=== PATIENT | female | born 1945 | race Caucasian/White ===

== ENCOUNTER → 2017-09-30 13:45 | Outpatient (CLI) | payer MEDICARE, SELFPAY ==
--- NOTE | 2017-09-30 13:49 | RAD_ITS ---
STUDY: X-RAY - CERVICAL SPINE REASON FOR EXAM: Female, 72 years old. Neck pain and headaches for one month. TECHNIQUE: 2 view(s) of the cervical spine were obtained. COMPARISON: None FINDINGS: Reversal of the usual cervical lordosis. Normal craniovertebral alignment. Normal C1, C2 and odontoid alignment. Normal odontoid. Normal vertebral body height without a fracture deformity. Advanced degenerative disc and joint changes at C3-4, C4-5, C5-6 and C6-7. Posterior elements remain properly located. Carotid artery calcifications. RAD/Cerv Spine 2 or 3 Views IMPRESSION: Reversal of the usual cervical lordosis with otherwise normal alignment. Advanced degenerative disc and joint changes at C3-4, C4-5, C5-6 and C6-7. Electronically Signed: Becka Estrada MD at 22:18 EST , Service support ,
== END ==
PROVIDERS: Family Provider Family Medicine Geriatric Medicine; PCP Family Medicine Geriatric Medicine; Visit Provider Family Medicine Geriatric Medicine
DX: M54.2 Cervicalgia (principal)
CPT/HCPCS: 72040

== ENCOUNTER → 2017-11-20 11:42 | Outpatient (CLI) | payer MEDICARE, SELFPAY ==
--- NOTE | 2017-11-20 11:45 | BI_ITS ---
MAMMOGRAPHY - BILATERAL SCREENING REASON FOR EXAM: Female, 72 years old. Routine annual screening examination. PERTINENT HISTORY: Non-contributory. TECHNIQUE: Digital bilateral breast dru (3D mammographic acquisition) in the CC and MLO projections. 2-D mediolateral oblique (MLO) and craniocaudad (CC) views of both breasts were obtained. CAD: Full Field Digital Mammography with Computer Added Detection was performed. COMPARISON: Comparison is made with prior outside examination dated January 16, 2016. FINDINGS: Breast Composition: There are scattered areas of fibroglandular density. There are no dominant masses or suspicious calcifications. Stable vascular calcifications. No other significant abnormalities are identified. There has been no significant change since the prior study. BI/SCREENING MAMM (CAD), BILAT IMPRESSION: Stable bilateral screening mammogram. Yearly follow-up mammogram recommended. (A) ASSESSMENT CATEGORY: BIRADS Category 2: Benign. A letter regarding these results will be sent to the patient by the facility within 30 days. Approximately 10% of breast cancers are not detected by mammography. A normal mammogram should not delay biopsy of a clinically suspicious abnormality. [id number] Electronically Signed: Ricardo Pena MD at 13:10 EDT Tel [phone], Service support ,
== END ==
PROVIDERS: Family Provider Family Medicine Geriatric Medicine; PCP Family Medicine Geriatric Medicine; Visit Provider Nurse Practitioner Women's Health
DX: Z12.31 Encounter for screening mammogram for malignant neoplasm of breast (principal)
CPT/HCPCS: 77063; 77067

== ENCOUNTER → 2018-01-28 13:47 | Outpatient (CLI) | payer MEDICARE, SELFPAY | PROVIDERS: Family Provider Family Medicine Geriatric Medicine; PCP Family Medicine Geriatric Medicine; Visit Provider Family Medicine Geriatric Medicine | DX: R68.83 Chills (without fever) (principal) | CPT/HCPCS: 87633 ==

== ENCOUNTER → 2018-04-08 08:23 | Outpatient (CLI) | payer MEDICARE, SELFPAY ==
--- NOTE | 2018-04-08 | SKTAG_PTH ---
PATIENT: JEANCARLOS THURSTON LOC: [facility] U#:[id number] AGE/SX: 80/F ROOM: RE04/08/[address]: Dr. Kemi Talbot MD : 1945 BED: DIS: SPEC #: [id number] RECD: 04/08/18 17:34 STATUS: MISAEL VICTOR HUGO #: [id number] DESHAUN: 04/08/18 00:[address]: Kemi Talbot DEPT: SURGICAL PATHOLOGY RECD BY: Pavan Rodriguez ENTERED: 04/09/18 11:46 SP TYPE: SKIN TAG GAIL DR: Dr. Garrett Corrales MD Tissues: Skin appendage, NOS Procedures: Surgery Specimen Level III HEADER OPERATION: Skin tag removal PRE-OP DIAGNOSIS: Skin tag TISSUE SUBMITTED: Skin tag ? left buttocks MICROSCOPIC DIAGNOSIS Skin tag, left buttock, excision: Inflamed fibroepithelial polyp (skin tag) with focal hyperkeratosis and parakeratosis. SJ:kya 04/12/18 MICROSCOPIC DESCRIPTION Slides are reviewed. GROSS DESCRIPTION Received is one container labeled with the patient's name and not further designated. The specimen consists of a polypoid piece of danielle-white skin measuring 1 x 0.7 x 0.7 cm. The specimen is inked, bisected and submitted entirely in one cassette. / JENNIFER:kya 04/09/18 TC:5 CPT: 41386
== END ==
PROVIDERS: Family Provider Family Medicine Geriatric Medicine; PCP Family Medicine Geriatric Medicine; Visit Provider Obstetrics & Gynecology
DX: L91.8 Other hypertrophic disorders of the skin (principal)
CPT/HCPCS: 88304

== ENCOUNTER → 2018-07-01 14:40 | Outpatient (CLI) | payer MEDICARE, SELFPAY ==
--- NOTE | 2018-07-01 16:49 | CT_ITS ---
STUDY: CT ABDOMEN AND PELVIS WITH CONTRAST REASON FOR EXAM: Female, 73 years old. Right lower quadrant pain RADIATION DOSAGE (If Supplied By Facility): CTDIvol = ( 17.88 ) mGy, DLP = ( 1173.87 ) mGycm TECHNIQUE: Transaxial images were obtained from the dome of the diaphragm to the symphysis pubis without oral contrast. 100 ml of Isovue 300 contrast was administered. Sagittal and coronal images were reconstructed. Individualized dose optimization techniques were used for this CT. COMPARISON: February 16, 2015 FINDINGS: There is minor atelectasis within the dependent portion of the lungs greater on the left The visualized portions of the heart are within normal limits. Small hiatal hernia is present Normal liver. Gallbladder has been removed surgically. Normal spleen. Normal pancreas. Right adrenal is normal. There is a hypodense nodule in left adrenal measuring 3.14 x 2.41 cm likely benign. Normal right kidney. Normal left kidney. Normal visualized stomach. Normal small intestine. There is generalized submucosal thickening of the colon which may be consistent with nonspecific inflammatory bowel disease however there is no inflammatory stranding in the fat at this time There are diverticular changes of the descending and sigmoid colon without evidence for acute diverticulitis. Appendix not visualized consistent with appendectomy Minor atherosclerotic changes of the aorta without evidence for aneurysm. Normal inferior vena cava. Normal retroperitoneum. Incompletely distended diffusely thick-walled bladder likely of no significance. Normal abdominal wall. Lumbar spine demonstrates moderate spondylosis. CT/Abdomen/Pelvis WITH Contrast IMPRESSION: Findings consistent with nonspecific inflammatory bowel disease Diverticular disease of the sigmoid colon without evidence for acute diverticulitis Postsurgical changes status post cholecystectomy and appendectomy. Electronically Signed: Surendra Dover MD at 22:37 EST , Service support ,
[2018-07-01 17:47] LABS: Absolute Lymphocyte Count 2.37 X10^3/ul (0.83-4.51); Absolute Neutrophil Count 15.2 X10^3/uL (2.0-7.7); Basophil# 0.04 X10^3/uL; Basophil% 0.2 % (0-1); Eosinophil# 0.34 X10^3/uL; Eosinophils% 1.8 % (0-5); Hematocrit 41.9 % (37-47); Hemoglobin 13.2 g/dl (12.0-15.0); Lymphocyte # 2.37 X10^3/ul (4.0); Lymphocyte % 12.5 % (19-41); Mean Corp Hgb Conc 31.5 g/gl (32-36); Mean Corpuscular Hgb 28.3 pg (27.0-32.0); Mean Corpuscular Volume 89.7 fL (81-99); Mean Platelet Vol. 11.3 fl (6.2-12.0); Monocyte# 0.97 X10^3/uL; Monocyte% 5.1 % (0-10); Neutrophil # 15.17 X10^3/uL (2.7-7.7); POSITIVE COUNT NO; POSITIVE DIFFERENTIAL NO; POSITIVE MORPHOLOGY NO; Platelet Count 351 K/mm3 (150-450); RBC Distribution Width CV 15.7 % (11.6-14.6); RBC Distribution Width SD 51.3 fl (35.1-43.9); Red Blood Count 4.67 M/mm3 (4.2-5.4)
[2018-07-01 17:55] LABS: AST(SGOT) 31 U/L (15-37); Alanine Aminotransfer ALT/SGPT 34 U/L (13-56); Albumin, Serum 3.8 g/dL (3.2-5.0); Alkaline Phosphatase 73 U/L (45-117); Anion Gap 12 (5-15); BUN 20 mg/dL (7-18); BUN/Creat Ratio 16.1 RATIO (10-20); Calcium,Total 9.2 mg/dL (8.5-10.1); Chloride 98 mmol/L (98-107); Creatinine, Serum 1.24 mg/dL (0.55-1.02); EST Glomerular Filtration Rate 45 mL/min (>60); Est Glom Filt Rate - Afr Amer 55 mL/min (>60); Globulin 3.7 g/dL (2.2-4.2); Glucose 103 mg/dL (74-106); Potassium 3.7 mmol/L (3.5-5.1); Protein, Total 7.5 g/dL (6.4-8.2); Sodium Level 137 mmol/L (136-145)
--- OUTSIDE RECORDS SUMMARY | 2018-08-26 20:21 | XMS RPT_ITS ---
:1945 Author Organization OHIP Support Name Relationship Address Phone EDDIE FELICIANO Unavailable [address] + [place] [address] R Unavailable Unavailable Unavailable EDDIE FELICIANO Unavailable [address] + [place] [address] R Unavailable Unavailable Unavailable EDDIE FELICIANO Unavailable [address] + [place] [address] R Unavailable Unavailable Unavailable EDDIE FELICINAO Unavailable [address] + [place] [address] R Unavailable Unavailable Unavailable EDDIE FELICIANO Unavailable [address] + [place] [address] R Unavailable Unavailable Unavailable EDDIE FELICIANO Unavailable [address] + [place] [address] R Unavailable Unavailable Unavailable EDDIE FELICIANO Unavailable [address] + [place] [address] R Unavailable Unavailable Unavailable EDDIE FELICIANO Unavailable Unavailable + EDDIE FELICIANO Unavailable Unavailable + EDDIE FELICIANO Unavailable [address] + [place] [address] R Unavailable Unavailable Unavailable EDDIE FELICIANO Unavailable [address] + [place] [address] R Unavailable Unavailable Unavailable EDDIE FELICIANO Unavailable [address] + [place] [address] R Unavailable Unavailable Unavailable Care Team Providers Name Role Phone SOLANGE NOEL MD Attending Unavailable MARIA DEL CARMEN HOPE, DR. AVILA Primary Care Unavailable Nisula, Molly Attending Unavailable Maria Del Carmen, Garrett Chi Referring Unavailable Maria Del Carmen, Garrett Chi Primary Care Unavailable Maria Del Carmen, Garrett Chi Attending Unavailable Maria Del Carmen, Garrett Chi Referring Unavailable Maria Del Carmen, Garrett Chi Primary Care Unavailable Johnna Kuo Attending Unavailable Nisula, Johnna Referring Unavailable Maria Del Carmen, Garrett Chi Primary Care Unavailable RoneychevySolange Jovany Attending Unavailable Maria Del Carmen, Garrett Chi Primary Care Unavailable Ayaan Johnna Attending Unavailable Maria Del Carmen, Garrett Chi Referring Unavailable Maria Del Carmen, Garrett Chi Primary Care Unavailable Maria Del Carmen, Garrett Chi Attending Unavailable Maria Del Carmen, Garrett Chi Referring Unavailable Maria Del Carmen, Garrett Chi Primary Care Unavailable Kemi Talbot Attending Unavailable Maria Del Carmen, Garrett Chi Primary Care Unavailable Maria Del Carmen, Garrett Chi Attending Unavailable Maria Del Carmen, Garrett Chi Primary Care Unavailable Maria Del Carmen, Garrett Chi Referring Unavailable Maria Del Carmen, Garrett Chi Attending Unavailable Maria Del Carmen, Garrett Chi Primary Care Unavailable Maria Del Carmen, Garrett Chi Attending Unavailable Maria Del Carmen, Garrett Chi Primary Care Unavailable Maria Del Carmen, Garrett Chi Referring Unavailable PROBLEMS PROBLEMS DATE TYPE CONDITION / CODE ATTENDING STATUS SOURCE 07/12/2018 Unknown R19.7 - Diarrhea, Maria Del Carmen, Garrett Chi Active [place] unspecified / Community R19.7(ICD-10) Hospital Repository 07/09/2018 Unknown R10.9 - Unspecified Maria Del Carmen, Garrett Chi [facility] [place] abdominal pain / Community R10.9(ICD-10) Hospital Repository 04/29/2018 Unknown E55.9 - Vitamin D Maria Del Carmen, Garrett Chi Active [place] deficiency, Community unspecified / Hospital E55.9(ICD-10) Repository 04/29/2018 Unknown I10 - Essential Maria Del Carmen, Garrett Chi Active [place] (primary) Community hypertension / Hospital I10(ICD-10) Repository 09/30/2017 Unknown M54.2 - Cervicalgia Maria Del Carmen, Garrett Chi [facility] [place] / M54.2(ICD-10) [facility] Hospital Repository 09/02/2017 Unknown Z12.31 - Encounter Johnna Kuo Active [place] for screening [facility] mammogram for Hospital malignant neoplasm Repository of breast / Z12.31(ICD-10) 09/02/2017 Unknown Z01.419 - Encounter AyaanJohnna ingram Active [place] for gynecological [facility] examination Hospital (general) (routine) Repository without abnormal findings / Z01.419(ICD-10) PROCEDURES PROCEDURES No Procedure Records FoundRESULTS RESULTS STOOL Observed: 07/12/2018 Status: F Source: [place] LACTOFERRIN/WBC 1:45 PM [facility] REPOSITORY PATIENT TO RETURN WITH O AND P; PATIENT WAS NOT GIVEN THE O AND P COLLECTION KIT IN THE OFFICE PER PATIENT. Stool Lacto/WBC Normal Reference Range = Negative Fecal WBC Lactoferrin Positive: Fecal WBC Lactoferrin present Performed By: #### M100.0605, M100.7900, M100.6796, M100.637 #### [facility] [address]. [place], [place], [id number] Observed: 07/12/2018 Status: F Source: [place] STOOL OCCULT BLOOD 1:45 PM [facility] REPOSITORY PATIENT TO RETURN WITH O AND P; PATIENT WAS NOT GIVEN THE O AND P COLLECTION KIT IN THE OFFICE PER PATIENT. STOB iFOB Occult Blood Negative Performed By: #### M100.0605, M100.7900, M100.6796, M100.637 #### [facility] [address] [place], [address] Observed: 07/12/2018 Status: F Source: [place] CDIFF (MOLECULAR) 1:45 PM [facility] REPOSITORY PATIENT TO RETURN WITH O AND P; PATIENT WAS NOT GIVEN THE O AND P COLLECTION KIT IN THE OFFICE PER PATIENT. Cdiff-Molecular Normal Reference Range = Negative C. Diff DNA Negative- No toxigenic C. Diff DNA Detected NAAT METHOD Testing was performed using nucleic acid amplification Performed By: #### M100.0605, M100.7900, M100.6796, M100.637 #### [facility] [address]. [place], [place], [id number] Observed: 07/12/2018 Status: F Source: [place] ENTERIC PATHOGEN 1:45 PM [facility] PANEL STOOL REPOSITORY PATIENT TO RETURN WITH O AND P; PATIENT WAS NOT GIVEN THE O AND P COLLECTION KIT IN THE OFFICE PER PATIENT. EP PANEL STOOL Normal Reference Range = Not Detected Not detected for Campylobacter group, Salmonella species, Shigella species, Vibrio Group, Yersinia enterocolitica, EHEC (Shiga Toxin 1, Shiga Toxin 2), Norovirus Gl/Gll, and Rotavirus A. Other common stool pathogens are not detected on this panel include: Aeromonas/Plesiomonas or parasites. Order testing for these organisms separately if suspected. This is an amplified DNA test which makes it both specific and sensitive. CAMPYLOBACTER Not Detected Salmonella Not Detected Shigella sp. Not Detected Shiga Toxin Not Detected Yersinia Not Detected VIBRIO Not Detected Norovirus Not Detected Rotavirus Not Detected Performed By: #### M100.0605, M100.7900, M100.6796, M100.637 #### [facility] [address] [place], [address] MANAGER UNION OFFICE VISIT Observed: 07/07/2018 Status: F Source: [place] REPORT 8:44 AM [facility] REPOSITORY [facility] [address] [place] [place] [address] OFFICE VISIT Date of Service: 09/02/17 MR#: [id number] Acct: [id number] Name: JEANCARLOS THURSTON Rep #: [id number] : 1945 Provider: GUERLINE Kuo Age/Sex: 72/F Location: [facility] Status: Signed with Addenda ADDENDUM by GUERLINE Kuo on 07/07/18 at 0844 Addendum entered and electronically signed by ERICKA Gustafson 07/07/18 08:44: Rectal exam was deferred. No masses palpated Assessment AND Plan Problems 1. Encounter for gynecological examination without abnormal finding Z01.419 2. 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) Chief Complaint: est annual Iron Cutter Required: No Is patient in pain?: No Allergies STEROIDS Allergy (Uncoded 09/02/17 11:07) Chest tightness Medications Calcium Carb/Vitamin D [Caltrate-600 With Vit D Tab] 1 tab PO BIDCM 06/10/13 [History Confirmed 09/02/17] Omeprazole [Prilosec] 20 mg PO DAILY 06/10/13 [History Confirmed 09/02/17] Simvastatin [Zocor] 80 mg PO QHS 06/10/13 [History Confirmed 09/02/17] Gabapentin [Neurontin] 300 mg PO BIDCM 04/09/16 [History Confirmed 09/02/17] Potassium 99 mg PO DAILY 04/09/16 [History Confirmed 09/02/17] Is last menstrual period known: No Post menopausal: Yes Patient : No : No PFSH Medical History Depression (Acute) Thyroid disorder (Acute) Surgical History History of appendectomy (Acute) History of tonsillectomy and adenoidectomy (Acute) femur surgery (Acute) gallbladder surgery (Acute) knee replacement (Acute) Family History Father Myocardial infarction Social History Smoking Status: Never smoker alcohol intake: never substance use type: does not use caffeine: Yes frequency: 1-2 times per week seatbelt use: always do you feel safe at home: Yes additional social history: Pregancy History 4 Elective abortions Hx Para 3 Spontaneous abortions Past Pregnancies Del. 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 Last mammogram: 2017 History of abnormal mammogram: benign biopsy Colon cancer screening: up to date Female Reproductive History Questions: Metorrhagia: No, Sexually active: No, Dyspareunia: No, PCB: No Menopausal Treatment: No HRT ROS Const Constitutional: Denies fatigue, weight gain or weight loss Cardio Card: Denies chest pain Resp Resp: Denies cough or shortness of breath with activity GI GI: Denies abdominal pain, constipation, change in stools, vomiting or bloating : Reports as per HPI; denies urinary frequency, pelvic pain, urinary urgency, vaginal discharge, vaginal itching, urinary incontinence or difficulty urinating Exam Const General: cooperative, healthy appearing, no acute distress, well developed Orientation: alert, oriented to person, oriented to place HENMN Head: normal to inspection Neck Neck: normal visual inspection Thyroid: thyroid normal Lymphatic: no lymphadenopathy noted Chest Breast inspection: normal inspection of the breasts, normal inspection of the axillae Breast palpation: normal palpation of the breasts, normal palpation of the axillae, no axillary lymphadenopathy Resp Effort AND Inspection: normal respiratory effort GI Palpation: soft, nontender, no masses Rectal Exam: mass, deferred External Female Exam: normal external appearance, normal appearance of the urethra Urethra: normal appearance of the urethra, normal palpation Speculum Exam - Vagina: normal appearance of the vagina, normal vaginal discharge Speculum Exam - Cervix: normal appearance of the cervix (stenotic) Bimanual Exam- Vagina AND Uterus: normal bimanual exam, uterine size normal, uterine shape normal, uterus non-tender Bimanual Exam- Adnexa, other: normal adnexae, no adnexal masses, adnexae non-tender, pelvic support normal Pelvic Support: normal Neuro General: alert, oriented x3 Psych Affect: normal affect Assessment AND Plan Problems 1. Encounter for gynecological examination without abnormal finding Z01.419 2. Encounter for screening mammogram for malignant neoplasm of breast Z12.31 Orders Orders: Coding Level of Care Code Pelvic/Breast Diagnoses Encounter for gynecological examination without abnormal finding Z01.419 Gynecological examination findings: abnormal findings ABSENT Encounter for screening mammogram for malignant neoplasm of breast Z12.31 09/02/17 1143 <Electronically signed by Johnna BARNETT> Date Johnna LEWISC Cosigner Signature: Date (if applicable) CC: CBC W/DIFF, AUTOMATED Collected: 07/05/2018 Status: F Source: [place] 11:16 AM [facility] REPOSITORY TYPE CODE TESTS RESULT OUT OF RANGE REFERENCE UNITS LAB L100.1000 4.4-11.0 K/mm3 High WBC 11.1 LAB L100.1200 4.2-5.4 M/mm3 Normal RBC 4.65 LAB L100.1300 12.0-15.0 g/dl Normal HGB 13.0 LAB L100.1400 37-47 % Normal HCT 41.1 LAB L100.1500 81-99 fL Normal MCV 88.4 LAB L100.1600 27.0-32.0 pg Normal MCH 28.0 LAB L100.1700 32-36 g/gl Low MCHC 31.6 LAB L100.1810 11.6-14.6 % High RDW CV 15.4 LAB L100.1820 35.1-43.9 fl High RDW SD 49.7 LAB L100.1900 150-450 K/mm3 Normal PLT 318 LAB L100.2000 6.2-12.0 fl Normal MPV 10.6 LAB L100.2100 47-70 % High NEUT% 75.9 LAB L100.2200 19-41 % Low LY% 13.3 LAB L100.2300 0-10 % Normal MONO% 7.2 LAB L100.2400 0-5 % Normal EO% 2.8 LAB L100.2500 0-1 % Normal BASO% 0.5 LAB L100.2550 0.0-0.9 % Normal IM GRAN % 0.300 Result Comment: IG% - Immature Granulocytes (promyelocytes, myelocytes and metamyelocytes) > 1% indicates that a LEFT SHIFT is Present. LAB L100.2620 2.0-7.7 X10 3/uL High Absolute Neut 8.4 LAB L100.2720 0.83-4.51 X10 3/ul Normal Absolute Lymph 1.47 Performed By: #### L100.0100 #### [facility] [address] [place], [place], [address] VITAMIN D,25 HYDROXY Collected: 07/05/2018 Status: F Source: [place] 11:16 AM [facility] REPOSITORY TYPE CODE TESTS RESULT OUT OF REFERENCE UNITS RANGE LAB L506.1000 29.95-100.01 ng/mL Low Vitamin D 24.9 25-OH Result Comment: Vitamin D 25(OH) Status Range Deficiency <20 ng/mL (50nmol/L) Insuffciency 20 - 30 ng/mL (50 - 75 nmol/L) Sufficiency 30 - 100 ng/mL (75 - 250 nmol/L) Toxicity >100 ng/mL (>250 nmol/L) Performed By: #### L506.1000 #### [facility] [address] [facility] [place], [address] COMPREHENSIVE METABOLIC Collected: 07/05/2018 Status: F Source: [place] PATEL 11:16 AM [facility] REPOSITORY TYPE CODE TESTS RESULT OUT OF RANGE REFERENCE UNITS LAB L501.0100 74-106 mg/dL Normal GLU 102 Result Comment: Fasting Glucose result from 100 to 125 mg/dL suggests IMPAIRED HOMEOSTASIS per A.D.A. criteria. Please note revised GLUCOSE reference range effective 2017. LAB L501.1000 7-18 mg/dL Normal BUN 15 LAB L501.1100 0.55-1.02 mg/dL Normal CREAT,SERUM 0.86 Result Comment: The validity of the calculated GFR AND GFRAA in patients over 70 years has not been determined. Clinical correlation is essential. LAB L501.1110 >60 mL/min Normal EST GFR 69 Result Comment: Non- GFR Calc LAB L501.1115 >60 mL/min Normal EST GFR - AA 83 Result Comment: GFR Calc LAB L501.1300 10-20 RATIO Normal BUN/CRE 17.5 LAB L501.1500 6.4-8.2 g/dL T Normal PROT 7.0 LAB L501.1800 3.2-5.0 g/dL Normal ALB 3.5 LAB L501.1950 2.2-4.2 g/dL Normal GLOB 3.5 LAB L501.2000 0.9-2.4 RATIO Normal A/G 1.0 LAB L501.2200 8.5-10.1 mg/dL CA Normal 8.6 LAB L501.4100 15-37 U/L Normal AST 31 LAB L501.4305 45-117 U/L Normal ALK P 67 LAB L501.4405 13-56 U/L Normal ALT 29 LAB L501.4600 0.20-1.00 mg/dL T Normal BILI 1.00 LAB L501.5300 136-145 mmol/L NA Normal 138 LAB L501.5600 3.5-5.1 mmol/L Low K 3.3 LAB L501.5900 98-107 mmol/L CL Normal 100 LAB L501.6100 21.0-32.0 mmol/L Normal CO2 30.0 LAB L501.6200 5-15 Normal GAP 8 Performed By: #### L500.4050, L501.9520 #### [facility] [address] [place], [address] THYROID STIM HORMONE Collected: 07/05/2018 Status: F Source: [place] (TSH) 11:16 AM [facility] REPOSITORY TYPE CODE TESTS RESULT OUT OF RANGE REFERENCE UNITS LAB L501.9520 0.358-3.74 uIU/mL High TSH 33.10 Performed By: #### L500.4050, L501.9520 #### [facility] [address] [place], [address] ABDOMEN/PELVIS WITH Observed: 07/01/2018 Status: F Source: [place] CONTRAST 4:49 PM [facility] REPOSITORY [facility] Imaging Services [address] [address] Abdomen/Pelvis WITH Contrast MR#: [id number] Acct: [id number] Name: JEANCARLOS THURSTON Rep #: [id number] : 1945 F 73 From: Surendra Dover MD PCP: Garertt Corrales MD, [place] Status: REG CLI Study: Abdomen/Pelvis WITH Contrast Date of Exam: 07/01/18 Exam# [id number] Ordering Dr: Garrett Corrales MD STUDY: CT ABDOMEN AND PELVIS WITH CONTRAST REASON FOR EXAM: Female, 73 years old. Right lower quadrant pain RADIATION DOSAGE (If Supplied By Facility): CTDIvol = ( 17.88 ) mGy, DLP = ( 1173.87 ) mGycm TECHNIQUE: Transaxial images were obtained from the dome of the diaphragm to the symphysis pubis without oral contrast. 100 ml of Isovue 300 contrast was administered. Sagittal and coronal images were reconstructed. Individualized dose optimization techniques were used for this CT. COMPARISON: February 16, 2015 FINDINGS: There is minor atelectasis within the dependent portion of the lungs greater on the left The visualized portions of the heart are within normal limits. Small hiatal hernia is present Normal liver. Gallbladder has been removed surgically. Normal spleen. Normal pancreas. Right adrenal is normal. There is a hypodense nodule in left adrenal measuring 3.14 x 2.41 cm likely benign. Normal right kidney. Normal left kidney. Normal visualized stomach. Normal small intestine. There is generalized submucosal thickening of the colon which may be consistent with nonspecific inflammatory bowel disease however there is no inflammatory stranding in the fat at this time There are diverticular changes of the descending and sigmoid colon without evidence for acute diverticulitis. Appendix not visualized consistent with appendectomy Minor atherosclerotic changes of the aorta without evidence for aneurysm. Normal inferior vena cava. Normal retroperitoneum. Incompletely distended diffusely thick-walled bladder likely of no significance. Normal abdominal wall. Lumbar spine demonstrates moderate spondylosis. CT/Abdomen/Pelvis WITH Contrast IMPRESSION: Findings consistent with nonspecific inflammatory bowel disease Diverticular disease of the sigmoid colon without evidence for acute diverticulitis Postsurgical changes status post cholecystectomy and appendectomy. Electronically Signed: Surendra Dover MD at 22:37 EST , Service support , CC: Garrett Corrales MD [employer] Supervisor: Signed CBC W/DIFF, AUTOMATED Collected: 07/01/2018 Status: F Source: [place] 2:49 PM [facility] REPOSITORY TYPE CODE TESTS RESULT OUT OF RANGE REFERENCE UNITS LAB L100.1000 4.4-11.0 K/mm3 High WBC 19.0 LAB L100.1200 4.2-5.4 M/mm3 Normal RBC 4.67 LAB L100.1300 12.0-15.0 g/dl Normal HGB 13.2 LAB L100.1400 37-47 % Normal HCT 41.9 LAB L100.1500 81-99 fL Normal MCV 89.7 LAB L100.1600 27.0-32.0 pg Normal MCH 28.3 LAB L100.1700 32-36 g/gl Low MCHC 31.5 LAB L100.1810 11.6-14.6 % High RDW CV 15.7 LAB L100.1820 35.1-43.9 fl High RDW SD 51.3 LAB L100.1900 150-450 K/mm3 Normal PLT 351 LAB L100.2000 6.2-12.0 fl Normal MPV 11.3 LAB L100.2100 47-70 % High NEUT% 80.0 LAB L100.2200 19-41 % Low LY% 12.5 LAB L100.2300 0-10 % Normal MONO% 5.1 LAB L100.2400 0-5 % Normal EO% 1.8 LAB L100.2500 0-1 % Normal BASO% 0.2 LAB L100.2550 0.0-0.9 % Normal IM GRAN % 0.400 Result Comment: IG% - Immature Granulocytes (promyelocytes, myelocytes and metamyelocytes) > 1% indicates that a LEFT SHIFT is Present. LAB L100.2620 2.0-7.7 X10 3/uL High Absolute Neut 15.2 LAB L100.2720 0.83-4.51 X10 3/ul Normal Absolute Lymph 2.37 Performed By: #### L100.0100 #### [facility] [address] [place], [address] COMPREHENSIVE METABOLIC Collected: 07/01/2018 Status: F Source: [facility] 2:49 PM [facility] REPOSITORY TYPE CODE TESTS RESULT OUT OF RANGE REFERENCE UNITS LAB L501.0100 74-106 mg/dL Normal GLU 103 Result Comment: Fasting Glucose result from 100 to 125 mg/dL suggests IMPAIRED HOMEOSTASIS per A.D.A. criteria. Please note revised GLUCOSE reference range effective 2017. LAB L501.1000 7-18 mg/dL High BUN 20 LAB L501.1100 0.55-1.02 mg/dL High CREAT,SERUM 1.24 Result Comment: The validity of the calculated GFR AND GFRAA in patients over 70 years has not been determined. Clinical correlation is essential. LAB L501.1110 >60 mL/min Low EST GFR 45 Result Comment: Non- GFR Calc LAB L501.1115 >60 mL/min Low EST GFR - AA 55 Result Comment: GFR Calc LAB L501.1300 10-20 RATIO Normal BUN/CRE 16.1 LAB L501.1500 6.4-8.2 g/dL T Normal PROT 7.5 LAB L501.1800 3.2-5.0 g/dL Normal ALB 3.8 LAB L501.1950 2.2-4.2 g/dL Normal GLOB 3.7 LAB L501.2000 0.9-2.4 RATIO Normal A/G 1.0 LAB L501.2200 8.5-10.1 mg/dL CA Normal 9.2 LAB L501.4100 15-37 U/L Normal AST 31 LAB L501.4305 45-117 U/L Normal ALK P 73 LAB L501.4405 13-56 U/L Normal ALT 34 LAB L501.4600 0.20-1.00 mg/dL High T BILI 1.20 LAB L501.5300 136-145 mmol/L NA Normal 137 LAB L501.5600 3.5-5.1 mmol/L K Normal 3.7 LAB L501.5900 98-107 mmol/L CL Normal 98 LAB L501.6100 21.0-32.0 mmol/L Normal CO2 27.0 LAB L501.6200 5-15 Normal GAP 12 Performed By: #### L500.4050 #### [facility] [address] [place], [address] Observed: 07/01/2018 Status: F Source: [place] CULTURE, URINE 2:49 PM [facility] REPOSITORY Urine Culture ORGANISM 1: Staphylococcus aureus [place] Count 25,000-50,000 ORGANISM 2: Streptococcus agalactiae (B) [place] Count 25,000-50,000 Staphylococcus aureus: REACTION Benzylpenicillin NF 0.25 R Cefoxitin *NF - Inducable Clindamycin [place] - Gentamicin $ <=0.5 S Levofloxacin $ 0.25 S Linezolid $$$$ 2 S Moxifloxicin *NF <=0.25 S Nitrofurantoin $ <=16 S Oxacillin NF 0.5 S Rifampin $$ <=0.5 S Tetracycline NF <=1 S Trimethoprim/Sulfametho $ <=10 S Vancomycin $ 1 S (NF) indicates non-formulary drug at [facility]. Approval by Infectious Disease Specialist required before non-formulary drugs may be ordered and/or dispensed. * CLSI guidelines does not recommend testing of cephalosporins. This interpretation is deduced from Beta-lactam/penicillin results. Streptococcus agalactiae (B): REACTION Ampicillin $ <=0.25 S Benzylpenicillin NF <=0.12 S Linezolid $$$$ 1 S Vancomycin $ 0.5 S (NF) indicates non-formulary drug at [facility]. Approval by Infectious Disease Specialist required before non-formulary drugs may be ordered and/or dispensed. * CLSI guidelines does not recommend testing of cephalosporins. This interpretation is deduced from Beta-lactam/penicillin results. Performed By: #### M100.0650 #### [facility] [address] [place], [address] MANAGER UNION OFFICE VISIT Observed: 04/19/2018 Status: F Source: [place] REPORT 3:13 PM [facility] REPOSITORY [facility] [address] [place] [address] OFFICE VISIT Date of Service: 04/08/18 MR#: [id number] Acct: [id number] Name: JEANCARLOS THURSTON Rep #: [id number] : 1945 Provider: GUERLINE Kuo Age/Sex: 72/F Location: [facility] Status: Signed Intake Vital Signs04/08/18 Height 5 ft 1 in 04/08/18 Weight: 195 lb 2 oz 04/08/18 Body Mass Index (BMI) 36.8 04/08/18 Blood Pressure 124/64 Intake Visit Reasons: vaginal lump Iron Cutter Required: No Is patient in pain?: No Allergies STEROIDS Allergy (Uncoded 04/08/18 11:56) Chest tightness Medications Calcium Carb/Vitamin D [Caltrate-600 With Vit D Tab] 1 tab PO BIDCM 06/10/13 [History Confirmed 04/08/18] Omeprazole [Prilosec] 20 mg PO DAILY 06/10/13 [History Confirmed 04/08/18] Simvastatin [Zocor] 80 mg PO QHS 06/10/13 [History Confirmed 04/08/18] Potassium 99 mg PO DAILY 04/09/16 [History Confirmed 04/08/18] lutein 10 mg tablet 10 mg PO DAILY 04/08/18 [History Confirmed 04/08/18] pregabalin 75 mg capsule 75 mg PO BID 04/08/18 [History Confirmed 04/08/18] Is last menstrual period known: No Post menopausal: Yes Patient : No : No [facility] Medical History Depression (Acute) Thyroid disorder (Acute) Surgical History History of appendectomy (Acute) History of tonsillectomy and adenoidectomy (Acute) femur surgery (Acute) gallbladder surgery (Acute) knee replacement (Acute) Family History Father Myocardial infarction Social History Smoking Status: Never smoker alcohol intake: never substance use type: does not use caffeine: Yes frequency: 1-2 times per week seatbelt use: always do you feel safe at home: Yes additional social history: HPI vaginal lump: Details: JEANCALROS THURSTON is a 72 year old who presents for irritated lump near left labia that is being rubbed or caught on underclothes. Pregancy History 4 Elective abortions Hx Para 3 Spontaneous abortions Past Pregnancies Del. DateName GA/Weeks Outcome Route Bth WeighInfant GeLabor LgtAnesthesiDel LocatProvider FOB t n h a n Exam External Female Exam: other (1cm skin tag with thin stalk inner upper left buttocks-remove per POLLO) Office Procedures Skin Tag Provider Documentation Details:: left buttox prepped with betadine and base injected with lidocaine and base cut with scissors and silver nitrate used to obtain hemostasis Alert Stock Clerk Alert Billing: Yes Skin Tag Skin Ta 1-15 Assessment AND Plan Problems 1. Skin tag of perianal region K64.4 Plan - ERICKA Gustafson Keep area clean and dry. Wear lose clothing. Call if symptoms infection occur RTO prn, annual exam Orders Orders: Coding Diagnoses Skin tag of perianal region K64.4 04/19/18 1513 <Electronically signed by Johnna BARNETT> Date Johnna BARNETT 04/08/18 1651<Electronically signed by Kemi Talbot MD> Cosigner Signature: Date (if applicable) Kemi Talbot MD CC: SKIN TAG Observed: 04/08/2018 Status: F Source: [place] 12:00 AM [facility] REPOSITORY Patient: JEANCARLOS THURSTON : 1945 (72/F) Acct Num: [id number] Phys: Kemi Talbot MD Unit Num: [id number] Loc: LABSPEC Specimen: [id number] Received: 04/08/181733 Spec Type: SKIN TAG TISSUES TISSUES: Skin appendage, NOS GROSS DESCRIPTION Received is one container labeled with the patient's name and not further designated. The specimen consists of a polypoid piece of danielle-white skin measuring 1 x 0.7 x 0.7 cm. The specimen is inked, bisected and submitted entirely in one cassette. / SJ:kya 04/09/18 TC:5 CPT: 09261 HEADER OPERATION: Skin tag removal PRE-OP DIAGNOSIS: Skin tag TISSUE SUBMITTED: Skin tag left buttocks MICROSCOPIC DESCRIPTION Slides are reviewed. 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 SJ:kya 04/12/18 Signed Cain Schumacher 04/12/18 <signature on file> Performed By: #### PSKTAG #### [facility] [address] [place], [address] Observed: 01/28/2018 Status: F Source: [place] RESPIRATORY PANEL 3:55 PM [facility] MOLECULAR REPOSITORY Results called on 01/29/18-0919 by DCACIRAON to /NURSE LINE [phone]. RP PANEL Normal Reference Range = Not Detected ADENOVIRUS Not Detected HUMAN METAPHNEUMO Not Detected INFLUENZA A Not Detected INFLUENZA A (SUBTYPE H1) Not Detected INFLUENZA A (SUBTYPE H3) Not Detected INFLUENZA B Not Detected PARAINFLUENZA 1 Not Detected PARAINFLUENZA 2 Not Detected PARAINFLUENZA 3 Not Detected PARAINFLUENZA 4 Not Detected RHINOVIRUS Positive for RHINOVIRUS by NAAT technology RSV A Not Detected RSV B Not Detected NAAT METHOD Testing was performed using nucleic acid amplification ORGANISM 1: RHINOVIRUS Performed By: #### M100.638 #### [facility] [address] [place], [address] CMP Collected: 01/19/2018 Status: F Source: [facility] 1:56 PM [facility] REPOSITORY TYPE CODE TESTS RESULT OUT OF REFERENCE UNITS RANGE LAB GLU(LOINC) 83-110 mg/dL Glucose Level 87 LAB NA(LOINC) 136-146 mEq/L Sodium Level 139 LAB K(LOINC) 3.5-5.1 mEq/L Potassium Level 4.4 LAB CL(LOINC) 98-107 mEq/L Chloride 102 LAB CO2(LOINC) 23-31 mEq/L CO2 29 LAB EBAL(LOINC mEq/L ) Electrolyte Balance 8.0 LAB BUN(LOINC) 7.0-18.0 mg/dL BUN High 19.2 LAB CRE(LOINC) 0.6-1.2 mg/dL Creatinine Lvl (s) 0.9 LAB BC(LOINC) 7-27 ratio BUN/Creatinine 21 Ratio LAB CA(LOINC) 8.4-10.2 mg/dL Calcium Lvl 9.4 LAB PROT(LOINC 6.0-8.3 G/dL ) Total Protein 6.8 LAB ALB(LOINC) 3.4-4.8 G/dL Albumin Level 4.1 LAB GLB(LOINC) G/dL Globulin 2.7 LAB AG(LOINC) 1.1-2.5 ratio A/G Ratio 1.5 LAB BILT(LOINC 0.2-1.0 mg/dL ) Bili Total High 1.1 LAB AP(LOINC) 40-135 IU/L Alk Phos 77 LAB AST(LOINC) 10-40 IU/L AST/SGOT 19 LAB ALT(LOINC) 10-35 IU/L ALT/SGPT 17 Performed By: #### TSH, CBC, GFR, ADIFF, FT4, ANEU, CMP, FT3 #### [address] [place], [place] [address] #### VIDH #### [address] [address] .GFR Collected: 01/19/2018 Status: F Source: [facility] 1:56 PM [facility] REPOSITORY TYPE CODE TESTS RESULT OUT OF REFERENCE UNITS RANGE LAB GFRAA(LOINC ml/min/1.73 ) sqm GFR 76 [place] Result Comment: GFR Population mean for , Non- Americans Ages 20-29 = 116 mL/min/1.73 sq.m. Ages 30-39 = 107 mL/min/1.73 sq.m. Ages 40-49 = 99 mL/min/1.73 sq.m. Ages 50-59 = 93 mL/min/1.73 sq.m. Ages 60-69 = 85 mL/min/1.73 sq.m. Ages 70+ = 75 mL/min/1.73 sq.m. Chronic Kidney Disease: Less than 60 mL/min/1.73 square meters End Stage Renal Disease: Less than 15 mL/min/1.73 square meters LAB GFRNO(LOINC) ml/min/1.73sqm GFR Non- >60 Result Comment: GFR Population mean for , Non- Americans Ages 20-29 = 116 mL/min/1.73 sq.m. Ages 30-39 = 107 mL/min/1.73 sq.m. Ages 40-49 = 99 mL/min/1.73 sq.m. Ages 50-59 = 93 mL/min/1.73 sq.m. Ages 60-69 = 85 mL/min/1.73 sq.m. Ages 70+ = 75 mL/min/1.73 sq.m. Chronic Kidney Disease: Less than 60 mL/min/1.73 square meters End Stage Renal Disease: Less than 15 mL/min/1.73 square meters Performed By: #### TSH, CBC, GFR, ADIFF, FT4, ANEU, CMP, FT3 #### [address] [place], [place] [address] #### VIDH #### [address] [address] CBC Collected: 01/19/2018 Status: F Source: [facility] 1:56 PM [facility] REPOSITORY TYPE CODE TESTS RESULT OUT OF REFERENCE UNITS RANGE LAB WBC(LOINC) 4.60-10.80 10 3/mcL WBC 9.40 LAB RBCCT(LOINC 4.20-5.40 10 6/mcL ) RBC 4.67 LAB HGB(LOINC) 12.0-16.0 G/dL Hgb 13.1 LAB HCT(LOINC) 37.0-47.0 % Hct 40.2 LAB MCV(LOINC) 80.0-94.0 fL MCV 86.1 LAB MCH(LOINC) 27.0-31.2 pg MCH 28.1 LAB MCHC(LOINC) 33.0-37.0 G/dL Low MCHC 32.6 LAB RDW(LOINC) 11.5-14.5 % High RDW 15.4 LAB PLT(LOINC) 130-400 10 3/mcL Platelet 294 LAB MPV(LOINC) 7.4-10.4 fL MPV 10.1 Performed By: #### TSH, CBC, GFR, ADIFF, FT4, ANEU, CMP, FT3 #### [address] [address] #### VIDH #### [address] [address] .AUTO DIFF Collected: 01/19/2018 Status: F Source: [facility] 1:56 [facility] REPOSITORY TYPE CODE TESTS RESULT OUT OF REFERENCE UNITS RANGE LAB YESSICA(LOINC) 37.0-80.0 % Neutrophil % 67.0 LAB LYM(LOINC) 10.0-50.0 % Lymphocyte % 19.9 LAB MON(LOINC) 1.7-13.0 % Monocyte % 8.8 LAB EO(LOINC) 0.0-7.0 % Eosinophil % 3.5 LAB BAS(LOINC) 0.0-2.5 % Basophil % 0.8 LAB ABLYM(LOIN 0.77-3.85 10 3/mcL C) Lymphocyte, 1.90 Absolute LAB KRISTINE(LOINC 0.15-1.00 10 3/mcL ) Monocyte, 0.80 Absolute LAB AEOS(LOINC 0.00-0.40 10 3/mcL ) Eosinophil, 0.30 Absolute LAB ABAS(LOINC 0.00-0.19 10 3/mcL ) Basophil, 0.10 Absolute Performed By: #### TSH, CBC, GFR, ADIFF, FT4, ANEU, CMP, FT3 #### [address] [address] #### VIDH #### [place] [address] .NEUABS Collected: 01/19/2018 Status: F Source: [facility] 1:56 [facility] REPOSITORY TYPE CODE TESTS RESULT OUT OF REFERENCE UNITS RANGE LAB ANEU(LOINC) 2.85-6.16 10 3/mcL High Neutrophil, 6.30 Absolute Performed By: #### TSH, CBC, GFR, ADIFF, FT4, ANEU, CMP, FT3 #### [address] [address] #### VIDH #### [place] [address] FT4 Collected: 01/19/2018 Status: F Source: [facility] 1:[address] [place] [address] REPOSITORY TYPE CODE TESTS RESULT OUT OF RANGE REFERENCE UNITS LAB FT4(LOINC) 0.6-1.7 ng/mL Free T4 0.8 Result Comment: Below normal(expected)range Performed By: #### TSH, CBC, GFR, ADIFF, FT4, ANEU, CMP, FT3 #### [address] [address] #### VIDH #### [place] [address] FT3 Collected: 01/19/2018 Status: F Source: [facility] 1:56 [facility] REPOSITORY TYPE CODE TESTS RESULT OUT OF RANGE REFERENCE UNITS LAB FT3(LOINC) 2.3-4.0 pg/mL Free T3 2.3 Performed By: #### TSH, CBC, GFR, ADIFF, FT4, ANEU, CMP, FT3 #### [address] [address] #### VIDH #### [place] [address] TSH Collected: 01/19/2018 Status: F Source: [facility] 1:56 [facility] REPOSITORY TYPE CODE TESTS RESULT OUT OF RANGE REFERENCE UNITS LAB TSH(LOINC) 0.27-4.20 mcIU/mL High TSH 21.71 Result Comment: Above normal(expected)range Performed By: #### TSH, CBC, GFR, ADIFF, FT4, ANEU, CMP, FT3 #### [address] [address] #### VIDH #### [address] [address] VIDH Collected: 01/19/2018 Status: F Source: [facility] 1:56 PM [facility] REPOSITORY TYPE CODE TESTS RESULT OUT OF RANGE REFERENCE UNITS LAB VIDH(LOINC) ng/mL Vit. D 27 25-Hydroxy Result Comment: Interpretive Values Based on Total 25(OH)D: Severe Deficiency <20 ng/mL Mild to Moderate Deficiency 20-30 ng/mL Optimum Levels 30-100 ng/mL Toxicity Possible >100 ng/mL Performed By: #### TSH, CBC, GFR, ADIFF, FT4, ANEU, CMP, FT3 #### [address] [address] #### VIDH #### [address] [address] SCREENING MAMM (CAD), Observed: 11/20/2017 Status: F Source: [facility] 11:45 AM [facility] REPOSITORY [facility] Imaging Services [address] [place] [address] SCREENING MAMM (CAD), BILAT MR#: [id number] Acct: [id number] Name: JEANCARLOS THURSTON Rep #: [id number] : 1945 F 72 From: Ricardo Pena MD PCP: Maria Del Carmen ADAM,Garrett Chi Status: [facility] Study: SCREENING MAMM (CAD), BILAT Date of Exam: 11/20/17 Exam# [id number] Ordering Dr: Johnna Kuo TREE FELLER-C MAMMOGRAPHY - BILATERAL SCREENING REASON FOR EXAM: Female, 72 years old. Routine annual screening examination. PERTINENT HISTORY: Non-contributory. TECHNIQUE: Digital bilateral breast dru (3D mammographic acquisition) in the CC and MLO projections. 2-D mediolateral oblique (MLO) and craniocaudad (CC) views of both breasts were obtained. CAD: Full Field Digital Mammography with Computer Added Detection was performed. COMPARISON: Comparison is made with prior outside examination dated January 16, 2016. FINDINGS: Breast Composition: There are scattered areas of fibroglandular density. There are no dominant masses or suspicious calcifications. Stable vascular calcifications. No other significant abnormalities are identified. There has been no significant change since the prior study. BI/SCREENING MAMM (CAD), BILAT IMPRESSION: Stable bilateral screening mammogram. Yearly follow-up mammogram recommended. (A) ASSESSMENT CATEGORY: BIRADS Category 2: Benign. A letter regarding these results will be sent to the patient by the facility within 30 days. Approximately 10% of breast cancers are not detected by mammography. A normal mammogram should not delay biopsy of a clinically suspicious abnormality. [id number] Electronically Signed: Ricardo Pena MD at 13:10 EDT Tel [phone], Service support , CC: GUERLINE Kuo; Garrett Corrales MD [employer] Supervisor: Signed CERV SPINE 2 OR 3 Observed: 09/30/2017 Status: F Source: [place] VIEWS 1:49 PM [facility] REPOSITORY [facility] Imaging Services [address] [place] [address] Cerv Spine 2 or 3 Views MR#: [id number] Acct: [id number] Name: JEANCARLOS THURSTON Rep #: [id number] : 1945 F 72 From: Becka Estrada MD PCP: Garrett Corrales MD, Chi Status: REG CLI Study: Cerv Spine 2 or 3 Views Date of Exam: 09/30/17 Exam# [id number] Ordering Dr: Garrett Corrales MD STUDY: X-RAY - CERVICAL SPINE REASON FOR EXAM: Female, 72 years old. Neck pain and headaches for one month. TECHNIQUE: 2 view(s) of the cervical spine were obtained. COMPARISON: None FINDINGS: Reversal of the usual cervical lordosis. Normal craniovertebral alignment. Normal C1, C2 and odontoid alignment. Normal odontoid. Normal vertebral body height without a fracture deformity. Advanced degenerative disc and joint changes at C3-4, C4-5, C5-6 and C6-7. Posterior elements remain properly located. Carotid artery calcifications. RAD/Cerv Spine 2 or 3 Views IMPRESSION: Reversal of the usual cervical lordosis with otherwise normal alignment. Advanced degenerative disc and joint changes at C3-4, C4-5, C5-6 and C6-7. Electronically Signed: Becka Estrada MD at 22:18 EST , Service support , CC: Garrett Corrales MD [employer] R[employer] Supervisor: Signed ALLERGIES ALLERGIES DATE TYPE / CODE NAME / CODE REACTION SEVERITY SOURCE 04/08/2018 Miscellaneous STEROIDS Chest Unknown Daisy Allergy/[id number](S tightness [facility] NOMED MI) Hospital Repository ENCOUNTERS ENCOUNTERS ADMIT/DISCHARGE ACCOUNT NUMBER ADMITTING ENCOUNTER LOCATION SOURCE CLASS 07/12/2018 [id number] Ambulatory [facility] ding:LAB.FUT Repository URE 07/05/2018 [id number] Ambulatory [facility] ding:POLAB3 Repository 07/01/2018 [id number] [facility] ding:CT Repository 04/08/2018/04/08/20 [id number] Ambulatory BMSBuilding: Khai 18 BMS.[facility] Hospital Repository 04/08/2018 [id number] Ambulatory [facility] ding:LABSPEC Repository 01/28/2018 [id number] Ambulatory [facility] ding:POLAB3 Repository 01/20/2018 [id number] Ambulatory [facility] ding:LAB.FUT Repository URE 01/19/2018/01/20/20 [id number] Ambulatory TESSA Tessa 18 [facility] ding:OLAB [facility] Repository 11/20/2017 [id number] Ambulatory [facility] ding:OPBI Repository 09/30/2017 [id number] Ambulatory [facility] ding:RAD Repository 09/02/2017/09/02/19 [id number] Ambulatory BMSBuilding: Daisy 18 BMS.[facility] Repository PAYERS PAYERS ENCOUNTER GUARANTOR PAYER SUBSCRIBER SOURCE 07/12/2018 JEANCARLOS Latif Primary Insurance:MMO JEANCARLOS J Daisy [id number] [facility] [place] Number: [id number] Hospital [address]Rfs: [phone] [id number] Repository [phone] () Date:[id number] [address]XO: 07/12/2018 Secondary NOT GIVENUNK Khai Insurance:SELF PAY [facility] Number: Effective Repository Date:2018-07-09 07/05/2018 JEANCARLOS J Primary Insurance:MMO JEANCARLOS J Daisy [id number] [facility] [place]: [place] Number: [id number] Hospital [address]Elk: [phone] [id number] Repository [phone] () Date:[id number] [address]ZU: 07/05/2018 Secondary NOT GIVENUNK Daisy Insurance:SELF PAY [facility] Number: Effective Repository Date:2018-07-05 07/01/2018 JEANCARLOS J Primary Insurance:MMO JEANCARLOS J Daisy [id number] [facility] [place]: [place] Number: [id number] Hospital [address]Inv: [phone] [id number] Repository [phone] (HP) Date:3563-42-26XK [address] [place] [address]BH: 07/01/2018 Secondary NOT GIVENUNK Daisy Insurance:SELF PAY [facility] Number: Effective Repository Date:2018-07-01 04/08/2018 JEANCARLOS J Primary Insurance:MMO JEANCARLOS J Daisy [id number] MEDICAREPolicy WEBERDOB: [place] Number: [id number] Hospital [address]Qlf: [phone] [id number] Repository [phone] (HP) Date:0994-04-81QN [address] [place] [address]ZW: 04/08/2018 Secondary NOT GIVENUNK Khai Insurance:SELF PAY [facility] Number: Effective Repository Date:2018-04-08 04/08/2018 JEANCARLOS J Primary Insurance:MMO JEANCARLOS J Khai [id number] MED[address]AREPolicy WEBERDOB: [place] Number: [id number] Hospital [address]Csd: [phone] [id number] Repository [phone] (HP) Date:5057-40-31GM [address] [address]ZE: 04/08/2018 Secondary NOT GIVENUNK Khai Insurance:SELF PAY [facility] Number: Effective Repository Date:2018-04-08 01/28/2018 JEANCARLOS J Primary Insurance:MMO JEANCARLOS J Khai [id number] MEDICAREPolicy WEBERDOB: [place] Number: [id number] Hospital [address]Hpb: [phone] [id number] Repository [phone] (HP) Date:4570-33-57SN [address] [place] [address]JQ: 01/28/2018 Secondary NOT GIVENUNK Daisy Insurance:SELF PAY [facility] Number: Effective Repository Date:2018-01-28 01/20/2018 JEANCARLOS J Primary Insurance:MMO JEANCARLOS J Khai [id number] MED[address]AREPolicy WEBERDOB: [place] Number: [id number] Hospital [address]Clj: [phone] [id number] Repository [phone] () Date:5960-95-20VJ [address] [place] [address]DC: 01/20/2018 Secondary NOT GIVENUNK Daisy Insurance:SELF PAY [facility] Number: Effective Repository Date:2018-01-20 01/19/2018 JEANCARLOS J Primary JEANCARLOS J [facility] WEBERDOB: Insurance:MEDICAL WEBERDOB: [facility] [place] [employer] [id number] Repository [facility] Number: [place], [place] [id number] [place] [id number] Date:2018-01-19 [address]Yzx: [phone]@[facility] [id number] [phone] el: ([phone]) Name:[address] BOX (HP) [address] [place] [address] [phone] (WP) ()Tel: [phone]: ([phone] 11/20/2017 JEANCARLOS J Primary Insurance:MMO JEANCARLOS J Daisy [id number] MEDICAREPolicy WEBERDOB: [place] Number: [id number] Hospital [address]Jky: [phone] [id number] Repository [phone] () Date:5711-37-21RF [address] [place] [address]VJ: 11/20/2017 Secondary NOT GIVENUNK Khai Insurance:SELF PAY [facility] Number: Effective Repository Date:2017-10-26 09/30/2017 JEANCARLOS J Primary Insurance:MMO JEANCARLOS J Daisy [id number] MED[address]AREPolicy WEBERDOB: [place] Number: [id number] Hospital [address]Qyo: [phone] [id number] Repository [phone] () Date:6161-90-82KX [address] [place] [address]CN: 09/30/2017 Secondary NOT GIVENUNK Daisy Insurance:SELF PAY [facility] Number: Effective Repository Date:2017-09-30 09/02/2017 JEANCARLOS Latif Primary Insurance:O JEANCARLOS THURSTON[address] MEDICAREPolicy WEBERDOB: [place] Number: [id number] Hospital [address]Vzn: [phone] [id number] Repository [phone] () Date:4390-37-66RK [address] [place] [address]IT: 09/02/2017 Secondary NOT GIVENUNK Daisy Insurance:SELF PAY [facility] Number: Effective Repository Date:2017-08-21
== END ==
PROVIDERS: Family Provider Family Medicine Geriatric Medicine; PCP Family Medicine Geriatric Medicine; Referring Provider Family Medicine Geriatric Medicine; Visit Provider Family Medicine Geriatric Medicine
DX: R10.9 Unspecified abdominal pain (principal); N39.0 Urinary tract infection, site not specified
CPT/HCPCS: 36415; 74177; 80053; 85025; 87077; 87086; 87088; 87186; Q9967

== ENCOUNTER → 2018-07-05 11:15 | Outpatient (CLI) | payer MEDICARE, SELFPAY ==
[2018-04-08 11:56] VITALS: BMI 36.8
[2018-07-05 12:31] LABS: Absolute Lymphocyte Count 1.47 X10^3/ul (0.83-4.51); Absolute Neutrophil Count 8.4 X10^3/uL (2.0-7.7); Basophil# 0.06 X10^3/uL; Basophil% 0.5 % (0-1); Eosinophil# 0.31 X10^3/uL; Eosinophils% 2.8 % (0-5); Hematocrit 41.1 % (37-47); Lymphocyte # 1.47 X10^3/ul (4.0); Lymphocyte % 13.3 % (19-41); Mean Corp Hgb Conc 31.6 g/gl (32-36); Mean Corpuscular Volume 88.4 fL (81-99); Mean Platelet Vol. 10.6 fl (6.2-12.0); Monocyte% 7.2 % (0-10); Neutrophil # 8.42 X10^3/uL (2.7-7.7); Neutrophil % 75.9 % (47-70); Platelet Count 318 K/mm3 (150-450); RBC Distribution Width CV 15.4 % (11.6-14.6); RBC Distribution Width SD 49.7 fl (35.1-43.9); Red Blood Count 4.65 M/mm3 (4.2-5.4); White Blood Count 11.1 K/mm3 (4.4-11.0)
[2018-07-05 12:36] LABS: POSITIVE COUNT NO; POSITIVE DIFFERENTIAL NO; POSITIVE MORPHOLOGY NO
[2018-07-05 12:43] LABS: Vitamin D,25 Hydroxy 24.9 ng/mL (29.95-100.01)
[2018-07-05 13:00] LABS: AST(SGOT) 31 U/L (15-37); Alanine Aminotransfer ALT/SGPT 29 U/L (13-56); Albumin, Serum 3.5 g/dL (3.2-5.0); Alkaline Phosphatase 67 U/L (45-117); Anion Gap 8 (5-15); BUN 15 mg/dL (7-18); BUN/Creat Ratio 17.5 RATIO (10-20); Calcium,Total 8.6 mg/dL (8.5-10.1); Chloride 100 mmol/L (98-107); Creatinine, Serum 0.86 mg/dL (0.55-1.02); EST Glomerular Filtration Rate 69 mL/min (>60); Est Glom Filt Rate - Afr Amer 83 mL/min (>60); Globulin 3.5 g/dL (2.2-4.2); Glucose 102 mg/dL (74-106); Potassium 3.3 mmol/L (3.5-5.1); Sodium Level 138 mmol/L (136-145)
--- OUTSIDE RECORDS SUMMARY | 2018-08-28 17:08 | XMS RPT_ITS ---
:1945 Author Organization OHIP Support Name Relationship Address Phone EDDIE FELICIANO Unavailable [address] + [place] [address] R Unavailable Unavailable Unavailable EDDIE FELICIANO Unavailable [address] + [place] [address] R Unavailable Unavailable Unavailable EDDIE FELICIANO Unavailable [address] + [place] [address] R Unavailable Unavailable Unavailable EDDIE FELICIANO Unavailable [address] + [place] [address] R Unavailable Unavailable Unavailable EDDIE FELICIANO Unavailable [address] + [place] [address] R Unavailable Unavailable Unavailable EDDIE FELICIANO Unavailable [address] + [place] [address] R Unavailable Unavailable Unavailable EDDIE FELICIANO Unavailable [address] + [place] [address] R Unavailable Unavailable Unavailable EDDIE FELICIANO Unavailable Unavailable + EDDIE FELICIANO Unavailable Unavailable + EDDIE FELICIANO Unavailable [address] + [place] [address] R Unavailable Unavailable Unavailable EDDIE FELICIANO Unavailable [address] + [place] [address] R Unavailable Unavailable Unavailable EDDIE FELICIANO Unavailable [address] + [place] [address] R Unavailable Unavailable Unavailable Care Team Providers Name Role Phone SOLANGE NOEL MD Attending Unavailable MARIA DEL CARMEN HOPE, DR. AVILA Primary Care Unavailable [place], Molly Attending Unavailable Maria Del Carmen, Garrett Chi Referring Unavailable Maria Del Carmen, Garrett Chi Primary Care Unavailable Maria Del Carmen, Garrett Chi Attending Unavailable Maria Del Carmen, Garrett Chi Referring Unavailable Maria Del Carmen, Garrett Chi Primary Care Unavailable Johnna Kuo Attending Unavailable [place], Johnna Referring Unavailable Maria Del Carmen, Garrett [...] Diarrhea, Maria Del Carmen, Garrett Chi Active [place] unspecified / Community R19.7(ICD-10) Hospital Repository 07/09/2018 Unknown R10.9 - Unspecified Maria Del Carmen, Garrett Chi Active [place] abdominal pain / Community R10.9(ICD-10) Hospital Repository 04/29/2018 Unknown E55.9 - Vitamin D Maria Del Carmen, Garrett Chi Active [place] deficiency, Community unspecified / Hospital E55.9(ICD-10) Repository 04/29/2018 Unknown I10 - Essential Maria Del Carmen, Garrett Chi Active [place] (primary) Community hypertension / Hospital I10(ICD-10) Repository 09/30/2017 Unknown M54.2 - Cervicalgia Maria Del Carmen, Garrett Chi Active [place] / M54.2(ICD-10) [facility] Hospital Repository 09/02/2017 Unknown Z12.31 - Encounter Johnna Kuo Active [place] for screening [facility] mammogram for Hospital malignant neoplasm Repository of breast / Z12.31(ICD-10) 09/02/2017 Unknown Z01.419 - Encounter AyaanJohnna ingram Active [place] for gynecological [facility] examination Hospital (general) (routine) Repository without abnormal findings / Z01.419(ICD-10) PROCEDURES PROCEDURES No Procedure Records FoundRESULTS RESULTS STOOL Observed: 07/12/2018 Status: F Source: [place] LACTOFERRIN/WBC 1:45 PM [facility] REPOSITORY PATIENT TO RETURN WITH O AND P; PATIENT WAS NOT GIVEN THE O AND P COLLECTION KIT IN THE OFFICE PER PATIENT. Stool Lacto/WBC Normal Reference Range = Negative Fecal WBC Lactoferrin Positive: Fecal WBC Lactoferrin present Performed By: #### M100.0605, M100.7900, M100.6796, M100.637 #### [facility] [address]. [place], [place], [address] Observed: 07/12/2018 Status: F Source: [place] STOOL OCCULT BLOOD 1:45 PM [facility] IFOB REPOSITORY PATIENT TO RETURN WITH O AND P; PATIENT WAS NOT GIVEN THE O AND P COLLECTION KIT IN THE OFFICE PER PATIENT. STOB iFOB Occult Blood Negative Performed By: #### M100.0605, M100.7900, M100.6796, M100.637 #### [facility] [address] [place], [address] Observed: 07/12/2018 Status: F Source: [place] CDIFF (MOLECULAR) 1:45 PM [facility] REPOSITORY PATIENT TO RETURN WITH O AND P; PATIENT WAS NOT GIVEN THE O AND P COLLECTION KIT IN THE OFFICE PER PATIENT. Cdiff-Molecular Normal Reference Range = Negative C. Diff DNA Negative- No toxigenic C. Diff DNA Detected NAAT METHOD Testing was performed using nucleic acid amplification Performed By: #### M100.0605, M100.7900, M100.6796, M100.637 #### [facility] [address]. [place], [place], [address] Observed: 07/12/2018 Status: F Source: [place] ENTERIC PATHOGEN 1:45 PM [facility] PANEL STOOL REPOSITORY PATIENT TO RETURN WITH [...] By: #### M100.0605, M100.7900, M100.6796, M100.637 #### [facility] [address] [place], [address] CANDY SEPARATOR HARD OFFICE VISIT Observed: 07/07/2018 Status: F Source: [place] REPORT 8:44 AM [facility] REPOSITORY [facility] 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) Chief Complaint: est annual Vegetable Buncher Required: No Is patient in pain?: No [...] t n h a n HPI Annual (CERTIFIED TECHNICIAN): Details: JEANCARLOS THURSTON is a 72 year [...] alert, oriented to person, oriented to place HENDE Head: normal to inspection Neck Neck: normal [...] 07/05/2018 Status: F Source: [place] 11:16 AM [facility] REPOSITORY TYPE CODE TESTS RESULT OUT OF [...] Lymph 1.47 Performed By: #### L100.0100 #### [facility] [address] [place], [place], [address] VITAMIN D,25 HYDROXY Collected: 07/05/2018 Status: F Source: [place] 11:16 AM [facility] REPOSITORY TYPE CODE TESTS RESULT OUT OF REFERENCE UNITS RANGE LAB L506.1000 29.95-100.01 ng/mL Low Vitamin D 24.9 25-OH Result Comment: Vitamin D 25(OH) Status Range Deficiency <20 ng/mL (50nmol/L) Insuffciency 20 - 30 ng/mL (50 - 75 nmol/L) Sufficiency 30 - 100 ng/mL (75 - 250 nmol/L) Toxicity >100 ng/mL (>250 nmol/L) Performed By: #### L506.1000 #### [facility] [address] [facility] [place] [place], [address] COMPREHENSIVE METABOLIC Collected: 07/05/2018 Status: F Source: [place] PATEL 11:16 AM [facility] REPOSITORY TYPE CODE TESTS RESULT OUT OF [...] 8 Performed By: #### L500.4050, L501.9520 #### [facility] [address] [place], [address] THYROID STIM HORMONE Collected: 07/05/2018 Status: F Source: [place] (TSH) 11:16 AM [facility] REPOSITORY TYPE CODE TESTS RESULT OUT OF RANGE REFERENCE UNITS LAB L501.9520 0.358-3.74 uIU/mL High TSH 33.10 Performed By: #### L500.4050, L501.9520 #### [facility] [address] [place], [address] ABDOMEN/PELVIS WITH Observed: 07/01/2018 Status: F Source: [place] CONTRAST 4:49 PM [facility] REPOSITORY [facility] Imaging Services [address] [address] Abdomen/Pelvis WITH Contrast MR#: [id number] Acct: [id number] Name: JEANCARLOS THURSTON Rep #: [id number] : 1945 F 73 From: Surendra Dover MD PCP: Garrett Corrales MD, Chi Status: REG CLI Study: Abdomen/Pelvis WITH Contrast Date of Exam: 07/01/18 Exam# [id number] Ordering Dr: Garrett Corrales MD STUDY: CT [...] Service support , CC: Garrett Corrales MD High Energy Forming Equipment Operator: Signed CBC W/DIFF, AUTOMATED Collected: 07/01/2018 Status: F Source: [place] 2:49 PM [facility] REPOSITORY TYPE CODE TESTS RESULT OUT OF [...] Lymph 2.37 Performed By: #### L100.0100 #### [facility] [address] [place], [address] COMPREHENSIVE METABOLIC Collected: 07/01/2018 Status: F Source: [facility] 2:49 PM [facility] REPOSITORY TYPE CODE TESTS RESULT OUT OF [...] GAP 12 Performed By: #### L500.4050 #### [facility] [address] [place], [address] Observed: 07/01/2018 Status: F Source: [place] CULTURE, URINE 2:49 PM [facility] REPOSITORY Urine Culture ORGANISM 1: Staphylococcus aureus [place] Count 25,000-50,000 ORGANISM 2: Streptococcus agalactiae (B) [place] Count 25,000-50,000 Staphylococcus aureus: REACTION Benzylpenicillin NF 0.25 R Cefoxitin *NF - Inducable Clindamycin Resistan - Gentamicin $ <=0.5 S Levofloxacin $ 0.25 S Linezolid $$$$ 2 S Moxifloxicin *NF <=0.25 S Nitrofurantoin $ <=16 S Oxacillin NF 0.5 S Rifampin $$ <=0.5 S Tetracycline NF <=1 S Trimethoprim/Sulfametho $ <=10 S Vancomycin $ 1 S (NF) indicates non-formulary drug at [facility]. Approval by Infectious Disease Specialist required before non-formulary drugs may be ordered and/or dispensed. * CLSI guidelines does not recommend testing of cephalosporins. This interpretation is deduced from Beta-lactam/penicillin results. Streptococcus agalactiae (B): REACTION Ampicillin $ <=0.25 S Benzylpenicillin NF <=0.12 S Linezolid $$$$ 1 S Vancomycin $ 0.5 S (NF) indicates non-formulary drug at [facility]. Approval by Infectious Disease Specialist required before non-formulary drugs may be ordered and/or dispensed. * CLSI guidelines does not recommend testing of cephalosporins. This interpretation is deduced from Beta-lactam/penicillin results. Performed By: #### M100.0650 #### [facility] [address] [place], [address] CANDY SEPARATOR HARD OFFICE VISIT Observed: 04/19/2018 Status: F Source: [place] REPORT 3:13 PM [facility] REPOSITORY [facility] [address] [place] [address] OFFICE VISIT Date of Service: 04/08/18 MR#: [id number] Acct: [id number] Name: JEANCRALOS THURSTON Rep #: [id number] : 1945 Provider: GUERLINE Kuo Age/Sex: 72/F [place] [facility] Status: Signed Intake Vital Signs04/08/18 Height 5 ft 1 in 04/08/18 Weight: 195 lb 2 oz 04/08/18 Body Mass Index (BMI) 36.8 04/08/18 Blood Pressure 124/64 Intake Visit Reasons: vaginal lump Vegetable Buncher Required: No Is patient in pain?: No [...] menopausal: Yes Patient : No : No [facility] Medical History Depression (Acute) Thyroid [...] additional social history: HPI vaginal lump: Details: JEANCARLOS THURSTON is a 72 year [...] silver nitrate used to obtain hemostasis Alert Beet Topper Alert Billing: Yes Skin Tag Skin Ta [...] 04/08/2018 Status: F Source: [place] 12:00 AM [facility] REPOSITORY Patient: JEANCARLOS THURSTON : 1945 (72/F) Acct Num: [id number] Phys: Kemi Talbot MD Unit Num: [id number] Loc: [facility]SPEC Specimen: [id number] Received: 04/08/181733 Spec Type: SKIN TAG TISSUES TISSUES: Skin appendage, NOS GROSS DESCRIPTION Received is one container labeled with the patient's name and not further designated. The specimen consists of a polypoid piece of danielle-white skin measuring 1 x 0.7 x 0.7 cm. The specimen is inked, bisected and submitted entirely in one cassette. / SJ:[place] 04/09/18 TC:5 CPT: 35279 HEADER OPERATION: Skin tag removal PRE-OP DIAGNOSIS: Skin tag TISSUE SUBMITTED: Skin tag left buttocks MICROSCOPIC DESCRIPTION Slides are reviewed. 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 SJ:[place] 04/12/18 Signed Cain Schumacher 04/12/18 <signature on file> Performed By: #### PSKTAG #### [facility] [address] [place], [address] Observed: 01/28/2018 Status: F Source: [place] RESPIRATORY PANEL 3:55 PM [facility] MOLECULAR REPOSITORY Results called on 01/29/18-0919 by DCACIRAON to /NURSE LINE [phone]. RP PANEL Normal Reference Range = Not [...] 1: RHINOVIRUS Performed By: #### M100.638 #### [facility] [address] [place], [address] CMP Collected: 01/19/2018 Status: F Source: [facility] 1:56 PM [facility] REPOSITORY TYPE CODE TESTS [...] 10-35 IU/L ALT/SGPT 17 Performed By: #### CMP, GFR, CBC, ADIFF, ANEU, FT4, FT3, TSH #### [address] [place], [place] [address] #### VIDH #### [address] [address] .GFR Collected: 01/19/2018 Status: F Source: [facility] 1:56 PM [facility] REPOSITORY TYPE CODE TESTS RESULT OUT OF REFERENCE UNITS RANGE LAB GFRAA(LOINC ml/min/1.73 ) sqm GFR 76 Peruvian Result Comment: GFR Population mean for , [...] 15 mL/min/1.73 square meters Performed By: #### CMP, GFR, CBC, ADIFF, ANEU, FT4, FT3, TSH #### [address] [place], [place] [address] #### VIDH #### [address] [address] CBC Collected: 01/19/2018 Status: F Source: [facility] 1:56 PM [facility] REPOSITORY TYPE CODE TESTS RESULT OUT OF [...] 7.4-10.4 fL MPV 10.1 Performed By: #### CMP, GFR, CBC, ADIFF, ANEU, FT4, FT3, TSH #### [address] [address] #### VIDH #### [address] [address] .AUTO DIFF Collected: 01/19/2018 Status: F Source: [facility] 1:56 [facility] REPOSITORY TYPE CODE TESTS RESULT OUT OF [...] ) Basophil, 0.10 Absolute Performed By: #### CMP, GFR, CBC, ADIFF, ANEU, FT4, FT3, TSH #### [address] [address] #### VIDH #### [place] [address] .NEUABS Collected: 01/19/2018 Status: F Source: [facility] 1:56 [facility] REPOSITORY TYPE CODE TESTS RESULT OUT OF REFERENCE UNITS RANGE LAB ANEU(LOINC) 2.85-6.16 10 3/mcL High Neutrophil, 6.30 Absolute Performed By: #### CMP, GFR, CBC, ADIFF, ANEU, FT4, FT3, TSH #### [address] [address] #### VIDH #### [place] [address] FT4 Collected: 01/19/2018 Status: F Source: [facility] 1:[address] [place] [address] REPOSITORY TYPE CODE TESTS RESULT OUT OF RANGE REFERENCE UNITS LAB FT4(LOINC) 0.6-1.7 ng/mL Free T4 0.8 Result Comment: Below normal(expected)range Performed By: #### CMP, GFR, CBC, ADIFF, ANEU, FT4, FT3, TSH #### [address] [address] #### VIDH #### [place] [address] FT3 Collected: 01/19/2018 Status: F Source: [facility] 1:56 [facility] REPOSITORY TYPE CODE TESTS RESULT OUT OF RANGE REFERENCE UNITS LAB FT3(LOINC) 2.3-4.0 pg/mL Free T3 2.3 Performed By: #### CMP, GFR, CBC, ADIFF, ANEU, FT4, FT3, TSH #### [address] [address] #### VIDH #### [place] [address] TSH Collected: 01/19/2018 Status: F Source: [facility] 1:56 [facility] REPOSITORY TYPE CODE TESTS RESULT OUT OF RANGE REFERENCE UNITS LAB TSH(LOINC) 0.27-4.20 mcIU/mL High TSH 21.71 Result Comment: Above normal(expected)range Performed By: #### CMP, GFR, CBC, ADIFF, ANEU, FT4, FT3, TSH #### [address] [address] #### VIDH #### [address] [address] VIDH Collected: 01/19/2018 Status: F Source: [facility] 1:56 PM [facility] REPOSITORY TYPE CODE TESTS RESULT OUT OF RANGE REFERENCE UNITS LAB VIDH(LOINC) ng/mL Vit. D 27 25-Hydroxy Result Comment: Interpretive Values Based on Total 25(OH)D: Severe Deficiency <20 ng/mL Mild to Moderate Deficiency 20-30 ng/mL Optimum Levels 30-100 ng/mL Toxicity Possible >100 ng/mL Performed By: #### CMP, GFR, CBC, ADIFF, ANEU, FT4, FT3, TSH #### [address] [address] #### VIDH #### [address] [address] SCREENING MAMM (CAD), Observed: 11/20/2017 Status: F Source: [facility] 11:45 AM [facility] REPOSITORY [facility] Imaging Services [address] [place] [address] SCREENING MAMM (CAD), BILAT MR#: [id number] Acct: [id number] Name: JEANCARLOS THURSTON Rep #: [id number] : 1945 F 72 From: Ricardo Pena MD PCP: Maria Del Carmen ADAM,Garrett Chi Status: [facility] Study: SCREENING MAMM (CAD), BILAT Date of Exam: 11/20/17 Exam# [id number] Ordering Dr: Johnna Kuo BROKE BEATER OPERATOR-C MAMMOGRAPHY - BILATERAL SCREENING REASON FOR EXAM: [...] delay biopsy of a clinically suspicious abnormality. [id number] Electronically Signed: Ricardo Pena MD at 13:10 EDT Tel [phone], Service support , CC: GUERLINE Kuo; Garrett Corrales MD High Energy Forming Equipment Operator: Signed CERV SPINE 2 OR 3 Observed: 09/30/2017 Status: F Source: [place] VIEWS 1:49 PM [facility] REPOSITORY [facility] Imaging Services [address] [place] [address] Cerv Spine 2 or 3 Views MR#: [id number] Acct: [id number] Name: JEANCARLOS THURSTON Rep #: [id number] : 1945 F 72 From: Becka Estrada MD PCP: Garrett Corrales MD, Chi Status: REG CLI Study: Cerv Spine 2 or 3 Views Date of Exam: 09/30/17 Exam# [id number] Ordering Dr: Garrett Corrales MD STUDY: X-RAY [...] Service support , CC: Garrett Corrales MD High Energy Forming Equipment Operator: Signed ALLERGIES ALLERGIES DATE TYPE / CODE NAME / CODE REACTION SEVERITY SOURCE 04/08/2018 Miscellaneous STEROIDS Chest Unknown [place] Allergy/[id number](S tightness [facility] [place] Hospital Repository ENCOUNTERS ENCOUNTERS ADMIT/DISCHARGE ACCOUNT NUMBER ADMITTING ENCOUNTER LOCATION SOURCE CLASS 07/12/2018 [id number] Ambulatory [facility] ding:LAB.FUT Repository URE 07/05/2018 [id number] Ambulatory [facility] ding:POLAB3 Repository 07/01/2018 [id number] [facility] ding:CT Repository 04/08/2018/04/08/20 [id number] Ambulatory BMSBuilding: [place] 18 BMS.[facility] Hospital Repository 04/08/2018 [id number] Ambulatory [facility] ding:LABSPEC Repository 01/28/2018 [id number] Ambulatory [facility] ding:POLAB3 Repository 01/20/2018 [id number] Ambulatory [facility] ding:LAB.FUT Repository URE 01/19/2018/01/20/20 [id number] Ambulatory TESSA Tessa 18 [facility] ding:OLAB Foundation Repository 11/20/2017 [id number] Ambulatory [facility] ding:OPBI Repository 09/30/2017 [id number] Ambulatory [facility] ding:RAD Repository 09/02/2017/09/02/19 [id number] Ambulatory BMSBuilding: [place] 18 BMS.[facility] Repository PAYERS PAYERS ENCOUNTER GUARANTOR PAYER SUBSCRIBER SOURCE 07/12/2018 JEANCARLOS Latif Primary Insurance:MMO JEANCARLOS J [place] [id number] [facility] [place] Number: [id number] Hospital [address]Pmp: [phone] [id number] Repository [phone] () Date:[id number] [address]DK: 07/12/2018 Secondary NOT GIVENUNK [place] Insurance:SELF PAY [facility] Number: Effective Repository Date:2018-07-09 07/05/2018 JEANCARLOS J Primary Insurance:MMO JEANCARLOS J [place] [id number] [facility] [place] Number: [id number] Hospital [address]Iss: [id number] Repository [phone] () Date:[id number] [address]JB: 07/05/2018 Secondary NOT GIVENUNK [place] Insurance:SELF PAY [facility] Number: Effective Repository Date:2018-07-05 07/01/2018 JEANCARLOS J Primary Insurance:MMO JEANCARLOS J [place] [id number] [facility] [place] Number: [id number] [address]Hgw: [phone] [id number] Repository [phone] (HP) Date:5326-86-79UD [address] [place] [address]DB: 07/01/2018 Secondary NOT GIVENUNK [place] Insurance:SELF PAY [facility] Number: Effective Repository Date:2018-07-01 04/08/2018 JEANCARLOS J Primary Insurance:MMO JEANCARLOS J [place] [id number] MEDICAREPolicy [place]: [place] Number: [id number] [facility] [address]Qbf: [phone] [id number] Repository [phone] (HP) Date:6521-79-09MB [address] [place] [address]NB: 04/08/2018 Secondary NOT GIVENUNK [place] Insurance:SELF PAY [facility] Number: Effective Repository Date:2018-04-08 04/08/2018 JEANCARLOS J Primary Insurance:MMO JEANCARLOS J [place] [id number] MEDICAREPolicy [place]: [place] Number: [id number] [facility] [address]Pnx: [phone] [id number] Repository [phone] (HP) Date:[id number] [address] [address]CX: 04/08/2018 Secondary NOT GIVENUNK [place] Insurance:SELF PAY [facility] Number: Effective Repository Date:2018-04-08 01/28/2018 JEANCARLOS J Primary Insurance:MMO JEANCARLOS J [place] [id number] MEDICAREPolicy [place]: [place] Number: [id number] Hospital [address]Bqk: [phone] [id number] Repository [phone] (HP) Date:[id number] [address] [place] [address]KC: 01/28/2018 Secondary NOT GIVENUNK [place] Insurance:SELF PAY [facility] Number: Effective Repository Date:2018-01-28 01/20/2018 JEANCARLOS J Primary Insurance:MMO JEANCARLOS J [place] [id number] MEDICAREPolicy [place]: [place] Number: [id number] Hospital [address]Dbu: [phone] [id number] Repository [phone] () Date:6727-35-71BA [address] [place] [address]OM: 01/20/2018 Secondary NOT GIVENUNK [place] Insurance:SELF PAY [facility] Number: Effective Repository Date:2018-01-20 01/19/2018 JEANCARLOS J Primary JEANCARLOS J [facility] WEBERDOB: Insurance:MEDICAL WEBERDOB: [facility] [place] [employer] [id number] Repository [facility] Number: [place], [place] [id number] [id number] Date:2018-01-19 [address]Cvo: [phone] [id number] [phone] el: [phone] Name:[address] (HP) [address] [place] [address] [phone] (WP) ()Tel: [phone]: [phone] 11/20/2017 JEANCARLOS J Primary Insurance:MMO JEANCARLOS J [place] [id number] MEDICAREPolicy [place] Number: [id number] Hospital [address]Rcp: [phone] [id number] Repository [phone] () Date:7657-53-63CM [address] [place] [address]RL: 11/20/2017 Secondary NOT GIVENUNK [place] Insurance:SELF PAY [facility] Number: Effective Repository Date:2017-10-26 09/30/2017 JEANCARLOS J Primary Insurance:MMO JEANCARLOS J [place] [id number] MEDICAREPolicy [place]OB: [place] Number: [id number] Hospital [address]Dhs: [phone] [id number] Repository [phone] () Date:5411-00-25IY [address] [place] [address]NT: 09/30/2017 Secondary NOT GIVENUNK [place] Insurance:SELF PAY [facility] Number: Effective Repository Date:2017-09-30 09/02/2017 JEANCARLOS Latif Primary Insurance:O JEANCARLOS THURSTON[address] MEDICAREPolicy WEBERDOB: [place] Number: [id number] Hospital [address]Jmj: [phone] [id number] Repository [phone] () Date:[id number] [address] [place] [address]AZ: 09/02/2017 Secondary NOT GIVENUNK [place] Insurance:SELF PAY [facility] Number: Effective Repository Date:2017-08-21
== END ==
PROVIDERS: Family Provider Family Medicine Geriatric Medicine; PCP Family Medicine Geriatric Medicine; Visit Provider Family Medicine Geriatric Medicine
DX: E55.9 Vitamin D deficiency, unspecified (principal); I10 Essential (primary) hypertension
CPT/HCPCS: 36415; 80053; 82306; 84443; 85025

== ENCOUNTER → 2018-07-12 13:32 | Outpatient (CLI) | payer MEDICARE, SELFPAY ==
[2018-04-08 11:56] VITALS: BMI 36.8
== END ==
PROVIDERS: Family Provider Family Medicine Geriatric Medicine; PCP Family Medicine Geriatric Medicine; Referring Provider Family Medicine Geriatric Medicine; Visit Provider Family Medicine Geriatric Medicine
DX: R19.7 Diarrhea, unspecified (principal)
CPT/HCPCS: 82274; 83630; 87493; 87506

== ENCOUNTER → 2018-07-29 14:57 | Outpatient (CLI) | payer MEDICARE, SELFPAY ==
[2018-04-08 11:56] VITALS: BMI 36.8
== END ==
PROVIDERS: Family Provider Family Medicine Geriatric Medicine; PCP Family Medicine Geriatric Medicine; Referring Provider Family Medicine Geriatric Medicine; Visit Provider Family Medicine Geriatric Medicine
DX: R68.83 Chills (without fever) (principal)
CPT/HCPCS: 87633

== ENCOUNTER → 2018-12-13 | Outpatient (CLI) | payer MEDICARE, SELFPAY ==
[2018-04-08 11:56] VITALS: BMI 36.8
== END | disposition home or self-care (01) ==
LOC: POLAB3 14:31
PROVIDERS: Family Provider Family Medicine Geriatric Medicine; PCP Family Medicine Geriatric Medicine; Visit Provider Family Medicine Geriatric Medicine
DX: N39.0 Urinary tract infection, site not specified (principal)
CPT/HCPCS: 87077; 87086; 87088; 87186

== ENCOUNTER → 2019-01-04 | Outpatient (CLI) | payer MEDICARE, SELFPAY ==
[2018-04-08 11:56] VITALS: BMI 36.8
[2019-01-04 12:41] LABS: Absolute Lymphocyte Count 1.59 X10^3/ul (0.83-4.51); Absolute Neutrophil Count 5.2 X10^3/uL (2.0-7.7); Basophil# 0.03 X10^3/uL; Basophil% 0.4 % (0-1); Eosinophil# 0.38 X10^3/uL; Eosinophils% 4.8 % (0-5); Hematocrit 38.9 % (37-47); Hemoglobin 12.4 g/dl (12.0-15.0); Lymphocyte # 1.59 X10^3/ul (4.0); Lymphocyte % 20.2 % (19-41); Mean Corp Hgb Conc 31.9 g/gl (32-36); Mean Corpuscular Hgb 28.3 pg (27.0-32.0); Mean Corpuscular Volume 88.8 fL (81-99); Mean Platelet Vol. 11.3 fl (6.2-12.0); Monocyte# 0.63 X10^3/uL; Neutrophil # 5.19 X10^3/uL (2.7-7.7); Platelet Count 285 K/mm3 (150-450); RBC Distribution Width CV 14.3 % (11.6-14.6); RBC Distribution Width SD 45.8 fl (35.1-43.9); Red Blood Count 4.38 M/mm3 (4.2-5.4); White Blood Count 7.9 K/mm3 (4.4-11.0)
[2019-01-04 12:45] LABS: POSITIVE COUNT NO; POSITIVE DIFFERENTIAL NO; POSITIVE MORPHOLOGY NO
[2019-01-04 13:07] LABS: Vitamin D,25 Hydroxy 29.6 ng/mL (29.95-100.01)
[2019-01-04 13:13] LABS: AST(SGOT) 18 U/L (15-37); Alanine Aminotransfer ALT/SGPT 20 U/L (13-56); Albumin, Serum 3.4 g/dL (3.2-5.0); Alkaline Phosphatase 70 U/L (45-117); Anion Gap 8 (5-15); BUN 20 mg/dL (7-18); BUN/Creat Ratio 26.8 RATIO (10-20); Calcium,Total 8.7 mg/dL (8.5-10.1); Chloride 103 mmol/L (98-107); Creatinine, Serum 0.74 mg/dL (0.55-1.02); EST Glomerular Filtration Rate 81 mL/min (>60); Est Glom Filt Rate - Afr Amer 98 mL/min (>60); Globulin 3.5 g/dL (2.2-4.2); Glucose 107 mg/dL (74-106); Potassium 3.7 mmol/L (3.5-5.1); Protein, Total 6.9 g/dL (6.4-8.2); Sodium Level 139 mmol/L (136-145); Thyroid Stim Hormone (TSH) 3.27 uIU/mL (0.358-3.74)
== END | disposition home or self-care (01) ==
LOC: POLAB3 12:16
PROVIDERS: Family Provider Family Medicine Geriatric Medicine; PCP Family Medicine Geriatric Medicine; Visit Provider Family Medicine Geriatric Medicine
DX: I10 Essential (primary) hypertension (principal); E55.9 Vitamin D deficiency, unspecified
CPT/HCPCS: 36415; 80053; 82306; 84443; 85025

== ENCOUNTER → 2019-02-04 | Outpatient (CLI) | payer MEDICARE, SELFPAY ==
[2019-01-31 10:12] VITALS: BMI 36.8
--- NOTE | 2019-02-04 12:35 | RAD_ITS ---
STUDY: X-RAY - PELVIS AND RIGHT HIP REASON FOR EXAM: Female, 73 years old. Chronic right hip pain. TECHNIQUE: 3 views of the pelvis and hip. COMPARISON: None. FINDINGS: There is a non-specific bowel gas pattern. Normal visualized soft tissue structures. Normal bilateral iliac wings, sacroiliac joints and visualized sacrum. Normal bilateral superior and inferior pubic rami. There are degenerative changes of the pubic symphysis with articular narrowing and sclerosis. Normal bilateral ischial tuberosities. Normal visualized femoral head. Normal acetabulum. Normal hip joint. RAD/HIP, UNI W/ Pelvis 2-3 Views IMPRESSION: Normal x-ray examination of the pelvis and hip. Electronically Signed: Lionel Lezama MD at 18:51 EDT , Service support ,
== END | disposition home or self-care (01) ==
LOC: RAD 12:33
PROVIDERS: Family Provider Family Medicine Geriatric Medicine; PCP Family Medicine Geriatric Medicine; Referring Provider Family Medicine Geriatric Medicine; Visit Provider Family Medicine Geriatric Medicine
DX: M25.551 Pain in right hip (principal)
CPT/HCPCS: 73502

== ENCOUNTER → 2019-07-06 11:38 | Outpatient (CLI) | payer MEDICARE, SELFPAY ==
[2019-02-21 13:07] VITALS: BMI 36.8
[2019-07-06 12:29] LABS: Absolute Lymphocyte Count 1.66 X10^3/uL (0.83-4.51); Absolute Neutrophil Count 5.3 X10^3/uL (2.0-7.7); Basophil# 0.06 X10^3/uL; Basophil% 0.7 % (0-1); Eosinophil# 0.34 X10^3/uL; Eosinophils% 4.2 % (0-5); Hemoglobin 12.7 g/dL (12.0-15.0); Lymphocyte # 1.66 X10^3/ul (4.0); Lymphocyte % 20.7 % (19-41); Mean Corpuscular Hgb 28.9 pg (27.0-32.0); Mean Corpuscular Volume 93.4 fL (81-99); Mean Platelet Vol. 11.1 fl (6.2-12.0); Monocyte# 0.58 X10^3/uL; Monocyte% 7.2 % (0-10); NRBC Flagged by Analyzer 0 % (0-5); Neutrophil % 66.2 % (47-70); Platelet Count 338 K/mm3 (150-450); RBC Distribution Width CV 13.5 % (11.6-14.6); RBC Distribution Width SD 46.4 fl (35.1-43.9); Red Blood Count 4.39 M/mm3 (4.2-5.4)
[2019-07-06 12:49] LABS: ALB/GLOB Ratio 0.9 RATIO (0.9-2.4); AST(SGOT) 19 U/L (15-37); Alanine Aminotransfer ALT/SGPT 27 U/L (13-56); Albumin, Serum 3.4 g/dL (3.2-5.0); Alkaline Phosphatase 70 U/L (45-117); Anion Gap 8 (5-15); BUN 19 mg/dL (7-18); BUN/Creat Ratio 22.5 RATIO (10-20); Calcium,Total 8.6 mg/dL (8.5-10.1); Chloride 103 mmol/L (98-107); Creatinine, Serum 0.84 mg/dL (0.55-1.02); EST Glomerular Filtration Rate 70 mL/min (>60); Est Glom Filt Rate - Afr Amer 85 mL/min (>60); Globulin 3.8 g/dL (2.2-4.2); Glucose 119 mg/dL (74-106); Potassium 3.7 mmol/L (3.5-5.1); Protein, Total 7.2 g/dL (6.4-8.2); Sodium Level 140 mmol/L (136-145); Uric Acid 4.4 mg/dL (2.6-6.0)
== END ==
PROVIDERS: Family Provider Family Medicine Geriatric Medicine; PCP Family Medicine Geriatric Medicine; Visit Provider Family Medicine Geriatric Medicine
DX: E55.9 Vitamin D deficiency, unspecified (principal); I10 Essential (primary) hypertension; M10.9 Gout, unspecified
CPT/HCPCS: 36415; 80053; 82306; 84443; 84550; 85025

== ENCOUNTER → 2019-09-05 10:52 | Outpatient (CLI) | payer MEDICARE, SELFPAY ==
[2019-02-21 13:07] VITALS: BMI 36.8
--- NOTE | 2019-09-05 10:53 | BI_ITS ---
MAMMOGRAPHY - BILATERAL SCREENING REASON FOR EXAM: Female, 74 years old. Routine annual screening examination. PERTINENT HISTORY: Non-contributory. TECHNIQUE: Digital bilateral breast nhan (3D mammographic acquisition) in the CC and MLO projections. 2-D mediolateral oblique (MLO) and craniocaudad (CC) views of both breasts were obtained. CAD: Full Field Digital Mammography with Computer Added Detection was performed. COMPARISON: Comparison is made with prior study dated November 20, 2017. FINDINGS: Breast Composition: There are scattered areas of fibroglandular density. There are no dominant masses or suspicious calcifications. No other significant abnormalities are identified. There has been no significant change since the prior study. BI/SCREEN MAMM (CAD) W/NHAN BILAT IMPRESSION: Stable bilateral screening mammogram. Yearly follow-up mammogram recommended. (A) ASSESSMENT CATEGORY: BIRADS Category 1: Negative. A letter regarding these results will be sent to the patient by the facility within 30 days. Approximately 10% of breast cancers are not detected by mammography. A normal mammogram should not delay biopsy of a clinically suspicious abnormality. [id number] Electronically Signed: Ricardo Pena, at 12:05 EST , Service support ,
== END ==
PROVIDERS: Family Provider Family Medicine Geriatric Medicine; PCP Family Medicine Geriatric Medicine; Referring Provider Nurse Practitioner Women's Health; Visit Provider Nurse Practitioner Women's Health
DX: Z12.31 Encounter for screening mammogram for malignant neoplasm of breast (principal)
CPT/HCPCS: 77063; 77067

== ENCOUNTER → 2019-09-13 12:59 | Outpatient (CLI) | payer MEDICARE, SELFPAY ==
[2019-09-05 11:51] VITALS: BMI 36.8
--- NOTE | 2019-09-13 13:05 | BD_ITS ---
STUDY: DUAL ENERGY X-RAY ABSORPTIOMETRY / DXA REASON FOR EXAM: Female, 74 years old. 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 COMPARISON: Comparison is made with prior examination dated September 13, 2019. FINDINGS: Lumbar Spine (L1-L4): g/cm2 (1.017) / T-score (-1.4) / Z-score (0.4) Findings are suggestive of with a low fracture risk. Right Femur Total: g/cm2 (0.736) / T-score (-2.2) / Z-score (-0.5) Right Femoral Neck: g/cm2 (0.767) / T-score (-1.9) / Z-score (-0.1) The T-Scores on the most recent prior examination were: Lumbar Spine (L1-L4): There has been improvement of bone density since the previous examination. Right Femur Total: which represents a worsening of 4.2%. BD/Dexa Bone Density Study IMPRESSION: The patient is considered osteopenic as outlined below according to World Eliel Organization (WHO) criteria with a moderate fracture risk. There has been worsening of bone density since the previous examination. Reference Information: The T-score is the number of standard deviations above or below the standard which is normal for young adults at their peak bone mineral density. The World Health Organization (WHO) interprets the T-scores as follows: Above -1 Normal bone density Between -1 and -2.5 Osteopenia Equal to / or below -2.5 Osteoporosis As a practical clinical guideline, osteopenia may be graded as follows: Mild -1 through -1.5 Moderate -1.6 through -2.0 Severe -2.1 through -2.4 The Z-score is the number of standard deviations above or below age-matched controls. A Z-score of less than -1.5 would be considered abnormal. References: 1. NIH Osteoporosis and Related Bone Diseases http://www.osteo.org 2. International Society for Clinical Densitometry http://www.iscd.org 3. National Osteoporosis Foundation http://www.nof.org Electronically Signed: Ricardo Pena, at 12:23 EST , Service support ,
== END ==
PROVIDERS: PCP Family Medicine Geriatric Medicine; Referring Provider Nurse Practitioner Women's Health; Visit Provider Nurse Practitioner Women's Health
DX: M81.0 Age-related osteoporosis without current pathological fracture (principal)
CPT/HCPCS: 77080

== ENCOUNTER → 2019-10-18 15:01 | Outpatient (CLI) | payer MEDICARE, SELFPAY ==
[2019-09-05 11:51] VITALS: BMI 36.8
== END ==
PROVIDERS: PCP Family Medicine Geriatric Medicine; Referring Provider Family Medicine Geriatric Medicine; Visit Provider Family Medicine Geriatric Medicine
DX: R50.9 Fever, unspecified (principal)
CPT/HCPCS: 87804; 87807

== ENCOUNTER → 2020-01-11 14:22 | Outpatient (CLI) | payer MEDICARE, SELFPAY ==
[2019-02-21 13:07] VITALS: BMI 36.8
[2019-09-05 11:51] VITALS: BMI 36.8
[2020-01-11 16:18] LABS: Absolute Lymphocyte Count 1.94 X10^3/uL (0.83-4.51); Absolute Neutrophil Count 4.5 X10^3/uL (2.0-7.7); Basophil# 0.07 X10^3/uL; Basophil% 0.9 % (0-1); Eosinophil# 0.34 X10^3/uL; Eosinophils% 4.5 % (0-5); Hematocrit 38.4 % (37-47); Hemoglobin 11.8 g/dL (12.0-15.0); Lymphocyte # 1.94 X10^3/ul (4.0); Lymphocyte % 25.6 % (19-41); Mean Corp Hgb Conc 30.7 g/dL (32-36); Mean Corpuscular Hgb 27.1 pg (27.0-32.0); Mean Corpuscular Volume 88.3 fL (81-99); Mean Platelet Vol. 11.6 fl (6.2-12.0); Monocyte# 0.65 X10^3/uL; Monocyte% 8.6 % (0-10); NRBC Flagged by Analyzer 0 % (0-5); Neutrophil # 4.54 X10^3/uL (2.7-7.7); Neutrophil % 59.7 % (47-70); Platelet Count 329 K/mm3 (150-450); RBC Distribution Width CV 14.9 % (11.6-14.6); RBC Distribution Width SD 48.8 fl (35.1-43.9); Red Blood Count 4.35 M/mm3 (4.2-5.4); White Blood Count 7.6 K/mm3 (4.4-11.0)
[2020-01-11 16:53] LABS: ALB/GLOB Ratio 0.9 RATIO (0.9-2.4); AST(SGOT) 22 U/L (15-37); Alanine Aminotransfer ALT/SGPT 32 U/L (13-56); Albumin, Serum 3.3 g/dL (3.2-5.0); Alkaline Phosphatase 70 U/L (45-117); Anion Gap 8 (5-15); BUN 14 mg/dL (7-18); BUN/Creat Ratio 17.7 RATIO (10-20); Calcium,Total 8.9 mg/dL (8.5-10.1); Chloride 101 mmol/L (98-107); Creatinine, Serum 0.79 mg/dL (0.55-1.02); EST Glomerular Filtration Rate 75 mL/min (>60); Est Glom Filt Rate - Afr Amer 91 mL/min (>60); Globulin 3.7 g/dL (2.2-4.2); Glucose 101 mg/dL (74-106); Potassium 3.9 mmol/L (3.5-5.1); Sodium Level 138 mmol/L (136-145); Thyroid Stim Hormone (TSH) 1.34 uIU/mL (0.358-3.74); Uric Acid 4.4 mg/dL (2.6-6.0)
== END ==
PROVIDERS: Family Provider Family Medicine Geriatric Medicine; PCP Family Medicine Geriatric Medicine; Visit Provider Family Medicine Geriatric Medicine
DX: I10 Essential (primary) hypertension (principal); E55.9 Vitamin D deficiency, unspecified; M10.9 Gout, unspecified
CPT/HCPCS: 36415; 80053; 82306; 84443; 84550; 85025

== ENCOUNTER → 2020-07-11 13:09 | Outpatient (CLI) | payer MEDICARE, SELFPAY ==
[2019-09-05 11:51] VITALS: BMI 36.8
[2020-07-11 16:59] LABS: Absolute Lymphocyte Count 2.35 X10^3/uL (0.83-4.51); Absolute Neutrophil Count 7.2 X10^3/uL (2.0-7.7); Basophil# 0.08 X10^3/uL; Basophil% 0.7 % (0-1); Eosinophil# 0.35 X10^3/uL; Eosinophils% 3.2 % (0-5); Hematocrit 43.8 % (37-47); Hemoglobin 13.4 g/dL (12.0-15.0); Lymphocyte # 2.35 X10^3/ul (4.0); Lymphocyte % 21.6 % (19-41); Mean Corp Hgb Conc 30.6 g/dL (32-36); Mean Corpuscular Hgb 27.3 pg (27.0-32.0); Mean Corpuscular Volume 89.2 fL (81-99); Mean Platelet Vol. 11.7 fl (6.2-12.0); Monocyte# 0.85 X10^3/uL; Monocyte% 7.8 % (0-10); NRBC Flagged by Analyzer 0.3 % (0-5); Neutrophil # 7.15 X10^3/uL (2.7-7.7); Platelet Count 363 K/mm3 (150-450); RBC Distribution Width CV 14.4 % (11.6-14.6); RBC Distribution Width SD 47.2 fl (35.1-43.9); Red Blood Count 4.91 M/mm3 (4.2-5.4); White Blood Count 10.9 K/mm3 (4.4-11.0)
[2020-07-11 17:16] LABS: Vitamin D,25 Hydroxy 26.7 ng/mL
[2020-07-11 17:20] LABS: ALB/GLOB Ratio 0.9 RATIO (0.9-2.4); AST(SGOT) 19 U/L (15-37); Alanine Aminotransfer ALT/SGPT 26 U/L (13-56); Albumin, Serum 3.5 g/dL (3.2-5.0); Alkaline Phosphatase 79 U/L (45-117); Anion Gap 9 (5-15); BUN 20 mg/dL (7-18); BUN/Creat Ratio 20.8 RATIO (10-20); Chloride 104 mmol/L (98-107); Creatinine, Serum 0.96 mg/dL (0.55-1.02); EST Glomerular Filtration Rate 60 mL/min (>60); Est Glom Filt Rate - Afr Amer 73 mL/min (>60); Glucose 121 mg/dL (74-106); Potassium 3.9 mmol/L (3.5-5.1); Protein, Total 7.5 g/dL (6.4-8.2); Sodium Level 138 mmol/L (136-145); Thyroid Stim Hormone (TSH) 5.41 uIU/mL (0.358-3.74)
== END ==
PROVIDERS: PCP Family Medicine Geriatric Medicine; Visit Provider Family Medicine Geriatric Medicine
DX: E55.9 Vitamin D deficiency, unspecified (principal); I10 Essential (primary) hypertension
CPT/HCPCS: 36415; 80053; 82306; 84443; 85025

== ENCOUNTER → 2020-10-03 14:55 | Outpatient (CLI) | payer MEDICARE, SELFPAY ==
[2019-09-05 11:51] VITALS: BMI 36.8
--- NOTE | 2020-10-03 15:20 | RAD_ITS ---
STUDY: X-RAY - LUMBAR SPINE REASON FOR EXAM: Female, 75 years old. BACK PAIN TECHNIQUE: 3 view(s) of the lumbar spine were obtained. COMPARISON: 01/31/2019 FINDINGS: Normal lumbar lordosis. There is a dextroscoliosis of the lumbar spine. There is a normal alignment of the vertebrae. There is multilevel endplate spondylosis of the lumbar vertebrae. There is multi-level degenerative disc disease with multi-level disc space narrowing. There is no demonstrated fracture. The soft tissue structures are unremarkable. RAD/Lumbar Spine 2 or 3 Views IMPRESSION: Degenerative changes of the spine, as detailed above. Electronically Signed: Adiel Castellanos DO at 23:49 EST Tel , Service support ,
[2020-10-03 16:45] LABS: Thyroid Stim Hormone (TSH) 1.19 uIU/mL (0.358-3.74)
== END ==
PROVIDERS: PCP Family Medicine Geriatric Medicine; Referring Provider Family Medicine Geriatric Medicine; Visit Provider Family Medicine Geriatric Medicine
DX: M54.9 Dorsalgia, unspecified (principal); E05.90 Thyrotoxicosis, unspecified without thyrotoxic crisis or storm; N39.0 Urinary tract infection, site not specified
CPT/HCPCS: 36415; 72100; 84443; 87086; 87088; 87186

== ENCOUNTER 2020-11-19 18:00 | Inpatient (IN) | payer MEDICARE, SELFPAY ==
[2019-09-05 11:51] VITALS: BMI 36.8
[2020-11-19] VITALS (8 sets, daily range): BP systolic 121–129; BP diastolic 58–78; PULSE 77–104; RESP 20–38; TEMP 36.4–37.1; O2SAT 66–96; BMI 34.9; BMI 33.0; BMI 33.1
--- NOTE | 2020-11-19 18:08 | EKG12_ITS ---
Test Reason : SOB Blood Pressure : / mmHG Vent. Rate : 098 BPM Atrial Rate : 098 BPM P-R Int : 118 ms QRS Dur : 080 ms QT Int : 372 ms P-R-T Axes : 058 -15 069 degrees QTc Int : 474 ms Sinus rhythm with Premature atrial complexes Nonspecific ST and T wave abnormality Abnormal ECG Confirmed by KAREY ADAM, EMIL ([id number]), legal editor YAMILETH WEEMS ([id number]) on 11/21/2020 10:06:23 AM Referred By: AGNIESZKA Confirmed By:EMIL EDEN MD
--- NOTE | 2020-11-19 18:13 | ED.DCSUM_ITS ---
History of Present Illness Chief Complaint: Weakness Informant: Patient Onset: Days Context: Gradual Onset Timing: Continuous Current Severity: Moderate Maximum Severity: Moderate Narrative: Patient is a 75-year-old female medical history significant for GERD and hypertension, along with scoliosis, who presents to the emergency department with shortness of breath and weakness. Patient states she has had viral symptoms for about 9 days. She states that she tested positive for Covid on Thursday at a quick care. She states over the weekend, she is just felt signif icantly malaised. She has been short of breath with cough. She states she cannot get around her house without shortness of breath. She states that she has had a hard time catching her breath. Patient called squad because of her weakness and dyspnea. Squad did note that she was 98% on 2 L, however when the patient arrived here she is 86% on 6 L with a good waveform. She is not however in respiratory distress. She denies any history of underlying lung disease. Prior similar symptoms: No Recent Illness/Hospitalization: No Past Medical History - Allergies and Home Meds Allergies/Adverse Reactions: Allergies STEROIDS Allergy (Uncoded 04/08/18 11:56) Chest tightness Prior records reviewed: Yes Past Medical History: - - Hypertension, GERD Surgical History: - - Right total knee arthroplasty Smoking Status: Never smoker - Family History Maternal Family History: Family History (Last Reviewed 09/05/19 @ 11:48 by Milena Kuhn) Father Myocardial infarction Family History: Reports: 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 history Review of Systems General: Reports: Chills, Malaise, Sweats. Denies: Fever Eyes: Denies: Visual changes - bilaterally, Diplopia ENT: Denies: Rhinorrhea, Sore throat Cardiovascular: Denies: Chest pain, Palpitations Respiratory: Reports: Dyspnea. Denies: Cough, Dyspnea on exertion Gastrointestinal: Reports: Nausea, Vomiting. Denies: Abdominal pain, Diarrhea, Melena, Hematochezia Genitourinary: Denies: Dysuria, Hematuria, Frequency Musculoskeletal: Denies: Back pain, Extremity Pain Skin: Denies: Rash, Wounds Neurological: Denies: Headache, Weakness, Numbness Physical Exam Vital Signs/Narrative: Vital Signs Temp Pulse Resp BP Pulse Ox 11/19/20 18:11 97.8 F 104 H 38 H 129/58 H 88 11/19/20 18:04 97.6 F L 90 36 H 129/58 H 66 Inital Vital Signs reviewed: Yes General: Well nourished, Well developed, No Acute Distress Head: Normocephalic, Atraumatic Eyes: Perrl, EOMI ENT: Moist mucous membranes, No rhinorrhea Neck: Supple, Nontender Cardiovascular: Regular rate, Regular rhythm, No murmurs Respiratory: No distress, Chest nontender, Diminished Abdomen: Soft, Nontender, Nondistended, Normal bowel sounds Back: Nontender, Normal Inspection Extremities: Nontender, No edema Skin: Normal color, No rash Neurological: Alert, Oriented x3, Cranial nerves II-XII grossly intact, Normal Strength, Normal Sensation Psychological: Normal affect, Normal Mood Diagnostic/Tx/Re-eval Chest X-Ray - ED: 1 View, Read by ED Physician, Normal, Mediastinum, Chronic Changes, Right Infiltrate, Left Infiltrate Clinical Impression(s) from Imaging Studies Chest X-Ray 11/19/20 18:42 IMPRESSION: Bilateral airspace opacities may represent edema and/or infection Electronically Signed: Joshua Hutchinson MD at 20:00 EDT Tel , Service support , Abnormal Lab Results 11/19/20 11/19/20 11/19/20 18:13 18:13 18:13 WBC 10.6 RBC 4.83 Hgb 13.2 Hct 41.3 MCV 85.5 MCH 27.3 MCHC 32.0 RDW Std Deviation 46.2 H RDW Coeff of Henrique 14.8 H Plt Count 255 MPV 12.1 H Immature Gran % (Auto) 2.200 H Neut % (Auto) 84.8 H Lymph % (Auto) 7.0 L Armstrong % (Auto) 5.6 Eos % (Auto) 0.1 Baso % (Auto) 0.3 Absolute Neuts (auto) 9.0 H Absolute Lymphs (auto) 0.74 L Nucleated RBC % 0 Sodium 131 L Potassium 2.9 L Chloride 95 L Carbon Dioxide 26.0 Anion Gap 10 BUN 22 H Creatinine 0.95 Estim Creat Clear Calc 36.75 Est GFR (MDRD) Af Amer 74 Est GFR (MDRD) Non-Af 61 BUN/Creatinine Ratio 23.1 H Glucose 189 H Lactic Acid 3.5 H* Calcium 8.3 L Total Bilirubin 1.30 H AST 50 H ALT 33 Alkaline Phosphatase 70 Total Protein 6.6 Albumin 2.6 L Globulin 4.0 Albumin/Globulin Ratio 0.6 L Procalcitonin 11/19/20 18:13 WBC RBC Hgb Hct MCV MCH MCHC RDW Std Deviation RDW Coeff of Henrique Plt Count MPV Immature Gran % (Auto) Neut % (Auto) Lymph % (Auto) Armstrong % (Auto) Eos % (Auto) Baso % (Auto) Absolute Neuts (auto) Absolute Lymphs (auto) Nucleated RBC % Sodium Potassium Chloride Carbon Dioxide Anion Gap BUN Creatinine Estim Creat Clear Calc Est GFR (MDRD) Af Amer Est GFR (MDRD) Non-Af BUN/Creatinine Ratio Glucose Lactic Acid Calcium Total Bilirubin AST ALT Alkaline Phosphatase Total Protein Albumin Globulin Albumin/Globulin Ratio Procalcitonin 0.15 H - Rhythm Strip Rhythm Strip: Sinus Rhythm Rate: 80 Ectopy: None - EKG Initial EKG Interpretation: Sinus Rhythm, No Acute Injury Pattern Prior: Unchanged - Medical Decision Making Patient is known Covid positive. She has been on Decadron for 3 days now. She presents with increasing weakness and shortness of breath. Patient was transitioned to humidified high flow with increased oxygen saturations and more comfort. Metabolic work-up was pursued. She does have lactic acidosis, which I feel is likely secondary from her global hypoxia. Her chest x-ray was reviewed by myself and the radiologist. There is patchy bilateral infiltrates consistent with her Covid history. At this point, with the patient's hypoxic respiratory failure, she will be admitted for supportive care with her Covid diagnosis. Impression 1. COVID-19 2. Hypoxic respiratory failure ED Disposition - Plan for ED Patient: Disposition: Acute Care Hospital [facility]
[2020-11-19 18:30] LABS: Absolute Lymphocyte Count 0.74 X10^3/uL (0.83-4.51); Basophil# 0.03 X10^3/uL; Basophil% 0.3 % (0-1); Eosinophil# 0.01 X10^3/uL; Eosinophils% 0.1 % (0-5); Hematocrit 41.3 % (37-47); Hemoglobin 13.2 g/dL (12.0-15.0); Lymphocyte # 0.74 X10^3/ul (0.83-4.51); Mean Corpuscular Hgb 27.3 pg (27.0-32.0); Mean Corpuscular Volume 85.5 fL (81-99); Mean Platelet Vol. 12.1 fl (6.2-12.0); Monocyte# 0.59 X10^3/uL; Monocyte% 5.6 % (0-10); NRBC Flagged by Analyzer 0 % (0-5); Neutrophil % 84.8 % (47-70); Platelet Count 255 K/mm3 (150-450); RBC Distribution Width CV 14.8 % (11.6-14.6); RBC Distribution Width SD 46.2 fl (35.1-43.9); Red Blood Count 4.83 M/mm3 (4.2-5.4); White Blood Count 10.6 K/mm3 (4.4-11.0)
[2020-11-19] MEDS: Acetaminophen 500 MG Tablet 1000 MG PO (18:32)
--- NOTE | 2020-11-19 18:42 | RAD_ITS ---
INDICATION: cough EXAMINATION/TECHNIQUE: X-RAY - XR Chest 1 View COMPARISON: None. FINDINGS: Bilateral airspace opacities. Tortuous and calcified thoracic aorta. The heart is not enlarged. No pleural effusion or pneumothorax. No acute osseous abnormalities. RAD/Chest 1 View (Portable) IMPRESSION: Bilateral airspace opacities may represent edema and/or infection Electronically Signed: Joshua Hutchinson MD at 20:00 EDT Tel , Service support ,
[2020-11-19 18:48] LABS: ALB/GLOB Ratio 0.6 RATIO (0.9-2.4); AST(SGOT) 50 U/L (15-37); Alanine Aminotransfer ALT/SGPT 33 U/L (13-56); Albumin, Serum 2.6 g/dL (3.2-5.0); Alkaline Phosphatase 70 U/L (45-117); Anion Gap 10 (5-15); BUN 22 mg/dL (7-18); BUN/Creat Ratio 23.1 RATIO (10-20); Calcium,Total 8.3 mg/dL (8.5-10.1); Chloride 95 mmol/L (98-107); Creatinine, Serum 0.95 mg/dL (0.55-1.02); EST Glomerular Filtration Rate 61 mL/min (>60); Est Glom Filt Rate - Afr Amer 74 mL/min (>60); Estimated Creatinine Clearance 36.75 ml/min; Glucose 189 mg/dL (74-106); Potassium 2.9 mmol/L (3.5-5.1); Protein, Total 6.6 g/dL (6.4-8.2); Sodium Level 131 mmol/L (136-145)
[2020-11-19 19:03] LABS: Procalcitonin 0.15 ng/mL (0.00-0.09)
--- NOTE | 2020-11-19 19:10 | CPS ---
o2 increased to 80% due to low sat -pt also asked to keep mouth closed.
--- NOTE | 2020-11-19 19:42 | PCM.HP.STD ---
Problem List (1) COVID-19 Status: Acute (2) Debility Status: Chronic (3) Hypertension Status: Chronic (4) Hyperlipemia Status: Chronic History of Present Illness Date of Admission: 11/19/20 Chief Complaint: shortness of breath The patient is a 75 year old female patient with a significant past medical history of Covid 19 virus for which she tested +9 days ago at an urgent care. Despite outpatient therapy with Decadron for the past 3 days the patient has had increasing work of breathing and shortness of breath presenting with a pulse ox of 88% and a rapid respiratory rate. The patient did feel more comfortable with the airvo support. Chest x-ray is consistent with COVID-19 pneumonia. The patient will be admitted to Covid floor for respiratory support. Past Medical History Past Medical History (Chronic Problems): Chronic Problems (Last Reviewed 09/05/19 @ 11:48 by Milena Kuhn) Scoliosis of lumbar spine (Chronic) Debility (Chronic) Hypertension (Chronic) Hyperlipemia (Chronic) Age related osteoporosis (Chronic) GERD (gastroesophageal reflux disease) (Chronic) Medical History: Medical History (Last Reviewed 09/05/19 @ 11:48 by Milena Kuhn) Depression F32.9 Thyroid disorder E07.9 Allergies STEROIDS Allergy (Uncoded 04/08/18 11:56) Chest tightness Home Medications: Ambulatory Orders Medication Instructions Recorded Calcium Carb/Vitamin D 1 tab PO BIDCM 06/10/13 [Caltrate-600 With Vit D Tab] Omeprazole [Prilosec] 20 mg PO DAILY 06/10/13 lutein 10 mg tablet 10 mg PO DAILY 04/08/18 Celecoxib [Celebrex] 200 mg PO DAILY 11/19/20 Dexamethasone 1 tablet PO DAILY 11/19/20 Doxycycline [Vibramycin] 100 mg PO BID 11/19/20 Escitalopram Oxalate [Lexapro] 20 mg PO DAILY 11/19/20 Ivermectin 9 mg PO DAILY 11/19/20 Levothyroxine [Synthroid] 112 mcg PO DAILY 11/19/20 Surgical History: Surgical History (Last Reviewed 09/05/19 @ 11:48 by Milena Kuhn) History of appendectomy Z98.890, Z90.49 History of tonsillectomy and adenoidectomy Z98.890 femur surgery gallbladder surgery knee replacement Surgical History: - - Right total knee arthroplasty Psychiatric History: 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 psych hx 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 Denies: Chills, Weight Change HEENT: Denies: Head Aches, Sinus Congestion, Sinus Drainage Cardiovascular: Denies: Chest Pain, Palpitations Respiratory: Reports: Cough, Shortness of breath at rest. Denies: Sputum production Gastrointestinal: Denies: Abdominal Pain, Nausea, Vomiting Genitourinary: Denies: Dysuria Musculoskeletal: Denies: Joint Pain, Joint Tenderness Skin: Denies: Rash, Wounds Neurological: Denies: Numbness, Tingling, Focal weakness Psychiatric: Denies: Anxiety, Depression, Homicidal Ideations, Suicidal Ideations Hematologic/ Lymphatic: Denies: Easy Bruising, Easy Bleeding VTE Information - Inpt Only VTE Present on Admission: No VTE Mechan Device Prophylaxis: None VTE Pharm Prophylaxis ordered?: Yes - Physical Exam Vitals/I&O's: Vital Signs Temp Pulse Resp BP Pulse Ox 97.9 F 88 23 H 121/78 H 94 11/19/20 19:11 11/19/20 19:11 11/19/20 19:11 11/19/20 19:11 11/19/20 19:11 Oxygen Flow Rate (L/min) 50 Oxygen Delivery Method Airvo Weight: 179 lb 3.773 oz Body Mass Index (BMI) 34.9 General: Alert, Oriented x3, Cooperative HEENT: Atraumatic, Normocephalic Neck: Supple, No JVD Lungs: No wheeze, Diminished Cardiovascular: Regular rate, Normal S1, Normal S2, No murmurs Abdomen: Bowel Sounds Present, Soft, Non Tender Extremities: No edema Skin: No rashes Musculoskeletal: No Tenderness to Palpation of Joints or Extremities Neurological: Neuro grossly intact Psych/Mental Status: Normal Affect, Appropriate Microbiology Past 72 Hours 11/19/20 18:20 Nasal Secretion SARS-CoV-2 Antigen (Rapid) - Final SARS-CoV-2 (COVID 19) Laboratory Results 11/19/20 18:13: WBC 10.6, RBC 4.83, Hgb 13.2, Hct 41.3, MCV 85.5, MCH 27.3, MCHC 32.0, RDW Std Deviation 46.2 H, RDW Coeff of Henrique 14.8 H, Plt Count 255, MPV 12.1 H, Immature Gran % (Auto) 2.200 H, Neut % (Auto) 84.8 H, Lymph % (Auto) 7.0 L, [place] % (Auto) 5.6, Eos % (Auto) 0.1, Baso % (Auto) 0.3, Absolute Neuts (auto) 9.0 H, Absolute Lymphs (auto) 0.74 L, Nucleated RBC % 0 11/19/20 18:13: Sodium 131 L, Potassium 2.9 L, Chloride 95 L, Carbon Dioxide 26.0, Anion Gap 10, BUN 22 H, Creatinine 0.95, Estim Creat Clear Calc 36.75, Est GFR (MDRD) Af Amer 74, Est GFR (MDRD) Non-Af 61, BUN/Creatinine Ratio 23.1 H, Glucose 189 H, Calcium 8.3 L, Total Bilirubin 1.30 H, AST 50 H, ALT 33, Alkaline Phosphatase 70, Total Protein 6.6, Albumin 2.6 L, Globulin 4.0, Albumin/Globulin Ratio 0.6 L 11/19/20 18:13: Lactic Acid 3.5 H* 11/19/20 18:13: Procalcitonin 0.15 H Assessment/Plan All Active Problems (Last Reviewed 09/05/19 @ 11:48 by Milena Kuhn) COVID-19 (Acute) Segmental and somatic dysfunction of pelvic region (Acute) Segmental and somatic dysfunction of thoracic region (Acute) Segmental and somatic dysfunction of lumbar region (Acute) Pain at surgical incision (Acute) Chronic Problems (Last Reviewed 09/05/19 @ 11:48 by Milena Kuhn) Scoliosis of lumbar spine (Chronic) Hypertension (Chronic) Hyperlipemia (Chronic) Age related osteoporosis (Chronic) GERD (gastroesophageal reflux disease) (Chronic) Plan 1. COVID-19\hypoxia\shortness of breath?admit patient to Covid 19 unit with strict isolation procedures?continue air Vo as initiated in the emergency room. Will continue Decadron and oxygen support. Repeat CBC BMP in the morning patient appears to have a reasonable appetite and will allow for normal diet at this time. 2. Hypertension?controlled continue home medications 3. Hyperlipidemia?continue statin medication 4. Gastroesophageal reflux disease?continue home medication PPI 5. DVT prophylaxis?low molecular weight heparin Inpatient E&M: [id number] Init Hosp L3
[2020-11-19] MEDS: Potassium Chloride Oral Tablet 20 MEQ 60 MEQ PO (20:15)
[2020-11-19] MEDS: 0.9% Normal Saline 1,000 ML 999 ML IV (20:30)
[2020-11-19] MEDS: 0.9% Normal Saline 1,000 ML 100 ML IV (21:40)
[2020-11-19] MEDS: Calcium Carb/Vitamin D 1 TABLET Tablet PO (21:42)
[2020-11-19 22:23] LABS: Reflex Lactate? Y
[2020-11-19 23:13] LABS: Lactic Acid 1.4 mmol/L (0.4-1.9)
[2020-11-20] VITALS (34 sets, daily range): BP systolic 105–153; BP diastolic 40–67; PULSE 58–82; RESP 5–47; TEMP 36.3–37.5; O2SAT 87–95
[2020-11-20 04:44] LABS: Absolute Lymphocyte Count 0.99 X10^3/uL (0.83-4.51); Absolute Neutrophil Count 5.1 X10^3/uL (2.0-7.7); Basophil# 0.01 X10^3/uL; Basophil% 0.2 % (0-1); Eosinophil# 0.04 X10^3/uL; Eosinophils% 0.6 % (0-5); Hematocrit 37.8 % (37-47); Hemoglobin 11.8 g/dL (12.0-15.0); Lymphocyte # 0.99 X10^3/ul (0.83-4.51); Lymphocyte % 14.9 % (19-41); Mean Corp Hgb Conc 31.2 g/dL (32-36); Mean Corpuscular Hgb 27.1 pg (27.0-32.0); Mean Corpuscular Volume 86.9 fL (81-99); Mean Platelet Vol. 11.5 fl (6.2-12.0); Monocyte# 0.29 X10^3/uL; Monocyte% 4.4 % (0-10); NRBC Flagged by Analyzer 0 % (0-5); Neutrophil # 5.07 X10^3/uL (2.7-7.7); Platelet Count 221 K/mm3 (150-450); RBC Distribution Width SD 48.1 fl (35.1-43.9); Red Blood Count 4.35 M/mm3 (4.2-5.4); White Blood Count 6.7 K/mm3 (4.4-11.0)
[2020-11-20 05:27] LABS: Anion Gap 5 (5-15); BUN 19 mg/dL (7-18); BUN/Creat Ratio 23.6 RATIO (10-20); Calcium,Total 7.6 mg/dL (8.5-10.1); Chloride 102 mmol/L (98-107); EST Glomerular Filtration Rate 74 mL/min (>60); Est Glom Filt Rate - Afr Amer 89 mL/min (>60); Estimated Creatinine Clearance 43.64 ml/min; Glucose 142 mg/dL (74-106); Potassium 3.3 mmol/L (3.5-5.1); Sodium Level 137 mmol/L (136-145)
[2020-11-20] MEDS: Levothyroxine 112 MCG Tablet PO (06:24)
[2020-11-20] MEDS: 0.9% Normal Saline 1,000 ML 100 ML IV ×2 (06:51→16:41)
--- NOTE | 2020-11-20 06:56 | CON.PCM_ITS ---
Reason for Consult Date of Consultation: 11/20/20 Reason for Consultation: Acute hypoxemic respiratory failure secondary to COVID- 19 pneumonia History of Present Illness: The patient is a 75-year-old female, with a history as outlined below, who presented to the emergency department on November 19 with complaints of shortness of breath, generalized malaise, fatigue and nonproductive cough. She denies any loss of taste or smell. The patient reported that the symptoms have been present now for approximately 1 week. She recently tested positive for coronavirus on the of the month through the local [facility]. The patient was apparently started on Decadron as an outpatient. She does report decreased p.o. intake. She denies a history of any underlying lung condition or venous thromboembolic disease. The patient has yet to receive her coronavirus vaccination. On presentation to the emergency department, the patient was noted to be afebrile and hemodynamically stable. She was, however, tachypneic and hypoxemic. Laboratory evaluation revealed a normal white blood cell count. Chemistry profile was notable for a sodium of 131, potassium of 2.9, chloride of 95 and creatinine of 0.95. Lactate was elevated to 3.5. Total bili was increased to 1.3. Procalcitonin was noted to be 0.15. Chest x-ray revealed bilateral interstitial opacities. The patient was eventually transitioned to Airvo heated high flow oxygen and admitted to the medical intensive care unit for further management. Past Medical History Past Medical History (Chronic Problems): Chronic Problems (Last Reviewed 09/05/19 @ 11:48 by Milena Kuhn) Scoliosis of lumbar spine (Chronic) Debility (Chronic) Hypertension (Chronic) Hyperlipemia (Chronic) Age related osteoporosis (Chronic) GERD (gastroesophageal reflux disease) (Chronic) Medical History: Medical History (Last Reviewed 09/05/19 @ 11:48 by Milena Kuhn) Depression F32.9 Thyroid disorder E07.9 Allergies STEROIDS Allergy (Uncoded 04/08/18 11:56) Chest tightness Home Medications: Ambulatory Orders Medication Instructions Recorded Calcium Carb/Vitamin D 1 tab PO BIDCM 06/10/13 [Caltrate-600 With Vit D Tab] Omeprazole [Prilosec] 20 mg PO DAILY 06/10/13 lutein 10 mg tablet 10 mg PO DAILY 04/08/18 Celecoxib [Celebrex] 200 mg PO DAILY 11/19/20 Dexamethasone 1 tablet PO DAILY 11/19/20 Doxycycline [Vibramycin] 100 mg PO BID 11/19/20 Escitalopram Oxalate [Lexapro] 20 mg PO DAILY 11/19/20 Ivermectin 9 mg PO DAILY 11/19/20 Levothyroxine [Synthroid] 112 mcg PO DAILY 11/19/20 Surgical History: Surgical History (Last Reviewed 09/05/19 @ 11:48 by Milena Kuhn) History of appendectomy Z98.890, Z90.49 History of tonsillectomy and adenoidectomy Z98.890 femur surgery gallbladder surgery knee replacement Surgical History: - - Right total knee arthroplasty Psychiatric History: 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 psych hx 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 Smoking Status: Never smoker Tobacco Use: Non-smoker - *Family History Maternal Family History: Family History (Last Reviewed 09/05/19 @ 11:48 by Milena Kuhn) Father Myocardial infarction History Items: 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 history Review of Systems Constitutional: Reports: Anorexia, Malaise, Weakness, Fatigue Eyes: Denies: Blurred vision, Double vision HEENT: Denies: Head Aches, Sinus Congestion, Sinus Drainage Cardiovascular: Denies: Chest Pain, Palpitations Respiratory: Reports: Cough, Shortness of Breath Gastrointestinal: Denies: Abdominal Pain, Nausea, Vomiting Genitourinary: Denies: Dysuria Musculoskeletal: Denies: Joint Pain, Joint Tenderness Skin: Denies: Rash, Wounds Neurological: Denies: Numbness, Tingling, Focal weakness Psychiatric: Denies: Anxiety, Depression, Homicidal Ideations, Suicidal Ideations Hematologic/ Lymphatic: Denies: Easy Bruising, Easy Bleeding Patient Problems: Active and Suspected Problems (Last Reviewed 09/05/19 @ 11:48 by Milena Kuhn) COVID-19 (Acute) Objective: The patient's most recent lab work, culture data and imaging studies have all been personally reviewed. Rapid coronavirus testing was positive on November 19. Blood cultures are pending. - Physical Exam Vitals/I&O's: Vital Signs Temp Pulse Resp BP Pulse Ox 97.9 F 69 31 H 139/52 H 91 11/20/20 05:00 11/20/20 05:25 11/20/20 05:25 11/20/20 05:00 11/20/20 05:25 Oxygen Flow Rate (L/min) 50 Oxygen Delivery Method Airvo Weight: 169 lb 5.04 oz Body Mass Index (BMI) 33.0 Intake and Output for Last 24 Hours 11/18/20 11/19/20 11/20/20 23:59 23:59 23:59 Intake Total 1000 / 1000 918.33 / 918.33 Balance 1000 / 1000 918.33 / 918.33 General: Alert, Cooperative, No apparent distress HEENT: Atraumatic, Normocephalic Oral: No Gingival or Mucosal Lesions/ Ulcerations Neck: Supple, No Nodes, Trachea Midline Lungs: No rhonchi, No wheeze, No rales, Diminished, Tachypneic Cardiovascular: Regular rate, Regular Rhythm Abdomen: Bowel Sounds Present, Soft, Non Tender, Obese Extremities: No clubbing, No cyanosis, No edema Skin: No breakdown Musculoskeletal: No Tenderness to Palpation of Joints or Extremities Lymphatic: No Cervical, Supraclavicular, or Inguinal Adenopathy Neurological: Neuro grossly intact Psych/Mental Status: Normal Affect, Appropriate Labs (Last 48 Hours) 11/19/20 11/19/20 11/19/20 18:13 18:13 18:13 WBC 10.6 RBC 4.83 Hgb 13.2 Hct 41.3 MCV 85.5 MCH 27.3 MCHC 32.0 RDW Std Deviation 46.2 H RDW Coeff of Henrique 14.8 H Plt Count 255 MPV 12.1 H Immature Gran % (Auto) 2.200 H Neut % (Auto) 84.8 H Lymph % (Auto) 7.0 L [place] % (Auto) 5.6 Eos % (Auto) 0.1 Baso % (Auto) 0.3 Absolute Neuts (auto) 9.0 H Absolute Lymphs (auto) 0.74 L Nucleated RBC % 0 Sodium 131 L Potassium 2.9 L Chloride 95 L Carbon Dioxide 26.0 Anion Gap 10 BUN 22 H Creatinine 0.95 Estim Creat Clear Calc 36.75 Est GFR (MDRD) Af Amer 74 Est GFR (MDRD) Non-Af 61 BUN/Creatinine Ratio 23.1 H Glucose 189 H Lactic Acid 3.5 H* Calcium 8.3 L Total Bilirubin 1.30 H AST 50 H ALT 33 Alkaline Phosphatase 70 Total Protein 6.6 Albumin 2.6 L Globulin 4.0 Albumin/Globulin Ratio 0.6 L Procalcitonin 11/19/20 11/19/20 11/20/20 18:13 22:40 04:30 WBC 6.7 RBC 4.35 Hgb 11.8 L Hct 37.8 MCV 86.9 MCH 27.1 MCHC 31.2 L RDW Std Deviation 48.1 H RDW Coeff of Henrique 15.0 H Plt Count 221 MPV 11.5 Immature Gran % (Auto) 3.900 H Neut % (Auto) 76.0 H Lymph % (Auto) 14.9 L [place] % (Auto) 4.4 Eos % (Auto) 0.6 Baso % (Auto) 0.2 Absolute Neuts (auto) 5.1 Absolute Lymphs (auto) 0.99 Nucleated RBC % 0 Sodium Potassium Chloride Carbon Dioxide Anion Gap BUN Creatinine Estim Creat Clear Calc Est GFR (MDRD) Af Amer Est GFR (MDRD) Non-Af BUN/Creatinine Ratio Glucose Lactic Acid 1.4 Calcium Total Bilirubin AST ALT Alkaline Phosphatase Total Protein Albumin Globulin Albumin/Globulin Ratio Procalcitonin 0.15 H 11/20/20 04:30 WBC RBC Hgb Hct MCV MCH MCHC RDW Std Deviation RDW Coeff of Henrique Plt Count MPV Immature Gran % (Auto) Neut % (Auto) Lymph % (Auto) [place] % (Auto) Eos % (Auto) Baso % (Auto) Absolute Neuts (auto) Absolute Lymphs (auto) Nucleated RBC % Sodium 137 Potassium 3.3 L Chloride 102 Carbon Dioxide 30.0 Anion Gap 5 BUN 19 H Creatinine 0.80 Estim Creat Clear Calc 43.64 Est GFR (MDRD) Af Amer 89 Est GFR (MDRD) Non-Af 74 BUN/Creatinine Ratio 23.6 H Glucose 142 H Lactic Acid Calcium 7.6 L Total Bilirubin AST ALT Alkaline Phosphatase Total Protein Albumin Globulin Albumin/Globulin Ratio Procalcitonin Microbiology 11/19/20 18:20 Nasal Secretion SARS-CoV-2 Antigen (Rapid) - Final SARS-CoV-2 (COVID 19) Clinical Impression(s) from Imaging Studies Chest X-Ray 11/19/20 18:42 IMPRESSION: Bilateral airspace opacities may represent edema and/or infection Electronically Signed: Joshua Hutchinson MD at 20:00 EDT Tel , Service support , Current Medications Calcium/Vitamin D (Calcium Carb/Vitamin D 1 Tablet Tablet) 1 tablet PO BID [facility] Last Admin: 11/19/20 21:42 Dose: 1 tablet Documented by: Celecoxib (Celecoxib 200 Mg Capsule) 200 mg PO DAILY [facility] Dexamethasone Sodium Phosphate (Dexamethasone 10 Mg/Ml Vial) 6 mg IV DAILY [facility] Enoxaparin Sodium (Enoxaparin 40 Mg/0.4 Ml Syringe) 40 mg SC DAILY [facility] Escitalopram Oxalate (Escitalopram Oxalate 20 Mg Tablet) 20 mg PO DAILY [facility] Sodium Chloride () 1,000 mls @ 100 mls/hr IV .Q10H [facility] Last Admin: 11/20/20 06:51 Dose: 100 mls/hr Documented by: Sodium Chloride () 250 mls @ 15 mls/hr IV .[id number] PRN PRN Reason: Saline Flush Sodium Chloride () 250 mls @ 15 mls/hr IV .[id number] PRN PRN Reason: Additional IVPB Infusion Levothyroxine Sodium (Levothyroxine 112 Mcg Tablet) 112 mcg PO DAILY@0600 [facility] Last Admin: 11/20/20 06:24 Dose: 112 mcg Documented by: Pantoprazole Sodium (Pantoprazole Sodium 20 Mg Tablet) 20 mg PO DAILY [facility] Sodium Chloride (0.9% Saline Lock 10 Ml Syringe) 10 - 40 ml IV UD PRN PRN Reason: SALINE FLUSH Assessment/Plan Active and Suspected Problems (Last Reviewed 09/05/19 @ 11:48 by Milena Kuhn) COVID-19 (Acute) RECOMMENDATIONS: 1. Continue patient on Airvo heated high flow and wean FiO2 to maintain oxygen saturations at or above 90%. 2. Continue Decadron to complete 10-day treatment course. 3. Start remdesivir. Monitor liver and renal function accordingly. 4. Check D-dimer and BNP. 5. Continue Lovenox as ordered. IMPRESSIONS: 1. Severe sepsis/acute hypoxemic respiratory failure secondary to COVID-19 pneumonia The patient was admitted to the hospital with progressive Covid symptoms after she was diagnosed 6 days ago through the [facility]. The patient was subsequently started on steroids, but her symptoms continued to progress despite this. The patient does not have a baseline oxygen requirement. Therefore, the patient will be continued on heated high flow oxygen with a goal to maintain oxygen saturations at or above 90%. She will be continued on Decadron as well to complete a 10-day treatment course. Remdesivir will also be initiated, with plans to monitor liver and renal function accordingly. Will obtain D-dimer level and BNP. 2. Hyponatremia/hypokalemia Likely secondary to hypovolemia. The patient is currently receiving IV fluids. Sodium and chloride levels have improved. Continue potassium repletion as indicated. 3. GERD/depression/hypothyroidism/advanced age Complicates care, management, recovery and prognosis. Continue home medications as indicated. CODE status: Discussed CODE status at length including difference between FULL c ode, DNR-CCA and DNR-CC status. Following discussions about the differences in these status, patient requested FULL CODE STATUS. Advanced Care Planning Face to Face Time: 12 minutes This note was generated with [employer] dictation software. It may contain incorrect words, spelling, and punctuation that were not noted in checking the note before signing. Inpatient E&M: 14825 Init Hosp L3 Procedures: 20431 Advncd Care Plan 30 Min
--- NOTE | 2020-11-20 07:12 | PCM.HP.STD ---
History of Present Illness The patient is a 75 year old F [] Past Medical History Past Medical History (Chronic Problems): Chronic Problems (Last Reviewed 09/05/19 @ 11:48 by Milena Kuhn) Scoliosis of lumbar spine (Chronic) Debility (Chronic) Hypertension (Chronic) Hyperlipemia (Chronic) Age related osteoporosis (Chronic) GERD (gastroesophageal reflux disease) (Chronic) Medical History: Medical History (Last Reviewed 09/05/19 @ 11:48 by Milena Kuhn) Depression F32.9 Thyroid disorder E07.9 Allergies STEROIDS Allergy (Uncoded 04/08/18 11:56) Chest tightness Home Medications: Ambulatory Orders Medication Instructions Recorded Calcium Carb/Vitamin D 1 tab PO BIDCM 06/10/13 [Caltrate-600 With Vit D Tab] Omeprazole [Prilosec] 20 mg PO DAILY 06/10/13 lutein 10 mg tablet 10 mg PO DAILY 04/08/18 Celecoxib [Celebrex] 200 mg PO DAILY 11/19/20 Dexamethasone 1 tablet PO DAILY 11/19/20 Doxycycline [Vibramycin] 100 mg PO BID 11/19/20 Escitalopram Oxalate [Lexapro] 20 mg PO DAILY 11/19/20 Ivermectin 9 mg PO DAILY 11/19/20 Levothyroxine [Synthroid] 112 mcg PO DAILY 11/19/20 Surgical History: Surgical History (Last Reviewed 09/05/19 @ 11:48 by Milena Kuhn) History of appendectomy Z98.890, Z90.49 History of tonsillectomy and adenoidectomy Z98.890 femur surgery gallbladder surgery knee replacement Surgical History: - - Right total knee arthroplasty Psychiatric History: 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 psych 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 Smoking Status: Never smoker Tobacco Use: Non-smoker - *Family History Maternal Family History: Family History (Last Reviewed 09/05/19 @ 11:48 by Milena Kuhn) Father Myocardial infarction History Items: 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 history Review of Systems Constitutional: Denies: Chills, Fever, Weight Change HEENT: Denies: Head Aches, Sinus Congestion, Sinus Drainage Patient Problems: Active and Suspected Problems (Last Reviewed 09/05/19 @ 11:48 by Milena Kuhn) COVID-19 (Acute) - Physical Exam Vitals/I&O's: Vital Signs Temp Pulse Resp BP Pulse Ox 97.9 F 69 31 H 139/52 H 91 11/20/20 05:00 11/20/20 05:25 11/20/20 05:25 11/20/20 05:00 11/20/20 05:25 Oxygen Flow Rate (L/min) 50 Oxygen Delivery Method Airvo Weight: 76.8 kg Body Mass Index (BMI) 33.0 Intake and Output for Last 24 Hours 11/18/20 11/19/20 11/20/20 23:59 23:59 23:59 Intake Total 1000 / 1000 918.33 / 918.33 Balance 1000 / 1000 918.33 / 918.33 General: Alert, Oriented x3, Cooperative HEENT: Atraumatic, PERRLA, EOMI, Normocephalic Neck: Supple, No JVD, Negative Carotid Bruits Lungs: Clear to auscultation, Normal air movement Cardiovascular: Regular rate, No murmurs Abdomen: Bowel Sounds Present, Soft, Non Tender Extremities: No edema, Capillary Refill Less than 3 Seconds Skin: No rashes, No breakdown Musculoskeletal: No Tenderness to Palpation of Joints or Extremities Neurological: Cranial nerves II-XII grossly intact Psych/Mental Status: Normal Affect, Appropriate Microbiology Past 72 Hours 11/19/20 18:20 Nasal Secretion SARS-CoV-2 Antigen (Rapid) - Final SARS-CoV-2 (COVID 19) Laboratory Results 11/19/20 18:13: WBC 10.6, RBC 4.83, Hgb 13.2, Hct 41.3, MCV 85.5, MCH 27.3, MCHC 32.0, RDW Std Deviation 46.2 H, RDW Coeff of Henrique 14.8 H, Plt Count 255, MPV 12.1 H, Immature Gran % (Auto) 2.200 H, Neut % (Auto) 84.8 H, Lymph % (Auto) 7.0 L, [place] % (Auto) 5.6, Eos % (Auto) 0.1, Baso % (Auto) 0.3, Absolute Neuts (auto) 9.0 H, Absolute Lymphs (auto) 0.74 L, Nucleated RBC % 0 11/19/20 18:13: Sodium 131 L, Potassium 2.9 L, Chloride 95 L, Carbon Dioxide 26.0, Anion Gap 10, BUN 22 H, Creatinine 0.95, Estim Creat Clear Calc 36.75, Est GFR (MDRD) Af Amer 74, Est GFR (MDRD) Non-Af 61, BUN/Creatinine Ratio 23.1 H, Glucose 189 H, Calcium 8.3 L, Total Bilirubin 1.30 H, AST 50 H, ALT 33, Alkaline Phosphatase 70, Total Protein 6.6, Albumin 2.6 L, Globulin 4.0, Albumin/Globulin Ratio 0.6 L 11/19/20 18:13: Lactic Acid 3.5 H* 11/19/20 18:13: Procalcitonin 0.15 H 11/19/20 22:40: Lactic Acid 1.4 11/20/20 04:30: WBC 6.7, RBC 4.35, Hgb 11.8 L, Hct 37.8, MCV 86.9, MCH 27.1, MCHC 31.2 L, RDW Std Deviation 48.1 H, RDW Coeff of Henrique 15.0 H, Plt Count 221, MPV 11.5, Immature Gran % (Auto) 3.900 H, Neut % (Auto) 76.0 H, Lymph % (Auto) 14.9 L, [place] % (Auto) 4.4, Eos % (Auto) 0.6, Baso % (Auto) 0.2, Absolute Neuts (auto) 5.1, Absolute Lymphs (auto) 0.99, Nucleated RBC % 0 11/20/20 04:30: Sodium 137, Potassium 3.3 L, Chloride 102, Carbon Dioxide 30.0, Anion Gap 5, BUN 19 H, Creatinine 0.80, Estim Creat Clear Calc 43.64, Est GFR (MDRD) Af Amer 89, Est GFR (MDRD) Non-Af 74, BUN/Creatinine Ratio 23.6 H, Glucose 142 H, Calcium 7.6 L Current Medications Calcium/Vitamin D (Calcium Carb/Vitamin D 1 Tablet Tablet) 1 tablet PO BID [facility] Last Admin: 11/19/20 21:42 Dose: 1 tablet Documented by: Celecoxib (Celecoxib 200 Mg Capsule) 200 mg PO DAILY [facility] Dexamethasone Sodium Phosphate (Dexamethasone 10 Mg/Ml Vial) 6 mg IV DAILY [facility] Enoxaparin Sodium (Enoxaparin 40 Mg/0.4 Ml Syringe) 40 mg SC DAILY [facility] Escitalopram Oxalate (Escitalopram Oxalate 20 Mg Tablet) 20 mg PO DAILY [facility] Sodium Chloride () 1,000 mls @ 100 mls/hr IV .Q10H [facility] Last Admin: 11/20/20 06:51 Dose: 100 mls/hr Documented by: Sodium Chloride () 250 mls @ 15 mls/hr IV .[id number] PRN PRN Reason: Saline Flush Sodium Chloride () 250 mls @ 15 mls/hr IV .[id number] PRN PRN Reason: Additional IVPB Infusion Levothyroxine Sodium (Levothyroxine 112 Mcg Tablet) 112 mcg PO DAILY@0600 [facility] Last Admin: 11/20/20 06:24 Dose: 112 mcg Documented by: Pantoprazole Sodium (Pantoprazole Sodium 20 Mg Tablet) 20 mg PO DAILY [facility] Sodium Chloride (0.9% Saline Lock 10 Ml Syringe) 10 - 40 ml IV UD PRN PRN Reason: SALINE FLUSH Assessment/Plan All Active Problems (Last Reviewed 09/05/19 @ 11:48 by Milena Kuhn) COVID-19 (Acute) Segmental and somatic dysfunction of pelvic region (Acute) Segmental and somatic dysfunction of thoracic region (Acute) Segmental and somatic dysfunction of lumbar region (Acute) Pain at surgical incision (Acute)
--- NOTE | 2020-11-20 07:16 | PN_ITS ---
Patient Problems: Active and Suspected Problems (Last Reviewed 09/05/19 @ 11:48 by Milena Kuhn) COVID-19 (Acute) Vitals/I&O's: Vital Signs Temp Pulse Resp BP Pulse Ox 97.9 F 69 31 H 139/52 H 91 11/20/20 05:00 11/20/20 05:25 11/20/20 05:25 11/20/20 05:00 11/20/20 05:25 Oxygen Flow Rate (L/min) 50 Oxygen Delivery Method Airvo Weight: 76.8 kg Body Mass Index (BMI) 33.0 Intake and Output for Last 24 Hours 11/18/20 11/19/20 11/20/20 23:59 23:59 23:59 Intake Total 1000 / 1000 918.33 / 918.33 Balance 1000 / 1000 918.33 / 918.33 Microbiology Past 72 Hours 11/19/20 18:20 Nasal Secretion SARS-CoV-2 Antigen (Rapid) - Final SARS-CoV-2 (COVID 19) Laboratory Results 11/19/20 18:13: WBC 10.6, RBC 4.83, Hgb 13.2, Hct 41.3, MCV 85.5, MCH 27.3, MCHC 32.0, RDW Std Deviation 46.2 H, RDW Coeff of Henrique 14.8 H, Plt Count 255, MPV 12.1 H, Immature Gran % (Auto) 2.200 H, Neut % (Auto) 84.8 H, Lymph % (Auto) 7.0 L, [place] % (Auto) 5.6, Eos % (Auto) 0.1, Baso % (Auto) 0.3, Absolute Neuts (auto) 9.0 H, Absolute Lymphs (auto) 0.74 L, Nucleated RBC % 0 11/19/20 18:13: Sodium 131 L, Potassium 2.9 L, Chloride 95 L, Carbon Dioxide 26.0, Anion Gap 10, BUN 22 H, Creatinine 0.95, Estim Creat Clear Calc 36.75, Est GFR (MDRD) Af Amer 74, Est GFR (MDRD) Non-Af 61, BUN/Creatinine Ratio 23.1 H, Glucose 189 H, Calcium 8.3 L, Total Bilirubin 1.30 H, AST 50 H, ALT 33, Alkaline Phosphatase 70, Total Protein 6.6, Albumin 2.6 L, Globulin 4.0, Albumin/Globulin Ratio 0.6 L 11/19/20 18:13: Lactic Acid 3.5 H* 11/19/20 18:13: Procalcitonin 0.15 H 11/19/20 22:40: Lactic Acid 1.4 11/20/20 04:30: WBC 6.7, RBC 4.35, Hgb 11.8 L, Hct 37.8, MCV 86.9, MCH 27.1, MCHC 31.2 L, RDW Std Deviation 48.1 H, RDW Coeff of Henrique 15.0 H, Plt Count 221, MPV 11.5, Immature Gran % (Auto) 3.900 H, Neut % (Auto) 76.0 H, Lymph % (Auto) 14.9 L, [place] % (Auto) 4.4, Eos % (Auto) 0.6, Baso % (Auto) 0.2, Absolute Neuts (auto) 5.1, Absolute Lymphs (auto) 0.99, Nucleated RBC % 0 11/20/20 04:30: Sodium 137, Potassium 3.3 L, Chloride 102, Carbon Dioxide 30.0, Anion Gap 5, BUN 19 H, Creatinine 0.80, Estim Creat Clear Calc 43.64, Est GFR (MDRD) Af Amer 89, Est GFR (MDRD) Non-Af 74, BUN/Creatinine Ratio 23.6 H, Glucose 142 H, Calcium 7.6 L Current Medications Calcium/Vitamin D (Calcium Carb/Vitamin D 1 Tablet Tablet) 1 tablet PO BID [facility] Last Admin: 11/19/20 21:42 Dose: 1 tablet Documented by: Celecoxib (Celecoxib 200 Mg Capsule) 200 mg PO DAILY [facility] Dexamethasone Sodium Phosphate (Dexamethasone 10 Mg/Ml Vial) 6 mg IV DAILY [facility] Enoxaparin Sodium (Enoxaparin 40 Mg/0.4 Ml Syringe) 40 mg SC DAILY [facility] Escitalopram Oxalate (Escitalopram Oxalate 20 Mg Tablet) 20 mg PO DAILY [facility] Sodium Chloride () 1,000 mls @ 100 mls/hr IV .Q10H [facility] Last Admin: 11/20/20 06:51 Dose: 100 mls/hr Documented by: Sodium Chloride () 250 mls @ 15 mls/hr IV .[id number] PRN PRN Reason: Saline Flush Sodium Chloride () 250 mls @ 15 mls/hr IV .[id number] PRN PRN Reason: Additional IVPB Infusion Levothyroxine Sodium (Levothyroxine 112 Mcg Tablet) 112 mcg PO DAILY@0600 [facility] Last Admin: 11/20/20 06:24 Dose: 112 mcg Documented by: Pantoprazole Sodium (Pantoprazole Sodium 20 Mg Tablet) 20 mg PO DAILY [facility] Sodium Chloride (0.9% Saline Lock 10 Ml Syringe) 10 - 40 ml IV UD PRN PRN Reason: SALINE FLUSH STROKE Vital Signs/Narrative: Vital Signs Temp Pulse Resp BP Pulse Ox 11/20/20 05:25 69 31 H 91 11/20/20 05:00 97.9 F 67 34 H 139/52 H 94 11/20/20 04:00 97.9 F 67 28 H 142/58 H 93 Medical Necessity - Tobacco Use Smoking Status: Never smoker Tobacco Use: Non-smoker Assessment/Plan All Active Problems (Last Reviewed 09/05/19 @ 11:48 by Milena Kuhn) COVID-19 (Acute) Segmental and somatic dysfunction of pelvic region (Acute) Segmental and somatic dysfunction of thoracic region (Acute) Segmental and somatic dysfunction of lumbar region (Acute) Pain at surgical incision (Acute)
--- NOTE | 2020-11-20 07:31 | PN_ITS ---
Patient Problems: Active and Suspected Problems (Last Reviewed 09/05/19 @ 11:48 by Milena Kuhn) COVID-19 (Acute) Reason for Visit: SARS-COV 2 pneumonia Subjective: Patient is a 75-year-old lady who presented with increasing generalized weakness and multiple falls. She had apparently tested positive for Covid 5 days prior to her admission. Objective: GENERAL: Dyspneic at rest HEENT: Atraumatic; EYES; Anicteric, Normal Conjunctiva NECK; supple, normal thyroid, RESPIRATORY: Diminished to auscultation CARDIOVASCULAR: Regular S1 S2, GI: soft, normoactive bowel sounds, : No Renal angle tenderness; EXTREMITIES: No edema, no clubbing, MUSCULOSKELETAL: no muscle waisting NEURO: Awake; no lateralizing signs. SKIN: No Rash PSYCH; Flat affect Vitals/I&O's: Vital Signs Temp Pulse Resp BP Pulse Ox 98.3 F 79 36 H 126/44 H 90 11/20/20 07:00 11/20/20 07:27 11/20/20 07:00 11/20/20 07:00 11/20/20 07:00 Oxygen Flow Rate (L/min) 50 Oxygen Delivery Method Airvo Weight: 76.8 kg Body Mass Index (BMI) 33.0 Intake and Output for Last 24 Hours 11/18/20 11/19/20 11/20/20 23:59 23:59 23:59 Intake Total 1000 / 1000 918.33 / 918.33 Balance 1000 / 1000 918.33 / 918.33 Microbiology Past 72 Hours 11/19/20 18:20 Nasal Secretion SARS-CoV-2 Antigen (Rapid) - Final SARS-CoV-2 (COVID 19) Laboratory Results 11/19/20 18:13: WBC 10.6, RBC 4.83, Hgb 13.2, Hct 41.3, MCV 85.5, MCH 27.3, MCHC 32.0, RDW Std Deviation 46.2 H, RDW Coeff of Henrique 14.8 H, Plt Count 255, MPV 12.1 H, Immature Gran % (Auto) 2.200 H, Neut % (Auto) 84.8 H, Lymph % (Auto) 7.0 L, [place] % (Auto) 5.6, Eos % (Auto) 0.1, Baso % (Auto) 0.3, Absolute Neuts (auto) 9.0 H, Absolute Lymphs (auto) 0.74 L, Nucleated RBC % 0 11/19/20 18:13: Sodium 131 L, Potassium 2.9 L, Chloride 95 L, Carbon Dioxide 26.0, Anion Gap 10, BUN 22 H, Creatinine 0.95, Estim Creat Clear Calc 36.75, Est GFR (MDRD) Af Amer 74, Est GFR (MDRD) Non-Af 61, BUN/Creatinine Ratio 23.1 H, Glucose 189 H, Calcium 8.3 L, Total Bilirubin 1.30 H, AST 50 H, ALT 33, Alkaline Phosphatase 70, Total Protein 6.6, Albumin 2.6 L, Globulin 4.0, Albumin/Globulin Ratio 0.6 L 11/19/20 18:13: Lactic Acid 3.5 H* 11/19/20 18:13: Procalcitonin 0.15 H 11/19/20 22:40: Lactic Acid 1.4 11/20/20 04:30: WBC 6.7, RBC 4.35, Hgb 11.8 L, Hct 37.8, MCV 86.9, MCH 27.1, MCHC 31.2 L, RDW Std Deviation 48.1 H, RDW Coeff of Henrique 15.0 H, Plt Count 221, MPV 11.5, Immature Gran % (Auto) 3.900 H, Neut % (Auto) 76.0 H, Lymph % (Auto) 14.9 L, Forest % (Auto) 4.4, Eos % (Auto) 0.6, Baso % (Auto) 0.2, Absolute Neuts (auto) 5.1, Absolute Lymphs (auto) 0.99, Nucleated RBC % 0 11/20/20 04:30: Sodium 137, Potassium 3.3 L, Chloride 102, Carbon Dioxide 30.0, Anion Gap 5, BUN 19 H, Creatinine 0.80, Estim Creat Clear Calc 43.64, Est GFR (MDRD) Af Amer 89, Est GFR (MDRD) Non-Af 74, BUN/Creatinine Ratio 23.6 H, Glucose 142 H, Calcium 7.6 L Current Medications Calcium/Vitamin D (Calcium Carb/Vitamin D 1 Tablet Tablet) 1 tablet PO BID STEVEN Last Admin: 11/19/20 21:42 Dose: 1 tablet Documented by: Celecoxib (Celecoxib 200 Mg Capsule) 200 mg PO DAILY [facility] Dexamethasone Sodium Phosphate (Dexamethasone 10 Mg/Ml Vial) 6 mg IV DAILY [facility] Enoxaparin Sodium (Enoxaparin 40 Mg/0.4 Ml Syringe) 40 mg SC DAILY [facility] Escitalopram Oxalate (Escitalopram Oxalate 20 Mg Tablet) 20 mg PO DAILY [facility] Sodium Chloride () 1,000 mls @ 100 mls/hr IV .Q10H [facility] Last Admin: 11/20/20 06:51 Dose: 100 mls/hr Documented by: Sodium Chloride () 250 mls @ 15 mls/hr IV .[id number] PRN PRN Reason: Saline Flush Sodium Chloride () 250 mls @ 15 mls/hr IV .[id number] PRN PRN Reason: Additional IVPB Infusion Levothyroxine Sodium (Levothyroxine 112 Mcg Tablet) 112 mcg PO DAILY@0600 [facility] Last Admin: 11/20/20 06:24 Dose: 112 mcg Documented by: Pantoprazole Sodium (Pantoprazole Sodium 20 Mg Tablet) 20 mg PO DAILY [facility] Sodium Chloride (0.9% Saline Lock 10 Ml Syringe) 10 - 40 ml IV UD PRN PRN Reason: SALINE FLUSH STROKE Vital Signs/Narrative: Vital Signs Temp Pulse Resp BP Pulse Ox 11/20/20 07:27 79 11/20/20 07:00 98.3 F 75 36 H 126/44 H 90 11/20/20 05:25 69 31 H 91 11/20/20 05:00 97.9 F 67 34 H 139/52 H 94 11/20/20 04:00 97.9 F 67 28 H 142/58 H 93 Medical Necessity - Tobacco Use Smoking Status: Never smoker Tobacco Use: Non-smoker Assessment/Plan All Active Problems (Last Reviewed 09/05/19 @ 11:48 by Milena Kuhn) COVID-19 (Acute) Segmental and somatic dysfunction of pelvic region (Acute) Segmental and somatic dysfunction of thoracic region (Acute) Segmental and somatic dysfunction of lumbar region (Acute) Pain at surgical incision (Acute) Patient is a 75-year-old lady who presented with increasing generalized weakness and multiple falls. She had apparently tested positive for Covid 5 days prior to her admission. 1. Acute hypoxic respiratory failure ?Secondary to SARS-CoV-2 pneumonia ?Admitted to the intensive care unit managed with high flow oxygen titrated to keep saturation greater than 90 in addition to Decadron and remdesivir with consultation placed to both pulmonary medicine as well as infectious disease 2. Severe sepsis secondary to SARS-CoV-2 pneumonia ?Management as discussed above 3. Hypokalemia ?Corrected per protocol 4. Hyponatremia ?Corrected per protocol 5. GERD ?Patient is on PPI 6. Hypothyroidism - Patient is on levothyroxine home dose continued 7. Depression ?Patient is on SSRI continued 8. DVT prophylaxis ?low molecular weight heparin Inpatient E&M: [id number] [facility] [[email or web address]] Hosp L3
[2020-11-20 08:11] LABS: BNP,B-Type NATRIURETIC PEPTIDE 72.6 pg/mL (0-100)
[2020-11-20 08:17] LABS: Alkaline Phosphatase 62 U/L (45-117)
--- NOTE | 2020-11-20 08:19 | CPS ---
Increased Airvo from 50L to 60L.
[2020-11-20] MEDS: Enoxaparin 40 MG/0.4 ML Syringe SC ×2 (08:33→22:55)
[2020-11-20] MEDS: Pantoprazole Sodium 20 MG Tablet PO (08:33)
[2020-11-20] MEDS: Celecoxib 200 MG Capsule PO (08:34)
[2020-11-20] MEDS: dexAMETHasone 10 MG/ML Vial 6 MG IV (08:34)
[2020-11-20] MEDS: Escitalopram Oxalate 20 MG Tablet PO (08:34)
[2020-11-20] MEDS: Calcium Carb/Vitamin D 1 TABLET Tablet PO ×2 (08:34→22:54)
[2020-11-20] MEDS: 0.9% Saline Lock 10 ML Syringe IV ×2 (08:40→11:25)
[2020-11-20 08:52] LABS: D-Dimer Quantitative (DVT/PE) 2.25 FEU/ug/m (0.27-0.49)
--- NOTE | 2020-11-20 09:15 | CT_ITS ---
STUDY: CTA CHEST REASON FOR EXAM: Female, 75 years old. Shortness of breath. COVID Positive. RADIATION DOSAGE (If Supplied By Facility): CTDIvol = ( 11.17 ) mGy, DLP = ( 456.65 ) mGycm TECHNIQUE: The examination was performed with the intravenous administration of IV 100mL Isovue-370. Post-processing of the angiographic images was performed, with multiplanar reformation and 3D reconstruction. Individualized dose optimization techniques were used for this CT. COMPARISON: None. FINDINGS: There are diffuse groundglass opacities throughout both lungs, consistent with COVID pneumonia. There are no pleural effusions. There is no pneumothorax. There is no pulmonary embolus. There is no thoracic aortic aneurysm or dissection. The heart and pericardium are within normal limits. There is no thoracic lymphadenopathy. Images through the upper abdomen demonstrate a left adrenal nodule which stable when compared with the abdominal CT dated 07/01/18 and likely represents an adenoma. There are no destructive osseous lesions. CT/CTA Chest W/WO Contrast IMPRESSION: No pulmonary embolus. No thoracic aortic aneurysm or dissection. Diffuse glass opacities throughout both lungs, consistent with COVID pneumonia. Electronically Signed: Eric Unger MD at 10:40 EDT Tel , Service support ,
[2020-11-20] MEDS: Potassium Chloride Oral Tablet 20 MEQ 40 MEQ PO (10:42)
--- NOTE | 2020-11-20 11:50 | CASEMGMT ---
RN CM assessment deferred at this time. Patient is currently on Airvo 60L. CM will attempt to complete assessment at later time.
--- NOTE | 2020-11-20 13:04 | CASEMGMT ---
As per admitting assessment clinician, pt has healthcare POA forms and LW, not on file. Pepe Pedraza is pt's POA as per pt. [facility]
[2020-11-20 13:30] LABS: Procalcitonin 0.21 ng/mL (0.00-0.09)
--- NOTE | 2020-11-20 13:46 | CPS ---
placed on Bipap for transport to CT.
--- NOTE | 2020-11-20 15:56 | PCM.HP.ID ---
Problem List (1) COVID-19 Status: Acute Reason for Consult: covid Consulted by: Dr. Mccann History of Present Illness: The patient is a 75 year old F presented with sx since 11/11, no covid vaccination, c/o progressive cough, fever, aches, headache, diarrhea, change in taste and smell. No sick contacts, lives with son who has been healthy. Came to ED, covid (+), admitted to icu on dex and remdesivir. Full ROS performed and neg except as noted above. - Medical History Past Medical History (Chronic Problems): Chronic Problems (Last Reviewed 09/05/19 @ 11:48 by Milena Kuhn) Scoliosis of lumbar spine (Chronic) Debility (Chronic) Hypertension (Chronic) Hyperlipemia (Chronic) Age related osteoporosis (Chronic) GERD (gastroesophageal reflux disease) (Chronic) Allergies/Adverse Reactions: Allergies STEROIDS Allergy (Uncoded 04/08/18 11:56) Chest tightness Home Medications: Ambulatory Orders Medication Instructions Recorded Calcium Carb/Vitamin D 1 tab PO BIDCM 06/10/13 [Caltrate-600 With Vit D Tab] Omeprazole [Prilosec] 20 mg PO DAILY 06/10/13 lutein 10 mg tablet 10 mg PO DAILY 04/08/18 Celecoxib [Celebrex] 200 mg PO DAILY 11/19/20 Dexamethasone 1 tablet PO DAILY 11/19/20 Doxycycline [Vibramycin] 100 mg PO BID 11/19/20 Escitalopram Oxalate [Lexapro] 20 mg PO DAILY 11/19/20 Ivermectin 9 mg PO DAILY 11/19/20 Levothyroxine [Synthroid] 112 mcg PO DAILY 11/19/20 - Social History Tobacco Use: non-smoker Vital Signs Temp Pulse Resp BP Pulse Ox 97.3 F L 62 23 H 124/51 H 90 11/20/20 15:00 11/20/20 15:22 11/20/20 15:00 11/20/20 15:00 11/20/20 15:00 Oxygen Flow Rate (L/min) 60 Oxygen Delivery Method Airvo Weight: 76.8 kg Body Mass Index (BMI) 33.0 Microbiology Past 72 Hours 11/19/20 18:20 SARS-CoV-2 Antigen (Rapid) - Final Nasal Secretion SARS-CoV-2 (COVID 19) Laboratory Tests Past 24 Hrs 11/19/20 11/19/20 11/19/20 18:13 18:13 18:13 WBC 10.6 RBC 4.83 Hgb 13.2 Hct 41.3 MCV 85.5 MCH 27.3 MCHC 32.0 RDW Std Deviation 46.2 H RDW Coeff of Henrique 14.8 H Plt Count 255 MPV 12.1 H Immature Gran % (Auto) 2.200 H Neut % (Auto) 84.8 H Lymph % (Auto) 7.0 L [place] % (Auto) 5.6 Eos % (Auto) 0.1 Baso % (Auto) 0.3 Absolute Neuts (auto) 9.0 H Absolute Lymphs (auto) 0.74 L Nucleated RBC % 0 D-Dimer Quant (PE/DVT) Sodium 131 L Potassium 2.9 L Chloride 95 L Carbon Dioxide 26.0 Anion Gap 10 BUN 22 H Creatinine 0.95 Estim Creat Clear Calc 36.75 Est GFR (MDRD) Af Amer 74 Est GFR (MDRD) Non-Af 61 BUN/Creatinine Ratio 23.1 H Glucose 189 H Lactic Acid 3.5 H* Calcium 8.3 L Total Bilirubin 1.30 H AST 50 H ALT 33 Alkaline Phosphatase 70 B-Natriuretic Peptide Total Protein 6.6 Albumin 2.6 L Globulin 4.0 Albumin/Globulin Ratio 0.6 L Procalcitonin 11/19/20 11/19/20 11/20/20 18:13 22:40 04:30 WBC 6.7 RBC 4.35 Hgb 11.8 L Hct 37.8 MCV 86.9 MCH 27.1 MCHC 31.2 L RDW Std Deviation 48.1 H RDW Coeff of Henrique 15.0 H Plt Count 221 MPV 11.5 Immature Gran % (Auto) 3.900 H Neut % (Auto) 76.0 H Lymph % (Auto) 14.9 L [place] % (Auto) 4.4 Eos % (Auto) 0.6 Baso % (Auto) 0.2 Absolute Neuts (auto) 5.1 Absolute Lymphs (auto) 0.99 Nucleated RBC % 0 D-Dimer Quant (PE/DVT) Sodium Potassium Chloride Carbon Dioxide Anion Gap BUN Creatinine Estim Creat Clear Calc Est GFR (MDRD) Af Amer Est GFR (MDRD) Non-Af BUN/Creatinine Ratio Glucose Lactic Acid 1.4 Calcium Total Bilirubin AST ALT Alkaline Phosphatase B-Natriuretic Peptide Total Protein Albumin Globulin Albumin/Globulin Ratio Procalcitonin 0.15 H 11/20/20 11/20/20 11/20/20 04:30 04:30 04:30 WBC RBC Hgb Hct MCV MCH MCHC RDW Std Deviation RDW Coeff of Henrique Plt Count MPV Immature Gran % (Auto) Neut % (Auto) Lymph % (Auto) [place] % (Auto) Eos % (Auto) Baso % (Auto) Absolute Neuts (auto) Absolute Lymphs (auto) Nucleated RBC % D-Dimer Quant (PE/DVT) Sodium 137 Potassium 3.3 L Chloride 102 Carbon Dioxide 30.0 Anion Gap 5 BUN 19 H Creatinine 0.80 Estim Creat Clear Calc 43.64 Est GFR (MDRD) Af Amer 89 Est GFR (MDRD) Non-Af 74 BUN/Creatinine Ratio 23.6 H Glucose 142 H Lactic Acid Calcium 7.6 L Total Bilirubin AST ALT Alkaline Phosphatase 62 B-Natriuretic Peptide 72.6 Total Protein Albumin Globulin Albumin/Globulin Ratio Procalcitonin 11/20/20 11/20/20 08:30 11:35 WBC RBC Hgb Hct MCV MCH MCHC RDW Std Deviation RDW Coeff of Henrique Plt Count MPV Immature Gran % (Auto) Neut % (Auto) Lymph % (Auto) [place] % (Auto) Eos % (Auto) Baso % (Auto) Absolute Neuts (auto) Absolute Lymphs (auto) Nucleated RBC % D-Dimer Quant (PE/DVT) 2.25 H* Sodium Potassium Chloride Carbon Dioxide Anion Gap BUN Creatinine Estim Creat Clear Calc Est GFR (MDRD) Af Amer Est GFR (MDRD) Non-Af BUN/Creatinine Ratio Glucose Lactic Acid Calcium Total Bilirubin AST ALT Alkaline Phosphatase B-Natriuretic Peptide Total Protein Albumin Globulin Albumin/Globulin Ratio Procalcitonin 0.21 H - Other Studies Radiology: [] reviewed Other Studies: [] Route of nutrition/ use of supplements: [] Nutritional Intake: [] IV Site: [] Camacho Catheter: [] - Physical Exam General: Alert, Oriented x3, Cooperative HEENT: Atraumatic, PERRLA, EOMI Neck: Supple, No Nodes Lungs: Diminished Cardiovascular: Regular rate, Regular Rhythm Abdomen: Soft, Non Tender, Non-Distended Extremities: No edema Skin: No rashes IV Site: Peripheral, without redness Musculoskeletal: No Tenderness to Palpation of Joints or Extremities Neurological: Cranial nerves II-XII grossly intact - Assessment/Plan Antibiotics: [] Assessment/Plan: [] Active and Suspected Problems (Last Reviewed 09/05/19 @ 11:48 by Milena Kuhn) COVID-19 (Acute) covid with hypoxia - sx started 11/11/20. Recommend 20 days of quarantine. Will need vaccination once out of quarantine. On 10 day course of dex and [address] showed no PE. Will follow, thank you, d/w Dr. Mccann.
[2020-11-21] VITALS (35 sets, daily range): BP systolic 106–183; BP diastolic 38–98; PULSE 55–86; RESP 5–42; TEMP 37–38.3; O2SAT 60–100
[2020-11-21] MEDS: 0.9% Normal Saline 1,000 ML 100 ML IV (03:00)
[2020-11-21 05:12] LABS: Hematocrit 34.9 % (37-47); Hemoglobin 10.8 g/dL (12.0-15.0); Mean Corp Hgb Conc 30.9 g/dL (32-36); Mean Corpuscular Volume 87.3 fL (81-99); Platelet Count 213 K/mm3 (150-450); RBC Distribution Width CV 15.1 % (11.6-14.6); RBC Distribution Width SD 48.9 fl (35.1-43.9); White Blood Count 5.7 K/mm3 (4.4-11.0)
[2020-11-21 05:32] LABS: BNP,B-Type NATRIURETIC PEPTIDE 106.9 pg/mL (0-100)
[2020-11-21 05:38] LABS: ALB/GLOB Ratio 0.6 RATIO (0.9-2.4); AST(SGOT) 52 U/L (15-37); Alanine Aminotransfer ALT/SGPT 26 U/L (13-56); Alkaline Phosphatase 62 U/L (45-117); Anion Gap 5 (5-15); BUN 14 mg/dL (7-18); BUN/Creat Ratio 24.6 RATIO (10-20); Calcium,Total 7.7 mg/dL (8.5-10.1); Chloride 109 mmol/L (98-107); Creatinine, Serum 0.57 mg/dL (0.55-1.02); EST Glomerular Filtration Rate 110 mL/min (>60); Est Glom Filt Rate - Afr Amer 133 mL/min (>60); Estimated Creatinine Clearance 34.91 ml/min; Globulin 3.5 g/dL (2.2-4.2); Glucose 143 mg/dL (74-106); Potassium 4.1 mmol/L (3.5-5.1); Protein, Total 5.5 g/dL (6.4-8.2); Sodium Level 140 mmol/L (136-145)
--- NOTE | 2020-11-21 05:39 | PCM.PN.INT ---
Subjective: The patient was seen and examined at the bedside this morning. Events from the last 24 hours have been reviewed. The patient is currently afebrile, hemodynamically stable and maintaining appropriate oxygen saturations on BiPAP with an FiO2 requirement of 90%. CTA chest completed yesterday failed to demonstrate evidence of pulmonary embolism. Liver and renal function are stable. The patient remains on Decadron and remdesivir, along with Lovenox twice daily. The patient's fluids were discontinued this morning. She is currently documented to be overall net +3.8 L for the hospital admission. Objective: The patient's most recent lab work, culture data and imaging studies have all been personally reviewed. Rapid coronavirus testing was positive on November 19. Blood cultures are pending. General: Alert, Cooperative, - - BiPAP mask in place HEENT: Atraumatic, Normocephalic Oral: Dry Mucosa Neck: Supple, No Nodes, Trachea Midline Lungs: Diminished, Tachypneic Cardiovascular: Normal S1, Normal S2, Bradycardic Abdomen: Bowel Sounds Present, Soft, Non Tender, Obese Extremities: No clubbing, No cyanosis, No edema Skin: No breakdown Musculoskeletal: No Tenderness to Palpation of Joints or Extremities Lymphatic: No Cervical, Supraclavicular, or Inguinal Adenopathy Neurological: Neuro grossly intact Psych/Mental Status: Normal Affect, Appropriate Vital Signs Temp Pulse Resp BP Pulse Ox 99.0 F 64 35 H 150/54 H 94 11/21/20 03:00 11/21/20 03:00 11/21/20 03:00 11/21/20 03:00 11/21/20 03:00 Oxygen Flow Rate (L/min) 60 Oxygen Delivery Method Bi-pap Weight: 169 lb 5.04 oz Body Mass Index (BMI) 33.0 Intake and Output for Last 24 Hours 11/19/20 11/20/20 11/21/20 23:59 23:59 23:59 Intake Total 1000 / 1000 2630.00 / 2630.00 1000 / 1000 Output Total 670 / 710 150 / 150 Balance 1000 / 1000 1960.00 / 1920.00 850 / 850 Labs (Last 48 Hours) 11/19/20 11/19/20 11/19/20 18:13 18:13 18:13 WBC 10.6 RBC 4.83 Hgb 13.2 Hct 41.3 MCV 85.5 MCH 27.3 MCHC 32.0 RDW Std Deviation 46.2 H RDW Coeff of Henrique 14.8 H Plt Count 255 MPV 12.1 H Immature Gran % (Auto) 2.200 H Neut % (Auto) 84.8 H Lymph % (Auto) 7.0 L Leslie % (Auto) 5.6 Eos % (Auto) 0.1 Baso % (Auto) 0.3 Absolute Neuts (auto) 9.0 H Absolute Lymphs (auto) 0.74 L Nucleated RBC % 0 D-Dimer Quant (PE/DVT) Sodium 131 L Potassium 2.9 L Chloride 95 L Carbon Dioxide 26.0 Anion Gap 10 BUN 22 H Creatinine 0.95 Estim Creat Clear Calc 36.75 Est GFR (MDRD) Af Amer 74 Est GFR (MDRD) Non-Af 61 BUN/Creatinine Ratio 23.1 H Glucose 189 H Lactic Acid 3.5 H* Calcium 8.3 L Total Bilirubin 1.30 H AST 50 H ALT 33 Alkaline Phosphatase 70 B-Natriuretic Peptide Total Protein 6.6 Albumin 2.6 L Globulin 4.0 Albumin/Globulin Ratio 0.6 L Procalcitonin 11/19/20 11/19/20 11/20/20 18:13 22:40 04:30 WBC 6.7 RBC 4.35 Hgb 11.8 L Hct 37.8 MCV 86.9 MCH 27.1 MCHC 31.2 L RDW Std Deviation 48.1 H RDW Coeff of Henrique 15.0 H Plt Count 221 MPV 11.5 Immature Gran % (Auto) 3.900 H Neut % (Auto) 76.0 H Lymph % (Auto) 14.9 L Leslie % (Auto) 4.4 Eos % (Auto) 0.6 Baso % (Auto) 0.2 Absolute Neuts (auto) 5.1 Absolute Lymphs (auto) 0.99 Nucleated RBC % 0 D-Dimer Quant (PE/DVT) Sodium Potassium Chloride Carbon Dioxide Anion Gap BUN Creatinine Estim Creat Clear Calc Est GFR (MDRD) Af Amer Est GFR (MDRD) Non-Af BUN/Creatinine Ratio Glucose Lactic Acid 1.4 Calcium Total Bilirubin AST ALT Alkaline Phosphatase B-Natriuretic Peptide Total Protein Albumin Globulin Albumin/Globulin Ratio Procalcitonin 0.15 H 11/20/20 11/20/20 11/20/20 04:30 04:30 04:30 WBC RBC Hgb Hct MCV MCH MCHC RDW Std Deviation RDW Coeff of Henrique Plt Count MPV Immature Gran % (Auto) Neut % (Auto) Lymph % (Auto) Leslie % (Auto) Eos % (Auto) Baso % (Auto) Absolute Neuts (auto) Absolute Lymphs (auto) Nucleated RBC % D-Dimer Quant (PE/DVT) Sodium 137 Potassium 3.3 L Chloride 102 Carbon Dioxide 30.0 Anion Gap 5 BUN 19 H Creatinine 0.80 Estim Creat Clear Calc 43.64 Est GFR (MDRD) Af Amer 89 Est GFR (MDRD) Non-Af 74 BUN/Creatinine Ratio 23.6 H Glucose 142 H Lactic Acid Calcium 7.6 L Total Bilirubin AST ALT Alkaline Phosphatase 62 B-Natriuretic Peptide 72.6 Total Protein Albumin Globulin Albumin/Globulin Ratio Procalcitonin 11/20/20 11/20/20 11/21/20 08:30 11:35 04:45 WBC 5.7 RBC 4.00 L Hgb 10.8 L Hct 34.9 L MCV 87.3 MCH 27.0 MCHC 30.9 L RDW Std Deviation 48.9 H RDW Coeff of Henrique 15.1 H Plt Count 213 MPV 12.0 Immature Gran % (Auto) Neut % (Auto) Lymph % (Auto) Leslie % (Auto) Eos % (Auto) Baso % (Auto) Absolute Neuts (auto) Absolute Lymphs (auto) Nucleated RBC % D-Dimer Quant (PE/DVT) 2.25 H* Sodium Potassium Chloride Carbon Dioxide Anion Gap BUN Creatinine Estim Creat Clear Calc Est GFR (MDRD) Af Amer Est GFR (MDRD) Non-Af BUN/Creatinine Ratio Glucose Lactic Acid Calcium Total Bilirubin AST ALT Alkaline Phosphatase B-Natriuretic Peptide Total Protein Albumin Globulin Albumin/Globulin Ratio Procalcitonin 0.21 H 11/21/20 11/21/20 04:45 04:45 WBC RBC Hgb Hct MCV MCH MCHC RDW Std Deviation RDW Coeff of Henrique Plt Count MPV Immature Gran % (Auto) Neut % (Auto) Lymph % (Auto) Leslie % (Auto) Eos % (Auto) Baso % (Auto) Absolute Neuts (auto) Absolute Lymphs (auto) Nucleated RBC % D-Dimer Quant (PE/DVT) Sodium 140 Potassium 4.1 Chloride 109 H Carbon Dioxide 26.0 Anion Gap 5 BUN 14 Creatinine 0.57 Estim Creat Clear Calc 34.91 Est GFR (MDRD) Af Amer 133 Est GFR (MDRD) Non-Af 110 BUN/Creatinine Ratio 24.6 H Glucose 143 H Lactic Acid Calcium 7.7 L Total Bilirubin 0.60 AST 52 H ALT 26 Alkaline Phosphatase 62 B-Natriuretic Peptide 106.9 H Total Protein 5.5 L Albumin 2.0 L Globulin 3.5 Albumin/Globulin Ratio 0.6 L Procalcitonin Microbiology 11/19/20 18:20 Nasal Secretion SARS-CoV-2 Antigen (Rapid) - Final SARS-CoV-2 (COVID 19) Clinical Impression(s) from Imaging Studies Chest X-Ray 11/19/20 18:42 IMPRESSION: Bilateral airspace opacities may represent edema and/or infection Electronically Signed: Joshua Hutchinson MD at 20:00 EDT Tel , Service support , Chest CTA 11/20/20 09:15 IMPRESSION: No pulmonary embolus. No thoracic aortic aneurysm or dissection. Diffuse glass opacities throughout both lungs, consistent with COVID pneumonia. Electronically Signed: Eric Unger MD at 10:40 EDT Tel , Service support , Medical Necessity - Tobacco Use Smoking Status: Never smoker Tobacco Use: Non-smoker Assessment/Plan All Active Problems (Last Reviewed 09/05/19 @ 11:48 by Milena Kuhn) COVID-19 (Acute) Segmental and somatic dysfunction of pelvic region (Acute) Segmental and somatic dysfunction of thoracic region (Acute) Segmental and somatic dysfunction of lumbar region (Acute) Pain at surgical incision (Acute) RECOMMENDATIONS: 1. Continue attempts at noninvasive positive pressure ventilatory support. Increase IPAP/EPAP pressures per order. 2. Continue to wean FiO2 to maintain oxygen saturations at or above 90%. 3. Continue Decadron to complete 10-day treatment course. 4. Continue remdesivir as ordered. Continue to monitor liver and renal function. 5. Administer IV Lasix x1 today. 6. Continue Lovenox twice daily. 7. Continue PPI therapy. 8. Low threshold for intubation with any worsening in respiratory status. IMPRESSIONS: 1. Severe sepsis/acute hypoxemic respiratory failure secondary to COVID-19 pneumonia The patient was admitted to the hospital with progressive Covid symptoms after she was diagnosed 6 days ago through the [facility]. The patient was subsequently started on steroids, but her symptoms continued to progress despite this. The patient does not have a baseline oxygen requirement. However, since her admission, the patient's oxygen requirement has continued to increase. She is currently requiring continuous BiPAP support with high FiO2 demand. We will plan to continue current supportive measures including scheduled Decadron therapy and remdesivir. Liver and renal function are stable. Given the patient's tenuous respiratory status, will administer IV Lasix today as well. If the patient were to decompensate any further from a respiratory perspective, intubation would be indicated. 2. GERD/depression/hypothyroidism/advanced age Complicates care, management, recovery and prognosis. Continue home medications as indicated. CODE status: Discussed CODE status at length including difference between FULL code, DNR-CCA and DNR-CC status. Following discussions about the differences in these status, patient requested FULL CODE STATUS. TIME: 38 minutes of critical care time, independent of procedures, was spent addressing the patient's severe sepsis, acute hypoxemic respiratory failure, COVID-19 pneumonia, review of all data and collaboration with the care team. ([id number]) [id number]: [id number] Critical care first hour
[2020-11-21] MEDS: Levothyroxine 112 MCG Tablet PO (06:59)
[2020-11-21] MEDS: Furosemide 40 MG/4 ML Vial IV (06:59)
[2020-11-21] MEDS: 0.9% Saline Lock 10 ML Syringe IV ×4 (07:00→17:24)
--- NOTE | 2020-11-21 07:27 | PN_ITS ---
Patient Problems: Active and Suspected Problems (Last Reviewed 09/05/19 @ 11:48 by Milena Kuhn) COVID-19 (Acute) Reason for Visit: SARS-COV 2 pneumonia Subjective: Patient is a 75-year-old lady who presented with increasing generalized weakness and multiple falls. She had apparently tested positive for Covid 5 days prior to her admission. Patient remains in the ICU on BiPAP with FiO2 of 90%. Remains significantly dyspneic at rest. Objective: GENERAL: Dyspneic at rest on BiPAP HEENT: Atraumatic; EYES; Anicteric, Normal Conjunctiva NECK; supple, normal thyroid, RESPIRATORY: Diminished to auscultation CARDIOVASCULAR: Regular S1 S2, GI: soft, normoactive bowel sounds, : No Renal angle tenderness; EXTREMITIES: No edema, no clubbing, MUSCULOSKELETAL: no muscle waisting NEURO: Awake; no lateralizing signs. SKIN: No Rash PSYCH; Flat affect Vitals/I&O's: Vital Signs Temp Pulse Resp BP Pulse Ox 99.0 F 60 35 H 150/54 H 90 11/21/20 03:00 11/21/20 04:30 11/21/20 04:30 11/21/20 03:00 11/21/20 04:30 Oxygen Flow Rate (L/min) 60 Oxygen Delivery Method Bi-pap Weight: 81.9 kg Body Mass Index (BMI) 33.0 Intake and Output for Last 24 Hours 11/19/20 11/20/20 11/21/20 23:59 23:59 23:59 Intake Total 1000 / 1000 2630.00 / 2630.00 1000 / 1000 Output Total 670 / 710 185 / 185 Balance 1000 / 1000 1960.00 / 1920.00 815 / 815 Microbiology Past 72 Hours 11/19/20 18:20 Nasal Secretion SARS-CoV-2 Antigen (Rapid) - Final SARS-CoV-2 (COVID 19) Laboratory Results 11/20/20 04:30: B-Natriuretic Peptide 72.6 11/20/20 04:30: Alkaline Phosphatase 62 11/20/20 08:30: D-Dimer Quant (PE/DVT) 2.25 H* 11/20/20 11:35: Procalcitonin 0.21 H 11/21/20 04:45: WBC 5.7, RBC 4.00 L, Hgb 10.8 L, Hct 34.9 L, MCV 87.3, MCH 27.0, MCHC 30.9 L, RDW Std Deviation 48.9 H, RDW Coeff of Henrique 15.1 H, Plt Count 213, MPV 12.0 11/21/20 04:45: Sodium 140, Potassium 4.1, Chloride 109 H, Carbon Dioxide 26.0, Anion Gap 5, BUN 14, Creatinine 0.57, Estim Creat Clear Calc 34.91, Est GFR (MDRD) Af Amer 133, Est GFR (MDRD) Non-Af 110, BUN/Creatinine Ratio 24.6 H, Glucose 143 H, Calcium 7.7 L, Total Bilirubin 0.60, AST 52 H, ALT 26, Alkaline Phosphatase 62, Total Protein 5.5 L, Albumin 2.0 L, Globulin 3.5, Albumin/Globulin Ratio 0.6 L 11/21/20 04:45: B-Natriuretic Peptide 106.9 H Current Medications Acetaminophen (Acetaminophen 325 Mg Tablet) 650 mg PO Q6H PRN PRN PRN Reason: Pain 1-10 or Fever Calcium/Vitamin D (Calcium Carb/Vitamin D 1 Tablet Tablet) 1 tablet PO BID [facility] Last Admin: 11/20/20 22:54 Dose: 1 tablet Documented by: Celecoxib (Celecoxib 200 Mg Capsule) 200 mg PO DAILY [facility] Last Admin: 11/20/20 08:34 Dose: 200 mg Documented by: Dexamethasone Sodium Phosphate (Dexamethasone 10 Mg/Ml Vial) 6 mg IV DAILY [facility] Last Admin: 11/20/20 08:34 Dose: 6 mg Documented by: Enoxaparin Sodium (Enoxaparin 40 Mg/0.4 Ml Syringe) 40 mg SC BID [facility] Last Admin: 11/20/20 22:55 Dose: 40 mg Documented by: Escitalopram Oxalate (Escitalopram Oxalate 20 Mg Tablet) 20 mg PO DAILY [facility] Last Admin: 11/20/20 08:34 Dose: 20 mg Documented by: Sodium Chloride () 250 mls @ 15 mls/hr IV .[id number] PRN PRN Reason: Saline Flush Sodium Chloride () 250 mls @ 15 mls/hr IV .[id number] PRN PRN Reason: Additional IVPB Infusion Remdesivir 100 mg/ Sodium (Chloride) 250 mls @ 125 mls/hr IV DAILY [facility]; Protocol Stop: 11/24/20 11:59 Levothyroxine Sodium (Levothyroxine 112 Mcg Tablet) 112 mcg PO DAILY@0600 [facility] Last Admin: 11/21/20 06:59 Dose: 112 mcg Documented by: Pantoprazole Sodium (Pantoprazole Sodium 20 Mg Tablet) 20 mg PO DAILY [facility] Last Admin: 11/20/20 08:33 Dose: 20 mg Documented by: Sodium Chloride (0.9% Saline Lock 10 Ml Syringe) 10 - 40 ml IV UD PRN PRN Reason: SALINE FLUSH Last Admin: 11/21/20 07:00 Dose: 10 ml Documented by: STROKE Vital Signs/Narrative: Vital Signs Pulse Resp Pulse Ox 11/21/20 04:30 60 35 H 90 11/21/20 04:00 60 Medical Necessity - Tobacco Use Smoking Status: Never smoker Tobacco Use: Non-smoker Assessment/Plan All Active Problems (Last Reviewed 09/05/19 @ 11:48 by Milena Kuhn) COVID-19 (Acute) Segmental and somatic dysfunction of pelvic region (Acute) Segmental and somatic dysfunction of thoracic region (Acute) Segmental and somatic dysfunction of lumbar region (Acute) Pain at surgical incision (Acute) Patient is a 75-year-old lady who presented with increasing generalized weakness and multiple falls. She had apparently tested positive for Covid 5 days prior to her admission. 1. Acute hypoxic respiratory failure ?Secondary to SARS-CoV-2 pneumonia ?Admitted to the intensive care unit managed with high flow oxygen titrated to keep saturation greater than 90 in addition to Decadron and remdesivir with consultation placed to both pulmonary medicine as well as infectious disease -09/23/2020: Patient remains in the ICU on BiPAP with FiO2 of 90%. Remains significantly dyspneic at rest. With no significant improvement in her overall condition patient was seen in consultation by Dr. Cabrera with infectious disease the day prior. Case discussed with him. 2. Severe sepsis secondary to SARS-CoV-2 pneumonia ?Management as discussed above 3. Hypokalemia ?Corrected per protocol 4. Hyponatremia ?Corrected per protocol 5. GERD ?Patient is on PPI 6. Hypothyroidism - Patient is on levothyroxine home dose continued 7. Depression ?Patient is on SSRI continued 8. DVT prophylaxis ?low molecular weight heparin Clinical Impression(s) from Imaging Studies Chest X-Ray 11/19/20 18:42 IMPRESSION: Bilateral airspace opacities may represent edema and/or infection Electronically Signed: Joshua Hutchinson MD at 20:00 EDT Tel , Service support , Chest CTA 11/20/20 09:15 IMPRESSION: No pulmonary embolus. No thoracic aortic aneurysm or dissection. Diffuse glass opacities throughout both lungs, consistent with COVID pneumonia. Electronically Signed: Eric Unger MD at 10:40 EDT Tel , Service support , Inpatient E&M: [id number] Subs Hosp L3
[2020-11-21 09:01] LABS: Bedside Glucose 132 mg/dL (70-110)
[2020-11-21] MEDS: Enoxaparin 40 MG/0.4 ML Syringe SC ×2 (10:43→20:11)
[2020-11-21] MEDS: dexAMETHasone 10 MG/ML Vial 6 MG IV (12:41)
[2020-11-21] MEDS: Acetaminophen 325 MG Tablet 650 MG PO (12:52)
[2020-11-21] MEDS: Escitalopram Oxalate 20 MG Tablet PO (15:40)
[2020-11-21] MEDS: Celecoxib 200 MG Capsule PO (15:40)
--- NOTE | 2020-11-21 16:16 | CPS ---
Bipap settings changed back to 07/10 by Rosie Sullivan RN.
--- NOTE | 2020-11-21 16:33 | PN.ID_ITS ---
Patient Problems: Active and Suspected Problems (Last Reviewed 09/05/19 @ 11:48 by Milena Kuhn) COVID-19 (Acute) Subjective: Feeling better, breathing easier, no fever - Physical Exam Vitals/I&O's: Vital Signs Temp Pulse Resp BP Pulse Ox 99.9 F H 64 34 H 146/65 H 97 11/21/20 16:00 11/21/20 16:00 11/21/20 16:00 11/21/20 16:00 11/21/20 16:00 Oxygen Flow Rate (L/min) 60 Oxygen Delivery Method Bi-pap Weight: 81.9 kg Body Mass Index (BMI) 33.0 Intake and Output for Last 24 Hours 11/19/20 11/20/20 11/21/20 23:59 23:59 23:59 Intake Total 1000 / 1000 2630.00 / 2630.00 1300 / 1300 Output Total 670 / 710 2670 / 2670 Balance 1000 / 1000 1960.00 / 1920.00 -1370 / -1370 General: Alert, Cooperative, No apparent distress Lungs: Clear to auscultation, Diminished Cardiovascular: Regular rate, Regular Rhythm Abdomen: Soft, Non Tender, Non-Distended Skin: No rashes Microbiology Past 72 Hours 11/19/20 18:20 Nasal Secretion SARS-CoV-2 Antigen (Rapid) - Final SARS-CoV-2 (COVID 19) Laboratory Results 11/21/20 04:45: WBC 5.7, RBC 4.00 L, Hgb 10.8 L, Hct 34.9 L, MCV 87.3, MCH 27.0, MCHC 30.9 L, RDW Std Deviation 48.9 H, RDW Coeff of Henrique 15.1 H, Plt Count 213, MPV 12.0 11/21/20 04:45: Sodium 140, Potassium 4.1, Chloride 109 H, Carbon Dioxide 26.0, Anion Gap 5, BUN 14, Creatinine 0.57, Estim Creat Clear Calc 34.91, Est GFR (MDRD) Af Amer 133, Est GFR (MDRD) Non-Af 110, BUN/Creatinine Ratio 24.6 H, Glucose 143 H, Calcium 7.7 L, Total Bilirubin 0.60, AST 52 H, ALT 26, Alkaline Phosphatase 62, Total Protein 5.5 L, Albumin 2.0 L, Globulin 3.5, Albumin/Globulin Ratio 0.6 L 11/21/20 04:45: B-Natriuretic Peptide 106.9 H 11/21/20 08:19: POC Glucose 132 H Current Medications Acetaminophen (Acetaminophen 325 Mg Tablet) 650 mg PO Q6H PRN PRN PRN Reason: Pain 1-10 or Fever Last Admin: 11/21/20 12:52 Dose: 650 mg Documented by: Calcium/Vitamin D (Calcium Carb/Vitamin D 1 Tablet Tablet) 1 tablet PO BID [facility] Last Admin: 11/20/20 22:54 Dose: 1 tablet Documented by: Celecoxib (Celecoxib 200 Mg Capsule) 200 mg PO DAILY [facility] Last Admin: 11/21/20 15:40 Dose: 200 mg Documented by: Dexamethasone Sodium Phosphate (Dexamethasone 10 Mg/Ml Vial) 6 mg IV DAILY [facility] Stop: 11/25/20 10:01 Last Admin: 11/21/20 12:41 Dose: 6 mg Documented by: Enoxaparin Sodium (Enoxaparin 40 Mg/0.4 Ml Syringe) 40 mg SC BID [facility] Last Admin: 11/21/20 10:43 Dose: 40 mg Documented by: Escitalopram Oxalate (Escitalopram Oxalate 20 Mg Tablet) 20 mg PO DAILY [facility] Last Admin: 11/21/20 15:40 Dose: 20 mg Documented by: Sodium Chloride () 250 mls @ 15 mls/hr IV .[id number] PRN PRN Reason: Saline Flush Sodium Chloride () 250 mls @ 15 mls/hr IV .[id number] PRN PRN Reason: Additional IVPB Infusion Remdesivir 100 mg/ Sodium (Chloride) 250 mls @ 125 mls/hr IV DAILY [facility]; Protocol Stop: 11/24/20 11:59 Last Admin: 11/21/20 12:40 Dose: 125 mls/hr Documented by: Levothyroxine Sodium (Levothyroxine 112 Mcg Tablet) 112 mcg PO DAILY@0600 [facility] Last Admin: 11/21/20 06:59 Dose: 112 mcg Documented by: Pantoprazole Sodium (Pantoprazole Sodium 20 Mg Tablet) 20 mg PO DAILY [facility] Last Admin: 11/20/20 08:33 Dose: 20 mg Documented by: Sodium Chloride (0.9% Saline Lock 10 Ml Syringe) 10 - 40 ml IV UD PRN PRN Reason: SALINE FLUSH Last Admin: 11/21/20 15:40 Dose: 10 ml Documented by: Medical Necessity - Tobacco Use Smoking Status: Never smoker Tobacco Use: Non-smoker Route of nutrition/ use of supplements: [] Nutritional Intake: [] IV Site: [] Camacho Catheter: [] - Assessment/Plan Antibiotics: [] Assessment/Plan: [] Active and Suspected Problems (Last Reviewed 09/05/19 @ 11:48 by Milena Kuhn) COVID-19 (Acute) covid with hypoxia - sx started 11/11/20. Recommend 20 days of quarantine. Will need vaccination once out of quarantine. On 10 day course of dex and [address] showed no PE. Improved today. Will follow, d/w nursing
[2020-11-21 18:01] LABS: Magnesium 1.7 mg/dL (1.6-2.6); Phosphorus 2.7 mg/dL (2.5-4.9)
[2020-11-21] MEDS: Calcium Carb/Vitamin D 1 TABLET Tablet PO (20:11)
[2020-11-22] VITALS (36 sets, daily range): BP systolic 124–179; BP diastolic 48–79; PULSE 52–86; RESP 12–33; TEMP 36.8–37.3; O2SAT 86–99
[2020-11-22 04:38] LABS: Hematocrit 37.4 % (37-47); Hemoglobin 11.8 g/dL (12.0-15.0); Mean Corp Hgb Conc 31.6 g/dL (32-36); Mean Corpuscular Hgb 27.1 pg (27.0-32.0); Mean Corpuscular Volume 85.8 fL (81-99); Mean Platelet Vol. 11.7 fl (6.2-12.0); Platelet Count 274 K/mm3 (150-450); RBC Distribution Width CV 14.9 % (11.6-14.6); RBC Distribution Width SD 47.7 fl (35.1-43.9); Red Blood Count 4.36 M/mm3 (4.2-5.4)
[2020-11-22 04:54] LABS: ALB/GLOB Ratio 0.6 RATIO (0.9-2.4); AST(SGOT) 50 U/L (15-37); Alanine Aminotransfer ALT/SGPT 26 U/L (13-56); Albumin, Serum 2.2 g/dL (3.2-5.0); Alkaline Phosphatase 76 U/L (45-117); Anion Gap 5 (5-15); BUN 26 mg/dL (7-18); BUN/Creat Ratio 37.1 RATIO (10-20); Calcium,Total 8.2 mg/dL (8.5-10.1); Chloride 103 mmol/L (98-107); EST Glomerular Filtration Rate 86 mL/min (>60); Est Glom Filt Rate - Afr Amer 105 mL/min (>60); Estimated Creatinine Clearance 34.91 ml/min; Glucose 185 mg/dL (74-106); Magnesium 2.5 mg/dL (1.6-2.6); Phosphorus 3.4 mg/dL (2.5-4.9); Potassium 3.9 mmol/L (3.5-5.1); Protein, Total 6.2 g/dL (6.4-8.2); Sodium Level 137 mmol/L (136-145)
--- NOTE | 2020-11-22 06:06 | PN_ITS ---
Subjective: The patient was seen and examined at the bedside this morning. Events from the last 24 hours have been reviewed. The patient is currently afebrile, hemodynamically stable and maintaining appropriate oxygen saturations on BiPAP with a pressure support of 14/10 centimeters of water and an FiO2 requirement of 75%. The patient was able to take short breaks off of noninvasive positive pressure ventilatory support yesterday and was transitioned to Airvo heated high flow oxygen. Renal and liver function are stable. The patient remains on remdesivir and Decadron. She is currently documented to be overall net +2.7 L for the hospital admission. Objective: The patient's most recent lab work, culture data and imaging studies have all been personally reviewed. Rapid coronavirus testing was positive on November 19. Blood cultures have shown no growth to date. General: Alert, Cooperative, No apparent distress HEENT: Atraumatic, Normocephalic Oral: No Gingival or Mucosal Lesions/ Ulcerations Neck: Supple, No Nodes, Trachea Midline Lungs: Diminished, Tachypneic, Wheezes Cardiovascular: Normal S1, Normal S2, Bradycardic Abdomen: Bowel Sounds Present, Soft, Non Tender, Obese Extremities: No clubbing, No cyanosis, No edema Skin: No breakdown Musculoskeletal: No Tenderness to Palpation of Joints or Extremities, No Muscle Wasting Lymphatic: No Cervical, Supraclavicular, or Inguinal Adenopathy Neurological: Cranial nerves II-XII grossly intact, Neuro grossly intact Psych/Mental Status: Normal Affect, Appropriate Vital Signs Temp Pulse Resp BP Pulse Ox 98.3 F 57 L 32 H 160/73 H 95 11/22/20 04:00 11/22/20 05:00 11/22/20 05:00 11/22/20 05:00 11/22/20 05:00 Oxygen Flow Rate (L/min) 60 Oxygen Delivery Method Bi-pap Weight: 177 lb 4.026 oz Body Mass Index (BMI) 33.0 Intake and Output for Last 24 Hours 11/20/20 11/21/20 11/22/20 23:59 23:59 23:59 Intake Total 2630.00 / 2630.00 2714 / 2714 60 / 60 Output Total 670 / 710 2840 / 2900 185 / 185 Balance 1960.00 / 1920.00 -126 / -186 -125 / -125 Labs (Last 48 Hours) 11/20/20 11/20/20 11/20/20 04:30 04:30 08:30 WBC RBC Hgb Hct MCV MCH MCHC RDW Std Deviation RDW Coeff of Henrique Plt Count MPV D-Dimer Quant (PE/DVT) 2.25 H* Sodium Potassium Chloride Carbon Dioxide Anion Gap BUN Creatinine Estim Creat Clear Calc Est GFR (MDRD) Af Amer Est GFR (MDRD) Non-Af BUN/Creatinine Ratio Glucose Calcium Phosphorus Magnesium Total Bilirubin AST ALT Alkaline Phosphatase 62 B-Natriuretic Peptide 72.6 Total Protein Albumin Globulin Albumin/Globulin Ratio Procalcitonin POC Glucose 11/20/20 11/21/20 11/21/20 11:35 04:45 04:45 WBC 5.7 RBC 4.00 L Hgb 10.8 L Hct 34.9 L MCV 87.3 MCH 27.0 MCHC 30.9 L RDW Std Deviation 48.9 H RDW Coeff of Henrique 15.1 H Plt Count 213 MPV 12.0 D-Dimer Quant (PE/DVT) Sodium 140 Potassium 4.1 Chloride 109 H Carbon Dioxide 26.0 Anion Gap 5 BUN 14 Creatinine 0.57 Estim Creat Clear Calc 34.91 Est GFR (MDRD) Af Amer 133 Est GFR (MDRD) Non-Af 110 BUN/Creatinine Ratio 24.6 H Glucose 143 H Calcium 7.7 L Phosphorus Magnesium Total Bilirubin 0.60 AST 52 H ALT 26 Alkaline Phosphatase 62 B-Natriuretic Peptide Total Protein 5.5 L Albumin 2.0 L Globulin 3.5 Albumin/Globulin Ratio 0.6 L Procalcitonin 0.21 H POC Glucose 11/21/20 11/21/20 11/21/20 04:45 08:19 17:20 WBC RBC Hgb Hct MCV MCH MCHC RDW Std Deviation RDW Coeff of Henrique Plt Count MPV D-Dimer Quant (PE/DVT) Sodium Potassium Chloride Carbon Dioxide Anion Gap BUN Creatinine Estim Creat Clear Calc Est GFR (MDRD) Af Amer Est GFR (MDRD) Non-Af BUN/Creatinine Ratio Glucose Calcium Phosphorus 2.7 Magnesium 1.7 Total Bilirubin AST ALT Alkaline Phosphatase B-Natriuretic Peptide 106.9 H Total Protein Albumin Globulin Albumin/Globulin Ratio Procalcitonin POC Glucose 132 H 11/22/20 11/22/20 04:30 04:30 WBC 5.0 RBC 4.36 Hgb 11.8 L Hct 37.4 MCV 85.8 MCH 27.1 MCHC 31.6 L RDW Std Deviation 47.7 H RDW Coeff of Henrique 14.9 H Plt Count 274 MPV 11.7 D-Dimer Quant (PE/DVT) Sodium 137 Potassium 3.9 Chloride 103 Carbon Dioxide 29.0 Anion Gap 5 BUN 26 H Creatinine 0.70 Estim Creat Clear Calc 34.91 Est GFR (MDRD) Af Amer 105 Est GFR (MDRD) Non-Af 86 BUN/Creatinine Ratio 37.1 H Glucose 185 H Calcium 8.2 L Phosphorus 3.4 Magnesium 2.5 Total Bilirubin 0.60 AST 50 H ALT 26 Alkaline Phosphatase 76 B-Natriuretic Peptide Total Protein 6.2 L Albumin 2.2 L Globulin 4.0 Albumin/Globulin Ratio 0.6 L Procalcitonin POC Glucose Clinical Impression(s) from Imaging Studies Chest X-Ray 11/19/20 18:42 IMPRESSION: Bilateral airspace opacities may represent edema and/or infection Electronically Signed: Joshua Hutchinson MD at 20:00 EDT Tel , Service support , Chest CTA 11/20/20 09:15 IMPRESSION: No pulmonary embolus. No thoracic aortic aneurysm or dissection. Diffuse glass opacities throughout both lungs, consistent with COVID pneumonia. Electronically Signed: Eric Unger MD at 10:40 EDT Tel , Service support , Medical Necessity - Tobacco Use Smoking Status: Never smoker Tobacco Use: Non-smoker Assessment/Plan All Active Problems (Last Reviewed 09/05/19 @ 11:48 by Milena Kuhn) COVID-19 (Acute) Segmental and somatic dysfunction of pelvic region (Acute) Segmental and somatic dysfunction of thoracic region (Acute) Segmental and somatic dysfunction of lumbar region (Acute) Pain at surgical incision (Acute) RECOMMENDATIONS: 1. Continue noninvasive positive pressure ventilatory support with breaks to Airvo as tolerated. 2. Continue to wean FiO2 to maintain oxygen saturations at or above 90%. 3. Continue Decadron to complete 10-day treatment course. 4. Continue remdesivir as ordered. Continue to monitor liver and renal function. 5. Readminister Lasix today. 6. Continue Lovenox twice daily. 7. Continue PPI therapy. IMPRESSIONS: 1. Severe sepsis/acute hypoxemic respiratory failure secondary to COVID-19 pneumonia The patient was admitted to the hospital with progressive Covid symptoms after she was diagnosed 6 days ago through the [facility]. The patient was subsequently started on steroids, but her symptoms continued to progress despite this. The patient does not have a baseline oxygen requirement. However, since her admission, the patient's oxygen requirement has continued to increase. She is currently requiring continuous BiPAP support with high FiO2 demand. We will plan to continue current supportive measures including scheduled Decadron therapy and remdesivir. Liver and renal function are stable. Given the patient's tenuous respiratory status, will administer IV Lasix again today as well. If the patient were to decompensate any further from a respiratory p erspective, intubation would be indicated. 2. GERD/depression/hypothyroidism/advanced age Complicates care, management, recovery and prognosis. Continue home medications as indicated. CODE status: Discussed CODE status at length including difference between FULL code, DNR-CCA and DNR-CC status. Following discussions about the differences in these status, patient requested FULL CODE STATUS. TIME: 34 minutes of critical care time, independent of procedures, was spent addressing the patient's severe sepsis, acute hypoxemic respiratory failure, COVID-19 pneumonia, review of all data and collaboration with the care team. ([id number]) [id number]: [id number] Critical care first hour
[2020-11-22] MEDS: Levothyroxine 112 MCG Tablet PO (06:09)
--- NOTE | 2020-11-22 07:32 | PN_ITS ---
Patient Problems: Active and Suspected Problems (Last Reviewed 09/05/19 @ 11:48 by Milena Kuhn) COVID-19 (Acute) Reason for Visit: SARS-CoV-2 pneumonia Subjective: Patient seen she has been weaned off BiPAP currently on Airvo Still remains significantly dyspneic at rest Objective: GENERAL: Dyspneic at rest HEENT: Atraumatic; EYES; Anicteric, Normal Conjunctiva NECK; supple, normal thyroid, RESPIRATORY: Diminished to auscultation CARDIOVASCULAR: Regular S1 S2, GI: soft, normoactive bowel sounds, : No Renal angle tenderness; EXTREMITIES: No edema, no clubbing, MUSCULOSKELETAL: no muscle waisting NEURO: Awake; no lateralizing signs. SKIN: No Rash PSYCH; Flat affect Vitals/I&O's: Vital Signs Temp Pulse Resp BP Pulse Ox 98.3 F 55 L 28 H 152/68 H 92 11/22/20 04:00 11/22/20 06:00 11/22/20 06:00 11/22/20 06:00 11/22/20 06:00 Oxygen Flow Rate (L/min) 60 Oxygen Delivery Method Bi-pap Weight: 80.4 kg Body Mass Index (BMI) 33.0 Intake and Output for Last 24 Hours 11/20/20 11/21/20 11/22/20 23:59 23:59 23:59 Intake Total 2630.00 / 2630.00 2714 / 2714 60 / 60 Output Total 670 / 710 2840 / 2900 185 / 185 Balance 1960.00 / 1920.00 -126 / -186 -125 / -125 Microbiology Past 72 Hours 11/19/20 18:20 Nasal Secretion SARS-CoV-2 Antigen (Rapid) - Final SARS-CoV-2 (COVID 19) Laboratory Results 11/21/20 08:19: POC Glucose 132 H 11/21/20 17:20: Phosphorus 2.7, Magnesium 1.7 11/22/20 04:30: WBC 5.0, RBC 4.36, Hgb 11.8 L, Hct 37.4, MCV 85.8, MCH 27.1, MCHC 31.6 L, RDW Std Deviation 47.7 H, RDW Coeff of Henrique 14.9 H, Plt Count 274, MPV 11.7 11/22/20 04:30: Sodium 137, Potassium 3.9, Chloride 103, Carbon Dioxide 29.0, Anion Gap 5, BUN 26 H, Creatinine 0.70, Estim Creat Clear Calc 34.91, Est GFR (MDRD) Af Amer 105, Est GFR (MDRD) Non-Af 86, BUN/Creatinine Ratio 37.1 H, Glucose 185 H, Calcium 8.2 L, Phosphorus 3.4, Magnesium 2.5, Total Bilirubin 0.60, AST 50 H, ALT 26, Alkaline Phosphatase 76, Total Protein 6.2 L, Albumin 2.2 L, Globulin 4.0, Albumin/Globulin Ratio 0.6 L Current Medications Acetaminophen (Acetaminophen 325 Mg Tablet) 650 mg PO Q6H PRN PRN PRN Reason: Pain 1-10 or Fever Last Admin: 11/21/20 12:52 Dose: 650 mg Documented by: Calcium/Vitamin D (Calcium Carb/Vitamin D 1 Tablet Tablet) 1 tablet PO BID [facility] Last Admin: 11/21/20 20:11 Dose: 1 tablet Documented by: Celecoxib (Celecoxib 200 Mg Capsule) 200 mg PO DAILY [facility] Last Admin: 11/21/20 15:40 Dose: 200 mg Documented by: Dexamethasone Sodium Phosphate (Dexamethasone 10 Mg/Ml Vial) 6 mg IV DAILY [facility] Stop: 11/25/20 10:01 Last Admin: 11/21/20 12:41 Dose: 6 mg Documented by: Enoxaparin Sodium (Enoxaparin 40 Mg/0.4 Ml Syringe) 40 mg SC BID [facility] Last Admin: 11/21/20 20:11 Dose: 40 mg Documented by: Escitalopram Oxalate (Escitalopram Oxalate 20 Mg Tablet) 20 mg PO DAILY [facility] Last Admin: 11/21/20 15:40 Dose: 20 mg Documented by: Sodium Chloride () 250 mls @ 15 mls/hr IV .[id number] PRN PRN Reason: Saline Flush Sodium Chloride () 250 mls @ 15 mls/hr IV .[id number] PRN PRN Reason: Additional IVPB Infusion Remdesivir 100 mg/ Sodium (Chloride) 250 mls @ 125 mls/hr IV DAILY [facility]; Protocol Stop: 11/24/20 11:59 Last Infusion: 11/21/20 17:23 Dose: Infused Documented by: Levothyroxine Sodium (Levothyroxine 112 Mcg Tablet) 112 mcg PO DAILY@0600 [facility] Last Admin: 11/22/20 06:09 Dose: 112 mcg Documented by: Pantoprazole Sodium (Pantoprazole Sodium 20 Mg Tablet) 20 mg PO DAILY [facility] Last Admin: 11/21/20 20:10 Dose: Not Given Documented by: Sodium Chloride (0.9% Saline Lock 10 Ml Syringe) 10 - 40 ml IV UD PRN PRN Reason: SALINE FLUSH Last Admin: 11/21/20 17:24 Dose: 20 ml Documented by: STROKE Vital Signs/Narrative: Vital Signs Temp Pulse Resp BP Pulse Ox 11/22/20 06:00 55 L 28 H 152/68 H 92 11/22/20 05:00 57 L 32 H 160/73 H 95 11/22/20 04:55 57 L 30 H 95 11/22/20 04:00 98.3 F 54 L 27 H 129/59 H 90 Medical Necessity - Tobacco Use Smoking Status: Never smoker Tobacco Use: Non-smoker Assessment/Plan All Active Problems (Last Reviewed 09/05/19 @ 11:48 by Milena Kuhn) COVID-19 (Acute) Segmental and somatic dysfunction of pelvic region (Acute) Segmental and somatic dysfunction of thoracic region (Acute) Segmental and somatic dysfunction of lumbar region (Acute) Pain at surgical incision (Acute) Patient is a 75-year-old lady who presented with increasing generalized weakness and multiple falls. She had apparently tested positive for Covid 5 days prior to her admission. 1. Acute hypoxic respiratory failure ?Secondary to SARS-CoV-2 pneumonia ?Admitted to the intensive care unit managed with high flow oxygen titrated to keep saturation greater than 90 in addition to Decadron and remdesivir with consultation placed to both pulmonary medicine as well as infectious disease -09/23/2020: Patient remains in the ICU on BiPAP with FiO2 of 90%. Remains significantly dyspneic at rest. With no significant improvement in her overall condition patient was seen in consultation by Dr. Cabrera with infectious disease the day prior. Case discussed with him. -09/24/2020 Patient seen she has been weaned off BiPAP currently on Airvo Still remains significantly dyspneic at rest 2. Severe sepsis secondary to SARS-CoV-2 pneumonia ?Management as discussed above 3. Hypokalemia ?Corrected per protocol 4. Hyponatremia ?Corrected per protocol 5. GERD ?Patient is on PPI 6. Hypothyroidism - Patient is on levothyroxine home dose continued 7. Depression ?Patient is on SSRI continued 8. DVT prophylaxis ?low molecular weight heparin Inpatient E&M: [id number] Subs Hosp L2
--- NOTE | 2020-11-22 08:21 | CPS ---
Bipap put in standby and put on Airvo
[2020-11-22] MEDS: Furosemide 40 MG/4 ML Vial IV (08:25)
[2020-11-22] MEDS: 0.9% Saline Lock 10 ML Syringe IV ×3 (08:25→19:50)
--- NOTE | 2020-11-22 09:15 | CASEMGMT ---
Addendum entered by Jose Ramon Garsia 11/22/20 14:36: Attempted x 2 to reach pt via hospital phone and pt's cell phone to complete initial RN CM assessment. No answer. CM to attempt at a later time. Original Note: RN CM NOTE: Participated in ICU interdisciplinary rounds. Pt is on Airvo. Remains On Remdesivir and Decadron. Surya BSN RN CM
[2020-11-22] MEDS: dexAMETHasone 10 MG/ML Vial 6 MG IV (11:24)
[2020-11-22] MEDS: Enoxaparin 40 MG/0.4 ML Syringe SC ×2 (11:29→19:50)
[2020-11-22] MEDS: Escitalopram Oxalate 20 MG Tablet PO (14:51)
[2020-11-22] MEDS: Pantoprazole Sodium 20 MG Tablet PO (14:51)
[2020-11-22] MEDS: Calcium Carb/Vitamin D 1 TABLET Tablet PO ×2 (14:51→19:50)
[2020-11-22] MEDS: Celecoxib 200 MG Capsule PO (14:51)
[2020-11-23] VITALS (37 sets, daily range): BP systolic 113–172; BP diastolic 44–88; PULSE 52–87; RESP 12–32; TEMP 36.8–37.2; O2SAT 80–99
[2020-11-23] MEDS: Levothyroxine 112 MCG Tablet PO (04:28)
[2020-11-23 04:55] LABS: Hematocrit 35.2 % (37-47); Hemoglobin 11.4 g/dL (12.0-15.0); Mean Corp Hgb Conc 32.4 g/dL (32-36); Mean Corpuscular Volume 83.4 fL (81-99); Mean Platelet Vol. 11.1 fl (6.2-12.0); Platelet Count 270 K/mm3 (150-450); RBC Distribution Width CV 14.7 % (11.6-14.6); Red Blood Count 4.22 M/mm3 (4.2-5.4); White Blood Count 5.9 K/mm3 (4.4-11.0)
[2020-11-23 05:23] LABS: ALB/GLOB Ratio 0.6 RATIO (0.9-2.4); AST(SGOT) 38 U/L (15-37); Alanine Aminotransfer ALT/SGPT 21 U/L (13-56); Albumin, Serum 2.2 g/dL (3.2-5.0); Alkaline Phosphatase 83 U/L (45-117); Anion Gap 2 (5-15); BUN 27 mg/dL (7-18); BUN/Creat Ratio 40.7 RATIO (10-20); Calcium,Total 8.1 mg/dL (8.5-10.1); Chloride 99 mmol/L (98-107); Creatinine, Serum 0.66 mg/dL (0.55-1.02); EST Glomerular Filtration Rate 92 mL/min (>60); Est Glom Filt Rate - Afr Amer 112 mL/min (>60); Estimated Creatinine Clearance 34.91 ml/min; Globulin 3.8 g/dL (2.2-4.2); Glucose 258 mg/dL (74-106); Potassium 3.7 mmol/L (3.5-5.1); Sodium Level 134 mmol/L (136-145)
--- NOTE | 2020-11-23 06:13 | PN_ITS ---
Subjective: The patient was seen and examined at the bedside this morning. Events from the last 24 hours have been reviewed. The patient remains afebrile and h emodynamically stable. She maintained appropriate oxygen saturations yesterday on Airvo heated high flow and was placed on BiPAP for overnight support with an FiO2 of 60%. Liver and renal function remained stable. The patient is currently documented to be overall net +2 L for the hospital admission. Objective: The patient's most recent lab work, culture data and imaging studies have all been personally reviewed. Rapid coronavirus testing was positive on November 19. Blood cultures have shown no growth to date. General: Alert, Cooperative, No apparent distress HEENT: Atraumatic, Normocephalic Oral: No Gingival or Mucosal Lesions/ Ulcerations Neck: Supple, No Nodes, Trachea Midline Lungs: Diminished, Tachypneic, Wheezes Cardiovascular: Regular rate, Regular Rhythm Abdomen: Bowel Sounds Present, Soft, Non Tender, Obese Extremities: No clubbing, No cyanosis, No edema Skin: No breakdown Musculoskeletal: No Tenderness to Palpation of Joints or Extremities, No Muscle Wasting Lymphatic: No Cervical, Supraclavicular, or Inguinal Adenopathy Neurological: Cranial nerves II-XII grossly intact, Neuro grossly intact Psych/Mental Status: Normal Affect, Appropriate Vital Signs Temp Pulse Resp BP Pulse Ox 98.6 F 56 L 27 H 145/72 H 95 11/23/20 04:00 11/23/20 06:00 11/23/20 06:00 11/23/20 06:00 11/23/20 06:00 Oxygen Flow Rate (L/min) 60 Oxygen Delivery Method Bi-pap Weight: 175 lb 0.752 oz Body Mass Index (BMI) 33.0 Intake and Output for Last 24 Hours 11/21/20 11/22/20 11/23/20 23:59 23:59 23:59 Intake Total 2714 / 2714 1235 / 1235 Output Total 2840 / 2900 1465 / 1715 550 / 550 Balance -126 / -186 -230 / -480 -550 / -550 Labs (Last 48 Hours) 11/21/20 11/21/20 11/22/20 08:19 17:20 04:30 WBC 5.0 RBC 4.36 Hgb 11.8 L Hct 37.4 MCV 85.8 MCH 27.1 MCHC 31.6 L RDW Std Deviation 47.7 H RDW Coeff of Henrique 14.9 H Plt Count 274 MPV 11.7 Sodium Potassium Chloride Carbon Dioxide Anion Gap BUN Creatinine Estim Creat Clear Calc Est GFR (MDRD) Af Amer Est GFR (MDRD) Non-Af BUN/Creatinine Ratio Glucose Calcium Phosphorus 2.7 Magnesium 1.7 Total Bilirubin AST ALT Alkaline Phosphatase Total Protein Albumin Globulin Albumin/Globulin Ratio POC Glucose 132 H 11/22/20 11/23/20 11/23/20 04:30 04:40 04:40 WBC 5.9 RBC 4.22 Hgb 11.4 L Hct 35.2 L MCV 83.4 MCH 27.0 MCHC 32.4 RDW Std Deviation 45.0 H RDW Coeff of Henrique 14.7 H Plt Count 270 MPV 11.1 Sodium 137 134 L Potassium 3.9 3.7 Chloride 103 99 Carbon Dioxide 29.0 33.0 H Anion Gap 5 2 L BUN 26 H 27 H Creatinine 0.70 0.66 Estim Creat Clear Calc 34.91 34.91 Est GFR (MDRD) Af Amer 105 112 Est GFR (MDRD) Non-Af 86 92 BUN/Creatinine Ratio 37.1 H 40.7 H Glucose 185 H 258 H Calcium 8.2 L 8.1 L Phosphorus 3.4 Magnesium 2.5 Total Bilirubin 0.60 0.60 AST 50 H 38 H ALT 26 21 Alkaline Phosphatase 76 83 Total Protein 6.2 L 6.0 L Albumin 2.2 L 2.2 L Globulin 4.0 3.8 Albumin/Globulin Ratio 0.6 L 0.6 L POC Glucose Microbiology 11/19/20 18:28 Blood Culture (Wb) - Right Hand Blood Culture - Preliminary No growth in 48 hours. 11/19/20 18:13 Blood Culture (Wb) - Anticubital Right Blood Culture - Preliminary No growth in 48 hours. Clinical Impression(s) from Imaging Studies Chest X-Ray 11/19/20 18:42 IMPRESSION: Bilateral airspace opacities may represent edema and/or infection Electronically Signed: Joshua Hutchinson MD at 20:00 EDT Tel , Service support , Chest CTA 11/20/20 09:15 IMPRESSION: No pulmonary embolus. No thoracic aortic aneurysm or dissection. Diffuse glass opacities throughout both lungs, consistent with COVID pneumonia. Electronically Signed: Eric Unger MD at 10:40 EDT Tel , Service support , Medical Necessity - Tobacco Use Smoking Status: Never smoker Tobacco Use: Non-smoker Assessment/Plan All Active Problems (Last Reviewed 09/05/19 @ 11:48 by Milena Kuhn) COVID-19 (Acute) Segmental and somatic dysfunction of pelvic region (Acute) Segmental and somatic dysfunction of thoracic region (Acute) Segmental and somatic dysfunction of lumbar region (Acute) Pain at surgical incision (Acute) RECOMMENDATIONS: 1. Continue noninvasive positive pressure ventilatory support with breaks to Airvo as tolerated. 2. Continue to wean FiO2 to maintain oxygen saturations at or above 90%. 3. Continue Decadron to complete 10-day treatment course. 4. Continue remdesivir as ordered. Continue to monitor liver and renal function. 5. Continue Lovenox twice daily. 6. Continue PPI therapy. IMPRESSIONS: 1. Severe sepsis/acute hypoxemic respiratory failure secondary to COVID-19 pneumonia The patient was admitted to the hospital with progressive Covid symptoms after she was diagnosed 6 days ago through the [facility]. The patient was subsequently started on steroids, but her symptoms continued to progress despite this. The patient does not have a baseline oxygen requirement. However, since her admission, the patient's oxygen requirement has continued to increase. She is currently requiring continuous BiPAP support with high FiO2 demand. We will plan to continue current supportive measures including scheduled Decadron therapy and remdesivir. Liver and renal function are stable. 2. GERD/depression/hypothyroidism/advanced age Complicates care, management, recovery and prognosis. Continue home medications as indicated. CODE status: Discussed CODE status at length including difference between FULL code, DNR-CCA and DNR-CC status. Following discussions about the differences in these status, patient requested FULL CODE STATUS. TIME: 35 minutes of critical care time, independent of procedures, was spent addressing the patient's severe sepsis, acute hypoxemic respiratory failure, COVID-19 pneumonia, review of all data and collaboration with the care team. ([id number]) [id number]: [id number] Critical care first hour
--- NOTE | 2020-11-23 07:16 | PCM.PN.HOSP ---
Patient Problems: Active and Suspected Problems (Last Reviewed 09/05/19 @ 11:48 by Milena Kuhn) COVID-19 (Acute) Reason for Visit: SARS-CoV-2 pneumonia Subjective: No significant change in patient's overall clinical condition. Was placed on BiPAP with FiO2 of 60% during the evening with plans to switch to airvo this morning Objective: GENERAL: Dyspneic at rest HEENT: Atraumatic; EYES; Anicteric, Normal Conjunctiva NECK; supple, normal thyroid, RESPIRATORY: Diminished to auscultation CARDIOVASCULAR: Regular S1 S2, GI: soft, normoactive bowel sounds, : No Renal angle tenderness; EXTREMITIES: No edema, no clubbing, MUSCULOSKELETAL: no muscle waisting NEURO: Awake; no lateralizing signs. SKIN: No Rash PSYCH; Flat affect Vitals/I&O's: Vital Signs Temp Pulse Resp BP Pulse Ox 98.6 F 61 28 H 157/66 H 96 11/23/20 04:00 11/23/20 07:00 11/23/20 07:00 11/23/20 07:00 11/23/20 07:00 Oxygen Flow Rate (L/min) 60 Oxygen Delivery Method Bi-pap Weight: 79.4 kg Body Mass Index (BMI) 33.0 Intake and Output for Last 24 Hours 11/21/20 11/22/20 11/23/20 23:59 23:59 23:59 Intake Total 2714 / 2714 1235 / 1235 Output Total 2840 / 2900 1465 / 1715 550 / 550 Balance -126 / -186 -230 / -480 -550 / -550 Microbiology Past 72 Hours 11/19/20 18:28 Blood Culture (Wb) - Right Hand Blood Culture - Preliminary No growth in 48 hours. 11/19/20 18:13 Blood Culture (Wb) - Anticubital Right Blood Culture - Preliminary No growth in 48 hours. Laboratory Results 11/23/20 04:40: WBC 5.9, RBC 4.22, Hgb 11.4 L, Hct 35.2 L, MCV 83.4, MCH 27.0, MCHC 32.4, RDW Std Deviation 45.0 H, RDW Coeff of Henrique 14.7 H, Plt Count 270, MPV 11.1 11/23/20 04:40: Sodium 134 L, Potassium 3.7, Chloride 99, Carbon Dioxide 33.0 H, Anion Gap 2 L, BUN 27 H, Creatinine 0.66, Estim Creat Clear Calc 34.91, Est GFR (MDRD) Af Amer 112, Est GFR (MDRD) Non-Af 92, BUN/Creatinine Ratio 40.7 H, Glucose 258 H, Calcium 8.1 L, Total Bilirubin 0.60, AST 38 H, ALT 21, Alkaline Phosphatase 83, Total Protein 6.0 L, Albumin 2.2 L, Globulin 3.8, Albumin/Globulin Ratio 0.6 L Current Medications Acetaminophen (Acetaminophen 325 Mg Tablet) 650 mg PO Q6H PRN PRN PRN Reason: Pain 1-10 or Fever Last Admin: 11/21/20 12:52 Dose: 650 mg Documented by: Albuterol Sulfate (Albuterol 2.5 Mg/3 Ml Vial.Neb.) 2.5 mg INHALATION Q4HWA.RT STEVEN Calcium/Vitamin D (Calcium Carb/Vitamin D 1 Tablet Tablet) 1 tablet PO BID [facility] Last Admin: 11/22/20 19:50 Dose: 1 tablet Documented by: Celecoxib (Celecoxib 200 Mg Capsule) 200 mg PO DAILY [facility] Last Admin: 11/22/20 14:51 Dose: 200 mg Documented by: Dexamethasone Sodium Phosphate (Dexamethasone 10 Mg/Ml Vial) 6 mg IV DAILY [facility] Stop: 11/25/20 10:01 Last Admin: 11/22/20 11:24 Dose: 6 mg Documented by: Enoxaparin Sodium (Enoxaparin 40 Mg/0.4 Ml Syringe) 40 mg SC BID [facility] Last Admin: 11/22/20 19:50 Dose: 40 mg Documented by: Escitalopram Oxalate (Escitalopram Oxalate 20 Mg Tablet) 20 mg PO DAILY [facility] Last Admin: 11/22/20 14:51 Dose: 20 mg Documented by: Sodium Chloride () 250 mls @ 15 mls/hr IV .[id number] PRN PRN Reason: Saline Flush Sodium Chloride () 250 mls @ 15 mls/hr IV .[id number] PRN PRN Reason: Additional IVPB Infusion Remdesivir 100 mg/ Sodium (Chloride) 250 mls @ 125 mls/hr IV DAILY [facility]; Protocol Stop: 11/24/20 11:59 Last Infusion: 11/22/20 13:25 Dose: Infused Documented by: Insulin Human Lispro (Insulin Lispro 100 Unit/Ml Insuln.Pen) 0 unit SC ACHS [facility]; Protocol Levothyroxine Sodium (Levothyroxine 112 Mcg Tablet) 112 mcg PO DAILY@0600 [facility] Last Admin: 11/23/20 04:28 Dose: 112 mcg Documented by: Pantoprazole Sodium (Pantoprazole Sodium 20 Mg Tablet) 20 mg PO DAILY [facility] Last Admin: 11/22/20 14:51 Dose: 20 mg Documented by: Sodium Chloride (0.9% Saline Lock 10 Ml Syringe) 10 - 40 ml IV UD PRN PRN Reason: SALINE FLUSH Last Admin: 11/22/20 19:50 Dose: 20 ml Documented by: STROKE Vital Signs/Narrative: Vital Signs Temp Pulse Resp BP Pulse Ox 11/23/20 07:00 61 28 H 157/66 H 96 11/23/20 06:00 56 L 27 H 145/72 H 95 11/23/20 05:00 55 L 27 H 162/77 H 97 11/23/20 04:45 63 31 H 98 11/23/20 04:00 98.6 F 54 L 27 H 149/58 H 95 11/23/20 03:24 56 L Medical Necessity - Tobacco Use Smoking Status: Never smoker Tobacco Use: Non-smoker Assessment/Plan All Active Problems (Last Reviewed 09/05/19 @ 11:48 by Milena Kuhn) COVID-19 (Acute) Segmental and somatic dysfunction of pelvic region (Acute) Segmental and somatic dysfunction of thoracic region (Acute) Segmental and somatic dysfunction of lumbar region (Acute) Pain at surgical incision (Acute) Patient is a 75-year-old lady who presented with increasing generalized weakness and multiple falls. She had apparently tested positive for Covid 5 days prior to her admission. 1. Acute hypoxic respiratory failure ?Secondary to SARS-CoV-2 pneumonia ?Admitted to the intensive care unit managed with high flow oxygen titrated to keep saturation greater than 90 in addition to Decadron and remdesivir with consultation placed to both pulmonary medicine as well as infectious disease -09/23/2020: Patient remains in the ICU on BiPAP with FiO2 of 90%. Remains significantly dyspneic at rest. With no significant improvement in her overall condition patient was seen in consultation by Dr. Cabrera with infectious disease the day prior. Case discussed with him. -09/24/2020 Patient seen she has been weaned off BiPAP currently on Airvo Still remains significantly dyspneic at rest -09/25/2020; no significant change in patient's overall clinical condition. Was placed on BiPAP with FiO2 of 60% during the evening with plans to switch to airvo this morning 2. Severe sepsis secondary to SARS-CoV-2 pneumonia ?Management as discussed above 3. Hypokalemia ?Corrected per protocol 4. Hyponatremia ?Corrected per protocol 5. GERD ?Patient is on PPI 6. Hypothyroidism - Patient is on levothyroxine home dose continued 7. Depression ?Patient is on SSRI continued 8. DVT prophylaxis ?low molecular weight heparin Inpatient E&M: [id number] [facility] L2
[2020-11-23] MEDS: Enoxaparin 40 MG/0.4 ML Syringe SC ×2 (08:59→22:15)
[2020-11-23] MEDS: dexAMETHasone 10 MG/ML Vial 6 MG IV (09:00)
[2020-11-23] MEDS: 0.9% Saline Lock 10 ML Syringe IV (09:01)
[2020-11-23] MEDS: Escitalopram Oxalate 20 MG Tablet PO (09:10)
[2020-11-23] MEDS: Celecoxib 200 MG Capsule PO (09:10)
[2020-11-23] MEDS: Calcium Carb/Vitamin D 1 TABLET Tablet PO ×2 (09:10→22:16)
[2020-11-23] MEDS: Pantoprazole Sodium 20 MG Tablet PO (09:10)
--- NOTE | 2020-11-23 11:30 | CASEMGMT ---
Addendum entered by Jose Ramon Garsia 11/23/20 13:25: Correction: Pt's son's name is Bryan, not Devendra. Original Note: RN CM BRASS POURER ANABELA placed call to patient for initial transition planning/care coordination assessment. DYLON PEÑALOZA introduced self and role at [facility]. Pt voices understanding and consents to assessment at this time. Pt is A/O at this time and answers all questions appropriately. Care providers, pharmacy, and demographics verified/updated at this time. PCP: Dr Corrales Specialists: None Insurance: MMO [facility] Prescription Benefit: yes Living Will/HPOA: Has both LW and Healthcare POLarissa, who is her son, Pepe Pedraza LNOK: 2 sons: Pepe/ARLYN, and Devendra. Living Arrangements: Lives in one-story home w/finished basement. Son, Devendra, lives in the basement and his Girlfriend stays there often. GF does the laundry. Granddaughter and grandson live next door. Pt states she is independent w/ADL's. Family do most IADL's. Transportation: Pt states drives self and states no transportation concerns at this time. Family also able to help w/transportation if needed. DME: States has the following DME: cane that she uses on occasion. Pt states is working on getting a shower chair from a friend. She was made aware, if this is not available, this can be purchased at local drug stores, on-line, or thrift stores, as this is not covered by insurance. She states is also interested in Medical alert button. She was made aware nurse will bring in info on local co's that provide Medical alert buttons. This info was given to Nae OSBORNE, to give to pt. HHC/SNF: Hx of SNF in [place] after femur fx about 4-5 yrs ago and then had HHC after returning home. Does not remember name of HHC agency. Pt states she is interested in HHC upon discharge from [facility]. Pt made aware a list of HHC providers including quality and resource use data and consistent with the patient's preferred geographic region, medical needs, and insurance network will be provided to her to review. This info was given to Nae OSBORNE, to give to pt. DYLON PEÑALOZA to contact pt later today to discuss pt's preferred provider. Pt wishes to return home with HHC and states has no concerns with going home at time of discharge. CM to follow for home oxygen needs and any further discharge planning/needs. Pt voices no further concerns/needs at this time. Advised pt to ask for CM if any further questions/concerns/needs arise. Voices understanding. PLAN: Home w/possible HHC and may need O2 @ discharge. Surya BANKS RN CM
[2020-11-23] MEDS: Insulin Lispro 100 UNIT/ML INSULN.PEN SC ×3 (12:30→22:15)
[2020-11-23 12:40] LABS: Bedside Glucose 377 mg/dL (70-110)
--- NOTE | 2020-11-23 13:14 | CASEMGMT ---
Addendum entered by Jose Ramon Garsia 11/23/20 16:02: Call received back from [employer] @ [facility]. She states they are in-network w/MMO MCR, but currently are not taking MMO MCR's. Call placed to [facility] and referral made. They currently are not accepting MMO MCR at this time. Pt made aware neither above stated [facility]'s able to accept her at this time and that DYLON PEÑALOZA will f/u with her on Thursday to discuss other options. Original Note: DYLON PEÑALOZA NOTE: Call placed back to pt. She states she has reviewed the [facility] list and 1st preference is [facility]. 2nd pref: [facility]. Referral packet faxed to [facility]. Call placed to [employer] and referral made. She was made aware anticipate pt will not be ready for discharge until at least Thursday. Awaiting acceptance. Pt aware she may need O2 @ discharge. Pt has been provided with list of DME providers consistent with the patient's preferred geographic region, medical needs, and insurance network. The pt's preferred provider is [facility]. Pt states Preferred pharmacy is [facility] in [place], but would like [facility] retail @ discharge. Surya BANKS RN, CM .
--- NOTE | 2020-11-23 13:28 | PN.ID_ITS ---
Patient Problems: Active and Suspected Problems (Last Reviewed 09/05/19 @ 11:48 by Milena Kuhn) COVID-19 (Acute) Subjective: Feeling better, no fever, improved SOB and cough - Physical Exam Vitals/I&O's: Vital Signs Temp Pulse Resp BP Pulse Ox 98.8 F 67 26 H 127/63 H 95 11/23/20 11:00 11/23/20 11:23 11/23/20 11:00 11/23/20 11:00 11/23/20 11:00 Oxygen Flow Rate (L/min) 60 Oxygen Delivery Method Airvo Weight: 79.4 kg Body Mass Index (BMI) 33.0 Intake and Output for Last 24 Hours 11/21/20 11/22/20 11/23/20 23:59 23:59 23:59 Intake Total 2714 / 2714 1235 / 1235 750 / 750 Output Total 2840 / 2900 1465 / 1715 550 / 550 Balance -126 / -186 -230 / -480 200 / 200 General: Alert, Cooperative, No apparent distress Lungs: Clear to auscultation, Diminished Cardiovascular: Regular rate, Regular Rhythm Abdomen: Soft, Non Tender, Non-Distended Skin: No rashes Microbiology Past 72 Hours 11/19/20 18:28 Blood Culture (Wb) - Right Hand Blood Culture - Preliminary No growth in 48 hours. 11/19/20 18:13 Blood Culture (Wb) - Anticubital Right Blood Culture - Preliminary No growth in 48 hours. Laboratory Results 11/23/20 04:40: WBC 5.9, RBC 4.22, Hgb 11.4 L, Hct 35.2 L, MCV 83.4, MCH 27.0, MCHC 32.4, RDW Std Deviation 45.0 H, RDW Coeff of Henrique 14.7 H, Plt Count 270, MPV 11.1 11/23/20 04:40: Sodium 134 L, Potassium 3.7, Chloride 99, Carbon Dioxide 33.0 H, Anion Gap 2 L, BUN 27 H, Creatinine 0.66, Estim Creat Clear Calc 34.91, Est GFR (MDRD) Af Amer 112, Est GFR (MDRD) Non-Af 92, BUN/Creatinine Ratio 40.7 H, Glucose 258 H, Calcium 8.1 L, Total Bilirubin 0.60, AST 38 H, ALT 21, Alkaline Phosphatase 83, Total Protein 6.0 L, Albumin 2.2 L, Globulin 3.8, Albumin/Globulin Ratio 0.6 L 11/23/20 12:28: POC Glucose 377 H Current Medications Acetaminophen (Acetaminophen 325 Mg Tablet) 650 mg PO Q6H PRN PRN PRN Reason: Pain 1-10 or Fever Last Admin: 11/21/20 12:52 Dose: 650 mg Documented by: Albuterol Sulfate (Albuterol 2.5 Mg/3 Ml Vial.Neb.) 2.5 mg INHALATION Q4HWA.RT [facility] Calcium/Vitamin D (Calcium Carb/Vitamin D 1 Tablet Tablet) 1 tablet PO BID [facility] Last Admin: 11/23/20 09:10 Dose: 1 tablet Documented by: Celecoxib (Celecoxib 200 Mg Capsule) 200 mg PO DAILY [facility] Last Admin: 11/23/20 09:10 Dose: 200 mg Documented by: Dexamethasone Sodium Phosphate (Dexamethasone 10 Mg/Ml Vial) 6 mg IV DAILY [facility] Stop: 11/25/20 10:01 Last Admin: 11/23/20 09:00 Dose: 6 mg Documented by: Enoxaparin Sodium (Enoxaparin 40 Mg/0.4 Ml Syringe) 40 mg SC BID [facility] Last Admin: 11/23/20 08:59 Dose: 40 mg Documented by: Escitalopram Oxalate (Escitalopram Oxalate 20 Mg Tablet) 20 mg PO DAILY [facility] Last Admin: 11/23/20 09:10 Dose: 20 mg Documented by: Sodium Chloride () 250 mls @ 15 mls/hr IV .[id number] PRN PRN Reason: Saline Flush Last Admin: 11/23/20 10:23 Dose: 15 mls/hr Documented by: Sodium Chloride () 250 mls @ 15 mls/hr IV .[id number] PRN PRN Reason: Additional IVPB Infusion Remdesivir 100 mg/ Sodium (Chloride) 250 mls @ 125 mls/hr IV DAILY [facility]; Protocol Stop: 11/24/20 11:59 Last Infusion: 11/23/20 12:32 Dose: Infused Documented by: Insulin Human Lispro (Insulin Lispro 100 Unit/Ml Insuln.Pen) 0 unit SC ACHS [facility]; Protocol Last Admin: 11/23/20 12:30 Dose: 6 u Documented by: Levothyroxine Sodium (Levothyroxine 112 Mcg Tablet) 112 mcg PO DAILY@0600 [facility] Last Admin: 11/23/20 04:28 Dose: 112 mcg Documented by: Pantoprazole Sodium (Pantoprazole Sodium 20 Mg Tablet) 20 mg PO DAILY [facility] Last Admin: 11/23/20 09:10 Dose: 20 mg Documented by: Sodium Chloride (0.9% Saline Lock 10 Ml Syringe) 10 - 40 ml IV UD PRN PRN Reason: SALINE FLUSH Last Admin: 11/23/20 09:01 Dose: 10 ml Documented by: Medical Necessity - Tobacco Use Smoking Status: Never smoker Tobacco Use: Non-smoker Route of nutrition/ use of supplements: [] Nutritional Intake: [] IV Site: [] Mcnamara Catheter: [] - Assessment/Plan Antibiotics: [] Assessment/Plan: [] Active and Suspected Problems (Last Reviewed 09/05/19 @ 11:48 by Milena Kuhn) COVID-19 (Acute) covid with hypoxia - sx started 11/11/20. Recommend 20 days of quarantine. Will need vaccination once out of quarantine. On 10 day course of dex and [address] showed no PE. Improved today. Remove mcnamara when able. Will follow, d/w nursing
[2020-11-23] MEDS: Albuterol 2.5 MG/3 ML VIAL.NEB. INHALATION ×2 (15:35→19:05)
[2020-11-23 17:16] LABS: Bedside Glucose 388 mg/dL (70-110)
[2020-11-23 22:30] LABS: Bedside Glucose 408 mg/dL (70-110)
[2020-11-24] VITALS (33 sets, daily range): BP systolic 93–173; BP diastolic 42–94; PULSE 55–104; RESP 12–95; TEMP 36.6–37.5; O2SAT 92–98
[2020-11-24 04:56] LABS: Hematocrit 35.6 % (37-47); Hemoglobin 11.4 g/dL (12.0-15.0); Mean Corpuscular Hgb 27.2 pg (27.0-32.0); Platelet Count 257 K/mm3 (150-450); RBC Distribution Width CV 14.2 % (11.6-14.6); RBC Distribution Width SD 43.7 fl (35.1-43.9); Red Blood Count 4.19 M/mm3 (4.2-5.4); White Blood Count 7.1 K/mm3 (4.4-11.0)
[2020-11-24 05:20] LABS: ALB/GLOB Ratio 0.6 RATIO (0.9-2.4); AST(SGOT) 33 U/L (15-37); Alanine Aminotransfer ALT/SGPT 21 U/L (13-56); Albumin, Serum 2.2 g/dL (3.2-5.0); Alkaline Phosphatase 91 U/L (45-117); Anion Gap 5 (5-15); BUN 24 mg/dL (7-18); BUN/Creat Ratio 35.2 RATIO (10-20); Calcium,Total 8.2 mg/dL (8.5-10.1); Chloride 98 mmol/L (98-107); Creatinine, Serum 0.68 mg/dL (0.55-1.02); EST Glomerular Filtration Rate 89 mL/min (>60); Est Glom Filt Rate - Afr Amer 108 mL/min (>60); Estimated Creatinine Clearance 34.91 ml/min; Globulin 3.5 g/dL (2.2-4.2); Glucose 279 mg/dL (74-106); Potassium 3.8 mmol/L (3.5-5.1); Protein, Total 5.7 g/dL (6.4-8.2); Sodium Level 133 mmol/L (136-145)
--- NOTE | 2020-11-24 05:39 | PCM.PN.INT ---
Subjective: The patient was seen and examined at the bedside this morning. Events from the last 24 hours have been reviewed. The patient is currently afebrile, hemodynamically stable and maintaining appropriate oxygen saturations on BiPAP currently with an FiO2 of 60%. The patient was able once again to be maintained on heated high flow oxygen throughout the day yesterday. Liver and renal function remained stable. Blood glucose levels are elevated. The patient remains on remdesivir and Decadron. She is currently documented to be overall net +3 L for the hospital admission. Objective: The patient's most recent lab work, culture data and imaging studies have all been personally reviewed. Rapid coronavirus testing was positive on November 19. Blood cultures have shown no growth to date. General: Alert, Cooperative, - - BiPAP in place HEENT: Atraumatic, Normocephalic Oral: No Gingival or Mucosal Lesions/ Ulcerations Neck: Supple, No Nodes, Trachea Midline Lungs: Diminished, Tachypneic Cardiovascular: Normal S1, Normal S2, Bradycardic Abdomen: Bowel Sounds Present, Soft, Non Tender, Obese Extremities: No clubbing, No cyanosis, No edema Skin: No breakdown Musculoskeletal: No Tenderness to Palpation of Joints or Extremities Lymphatic: No Cervical, Supraclavicular, or Inguinal Adenopathy Neurological: Cranial nerves II-XII grossly intact, Neuro grossly intact Psych/Mental Status: Normal Affect Vital Signs Temp Pulse Resp BP Pulse Ox 98 F 56 L 94 H 150/72 H 94 11/24/20 05:00 11/24/20 05:00 11/24/20 05:00 11/24/20 05:00 11/24/20 05:00 Oxygen Flow Rate (L/min) 60 Oxygen Delivery Method Bi-pap Weight: 175 lb 0.752 oz Body Mass Index (BMI) 33.0 Intake and Output for Last 24 Hours 11/22/20 11/23/20 11/24/20 23:59 23:59 23:59 Intake Total 1235 / 1235 1850 / 1850 200 / 200 Output Total 1465 / 1715 1100 / 1750 650 / 650 Balance -230 / -480 750 / 100 -450 / -450 Labs (Last 48 Hours) 11/23/20 11/23/20 11/23/20 04:40 04:40 12:28 WBC 5.9 RBC 4.22 Hgb 11.4 L Hct 35.2 L MCV 83.4 MCH 27.0 MCHC 32.4 RDW Std Deviation 45.0 H RDW Coeff of Henrique 14.7 H Plt Count 270 MPV 11.1 Sodium 134 L Potassium 3.7 Chloride 99 Carbon Dioxide 33.0 H Anion Gap 2 L BUN 27 H Creatinine 0.66 Estim Creat Clear Calc 34.91 Est GFR (MDRD) Af Amer 112 Est GFR (MDRD) Non-Af 92 BUN/Creatinine Ratio 40.7 H Glucose 258 H Calcium 8.1 L Total Bilirubin 0.60 AST 38 H ALT 21 Alkaline Phosphatase 83 Total Protein 6.0 L Albumin 2.2 L Globulin 3.8 Albumin/Globulin Ratio 0.6 L POC Glucose 377 H 11/23/20 11/23/20 11/24/20 17:06 22:15 04:45 WBC 7.1 RBC 4.19 L Hgb 11.4 L Hct 35.6 L MCV 85.0 MCH 27.2 MCHC 32.0 RDW Std Deviation 43.7 RDW Coeff of Henrique 14.2 Plt Count 257 MPV 11.0 Sodium Potassium Chloride Carbon Dioxide Anion Gap BUN Creatinine Estim Creat Clear Calc Est GFR (MDRD) Af Amer Est GFR (MDRD) Non-Af BUN/Creatinine Ratio Glucose Calcium Total Bilirubin AST ALT Alkaline Phosphatase Total Protein Albumin Globulin Albumin/Globulin Ratio POC Glucose 388 H 408 H 11/24/20 04:45 WBC RBC Hgb Hct MCV MCH MCHC RDW Std Deviation RDW Coeff of Henrique Plt Count MPV Sodium 133 L Potassium 3.8 Chloride 98 Carbon Dioxide 30.0 Anion Gap 5 BUN 24 H Creatinine 0.68 Estim Creat Clear Calc 34.91 Est GFR (MDRD) Af Amer 108 Est GFR (MDRD) Non-Af 89 BUN/Creatinine Ratio 35.2 H Glucose 279 H Calcium 8.2 L Total Bilirubin 0.60 AST 33 ALT 21 Alkaline Phosphatase 91 Total Protein 5.7 L Albumin 2.2 L Globulin 3.5 Albumin/Globulin Ratio 0.6 L POC Glucose Microbiology 11/19/20 18:28 Blood Culture (Wb) - Right Hand Blood Culture - Preliminary No growth in 48 hours. 11/19/20 18:13 Blood Culture (Wb) - Anticubital Right Blood Culture - Preliminary No growth in 48 hours. Clinical Impression(s) from Imaging Studies Chest X-Ray 11/19/20 18:42 IMPRESSION: Bilateral airspace opacities may represent edema and/or infection Electronically Signed: Joshua Hutchinson MD at 20:00 EDT Tel , Service support , Chest CTA 11/20/20 09:15 IMPRESSION: No pulmonary embolus. No thoracic aortic aneurysm or dissection. Diffuse glass opacities throughout both lungs, consistent with COVID pneumonia. Electronically Signed: Eric Unger MD at 10:40 EDT Tel , Service support , Medical Necessity - Tobacco Use Smoking Status: Never smoker Tobacco Use: Non-smoker Assessment/Plan All Active Problems (Last Reviewed 09/05/19 @ 11:48 by Milena Kuhn) COVID-19 (Acute) Segmental and somatic dysfunction of pelvic region (Acute) Segmental and somatic dysfunction of thoracic region (Acute) Segmental and somatic dysfunction of lumbar region (Acute) Pain at surgical incision (Acute) RECOMMENDATIONS: 1. Continue noninvasive positive pressure ventilatory support with breaks to Airvo as tolerated. 2. Continue to wean FiO2 to maintain oxygen saturations at or above 90%. 3. Continue Decadron to complete 10-day treatment course. 4. Continue remdesivir as ordered. Continue to monitor liver and renal function. 5. Continue Lovenox twice daily. 6. Continue PPI therapy. 7. Reattempt diuretic challenge today. IMPRESSIONS: 1. Severe sepsis/acute hypoxemic respiratory failure secondary to COVID-19 pneumonia The patient was admitted to the hospital with progressive Covid symptoms after she was diagnosed 6 days ago through the [facility]. The patient was subsequently started on steroids, but her symptoms continued to progress despite this. The patient does not have a baseline oxygen requirement. However, since her admission, the patient's oxygen requirement has continued to increase. She is currently requiring BiPAP support with intermittent breaks to heated high flow oxygen. We will plan to continue current supportive measures including scheduled Decadron therapy and remdesivir. Liver and renal function are stable. We will plan to reattempt to challenge the patient today with IV diuretic therapy. 2. GERD/depression/hypothyroidism/advanced age Complicates care, management, recovery and prognosis. Continue home medications as indicated. CODE status: Discussed CODE status at length including difference between FULL code, DNR-CCA and DNR-CC status. Following discussions about the differences in these status, patient requested FULL CODE STATUS. TIME: 34 minutes of critical care time, independent of procedures, was spent addressing the patient's severe sepsis, acute hypoxemic respiratory failure, COVID-19 pneumonia, review of all data and collaboration with the care team. ([id number]) [id number]: [id number] Critical care first hour
[2020-11-24] MEDS: Albuterol 2.5 MG/3 ML VIAL.NEB. INHALATION ×4 (06:38→19:02)
[2020-11-24] MEDS: Levothyroxine 112 MCG Tablet PO (06:46)
--- NOTE | 2020-11-24 07:13 | PCM.PN.HOSP ---
Patient Problems: Active and Suspected Problems (Last Reviewed 09/05/19 @ 11:48 by Milena Kuhn) COVID-19 (Acute) Reason for Visit: SARS-CoV-2 pneumonia Subjective: No significant change in patient's overall clinical condition. Patient has been maintained intermittently on BiPAP with FiO2 of 60%. Sodium levels down to 133 this a.m. Blood glucose remains elevated adjusted patient insulin regimen with addition of long-acting insulin Objective: GENERAL: Patient on BiPAP HEENT: Atraumatic; EYES; Anicteric, Normal Conjunctiva NECK; supple, normal thyroid, RESPIRATORY: Diminished to auscultation CARDIOVASCULAR: Regular S1 S2, GI: soft, normoactive bowel sounds, : No Renal angle tenderness; EXTREMITIES: No edema, no clubbing, MUSCULOSKELETAL: no muscle waisting NEURO: Awake; no lateralizing signs. SKIN: No Rash PSYCH; Flat affect Vitals/I&O's: Vital Signs Temp Pulse Resp BP Pulse Ox 98.2 F 67 27 H 146/60 H 97 11/24/20 06:00 11/24/20 07:00 11/24/20 07:00 11/24/20 06:00 11/24/20 06:59 Oxygen Flow Rate (L/min) 60 Oxygen Delivery Method Bi-pap Weight: 83.1 kg Body Mass Index (BMI) 33.0 Intake and Output for Last 24 Hours 11/22/20 11/23/20 11/24/20 23:59 23:59 23:59 Intake Total 1235 / 1235 1979.25 / 1979.25 300 / 300 Output Total 1465 / 1715 1100 / 1750 1000 / 1000 Balance -230 / -480 879.25 / 229.25 -700 / -700 Microbiology Past 72 Hours 11/19/20 18:28 Blood Culture (Wb) - Right Hand Blood Culture - Preliminary No growth in 48 hours. 11/19/20 18:13 Blood Culture (Wb) - Anticubital Right Blood Culture - Preliminary No growth in 48 hours. Laboratory Results 11/23/20 12:28: POC Glucose 377 H 11/23/20 17:06: POC Glucose 388 H 11/23/20 22:15: POC Glucose 408 H 11/24/20 04:45: WBC 7.1, RBC 4.19 L, Hgb 11.4 L, Hct 35.6 L, MCV 85.0, MCH 27.2, MCHC 32.0, RDW Std Deviation 43.7, RDW Coeff of Henrique 14.2, Plt Count 257, MPV 11.0 11/24/20 04:45: Sodium 133 L, Potassium 3.8, Chloride 98, Carbon Dioxide 30.0, Anion Gap 5, BUN 24 H, Creatinine 0.68, Estim Creat Clear Calc 34.91, Est GFR (MDRD) Af Amer 108, Est GFR (MDRD) Non-Af 89, BUN/Creatinine Ratio 35.2 H, Glucose 279 H, Calcium 8.2 L, Total Bilirubin 0.60, AST 33, ALT 21, Alkaline Phosphatase 91, Total Protein 5.7 L, Albumin 2.2 L, Globulin 3.5, Albumin/Globulin Ratio 0.6 L Current Medications Acetaminophen (Acetaminophen 325 Mg Tablet) 650 mg PO Q6H PRN PRN PRN Reason: Pain 1-10 or Fever Last Admin: 11/21/20 12:52 Dose: 650 mg Documented by: Albuterol Sulfate (Albuterol 2.5 Mg/3 Ml Vial.Neb.) 2.5 mg INHALATION Q4HWA.RT [facility] Last Admin: 11/24/20 06:38 Dose: 2.5 mg Documented by: Calcium/Vitamin D (Calcium Carb/Vitamin D 1 Tablet Tablet) 1 tablet PO BID [facility] Last Admin: 11/23/20 22:16 Dose: 1 tablet Documented by: Celecoxib (Celecoxib 200 Mg Capsule) 200 mg PO DAILY [facility] Last Admin: 11/23/20 09:10 Dose: 200 mg Documented by: Dexamethasone Sodium Phosphate (Dexamethasone 10 Mg/Ml Vial) 6 mg IV DAILY [facility] Stop: 11/25/20 10:01 Last Admin: 11/23/20 09:00 Dose: 6 mg Documented by: Enoxaparin Sodium (Enoxaparin 40 Mg/0.4 Ml Syringe) 40 mg SC BID [facility] Last Admin: 11/23/20 22:15 Dose: 40 mg Documented by: Escitalopram Oxalate (Escitalopram Oxalate 20 Mg Tablet) 20 mg PO DAILY [facility] Last Admin: 11/23/20 09:10 Dose: 20 mg Documented by: Furosemide (Furosemide 40 Mg/4 Ml Vial) 40 mg IV DAILY [facility] Sodium Chloride () 250 mls @ 15 mls/hr IV .[id number] PRN PRN Reason: Saline Flush Last Infusion: 11/23/20 19:00 Dose: 0 mls/hr Documented by: Sodium Chloride () 250 mls @ 15 mls/hr IV .[id number] PRN PRN Reason: Additional IVPB Infusion Remdesivir 100 mg/ Sodium (Chloride) 250 mls @ 125 mls/hr IV DAILY [facility]; Protocol Stop: 11/24/20 11:59 Last Infusion: 11/23/20 12:32 Dose: Infused Documented by: Insulin Human Lispro (Insulin Lispro 100 Unit/Ml Insuln.Pen) 0 unit SC ACHS [facility]; Protocol Last Admin: 11/23/20 22:15 Dose: 7 u Documented by: Levothyroxine Sodium (Levothyroxine 112 Mcg Tablet) 112 mcg PO DAILY@0600 [facility] Last Admin: 11/24/20 06:46 Dose: 112 mcg Documented by: Pantoprazole Sodium (Pantoprazole Sodium 20 Mg Tablet) 20 mg PO DAILY [facility] Last Admin: 11/23/20 09:10 Dose: 20 mg Documented by: Sodium Chloride (0.9% Saline Lock 10 Ml Syringe) 10 - 40 ml IV UD PRN PRN Reason: SALINE FLUSH Last Admin: 11/23/20 09:01 Dose: 10 ml Documented by: STROKE Vital Signs/Narrative: Vital Signs Temp Pulse Resp BP Pulse Ox 11/24/20 07:00 67 27 H 11/24/20 06:59 64 28 H 97 11/24/20 06:00 98.2 F 74 94 H 146/60 H 94 11/24/20 05:00 98 F 56 L 94 H 150/72 H 94 11/24/20 04:55 55 L 26 H 95 11/24/20 04:00 98.1 F 58 L 93 H 141/61 H 93 Medical Necessity - Tobacco Use Smoking Status: Never smoker Tobacco Use: Non-smoker Assessment/Plan All Active Problems (Last Reviewed 09/05/19 @ 11:48 by Milena Kuhn) COVID-19 (Acute) Segmental and somatic dysfunction of pelvic region (Acute) Segmental and somatic dysfunction of thoracic region (Acute) Segmental and somatic dysfunction of lumbar region (Acute) Pain at surgical incision (Acute) Patient is a 75-year-old lady who presented with increasing generalized weakness and multiple falls. She had apparently tested positive for Covid 5 days prior to her admission. 1. Acute hypoxic respiratory failure ?Secondary to SARS-CoV-2 pneumonia ?Admitted to the intensive care unit managed with high flow oxygen titrated to keep saturation greater than 90 in addition to Decadron and remdesivir with consultation placed to both pulmonary medicine as well as infectious disease -11/21/2020: Patient remains in the ICU on BiPAP with FiO2 of 90%. Remains significantly dyspneic at rest. With no significant improvement in her overall condition patient was seen in consultation by Dr. Cabrera with infectious disease the day prior. Case discussed with him. -11/22/2020 Patient seen she has been weaned off BiPAP currently on Airvo Still remains significantly dyspneic at rest -11/23/2020; no significant change in patient's overall clinical condition. Was placed on BiPAP with FiO2 of 60% during the evening with plans to switch to airvo this morning -11/24/2020 No significant change in patient's overall clinical condition. Patient has been maintained intermittently on BiPAP with FiO2 of 60%. Sodium levels down to 133 this a.m. Blood glucose remains elevated adjusted patient insulin regimen with addition of long-acting insulin 2. Severe sepsis secondary to SARS-CoV-2 pneumonia ?Management as discussed above 3. Hypokalemia ?Corrected per protocol 4. Hyponatremia ?Corrected per protocol 5. GERD ?Patient is on PPI 6. Hypothyroidism - Patient is on levothyroxine home dose continued 7. Depression ?Patient is on SSRI continued 8. DVT prophylaxis ?low molecular weight heparin 9. Hyperglycemia ?Secondary to concomitant use of steroids patient started on long-acting insulin in addition to Accu-Cheks before meals and at bedtime with sliding scale coverage Inpatient E&M: [id number] [facility] Hosp L2
[2020-11-24] MEDS: Insulin Lispro 100 UNIT/ML INSULN.PEN SC ×3 (08:46→17:09)
[2020-11-24] MEDS: Enoxaparin 40 MG/0.4 ML Syringe SC ×2 (08:47→20:27)
[2020-11-24] MEDS: Furosemide 40 MG/4 ML Vial IV (08:49)
[2020-11-24] MEDS: 0.9% Saline Lock 10 ML Syringe IV (08:50)
[2020-11-24] MEDS: Pantoprazole Sodium 20 MG Tablet PO (08:50)
[2020-11-24] MEDS: dexAMETHasone 10 MG/ML Vial 6 MG IV (08:50)
[2020-11-24] MEDS: Calcium Carb/Vitamin D 1 TABLET Tablet PO ×2 (08:51→20:27)
[2020-11-24] MEDS: Celecoxib 200 MG Capsule PO (08:51)
[2020-11-24] MEDS: Escitalopram Oxalate 20 MG Tablet PO (08:51)
[2020-11-24 12:30] LABS: Bedside Glucose 431 mg/dL (70-110)
[2020-11-24 17:20] LABS: Bedside Glucose > 500 mg/dL (70-110)
[2020-11-24 18:10] LABS: Lactic Acid 3.5 mmol/L (0.4-1.9)
[2020-11-24] MEDS: Insulin Lispro 100 UNIT/ML INSULN.PEN 20 UNIT SC (22:30)
[2020-11-24 22:46] LABS: Bedside Glucose 460 mg/dL (70-110)
[2020-11-25] VITALS (36 sets, daily range): BP systolic 100–163; BP diastolic 38–87; PULSE 61–97; RESP 12–32; TEMP 36.6–37.4; O2SAT 88–100
[2020-11-25] MEDS: Levothyroxine 112 MCG Tablet PO (06:01)
[2020-11-25 06:27] LABS: Absolute Lymphocyte Count 0.68 X10^3/uL (0.83-4.51); Basophil# 0.01 X10^3/uL; Basophil% 0.1 % (0-1); Eosinophil# 0.01 X10^3/uL; Eosinophils% 0.1 % (0-5); Hematocrit 34.8 % (37-47); Hemoglobin 11.2 g/dL (12.0-15.0); Lymphocyte # 0.68 X10^3/ul (0.83-4.51); Lymphocyte % 8.2 % (19-41); Mean Corp Hgb Conc 32.2 g/dL (32-36); Mean Corpuscular Hgb 27.4 pg (27.0-32.0); Mean Corpuscular Volume 85.1 fL (81-99); Monocyte# 0.54 X10^3/uL; Monocyte% 6.5 % (0-10); NRBC Flagged by Analyzer 0 % (0-5); Neutrophil # 6.99 X10^3/uL (2.7-7.7); Neutrophil % 83.8 % (47-70); Platelet Count 291 K/mm3 (150-450); RBC Distribution Width SD 43.8 fl (35.1-43.9); Red Blood Count 4.09 M/mm3 (4.2-5.4); White Blood Count 8.3 K/mm3 (4.4-11.0)
[2020-11-25 06:36] LABS: Bedside Glucose 166 mg/dL (70-110)
[2020-11-25 06:41] LABS: ALB/GLOB Ratio 0.6 RATIO (0.9-2.4); AST(SGOT) 29 U/L (15-37); Alanine Aminotransfer ALT/SGPT 22 U/L (13-56); Albumin, Serum 2.2 g/dL (3.2-5.0); Alkaline Phosphatase 105 U/L (45-117); Anion Gap 3 (5-15); BUN 23 mg/dL (7-18); BUN/Creat Ratio 36.9 RATIO (10-20); Calcium,Total 8.3 mg/dL (8.5-10.1); Chloride 98 mmol/L (98-107); Creatinine, Serum 0.62 mg/dL (0.55-1.02); EST Glomerular Filtration Rate 99 mL/min (>60); Est Glom Filt Rate - Afr Amer 120 mL/min (>60); Estimated Creatinine Clearance 34.91 ml/min; Globulin 3.5 g/dL (2.2-4.2); Glucose 159 mg/dL (74-106); Potassium 3.7 mmol/L (3.5-5.1); Protein, Total 5.7 g/dL (6.4-8.2); Sodium Level 136 mmol/L (136-145)
[2020-11-25] MEDS: Albuterol 2.5 MG/3 ML VIAL.NEB. INHALATION ×3 (06:48→19:50)
--- NOTE | 2020-11-25 07:19 | PN_ITS ---
Subjective: The patient was seen and examined at the bedside this morning. Events from the last 24 hours have been reviewed. The patient is currently afebrile, hemodynamically stable and maintaining appropriate oxygen saturations on Airvo heated high flow with an FiO2 of 60%. The patient once again tolerated BiPAP overnight without complication. The patient has been intermittently receiving IV diuretic therapy as tolerated by hemodynamics and renal function. She is currently documented to be overall net +1.1 L for the hospital admission. Liver and renal function remain stable. The patient has now completed her treatment course of remdesivir and remains on Decadron. Objective: The patient's most recent lab work, culture data and imaging studies have all been personally reviewed. Rapid coronavirus testing was positive on November 19. Blood cultures have shown no growth to date. General: Alert, Cooperative, No apparent distress HEENT: Atraumatic, PERRLA, Normocephalic Oral: No Gingival or Mucosal Lesions/ Ulcerations Neck: Supple, No Nodes, Trachea Midline Lungs: Diminished, Tachypneic Cardiovascular: Regular rate, Regular Rhythm, Normal S1, Normal S2, No murmurs Abdomen: Bowel Sounds Present, Soft, Non Tender, Obese Extremities: No clubbing, No cyanosis, No edema Skin: No breakdown Musculoskeletal: No Tenderness to Palpation of Joints or Extremities Lymphatic: No Cervical, Supraclavicular, or Inguinal Adenopathy Neurological: Neuro grossly intact Psych/Mental Status: Normal Affect, Appropriate Vital Signs Temp Pulse Resp BP Pulse Ox 98.1 F 83 25 H 153/63 H 98 11/25/20 06:00 11/25/20 06:00 11/25/20 06:00 11/25/20 06:00 11/25/20 06:00 Oxygen Flow Rate (L/min) 60 Oxygen Delivery Method Airvo Weight: 183 lb 13.848 oz Body Mass Index (BMI) 33.0 Intake and Output for Last 24 Hours 11/23/20 11/24/20 11/25/20 23:59 23:59 23:59 Intake Total 1978.25 / 1978.25 1850 / 1850 250 / 250 Output Total 1100 / 1750 4100 / 4100 350 / 350 Balance 879.25 / 229.25 -2250 / -2250 -100 / -100 Labs (Last 48 Hours) 11/19/20 11/23/20 11/23/20 18:13 12:28 17:06 WBC Corrected WBC RBC Hgb Hct MCV MCH MCHC RDW Std Deviation RDW Coeff of Henrique Plt Count MPV Immature Gran % (Auto) Neut % (Auto) Lymph % (Auto) [place] % (Auto) Eos % (Auto) Baso % (Auto) Absolute Neuts (auto) Absolute Lymphs (auto) Nucleated RBC % Diff Path Review Sodium Potassium Chloride Carbon Dioxide Anion Gap BUN Creatinine Estim Creat Clear Calc Est GFR (MDRD) Af Amer Est GFR (MDRD) Non-Af BUN/Creatinine Ratio Glucose Lactic Acid 3.5 H* Calcium Total Bilirubin AST ALT Alkaline Phosphatase Total Protein Albumin Globulin Albumin/Globulin Ratio POC Glucose 377 H 388 H 11/23/20 11/24/20 11/24/20 22:15 04:45 04:45 WBC 7.1 Corrected WBC RBC 4.19 L Hgb 11.4 L Hct 35.6 L MCV 85.0 MCH 27.2 MCHC 32.0 RDW Std Deviation 43.7 RDW Coeff of Henrique 14.2 Plt Count 257 MPV 11.0 Immature Gran % (Auto) Neut % (Auto) Lymph % (Auto) [place] % (Auto) Eos % (Auto) Baso % (Auto) Absolute Neuts (auto) Absolute Lymphs (auto) Nucleated RBC % Diff Path Review Sodium 133 L Potassium 3.8 Chloride 98 Carbon Dioxide 30.0 Anion Gap 5 BUN 24 H Creatinine 0.68 Estim Creat Clear Calc 34.91 Est GFR (MDRD) Af Amer 108 Est GFR (MDRD) Non-Af 89 BUN/Creatinine Ratio 35.2 H Glucose 279 H Lactic Acid Calcium 8.2 L Total Bilirubin 0.60 AST 33 ALT 21 Alkaline Phosphatase 91 Total Protein 5.7 L Albumin 2.2 L Globulin 3.5 Albumin/Globulin Ratio 0.6 L POC Glucose 408 H 11/24/20 11/24/20 11/24/20 12:14 17:01 22:23 WBC Corrected WBC RBC Hgb Hct MCV MCH MCHC RDW Std Deviation RDW Coeff of Henrique Plt Count MPV Immature Gran % (Auto) Neut % (Auto) Lymph % (Auto) [place] % (Auto) Eos % (Auto) Baso % (Auto) Absolute Neuts (auto) Absolute Lymphs (auto) Nucleated RBC % Diff Path Review Sodium Potassium Chloride Carbon Dioxide Anion Gap BUN Creatinine Estim Creat Clear Calc Est GFR (MDRD) Af Amer Est GFR (MDRD) Non-Af BUN/Creatinine Ratio Glucose Lactic Acid Calcium Total Bilirubin AST ALT Alkaline Phosphatase Total Protein Albumin Globulin Albumin/Globulin Ratio POC Glucose 431 H > 500 H* 460 H* 11/25/20 11/25/20 11/25/20 05:58 06:15 06:15 WBC Cancelled Corrected WBC Cancelled RBC Cancelled Hgb Cancelled Hct Cancelled MCV Cancelled MCH Cancelled MCHC Cancelled RDW Std Deviation Cancelled RDW Coeff of Henrique Cancelled Plt Count Cancelled MPV Cancelled Immature Gran % (Auto) Neut % (Auto) Lymph % (Auto) [place] % (Auto) Eos % (Auto) Baso % (Auto) Absolute Neuts (auto) Absolute Lymphs (auto) Nucleated RBC % Diff Path Review Cancelled Sodium 136 Potassium 3.7 Chloride 98 Carbon Dioxide 35.0 H Anion Gap 3 L BUN 23 H Creatinine 0.62 Estim Creat Clear Calc 34.91 Est GFR (MDRD) Af Amer 120 Est GFR (MDRD) Non-Af 99 BUN/Creatinine Ratio 36.9 H Glucose 159 H Lactic Acid Calcium 8.3 L Total Bilirubin 0.60 AST 29 ALT 22 Alkaline Phosphatase 105 Total Protein 5.7 L Albumin 2.2 L Globulin 3.5 Albumin/Globulin Ratio 0.6 L POC Glucose 166 H 11/25/20 06:15 WBC 8.3 Corrected WBC RBC 4.09 L Hgb 11.2 L Hct 34.8 L MCV 85.1 MCH 27.4 MCHC 32.2 RDW Std Deviation 43.8 RDW Coeff of Henrique 14.0 Plt Count 291 MPV 11.0 Immature Gran % (Auto) 1.300 H Neut % (Auto) 83.8 H Lymph % (Auto) 8.2 L [place] % (Auto) 6.5 Eos % (Auto) 0.1 Baso % (Auto) 0.1 Absolute Neuts (auto) 7.0 Absolute Lymphs (auto) 0.68 L Nucleated RBC % [address] Review Sodium Potassium Chloride Carbon Dioxide Anion Gap BUN Creatinine Estim Creat Clear Calc Est GFR (MDRD) Af Amer Est GFR (MDRD) Non-Af BUN/Creatinine Ratio Glucose Lactic Acid Calcium Total Bilirubin AST ALT Alkaline Phosphatase Total Protein Albumin Globulin Albumin/Globulin Ratio POC Glucose Clinical Impression(s) from Imaging Studies Chest X-Ray 11/19/20 18:42 IMPRESSION: Bilateral airspace opacities may represent edema and/or infection Electronically Signed: Joshua Hutchinson MD at 20:00 EDT Tel , Service support , Chest CTA 11/20/20 09:15 IMPRESSION: No pulmonary embolus. No thoracic aortic aneurysm or dissection. Diffuse glass opacities throughout both lungs, consistent with COVID pneumonia. Electronically Signed: Eric Unger MD at 10:40 EDT Tel , Service support , Medical Necessity - Tobacco Use Smoking Status: Never smoker Tobacco Use: Non-smoker Assessment/Plan All Active Problems (Last Reviewed 09/05/19 @ 11:48 by Milena Kuhn) COVID-19 (Acute) Segmental and somatic dysfunction of pelvic region (Acute) Segmental and somatic dysfunction of thoracic region (Acute) Segmental and somatic dysfunction of lumbar region (Acute) Pain at surgical incision (Acute) RECOMMENDATIONS: 1. Continue noninvasive positive pressure ventilatory support with breaks to Airvo as tolerated. 2. Continue to wean FiO2 to maintain oxygen saturations at or above 90%. 3. Continue Decadron to complete 10-day treatment course. 4. Continue Lovenox twice daily. 5. Continue PPI therapy. IMPRESSIONS: 1. Severe sepsis/acute hypoxemic respiratory failure secondary to COVID-19 pneumonia The patient was admitted to the hospital with progressive Covid symptoms after she was diagnosed through the [facility]. The patient was subsequently started on steroids, but her symptoms continued to progress despite this. The patient does not have a baseline oxygen requirement. However, since her admission, the patient's oxygen requirement has continued to increase. She is currently requiring BiPAP support with intermittent breaks to heated high flow oxygen. We will plan to continue current supportive measures including scheduled Decadron therapy. The patient has now completed a treatment course of remdesivir. We will plan to continue intermittent utilization of diuretic therapy as needed. 2. GERD/depression/hypothyroidism/advanced age Complicates care, management, recovery and prognosis. Continue home medications as indicated. CODE status: Discussed CODE status at length including difference between FULL code, DNR-CCA and DNR-CC status. Following discussions about the differences in these status, patient requested FULL CODE STATUS. This note was generated with [employer] software. It may contain incorrect words, spelling, and punctuation that were not noted in checking the note before signing. Inpatient E&M: [id number] Subs Hosp L3
--- NOTE | 2020-11-25 07:28 | PN_ITS ---
Patient Problems: Active and Suspected Problems (Last Reviewed 09/05/19 @ 11:48 by Milena Kuhn) COVID-19 (Acute) Reason for Visit: SARS-CoV-2 pneumonia Subjective: Patient seen. Has been weaned off BiPAP currently on Airvo. Her overall condition continues to improve do anticipate possible discharge in 2 to 3 days possibly home with home oxygen Objective: GENERAL: Patient on BiPAP HEENT: Atraumatic; EYES; Anicteric, Normal Conjunctiva NECK; supple, normal thyroid, RESPIRATORY: Diminished to auscultation CARDIOVASCULAR: Regular S1 S2, GI: soft, normoactive bowel sounds, : No Renal angle tenderness; EXTREMITIES: No edema, no clubbing, MUSCULOSKELETAL: no muscle waisting NEURO: Awake; no lateralizing signs. SKIN: No Rash PSYCH; Flat affect Vitals/I&O's: Vital Signs Temp Pulse Resp BP Pulse Ox 97.9 F 75 24 H 153/63 H 89 11/25/20 07:00 11/25/20 07:00 11/25/20 07:00 11/25/20 06:00 11/25/20 07:00 Oxygen Flow Rate (L/min) 60 Oxygen Delivery Method Airvo Weight: 83.4 kg Body Mass Index (BMI) 33.0 Intake and Output for Last 24 Hours 11/23/20 11/24/20 11/25/20 23:59 23:59 23:59 Intake Total 1979.25 / 1979.25 1850 / 1850 250 / 250 Output Total 1100 / 1750 4100 / 4100 350 / 350 Balance 879.25 / 229.25 -2250 / -2250 -100 / -100 Microbiology Past 72 Hours 11/19/20 18:28 Blood Culture (Wb) - Right Hand Blood Culture - Preliminary No growth in 48 hours. 11/19/20 18:13 Blood Culture (Wb) - Anticubital Right Blood Culture - Preliminary No growth in 48 hours. Laboratory Results 11/19/20 18:13: Lactic Acid 3.5 H* 11/24/20 12:14: POC Glucose 431 H 11/24/20 17:01: POC Glucose > 500 H* 11/24/20 22:23: POC Glucose 460 H* 11/25/20 05:58: POC Glucose 166 H 11/25/20 06:15: WBC Cancelled, Corrected WBC Cancelled, RBC Cancelled, Hgb Cancelled, Hct Cancelled, MCV Cancelled, MCH Cancelled, MCHC Cancelled, RDW Std Deviation Cancelled, RDW Coeff of Henrique Cancelled, Plt Count Cancelled, MPV Cancelled, Diff Path Review Cancelled 11/25/20 06:15: Sodium 136, Potassium 3.7, Chloride 98, Carbon Dioxide 35.0 H, Anion Gap 3 L, BUN 23 H, Creatinine 0.62, Estim Creat Clear Calc 34.91, Est GFR (MDRD) Af Amer 120, Est GFR (MDRD) Non-Af 99, BUN/Creatinine Ratio 36.9 H, Glucose 159 H, Calcium 8.3 L, Total Bilirubin 0.60, AST 29, ALT 22, Alkaline Phosphatase 105, Total Protein 5.7 L, Albumin 2.2 L, Globulin 3.5, Albumin/Globulin Ratio 0.6 L 11/25/20 06:15: WBC 8.3, RBC 4.09 L, Hgb 11.2 L, Hct 34.8 L, MCV 85.1, MCH 27.4, MCHC 32.2, RDW Std Deviation 43.8, RDW Coeff of Henrique 14.0, Plt Count 291, MPV 11.0, Immature Gran % (Auto) 1.300 H, Neut % (Auto) 83.8 H, Lymph % (Auto) 8.2 L , [place] % (Auto) 6.5, Eos % (Auto) 0.1, Baso % (Auto) 0.1, Absolute Neuts (auto) 7.0, Absolute Lymphs (auto) 0.68 L, Nucleated RBC % 0 Current Medications Acetaminophen (Acetaminophen 325 Mg Tablet) 650 mg PO Q6H PRN PRN PRN Reason: Pain 1-10 or Fever Last Admin: 11/21/20 12:52 Dose: 650 mg Documented by: Albuterol Sulfate (Albuterol 2.5 Mg/3 Ml Vial.Neb.) 2.5 mg INHALATION Q4HWA.RT [facility] Last Admin: 11/25/20 06:48 Dose: 2.5 mg Documented by: Calcium/Vitamin D (Calcium Carb/Vitamin D 1 Tablet Tablet) 1 tablet PO BID [facility] Last Admin: 11/24/20 20:27 Dose: 1 tablet Documented by: Celecoxib (Celecoxib 200 Mg Capsule) 200 mg PO DAILY [facility] Last Admin: 11/24/20 08:51 Dose: 200 mg Documented by: Dexamethasone Sodium Phosphate (Dexamethasone 10 Mg/Ml Vial) 6 mg IV DAILY [facility] Stop: 11/25/20 10:01 Last Admin: 11/24/20 08:50 Dose: 6 mg Documented by: Dextrose (Dextrose 50%-Water 25 Gm/50 Ml Disp.Syrin) 0 gm IV X1 PRN; Protocol PRN Reason: Hypoglycemia Enoxaparin Sodium (Enoxaparin 40 Mg/0.4 Ml Syringe) 40 mg SC BID [facility] Last Admin: 11/24/20 20:27 Dose: 40 mg Documented by: Escitalopram Oxalate (Escitalopram Oxalate 20 Mg Tablet) 20 mg PO DAILY [facility] Last Admin: 11/24/20 08:51 Dose: 20 mg Documented by: Glucagon (Glucagon 1 Mg/Ml Syringe) 1 mg IM .X1 PRN PRN Reason: Hypoglycemia Sodium Chloride () 250 mls @ 15 mls/hr IV .[id number] PRN PRN Reason: Saline Flush Last Infusion: 11/23/20 19:00 Dose: 0 mls/hr Documented by: Sodium Chloride () 250 mls @ 15 mls/hr IV .[id number] PRN PRN Reason: Additional IVPB Infusion Insulin Glargine (Insulin Glargine 100 Units/Ml Pen) 20 units SC BREAKFAST [facility] Last Admin: 11/24/20 08:45 Dose: 20 u Documented by: Insulin Glargine (Insulin Glargine 100 Units/Ml Pen) 10 units SC QHS [facility] Last Admin: 11/24/20 22:28 Dose: 10 u Documented by: Insulin Human Lispro (Insulin Lispro 100 Unit/Ml Insuln.Pen) 0 unit SC ACHS [facility]; Protocol Last Admin: 11/24/20 22:30 Dose: Not Given Documented by: Levothyroxine Sodium (Levothyroxine 112 Mcg Tablet) 112 mcg PO DAILY@0600 [facility] Last Admin: 11/25/20 06:01 Dose: 112 mcg Documented by: Pantoprazole Sodium (Pantoprazole Sodium 20 Mg Tablet) 20 mg PO DAILY [facility] Last Admin: 11/24/20 08:50 Dose: 20 mg Documented by: Sodium Chloride (0.9% Saline Lock 10 Ml Syringe) 10 - 40 ml IV UD PRN PRN Reason: SALINE FLUSH Last Admin: 11/24/20 08:50 Dose: 10 ml Documented by: STROKE Vital Signs/Narrative: Vital Signs Temp Pulse Resp BP Pulse Ox 11/25/20 07:00 97.9 F 75 24 H 89 11/25/20 06:00 98.1 F 83 25 H 153/63 H 98 11/25/20 05:00 98.2 F 62 22 H 134/53 H 97 11/25/20 04:57 63 24 H 96 11/25/20 04:00 98.2 F 61 23 H 131/49 H 97 Medical Necessity - Tobacco Use Smoking Status: Never smoker Tobacco Use: Non-smoker Assessment/Plan All Active Problems (Last Reviewed 09/05/19 @ 11:48 by Milena Kuhn) COVID-19 (Acute) Segmental and somatic dysfunction of pelvic region (Acute) Segmental and somatic dysfunction of thoracic region (Acute) Segmental and somatic dysfunction of lumbar region (Acute) Pain at surgical incision (Acute) Patient is a 75-year-old lady who presented with increasing generalized weakness and multiple falls. She had apparently tested positive for Covid 5 days prior to her admission. 1. Acute hypoxic respiratory failure ?Secondary to SARS-CoV-2 pneumonia ?Admitted to the intensive care unit managed with high flow oxygen titrated to keep saturation greater than 90 in addition to Decadron and remdesivir with consultation placed to both pulmonary medicine as well as infectious disease -11/21/2020: Patient remains in the ICU on BiPAP with FiO2 of 90%. Remains significantly dyspneic at rest. With no significant improvement in her overall condition patient was seen in consultation by Dr. Cabrera with infectious disease the day prior. Case discussed with him. -11/22/2020 Patient seen she has been weaned off BiPAP currently on Airvo Still remains significantly dyspneic at rest -11/23/2020; no significant change in patient's overall clinical condition. Was placed on BiPAP with FiO2 of 60% during the evening with plans to switch to airvo this morning -11/24/2020 No significant change in patient's overall clinical condition. Patient has been maintained intermittently on BiPAP with FiO2 of 60%. Sodium levels down to 133 this a.m. Blood glucose remains elevated adjusted patient insulin regimen with addition of long-acting insulin -11/25/2020; Patient seen. Has been weaned off BiPAP currently on Airvo. Her overall condition continues to improve do anticipate possible discharge in 2 to 3 days possibly home with home oxygen 2. Severe sepsis secondary to SARS-CoV-2 pneumonia ?Management as discussed above 3. Hypokalemia ?Corrected per protocol 4. Hyponatremia ?Corrected per protocol 5. GERD ?Patient is on PPI 6. Hypothyroidism - Patient is on levothyroxine home dose continued 7. Depression ?Patient is on SSRI continued 8. DVT prophylaxis ?low molecular weight heparin 9. Hyperglycemia ?Secondary to concomitant use of steroids patient started on long-acting insulin in addition to Accu-Cheks before meals and at bedtime with sliding scale coverage -11/25/2020; patient blood glucose levels improving Inpatient E&M: 53298 Subs Hosp L2
[2020-11-25] MEDS: Insulin Lispro 100 UNIT/ML INSULN.PEN SC ×4 (08:50→21:11)
[2020-11-25] MEDS: dexAMETHasone 10 MG/ML Vial 6 MG IV (08:51)
[2020-11-25] MEDS: Calcium Carb/Vitamin D 1 TABLET Tablet PO ×2 (08:51→21:10)
[2020-11-25] MEDS: Celecoxib 200 MG Capsule PO (08:51)
[2020-11-25] MEDS: Enoxaparin 40 MG/0.4 ML Syringe SC ×2 (08:51→21:10)
[2020-11-25] MEDS: Escitalopram Oxalate 20 MG Tablet PO (08:51)
[2020-11-25] MEDS: Pantoprazole Sodium 20 MG Tablet PO (08:52)
[2020-11-25] MEDS: 0.9% Saline Lock 10 ML Syringe IV (08:52)
[2020-11-25 09:16] LABS: Bedside Glucose 166 mg/dL (70-110)
[2020-11-25 12:15] LABS: Bedside Glucose 357 mg/dL (70-110)
[2020-11-25 15:45] LABS: Bedside Glucose 402 mg/dL (70-110)
[2020-11-25 21:31] LABS: Bedside Glucose 364 mg/dL (70-110)
[2020-11-26] VITALS (35 sets, daily range): BP systolic 105–155; BP diastolic 38–79; PULSE 72–100; RESP 12–35; TEMP 36.8–37.2; O2SAT 85–94
[2020-11-26] MEDS: Levothyroxine 112 MCG Tablet PO (06:33)
[2020-11-26 06:41] LABS: Bedside Glucose 138 mg/dL (70-110)
[2020-11-26 07:06] LABS: Hematocrit 35.1 % (37-47); Hemoglobin 11.2 g/dL (12.0-15.0); Mean Corp Hgb Conc 31.9 g/dL (32-36); Mean Corpuscular Hgb 26.7 pg (27.0-32.0); Mean Corpuscular Volume 83.8 fL (81-99); Mean Platelet Vol. 10.8 fl (6.2-12.0); Platelet Count 295 K/mm3 (150-450); RBC Distribution Width CV 14.4 % (11.6-14.6); RBC Distribution Width SD 44.1 fl (35.1-43.9); Red Blood Count 4.19 M/mm3 (4.2-5.4); White Blood Count 14.2 K/mm3 (4.4-11.0)
[2020-11-26] MEDS: Albuterol 2.5 MG/3 ML VIAL.NEB. INHALATION ×4 (07:16→19:15)
[2020-11-26 07:22] LABS: AST(SGOT) 29 U/L (15-37); Alanine Aminotransfer ALT/SGPT 21 U/L (13-56); Albumin, Serum 2.2 g/dL (3.2-5.0); Alkaline Phosphatase 138 U/L (45-117); Anion Gap 2 (5-15); BUN 28 mg/dL (7-18); Bilirubin, Direct 0.36 mg/dL (0.00-0.30); Calcium,Total 8.3 mg/dL (8.5-10.1); Chloride 100 mmol/L (98-107); Creatinine, Serum 0.67 mg/dL (0.55-1.02); EST Glomerular Filtration Rate 92 mL/min (>60); Est Glom Filt Rate - Afr Amer 111 mL/min (>60); Estimated Creatinine Clearance 34.91 ml/min; Globulin 3.5 g/dL (2.2-4.2); Glucose 131 mg/dL (74-106); Potassium 3.8 mmol/L (3.5-5.1); Protein, Total 5.7 g/dL (6.4-8.2); Sodium Level 135 mmol/L (136-145)
[2020-11-26] MEDS: Celecoxib 200 MG Capsule PO (10:10)
[2020-11-26] MEDS: Enoxaparin 40 MG/0.4 ML Syringe SC ×2 (10:10→20:55)
[2020-11-26] MEDS: Escitalopram Oxalate 20 MG Tablet PO (10:10)
[2020-11-26] MEDS: 0.9% Saline Lock 10 ML Syringe IV ×2 (10:11→20:55)
[2020-11-26] MEDS: Calcium Carb/Vitamin D 1 TABLET Tablet PO ×2 (10:11→20:55)
[2020-11-26] MEDS: Pantoprazole Sodium 20 MG Tablet PO (10:11)
--- NOTE | 2020-11-26 10:18 | PCM.PN.INT ---
Subjective: Patient did okay overnight. Patient continues to require BiPAP with sleep and high FiO2 with Airvo during the day. However, patient reported that she felt improved today compared to previous. Patient states she has had a cough productive of clear to white sputum. General: Alert, Oriented x3, Cooperative, No apparent distress, - - No conversational dyspnea on Airvo. HEENT: Atraumatic, PERRLA, EOMI, Normocephalic, - - No scleral icterus or injection noted. No epistaxis. Oral: Moist Mucosa, No Gingival or Mucosal Lesions/ Ulcerations Neck: Supple, No JVD, No Nodes, Trachea Midline Lungs: No rhonchi, No wheeze, No rales, Diminished, Tachypneic Cardiovascular: Regular rate, Regular Rhythm, Normal S1, Normal S2, No murmurs, No rub noted, No Gallop Abdomen: Bowel Sounds Present, Soft, Non Tender, Non-Distended Extremities: No clubbing, No cyanosis, No edema Skin: No rashes, No breakdown Musculoskeletal: No Tenderness to Palpation of Joints or Extremities Lymphatic: No Cervical, Supraclavicular, or Inguinal Adenopathy Neurological: Cranial nerves II-XII grossly intact, Neuro grossly intact, Motor Exam 5/5 strength throughout Psych/Mental Status: Alert and oriented to time, place, person, mood and affect Vital Signs Temp Pulse Resp BP Pulse Ox 37.2 C 78 30 H 111/55 L 92 11/26/20 00:00 11/26/20 07:30 11/26/20 07:30 11/26/20 07:00 11/26/20 07:30 Oxygen Flow Rate (L/min) 55 Oxygen Delivery Method Bi-pap Weight: 80.7 kg Body Mass Index (BMI) 33.0 Intake and Output for Last 24 Hours 11/24/20 11/25/20 11/26/20 23:59 23:59 23:59 Intake Total 1850 / 1850 250 / 250 Output Total 4100 / 4100 800 / 800 Balance -2250 / -2250 -550 / -550 Labs (Last 48 Hours) 11/19/20 11/24/20 11/24/20 18:13 12:14 17:01 WBC Corrected WBC RBC Hgb Hct MCV MCH MCHC RDW Std Deviation RDW Coeff of Henrique Plt Count MPV Immature Gran % (Auto) Neut % (Auto) Lymph % (Auto) [place] % (Auto) Eos % (Auto) Baso % (Auto) Absolute Neuts (auto) Absolute Lymphs (auto) Nucleated RBC % Diff Path Review Sodium Potassium Chloride Carbon Dioxide Anion Gap BUN Creatinine Estim Creat Clear Calc Est GFR (MDRD) Af Amer Est GFR (MDRD) Non-Af BUN/Creatinine Ratio Glucose Lactic Acid 3.5 H* Calcium Total Bilirubin Direct Bilirubin AST ALT Alkaline Phosphatase Total Protein Albumin Globulin Albumin/Globulin Ratio POC Glucose 431 H > 500 H* 11/24/20 11/25/20 11/25/20 22:23 05:58 06:15 WBC Cancelled Corrected WBC Cancelled RBC Cancelled Hgb Cancelled Hct Cancelled MCV Cancelled MCH Cancelled MCHC Cancelled RDW Std Deviation Cancelled RDW Coeff of Henrique Cancelled Plt Count Cancelled MPV Cancelled Immature Gran % (Auto) Neut % (Auto) Lymph % (Auto) [place] % (Auto) Eos % (Auto) Baso % (Auto) Absolute Neuts (auto) Absolute Lymphs (auto) Nucleated RBC % Diff Path Review Cancelled Sodium Potassium Chloride Carbon Dioxide Anion Gap BUN Creatinine Estim Creat Clear Calc Est GFR (MDRD) Af Amer Est GFR (MDRD) Non-Af BUN/Creatinine Ratio Glucose Lactic Acid Calcium Total Bilirubin Direct Bilirubin AST ALT Alkaline Phosphatase Total Protein Albumin Globulin Albumin/Globulin Ratio POC Glucose 460 H* 166 H 11/25/20 11/25/20 11/25/20 06:15 06:15 08:32 WBC 8.3 Corrected WBC RBC 4.09 L Hgb 11.2 L Hct 34.8 L MCV 85.1 MCH 27.4 MCHC 32.2 RDW Std Deviation 43.8 RDW Coeff of Henrique 14.0 Plt Count 291 MPV 11.0 Immature Gran % (Auto) 1.300 H Neut % (Auto) 83.8 H Lymph % (Auto) 8.2 L [place] % (Auto) 6.5 Eos % (Auto) 0.1 Baso % (Auto) 0.1 Absolute Neuts (auto) 7.0 Absolute Lymphs (auto) 0.68 L Nucleated RBC % 0 Diff Path Review Sodium 136 Potassium 3.7 Chloride 98 Carbon Dioxide 35.0 H Anion Gap 3 L BUN 23 H Creatinine 0.62 Estim Creat Clear Calc 34.91 Est GFR (MDRD) Af Amer 120 Est GFR (MDRD) Non-Af 99 BUN/Creatinine Ratio 36.9 H Glucose 159 H Lactic Acid Calcium 8.3 L Total Bilirubin 0.60 Direct Bilirubin AST 29 ALT 22 Alkaline Phosphatase 105 Total Protein 5.7 L Albumin 2.2 L Globulin 3.5 Albumin/Globulin Ratio 0.6 L POC Glucose 166 H 11/25/20 11/25/20 11/25/20 12:07 15:13 21:09 WBC Corrected WBC RBC Hgb Hct MCV MCH MCHC RDW Std Deviation RDW Coeff of Henrique Plt Count MPV Immature Gran % (Auto) Neut % (Auto) Lymph % (Auto) [place] % (Auto) Eos % (Auto) Baso % (Auto) Absolute Neuts (auto) Absolute Lymphs (auto) Nucleated RBC % Diff Path Review Sodium Potassium Chloride Carbon Dioxide Anion Gap BUN Creatinine Estim Creat Clear Calc Est GFR (MDRD) Af Amer Est GFR (MDRD) Non-Af BUN/Creatinine Ratio Glucose Lactic Acid Calcium Total Bilirubin Direct Bilirubin AST ALT Alkaline Phosphatase Total Protein Albumin Globulin Albumin/Globulin Ratio POC Glucose 357 H 402 H 364 H 11/26/20 11/26/20 11/26/20 06:32 06:50 06:50 WBC 14.2 H Corrected WBC RBC 4.19 L Hgb 11.2 L Hct 35.1 L MCV 83.8 MCH 26.7 L MCHC 31.9 L RDW Std Deviation 44.1 H RDW Coeff of Henrique 14.4 Plt Count 295 MPV 10.8 Immature Gran % (Auto) Neut % (Auto) Lymph % (Auto) [place] % (Auto) Eos % (Auto) Baso % (Auto) Absolute Neuts (auto) Absolute Lymphs (auto) Nucleated RBC % Diff Path Review Sodium 135 L Potassium 3.8 Chloride 100 Carbon Dioxide 33.0 H Anion Gap 2 L BUN 28 H Creatinine 0.67 Estim Creat Clear Calc 34.91 Est GFR (MDRD) Af Amer 111 Est GFR (MDRD) Non-Af 92 BUN/Creatinine Ratio 42.0 H Glucose 131 H Lactic Acid Calcium 8.3 L Total Bilirubin 1.00 Direct Bilirubin 0.36 H AST 29 ALT 21 Alkaline Phosphatase 138 H Total Protein 5.7 L Albumin 2.2 L Globulin 3.5 Albumin/Globulin Ratio POC Glucose 138 H Microbiology 11/19/20 18:28 Blood Culture (Wb) - Right Hand Blood Culture - Final No growth in 5 days. 11/19/20 18:13 Blood Culture (Wb) - Anticubital Right Blood Culture - Final No growth in 5 days. Medical Necessity - Tobacco Use Smoking Status: Never smoker Tobacco Use: Non-smoker Assessment/Plan All Active Problems (Last Reviewed 09/05/19 @ 11:48 by Milena Kuhn) COVID-19 (Acute) Segmental and somatic dysfunction of pelvic region (Acute) Segmental and somatic dysfunction of thoracic region (Acute) Segmental and somatic dysfunction of lumbar region (Acute) Pain at surgical incision (Acute) RECOMMENDATIONS: 1. Continue noninvasive positive pressure ventilatory support with sleep and Airvo as tolerated during the day. 2. Continue to wean FiO2 to maintain oxygen saturations at or above 90%. 3. Continue Decadron to complete 10-day treatment course. 4. Continue Lovenox twice daily. 5. Continue PPI therapy. IMPRESSIONS: 1. Severe sepsis/acute hypoxemic respiratory failure secondary to COVID-19 pneumonia Patient appears to be relatively stable despite increased FiO2 requirements. Patient has not required any BiPAP rescue during the day, but is still requiring high flow oxygen. Patient likely would benefit from evaluation for LTAC. Will attempt to give diuretic therapy intermittently as hemodynamics and renal function allow. Patient has completed a treatment course of remdesivir and Decadron will continue to complete 10 days. 2. GERD/depression/hypothyroidism/advanced age/debility Complicates care, management, recovery and prognosis. Continue home medications as indicated. We will continue to work with PT/OT CODE status: Discussed CODE status at length including difference between FULL code, DNR-CCA and DNR-CC status. Following discussions about the differences in these status, patient requested FULL CODE STATUS. Inpatient E&M: 14009 Subs Hosp L3
--- NOTE | 2020-11-26 10:44 | CASEMGMT ---
Addendum entered by Nyasia Thorne 11/26/20 15:52: Call from Mel at [facility] and she states that the physician has denied LTACH at this time. Dr. Wan updated. Papo OSBORNE CM Addendum entered by Nyasia Thorne 11/26/20 13:56: Call from Mel at [facility] and she states they are able to accept pt but pt has [facility] so this RN CM needs to fax to [facility] to get the approval for [facility] to start a precert for pt. Referral faxed to [facility] and message left with them regarding pt. CM to follow. Papo OSBORNE CM Original Note: Per Dr. Antoine, pt to be referred for LTACH, pt is agreeable but reluctant at this time and states to this RN CM, I am working hard on getting my breathing better.' Pt states she would like referral faxed to [facility]. [facility] are the only LTACH's listed as in-network for pt's insurance. Referral faxed to [facility] and call to Mel at [facility] to notify of referral. CM to follow. Papo OSBORNE CM
[2020-11-26] MEDS: Insulin Lispro 100 UNIT/ML INSULN.PEN SC ×3 (12:08→22:02)
[2020-11-26] MEDS: Furosemide 40 MG/4 ML Vial IV (12:08)
--- NOTE | 2020-11-26 13:03 | PCM.PN.HOSP ---
Patient Problems: Active and Suspected Problems (Last Reviewed 09/05/19 @ 11:48 by Milena Kuhn) COVID-19 (Acute) Subjective: Breathing better overall. Vitals/I&O's: Vital Signs Temp Pulse Resp BP Pulse Ox 36.8 C 79 30 H 116/55 L 88 11/26/20 12:00 11/26/20 12:00 11/26/20 12:00 11/26/20 12:00 11/26/20 12:00 Oxygen Flow Rate (L/min) 55 Oxygen Delivery Method Airvo Weight: 80.7 kg Body Mass Index (BMI) 33.0 Intake and Output for Last 24 Hours 11/24/20 11/25/20 11/26/20 23:59 23:59 23:59 Intake Total 1850 / 1850 250 / 250 Output Total 4100 / 4100 800 / 800 Balance -2250 / -2250 -550 / -550 General: Alert, No apparent distress HEENT: Atraumatic, Normocephalic Oral: Moist Mucosa, No Gingival or Mucosal Lesions/ Ulcerations Neck: No Nodes, Thyroid Normal Size and Texture Lungs: Normal air movement, - - coarse breath sounds bilaterally. Cardiovascular: Regular rate, Regular Rhythm, Normal S1, Normal S2, No murmurs Abdomen: Bowel Sounds Present, Soft, Non Tender, Non-Distended, No Hepato-splenomegaly Extremities: No edema, No Calf Tenderness Skin: No rashes, No breakdown Psych/Mental Status: Normal Affect, Appropriate Microbiology Past 72 Hours 11/19/20 18:28 Blood Culture (Wb) - Right Hand Blood Culture - Final No growth in 5 days. 11/19/20 18:13 Blood Culture (Wb) - Anticubital Right Blood Culture - Final No growth in 5 days. Laboratory Results 11/25/20 15:13: POC Glucose 402 H 11/25/20 21:09: POC Glucose 364 H 11/26/20 06:32: POC Glucose 138 H 11/26/20 06:50: WBC 14.2 H, RBC 4.19 L, Hgb 11.2 L, Hct 35.1 L, MCV 83.8, MCH 26.7 L, MCHC 31.9 L, RDW Std Deviation 44.1 H, RDW Coeff of Henrique 14.4, Plt Count 295, MPV 10.8 11/26/20 06:50: Sodium 135 L, Potassium 3.8, Chloride 100, Carbon Dioxide 33.0 H, Anion Gap 2 L, BUN 28 H, Creatinine 0.67, Estim Creat Clear Calc 34.91, Est GFR (MDRD) Af Amer 111, Est GFR (MDRD) Non-Af 92, BUN/Creatinine Ratio 42.0 H, Glucose 131 H, Calcium 8.3 L, Total Bilirubin 1.00, Direct Bilirubin 0.36 H, AST 29, ALT 21, Alkaline Phosphatase 138 H, Total Protein 5.7 L, Albumin 2.2 L, Globulin 3.5 Current Medications Acetaminophen (Acetaminophen 325 Mg Tablet) 650 mg PO Q6H PRN PRN PRN Reason: Pain 1-10 or Fever Last Admin: 11/21/20 12:52 Dose: 650 mg Documented by: Albuterol Sulfate (Albuterol 2.5 Mg/3 Ml Vial.Neb.) 2.5 mg INHALATION Q4HWA.RT [facility] Last Admin: 11/26/20 11:13 Dose: 2.5 mg Documented by: Calcium/Vitamin D (Calcium Carb/Vitamin D 1 Tablet Tablet) 1 tablet PO BID [facility] Last Admin: 11/26/20 10:11 Dose: 1 tablet Documented by: Celecoxib (Celecoxib 200 Mg Capsule) 200 mg PO DAILY [facility] Last Admin: 11/26/20 10:10 Dose: 200 mg Documented by: Dexamethasone (Dexamethasone 4 Mg Tablet) 6 mg PO DAILY [facility] Stop: 11/28/20 10:01 Dextrose (Dextrose 50%-Water 25 Gm/50 Ml Disp.Syrin) 0 gm IV X1 PRN; Protocol PRN Reason: Hypoglycemia Enoxaparin Sodium (Enoxaparin 40 Mg/0.4 Ml Syringe) 40 mg SC BID [facility] Last Admin: 11/26/20 10:10 Dose: 40 mg Documented by: Escitalopram Oxalate (Escitalopram Oxalate 20 Mg Tablet) 20 mg PO DAILY [facility] Last Admin: 11/26/20 10:10 Dose: 20 mg Documented by: Glucagon (Glucagon 1 Mg/Ml Syringe) 1 mg IM .X1 PRN PRN Reason: Hypoglycemia Sodium Chloride () 250 mls @ 15 mls/hr IV .[id number] PRN PRN Reason: Saline Flush Last Infusion: 11/25/20 15:56 Dose: Infused Documented by: Sodium Chloride () 250 mls @ 15 mls/hr IV .[id number] PRN PRN Reason: Additional IVPB Infusion Insulin Glargine (Insulin Glargine 100 Units/Ml Pen) 20 units SC BREAKFAST [facility] Last Admin: 11/26/20 10:11 Dose: 20 u Documented by: Insulin Glargine (Insulin Glargine 100 Units/Ml Pen) 10 units SC QHS [facility] Last Admin: 11/25/20 21:11 Dose: 10 u Documented by: Insulin Human Lispro (Insulin Lispro 100 Unit/Ml Insuln.Pen) 0 unit SC ACHS [facility]; Protocol Last Admin: 11/26/20 12:08 Dose: 10 u Documented by: Levothyroxine Sodium (Levothyroxine 112 Mcg Tablet) 112 mcg PO DAILY@0600 [facility] Last Admin: 11/26/20 06:33 Dose: 112 mcg Documented by: Pantoprazole Sodium (Pantoprazole Sodium 20 Mg Tablet) 20 mg PO DAILY [facility] Last Admin: 11/26/20 10:11 Dose: 20 mg Documented by: Sodium Chloride (0.9% Saline Lock 10 Ml Syringe) 10 - 40 ml IV UD PRN PRN Reason: SALINE FLUSH Last Admin: 11/26/20 10:11 Dose: 10 ml Documented by: STROKE Vital Signs/Narrative: Vital Signs Temp Pulse Resp BP BP Pulse Ox 11/26/20 12:00 36.8 C 79 30 H 116/55 L 88 11/26/20 11:15 74 26 H 94 11/26/20 11:00 79 27 H 115/53 L 88 11/26/20 10:00 80 35 H 126/57 H 92 Medical Necessity - Tobacco Use Smoking Status: Never smoker Tobacco Use: Non-smoker Assessment/Plan All Active Problems (Last Reviewed 09/05/19 @ 11:48 by Milena Kuhn) COVID-19 (Acute) Segmental and somatic dysfunction of pelvic region (Acute) Segmental and somatic dysfunction of thoracic region (Acute) Segmental and somatic dysfunction of lumbar region (Acute) Pain at surgical incision (Acute) 1. acute COVID 19 pneumonia date of onset 11/11 competed remdesivir on dexamethasone through the quarantine through the advised pt to vaccinate once complete quarantine and to encourage others to vaccinate given her COVID-19 experience. 2. acute hypoxic respiratory failure 2/2 above wean oxygen as tolerated. 3. DM2 uncontrolled exacerbated by steroids increase glargine to 20 BID 4. VTE prophylaxis: LMWH Inpatient E&M: 10227 Subs Hosp L2
[2020-11-26] MEDS: dexAMETHasone 4 MG Tablet 6 MG PO (16:48)
[2020-11-26 17:36] LABS: Bedside Glucose 387 mg/dL (70-110)
[2020-11-26 21:26] LABS: Bedside Glucose 415 mg/dL (70-110)
[2020-11-26] MEDS: Insulin Lispro 100 UNIT/ML INSULN.PEN 10 UNIT SC (22:01)
[2020-11-27] VITALS (27 sets, daily range): BP systolic 105–143; BP diastolic 46–72; PULSE 69–92; RESP 12–38; TEMP 36.2–36.9; O2SAT 84–95
[2020-11-27 00:51] LABS: Bedside Glucose > 500 mg/dL (70-110)
[2020-11-27 00:51] LABS: Bedside Glucose > 500 mg/dL (70-110)
[2020-11-27] MEDS: Levothyroxine 112 MCG Tablet PO (05:05)
[2020-11-27 05:36] LABS: Bedside Glucose 387 mg/dL (70-110)
[2020-11-27 07:48] LABS: Anion Gap 4 (5-15); BUN 31 mg/dL (7-18); BUN/Creat Ratio 42.8 RATIO (10-20); Calcium,Total 8.6 mg/dL (8.5-10.1); Chloride 94 mmol/L (98-107); Creatinine, Serum 0.72 mg/dL (0.55-1.02); EST Glomerular Filtration Rate 83 mL/min (>60); Est Glom Filt Rate - Afr Amer 101 mL/min (>60); Estimated Creatinine Clearance 34.91 ml/min; Glucose 259 mg/dL (74-106); Potassium 4.5 mmol/L (3.5-5.1); Sodium Level 134 mmol/L (136-145)
[2020-11-27] MEDS: Insulin Lispro 100 UNIT/ML INSULN.PEN SC ×4 (09:19→21:04)
[2020-11-27] MEDS: Escitalopram Oxalate 20 MG Tablet PO (09:19)
[2020-11-27 09:20] LABS: Hemoglobin 10.6 g/dL (12.0-15.0); Red Blood Count 3.92 M/mm3 (4.2-5.4); White Blood Count 12.2 K/mm3 (4.4-11.0)
[2020-11-27] MEDS: Pantoprazole Sodium 20 MG Tablet PO (09:20)
[2020-11-27] MEDS: dexAMETHasone 4 MG Tablet 6 MG PO (09:20)
[2020-11-27] MEDS: Celecoxib 200 MG Capsule PO (09:20)
[2020-11-27] MEDS: Calcium Carb/Vitamin D 1 TABLET Tablet PO ×2 (09:20→21:04)
[2020-11-27] MEDS: Enoxaparin 40 MG/0.4 ML Syringe SC ×2 (09:20→21:04)
[2020-11-27 09:23] LABS: Hematocrit 32.8 % (37-47); Mean Corp Hgb Conc 32.3 g/dL (32-36); Mean Corpuscular Volume 83.7 fL (81-99); Platelet Count 266 K/mm3 (150-450); RBC Distribution Width CV 14.6 % (11.6-14.6); RBC Distribution Width SD 44.4 fl (35.1-43.9)
[2020-11-27 09:24] LABS: POSITIVE DIFFERENTIAL YES; Scan Indicated on CBC? Y/N YES- FLAGS NOTED
[2020-11-27 09:25] LABS: Differential Comment SCANNED
--- NOTE | 2020-11-27 09:58 | PN.CC_ITS ---
Subjective Subjective: Patient did well overnight. No acute issues were reported overnight. Patient continued on BiPAP and is still requiring 60% FiO2 to maintain saturations. Discussed with case management and they report that the insurance states that the patient should go to a SNF despite requirements for Airvo and that LTAC will be denied. Patient continues to report that she would like to go home. Objective Data Objective Data Patient with significant hyperglycemia overnight. Patient was treated with increased insulin and elevated Lantus dosing. Vital Signs: Vital Signs Temp Pulse Resp BP Pulse Ox 36.3 C L 74 23 H 121/47 H 92 11/27/20 09:00 11/27/20 09:00 11/27/20 09:00 11/27/20 09:00 11/27/20 09:00 Oxygen Flow Rate (L/min) 65 Oxygen Delivery Method Airvo Weight: 80.7 kg Body Mass Index (BMI) 33.0 Intake & Output: Intake and Output for Last 24 Hours 11/25/20 11/26/20 11/27/20 23:59 23:59 23:59 Intake Total 250 / 250 180 / 180 Output Total 800 / 800 1450 / 1650 200 / 200 Balance -550 / -550 -1270 / -1470 -200 / -200 Lab / Micro Data Result Diagrams: 11/27/20 05:00 11/27/20 05:00 Labs: Laboratory Results - last 24 hr 11/26/20 11/26/20 11/26/20 12:02 16:38 20:49 WBC RBC Hgb Hct MCV MCH MCHC RDW Std Deviation RDW Coeff of Henrique Plt Count MPV Differential Comment Sodium Potassium Chloride Carbon Dioxide Anion Gap BUN Creatinine Estim Creat Clear Calc Est GFR (MDRD) Af Amer Est GFR (MDRD) Non-Af BUN/Creatinine Ratio Glucose Calcium POC Glucose 387 H 415 H > 500 H* 11/26/20 11/27/20 11/27/20 20:52 00:16 05:00 WBC 12.2 H RBC 3.92 L Hgb 10.6 L Hct 32.8 L MCV 83.7 MCH 27.0 MCHC 32.3 RDW Std Deviation 44.4 H RDW Coeff of Henrique 14.6 Plt Count 266 MPV 11.0 Differential Comment SCANNED Sodium Potassium Chloride Carbon Dioxide Anion Gap BUN Creatinine Estim Creat Clear Calc Est GFR (MDRD) Af Amer Est GFR (MDRD) Non-Af BUN/Creatinine Ratio Glucose Calcium POC Glucose > 500 H* 387 H 11/27/20 05:00 WBC RBC Hgb Hct MCV MCH MCHC RDW Std Deviation RDW Coeff of Henrique Plt Count MPV Differential Comment Sodium 134 L Potassium 4.5 Chloride 94 L Carbon Dioxide 36.0 H Anion Gap 4 L BUN 31 H Creatinine 0.72 Estim Creat Clear Calc 34.91 Est GFR (MDRD) Af Amer 101 Est GFR (MDRD) Non-Af 83 BUN/Creatinine Ratio 42.8 H Glucose 259 H Calcium 8.6 POC Glucose Micro: Microbiology 11/19/20 18:28 Blood Culture (Wb) - Right Hand Blood Culture - Final No growth in 5 days. 11/19/20 18:13 Blood Culture (Wb) - Anticubital Right Blood Culture - Final No growth in 5 days. 11/19/20 18:20 Nasal Secretion SARS-CoV-2 Antigen (Rapid) - Final SARS-CoV-2 (COVID 19) Rhythm Strip Rhythm Strip: Sinus Rhythm Rate: 80 Ectopy: None Physical Exam Const alert, oriented x3 and no apparent distress General Appearance: cooperative, well developed and in distress Positive for mild (Conversational) Orientation / Consciousness: Negative for obtunded HEENT normocephalic and moist oral mucous membranes Mouth: oral and palatal mucosa normal Eyes PERRL, EOMs intact bilaterally, conjunctivae normal and no scleral icterus Neck full ROM, no lymphadenopathy, supple and no JVD Lymph Lymphatic: no lymphadenopathy noted Resp Effort and Inspection: tachypneic, actively coughing and prolonged expiratory phase; Negative for able to speak in complete sentences or uses accessory muscl es Auscultation: diminished lung sounds; Negative for rales, rhonchi or wheezes Cardio regular rate, regular rhythm, S1 normal heart sound, S2 normal heart sound, no murmurs, no rub, no gallops and no JVD GI normal to inspection, nondistended, normoactive bowel sounds, soft to palpation and non-tender Extremity no clubbing, cyanosis or edema Skin no rashes or lesions noted Neuro oriented x3, CN's II-XII intact bilaterally and no focal motor deficits Psych cooperative and affect normal Assessment & Plan Assessment/Plan (1) COVID-19: Status: Acute Code(s): U07.1 - COVID-19 (2) Acute respiratory failure with hypoxia: Status: Acute Code(s): J96.01 - Acute respiratory failure with hypoxia (3) Scoliosis of lumbar spine: Status: Chronic Code(s): M41.9 - Scoliosis, unspecified Qualifiers: Scoliosis type: idiopathic Idiopathic scoliosis type: other Qualified Code(s): M41.26 - Other idiopathic scoliosis, lumbar region (4) Debility: Status: Chronic Code(s): R53.81 - Other malaise (5) Hypertension: Status: Chronic Code(s): I10 - Essential (primary) hypertension Qualifiers: Hypertension type: essential hypertension Qualified Code(s): I10 - Essential (primary) hypertension (6) Hyperlipemia: Status: Chronic Code(s): E78.5 - Hyperlipidemia, unspecified Qualifiers: Hyperlipidemia type: mixed hyperlipidemia Qualified Code(s): E78.2 - Mixed hyperlipidemia (7) GERD (gastroesophageal reflux disease): Status: Chronic Code(s): K21.9 - Gastro-esophageal reflux disease without esophagitis Qualifiers: Esophagitis presence: esophagitis presence not specified Qualified Code(s): K21.9 - Gastro-esophageal reflux disease without esophagitis Plan: RECOMMENDATIONS: 1. Continue noninvasive positive pressure ventilatory support with sleep and Airvo as tolerated during the day. 2. Continue to wean FiO2 to maintain oxygen saturations at or above 90%. 3. Continue Decadron to complete 10-day treatment course. 4. Continue Lovenox twice daily. 5. Continue PPI therapy 6. Consider [id number] on LTAC evaluation or charge daily rate IMPRESSIONS: 1. Severe sepsis/acute hypoxemic respiratory failure secondary to COVID-19 pneumonia Patient appears to be relatively stable despite increased FiO2 requirements. Patient has not required any BiPAP rescue during the day, but is still requiring high flow oxygen. Patient reportedly will be denied LTAC evaluation despite relative stability on high FiO2. It is unclear if any correction would be able to provide current oxygenation with an Airvo device. Patient does not require intubation or tracheostomy from my opinion. Patient will likely have a protracted recovery and would be stable for discharge to an LTAC immediately in my opinion. Patient will complete Decadron therapy in the near future. 2. GERD/depression/hypothyroidism/advanced age/debility Complicates care, management, recovery and prognosis. Continue home medications as indicated. We will continue to work with PT/OT CODE status: Discussed CODE status at length including difference between FULL code, DNR-CCA and DNR-CC status. Following discussions about the differences in these status, patient requested FULL CODE STATUS. Inpatient E&M: [id number] Subs Hosp L3
--- NOTE | 2020-11-27 10:00 | CASEMGMT ---
This RN CM participated in ICU multidisciplinary rounds at [facility] d/t COVID precautions. Pt still on airvo at 55L. CM to follow. SStaten DYLON PEÑALOZA
--- NOTE | 2020-11-27 10:14 | PCM.PN.ID ---
Physical Exam Narrative Feeling better, breathing improved, no fever, no n/v/d. Const alert and no apparent distress General Appearance: cooperative Resp clear to auscultation bilaterally Auscultation: diminished lung sounds Cardio regular rate and regular rhythm GI normal to inspection, nondistended, normoactive bowel sounds Extremity no clubbing, cyanosis or edema Skin no rashes or lesions noted ID ID: Route of nutrition/ use of supplements: [] Nutritional Intake: [] IV Site: [] Camacho Catheter: [] Assessment & Plan Assessment/Plan (1) COVID-19: Status: Acute Code(s): U07.1 - COVID-19 Plan: Much improved. Reviewed labs, vital, imaging. Completed remdesivir, completing 10 days of dex soon. She will get vaccine as soon as she is out of isolation. Will follow
[2020-11-27 10:15] LABS: Bedside Glucose 334 mg/dL (70-110)
--- NOTE | 2020-11-27 10:17 | PCM.PN.HOSP ---
Subjective Subjective: breathing well. still on Airvo. Denies current complaints. Objective Data Objective Data Vital Signs: Vital Signs Temp Pulse Resp BP Pulse Ox 36.3 C L 87 30 H 124/51 H 84 11/27/20 09:00 11/27/20 10:00 11/27/20 10:00 11/27/20 10:00 11/27/20 10:00 Oxygen Flow Rate (L/min) 65 Oxygen Delivery Method Airvo Weight: 80.7 kg Body Mass Index (BMI) 33.0 Intake & Output: Intake and Output for Last 24 Hours 11/25/20 11/26/20 11/27/20 23:59 23:59 23:59 Intake Total 250 / 250 180 / 180 Output Total 800 / 800 1450 / 1650 200 / 200 Balance -550 / -550 -1270 / -1470 -200 / -200 Lab / Micro Data Result Diagrams: 11/27/20 05:00 11/27/20 05:00 Labs: Laboratory Results - last 24 hr 11/26/20 11/26/20 11/26/20 12:02 16:38 20:49 WBC RBC Hgb Hct MCV MCH MCHC RDW Std Deviation RDW Coeff of Henrique Plt Count MPV Differential Comment Sodium Potassium Chloride Carbon Dioxide Anion Gap BUN Creatinine Estim Creat Clear Calc Est GFR (MDRD) Af Amer Est GFR (MDRD) Non-Af BUN/Creatinine Ratio Glucose Calcium POC Glucose 387 H 415 H > 500 H* 11/26/20 11/27/20 11/27/20 20:52 00:16 05:00 WBC 12.2 H RBC 3.92 L Hgb 10.6 L Hct 32.8 L MCV 83.7 MCH 27.0 MCHC 32.3 RDW Std Deviation 44.4 H RDW Coeff of Henrique 14.6 Plt Count 266 MPV 11.0 Differential Comment SCANNED Sodium Potassium Chloride Carbon Dioxide Anion Gap BUN Creatinine Estim Creat Clear Calc Est GFR (MDRD) Af Amer Est GFR (MDRD) Non-Af BUN/Creatinine Ratio Glucose Calcium POC Glucose > 500 H* 387 H 11/27/20 11/27/20 05:00 10:03 WBC RBC Hgb Hct MCV MCH MCHC RDW Std Deviation RDW Coeff of Henrique Plt Count MPV Differential Comment Sodium 134 L Potassium 4.5 Chloride 94 L Carbon Dioxide 36.0 H Anion Gap 4 L BUN 31 H Creatinine 0.72 Estim Creat Clear Calc 34.91 Est GFR (MDRD) Af Amer 101 Est GFR (MDRD) Non-Af 83 BUN/Creatinine Ratio 42.8 H Glucose 259 H Calcium 8.6 POC Glucose 334 H Micro: Microbiology 11/19/20 18:28 Blood Culture (Wb) - Right Hand Blood Culture - Final No growth in 5 days. 11/19/20 18:13 Blood Culture (Wb) - Anticubital Right Blood Culture - Final No growth in 5 days. 11/19/20 18:20 Nasal Secretion SARS-CoV-2 Antigen (Rapid) - Final SARS-CoV-2 (COVID 19) Rhythm Strip Rhythm Strip: Sinus Rhythm Rate: 80 Ectopy: None Physical Exam Const alert Constitutional Narrative: up in chair on Airvo. No respiratory distress. No conversational dyspnea. Resp normal respiratory effort Auscultation: crackles bilateral GI soft to palpation, non-tender and non-distended Extremity normal to inspection Skin no rashes or lesions noted Neuro Sensorium / Orientation: awake and alert Psych affect normal Assessment & Plan Assessment/Plan (1) Acute respiratory failure with hypoxia: Status: Acute Code(s): J96.01 - Acute respiratory failure with hypoxia Plan: 2/ COVID 19. Wean oxygen as tolerated. Will need oxygen on 6liters or less before we can consider discharge. Declined by LTAC. (2) COVID-19: Status: Acute Code(s): U07.1 - COVID-19 Plan: on dexa through the VTE prophylaxis w enoxaparin. IMPROVE VTE score 1%, therefore, will not require VTE prophylaxis upon discharge.
[2020-11-27] MEDS: 0.9% Saline Lock 10 ML Syringe IV (11:11)
[2020-11-27] MEDS: Furosemide 40 MG/4 ML Vial IV ×2 (11:11→17:56)
[2020-11-27] MEDS: Albuterol 2.5 MG/3 ML VIAL.NEB. INHALATION ×3 (11:15→19:35)
--- NOTE | 2020-11-27 12:00 | CASEMGMT ---
Addendum entered by Nita Downs 11/27/20 14:41: SW received calls back from [facility] and [facility], neither can take pts needing more than 10L O2 PM continuous. MC Parry Addendum entered by Nita Downs 11/27/20 13:16: SW called [facility], they cannot take pts on high flow oxygen. SW called [facility], [facility], [facility], all in network w/pt's insurance, messages left. SW will continue to follow, though at this time the only option that can take pt's insurance, someone with COVID 11 days from a positive, and on high flow oxygen in this area seems to be [facility]. SW called pt, spoke w/her about other options since LTACH was denied. Pt states no, she is going home. Her son's girlfriend can help her at home as well as her granddaughter who lives next door. SW will continue to follow should this change and pt would like to consider SNF. MC Beatty Original Note: SW reviewed list of nursing homes that take pt's insurance, that take COVID+ abd can take high flow oxygen(which tends to be only facilities that take vented patients). SW called [facility], they could consider pt on day 11 after the positive COVID test. SW called [facility], they do not take pt's insurance. SW called [facility], the phone number does not work. SW will continue to try other options for pt. MC Beatty
[2020-11-27 12:40] LABS: Bedside Glucose 358 mg/dL (70-110)
--- NOTE | 2020-11-27 13:21 | CASEMGMT ---
Pt aware that insurance denied her to go to LTACH at this time and states 'That's fine because I really didn't want to go anyway.' CM to follow. SStjose a OSBORNE CM
--- NOTE | 2020-11-27 13:30 | CASEMGMT ---
Mel at [facility] LTACH aware that [facility] denied for precert to even be attempted. Papo RN CM
--- NOTE | 2020-11-27 15:15 | CASEMGMT ---
Pt does not qualify for palliative referral via palliative screening tool at this time. SStjose a RN CM
[2020-11-27 16:46] LABS: Bedside Glucose 374 mg/dL (70-110)
[2020-11-27 21:46] LABS: Bedside Glucose 379 mg/dL (70-110)
[2020-11-28] VITALS (36 sets, daily range): BP systolic 93–147; BP diastolic 36–91; PULSE 61–88; RESP 12–35; TEMP 36.6–36.9; O2SAT 87–97
[2020-11-28] MEDS: Levothyroxine 112 MCG Tablet PO (05:17)
[2020-11-28 05:22] LABS: Hematocrit 36.4 % (37-47); Hemoglobin 11.6 g/dL (12.0-15.0); Mean Corp Hgb Conc 31.9 g/dL (32-36); Mean Corpuscular Hgb 27.2 pg (27.0-32.0); Mean Corpuscular Volume 85.2 fL (81-99); Mean Platelet Vol. 11.1 fl (6.2-12.0); Platelet Count 334 K/mm3 (150-450); RBC Distribution Width CV 14.7 % (11.6-14.6); RBC Distribution Width SD 46.1 fl (35.1-43.9); Red Blood Count 4.27 M/mm3 (4.2-5.4); White Blood Count 12.8 K/mm3 (4.4-11.0)
[2020-11-28 05:37] LABS: Anion Gap 4 (5-15); BUN 38 mg/dL (7-18); BUN/Creat Ratio 49.3 RATIO (10-20); Calcium,Total 8.7 mg/dL (8.5-10.1); Chloride 90 mmol/L (98-107); Creatinine, Serum 0.77 mg/dL (0.55-1.02); EST Glomerular Filtration Rate 78 mL/min (>60); Est Glom Filt Rate - Afr Amer 94 mL/min (>60); Estimated Creatinine Clearance 34.91 ml/min; Glucose 214 mg/dL (74-106); Potassium 4.4 mmol/L (3.5-5.1); Sodium Level 133 mmol/L (136-145)
[2020-11-28] MEDS: Albuterol 2.5 MG/3 ML VIAL.NEB. INHALATION ×4 (06:55→20:00)
--- NOTE | 2020-11-28 07:51 | PN.CC_ITS ---
Subjective Subjective: Patient did well overnight. Patient is still requiring high FiO2 with BiPAP and Airvo to maintain appropriate saturations, but continues to report subjective improvement in exercise and breathing tolerance. Patient has had some hyperglycemia, but no complaints associated with findings. Objective Data Objective Data Vital Signs: Vital Signs Temp Pulse Resp BP Pulse Ox 36.6 C 69 18 119/62 93 11/28/20 06:00 11/28/20 07:00 11/28/20 06:55 11/28/20 06:00 11/28/20 06:55 Oxygen Flow Rate (L/min) 65 Oxygen Delivery Method Bi-pap Weight: 79.1 kg Body Mass Index (BMI) 33.0 Intake & Output: Intake and Output for Last 24 Hours 11/26/20 11/27/20 11/28/20 23:59 23:59 23:59 Intake Total 180 / 180 1100 / 1100 Output Total 1450 / 1650 1415 / 1565 220 / 220 Balance -1270 / -1470 -315 / -465 -220 / -220 Lab / Micro Data Result Diagrams: 11/28/20 05:10 11/28/20 05:10 Labs: Laboratory Results - last 24 hr 11/27/20 11/27/20 11/27/20 05:00 10:03 12:11 WBC 12.2 H RBC 3.92 L Hgb 10.6 L Hct 32.8 L MCV 83.7 MCH 27.0 MCHC 32.3 RDW Std Deviation 44.4 H RDW Coeff of Henrique 14.6 Plt Count 266 MPV 11.0 Differential Comment SCANNED Sodium Potassium Chloride Carbon Dioxide Anion Gap BUN Creatinine Estim Creat Clear Calc Est GFR (MDRD) Af Amer Est GFR (MDRD) Non-Af BUN/Creatinine Ratio Glucose Calcium POC Glucose 334 H 358 H 11/27/20 11/27/20 11/28/20 16:34 20:57 05:10 WBC 12.8 H RBC 4.27 Hgb 11.6 L Hct 36.4 L MCV 85.2 MCH 27.2 MCHC 31.9 L RDW Std Deviation 46.1 H RDW Coeff of Henrique 14.7 H Plt Count 334 MPV 11.1 Differential Comment Sodium Potassium Chloride Carbon Dioxide Anion Gap BUN Creatinine Estim Creat Clear Calc Est GFR (MDRD) Af Amer Est GFR (MDRD) Non-Af BUN/Creatinine Ratio Glucose Calcium POC Glucose 374 H 379 H 11/28/20 05:10 WBC RBC Hgb Hct MCV MCH MCHC RDW Std Deviation RDW Coeff of Henrique Plt Count MPV Differential Comment Sodium 133 L Potassium 4.4 Chloride 90 L Carbon Dioxide 39.0 H Anion Gap 4 L BUN 38 H Creatinine 0.77 Estim Creat Clear Calc 34.91 Est GFR (MDRD) Af Amer 94 Est GFR (MDRD) Non-Af 78 BUN/Creatinine Ratio 49.3 H Glucose 214 H Calcium 8.7 POC Glucose Micro: Microbiology 11/19/20 18:28 Blood Culture (Wb) - Right Hand Blood Culture - Final No growth in 5 days. 11/19/20 18:13 Blood Culture (Wb) - Anticubital Right Blood Culture - Final No growth in 5 days. 11/19/20 18:20 Nasal Secretion SARS-CoV-2 Antigen (Rapid) - Final SARS-CoV-2 (COVID 19) Rhythm Strip Rhythm Strip: Sinus Rhythm Rate: 80 Ectopy: None Physical Exam Const alert, oriented x3 and no apparent distress General Appearance: cooperative, well developed and in distress Positive for mild (Conversational) Orientation / Consciousness: Negative for obtunded HEENT normocephalic and moist oral mucous membranes Eyes PERRL, EOMs intact bilaterally, conjunctivae normal and no scleral icterus Neck full ROM, no lymphadenopathy, supple and no JVD Lymph Lymphatic: no lymphadenopathy noted Resp normal respiratory effort Effort and Inspection: able to speak in complete sentences, actively coughing and prolonged expiratory phase; Negative for uses accessory muscles Auscultation: diminished lung sounds; Negative for rales, rhonchi or wheezes Cardio regular rate, regular rhythm, S1 normal heart sound, S2 normal heart sound, no m urmurs, no rub, no gallops and no JVD GI normal to inspection, nondistended, normoactive bowel sounds, soft to palpation and non-tender Extremity no clubbing, cyanosis or edema Skin no rashes or lesions noted Neuro oriented x3, CN's II-XII intact bilaterally and no focal motor deficits Psych cooperative and affect normal Assessment & Plan Assessment/Plan (1) COVID-19: Status: Acute Code(s): U07.1 - COVID-19 (2) Acute respiratory failure with hypoxia: Status: Acute Code(s): J96.01 - Acute respiratory failure with hypoxia (3) Scoliosis of lumbar spine: Status: Chronic Code(s): M41.9 - Scoliosis, unspecified Qualifiers: Scoliosis type: idiopathic Idiopathic scoliosis type: other Qualified Code(s): M41.26 - Other idiopathic scoliosis, lumbar region (4) Debility: Status: Chronic Code(s): R53.81 - Other malaise (5) Hypertension: Status: Chronic Code(s): I10 - Essential (primary) hypertension Qualifiers: Hypertension type: essential hypertension Qualified Code(s): I10 - Essential (primary) hypertension (6) Hyperlipemia: Status: Chronic Code(s): E78.5 - Hyperlipidemia, unspecified Qualifiers: Hyperlipidemia type: mixed hyperlipidemia Qualified Code(s): E78.2 - Mixed hyperlipidemia (7) GERD (gastroesophageal reflux disease): Status: Chronic Code(s): K21.9 - Gastro-esophageal reflux disease without esophagitis Qualifiers: Esophagitis presence: esophagitis presence not specified Qualified Code(s): K21.9 - Gastro-esophageal reflux disease without esophagitis Plan: RECOMMENDATIONS: 1. Continue noninvasive positive pressure ventilatory support with sleep and Airvo as tolerated during the day. 2. Continue to wean FiO2 to maintain oxygen saturations at or above 90%. 3. Continue Decadron to complete 10-day treatment course. 4. Continue PPI. Continue Lovenox twice daily. 5. Initiate short acting insulin with meals 6. Consider [id number] on LTAC evaluation or charge daily rate IMPRESSIONS: 1. Severe sepsis/acute hypoxemic respiratory failure secondary to COVID-19 pneumonia Patient appears to be relatively stable despite increased FiO2 requirements. Patient has not required any BiPAP rescue during the day, but is still requiring high flow oxygen. Patient reportedly will be denied LTAC eval uation despite relative stability on high FiO2. It is unclear if any senior care would be able to provide current oxygenation with an Airvo device. Patient does not require intubation or tracheostomy from my opinion. Patient will likely have a protracted recovery and would be stable for discharge to an LTAC immediately in my opinion. Patient will complete Decadron therapy in the near future. Patient will be placed on scheduled diuretics. BMP in the a.m. to evaluate for electrolyte repletion 2. GERD/depression/hypothyroidism/advanced age/debility Complicates care, management, recovery and prognosis. Continue home medications as indicated. We will continue to work with PT/OT. Patient with significant hyperglycemia, likely secondary to steroids. Will add insulin to meals. This may be able to be discontinued once Decadron completed. CODE status: Discussed CODE status at length including difference between FULL code, DNR-CCA and DNR-CC status. Following discussions about the differences in these status, patient requested FULL CODE STATUS. Inpatient E&M: [id number] Subs Hosp L3
[2020-11-28] MEDS: Insulin Lispro 100 UNIT/ML INSULN.PEN SC ×4 (08:14→20:53)
[2020-11-28 08:56] LABS: Bedside Glucose 169 mg/dL (70-110)
[2020-11-28] MEDS: dexAMETHasone 4 MG Tablet 6 MG PO (10:12)
[2020-11-28] MEDS: Pantoprazole Sodium 20 MG Tablet PO (10:12)
[2020-11-28] MEDS: Enoxaparin 40 MG/0.4 ML Syringe SC ×2 (10:12→20:53)
[2020-11-28] MEDS: Celecoxib 200 MG Capsule PO (10:13)
[2020-11-28] MEDS: Calcium Carb/Vitamin D 1 TABLET Tablet PO ×2 (10:13→20:56)
[2020-11-28] MEDS: Furosemide 20 MG/2 ML VIAL IV ×2 (10:13→16:31)
[2020-11-28] MEDS: Escitalopram Oxalate 20 MG Tablet PO (10:13)
--- NOTE | 2020-11-28 11:02 | PN.HOSP_ITS ---
Subjective Subjective: Feels great despite being put back on BiPAP. Patient going to the commode which is more in front of her patient on [place] dropped to 70% back on the BiPAP. Objective Data Objective Data Vital Signs: Vital Signs Temp Pulse Resp BP Pulse Ox 36.6 C 88 31 H 123/56 H 87 11/28/20 08:00 11/28/20 10:00 11/28/20 10:00 11/28/20 10:00 11/28/20 10:00 Oxygen Flow Rate (L/min) 55 Oxygen Delivery Method Airvo Weight: 79.1 kg Body Mass Index (BMI) 33.0 Intake & Output: Intake and Output for Last 24 Hours 11/26/20 11/27/20 11/28/20 23:59 23:59 23:59 Intake Total 180 / 180 1100 / 1100 Output Total 1450 / 1650 1415 / 1565 520 / 520 Balance -1270 / -1470 -315 / -465 -520 / -520 Lab / Micro Data Result Diagrams: 11/28/20 05:10 11/28/20 05:10 Labs: Laboratory Results - last 24 hr 11/27/20 11/27/20 11/27/20 12:11 16:34 20:57 WBC RBC Hgb Hct MCV MCH MCHC RDW Std Deviation RDW Coeff of Henrique Plt Count MPV Sodium Potassium Chloride Carbon Dioxide Anion Gap BUN Creatinine Estim Creat Clear Calc Est GFR (MDRD) Af Amer Est GFR (MDRD) Non-Af BUN/Creatinine Ratio Glucose Calcium POC Glucose 358 H 374 H 379 H 11/28/20 11/28/20 11/28/20 05:10 05:10 08:02 WBC 12.8 H RBC 4.27 Hgb 11.6 L Hct 36.4 L MCV 85.2 MCH 27.2 MCHC 31.9 L RDW Std Deviation 46.1 H RDW Coeff of Henrique 14.7 H Plt Count 334 MPV 11.1 Sodium 133 L Potassium 4.4 Chloride 90 L Carbon Dioxide 39.0 H Anion Gap 4 L BUN 38 H Creatinine 0.77 Estim Creat Clear Calc 34.91 Est GFR (MDRD) Af Amer 94 Est GFR (MDRD) Non-Af 78 BUN/Creatinine Ratio 49.3 H Glucose 214 H Calcium 8.7 POC Glucose 169 H Micro: Microbiology 11/19/20 18:28 Blood Culture (Wb) - Right Hand Blood Culture - Final No growth in 5 days. 11/19/20 18:13 Blood Culture (Wb) - Anticubital Right Blood Culture - Final No growth in 5 days. 11/19/20 18:20 Nasal Secretion SARS-CoV-2 Antigen (Rapid) - Final SARS-CoV-2 (COVID 19) Rhythm Strip Rhythm Strip: Sinus Rhythm Rate: 80 Ectopy: None Physical Exam Narrative On BiPAP. Afebrile Const alert and no apparent distress Resp normal respiratory effort Resp Narrative: Bilateral crackles Cardio regular rate, regular rhythm, S1 normal heart sound and S2 normal heart sound Extremity normal to inspection and no clubbing, cyanosis or edema Assessment & Plan Assessment/Plan (1) COVID-19: Status: Acute Code(s): U07.1 - COVID-19 (2) Acute respiratory failure with hypoxia: Status: Acute Code(s): J96.01 - Acute respiratory failure with hypoxia (3) Diabetes mellitus, type 2: Status: Acute Code(s): E11.9 - Type 2 diabetes mellitus without complications Qualifiers: Diabetes mellitus intermission coordinator insulin use: without usp use Diabetes mellitus complication status: with other specified complication Qualified Code(s): E11.69 - Type 2 diabetes mellitus with other specified complication Plan: Continue with dexamethasone through today patient would have completed her 10- day course of dexamethasone. Has already completed remdesivir. VTE prophylaxis with enoxaparin. IMPROVE VTE score 1%, therefore will not require VT prophylaxis upon discharge Patient is improving from a respiratory and is oscillating between airvo and BiPAP. Anticipate protracted course. Patient has already been declined by [facility]. Doubtful that patient could be discharged to a non-LTAC facility with the amount of oxygen that she is requiring at this time. Agree with the furosemide challenge 20 mg IV twice daily. Patient's diabetes is certainly exacerbated due to the dexamethasone. Agree with increasing insulin glargine though will need to be cautious in regards to hypoglycemia once patient stops her dexamethasone. Inpatient E&M: [id number] [facility] Hosp L2
--- NOTE | 2020-11-28 11:33 | CPS ---
Pt just finishing with therapy. P. ox dropped into the 70s and breathing tx ran on oxygen applied at this time. Pt recovered and p.ox now in the mid 90s on Airvo 55L 75%.
[2020-11-28] MEDS: Insulin Lispro 100 UNIT/ML INSULN.PEN 15 UNIT SC ×2 (12:25→16:29)
[2020-11-28 16:26] LABS: Bedside Glucose 340 mg/dL (70-110)
[2020-11-28 19:41] LABS: Bedside Glucose 233 mg/dL (70-110)
[2020-11-28 21:06] LABS: Bedside Glucose 207 mg/dL (70-110)
[2020-11-29] VITALS (34 sets, daily range): BP systolic 106–143; BP diastolic 46–74; PULSE 60–94; RESP 12–35; TEMP 36.3–36.8; O2SAT 80–97
[2020-11-29 05:01] LABS: Anion Gap 3 (5-15); BUN 38 mg/dL (7-18); BUN/Creat Ratio 53.8 RATIO (10-20); Calcium,Total 8.3 mg/dL (8.5-10.1); Chloride 91 mmol/L (98-107); Creatinine, Serum 0.71 mg/dL (0.55-1.02); EST Glomerular Filtration Rate 86 mL/min (>60); Est Glom Filt Rate - Afr Amer 104 mL/min (>60); Estimated Creatinine Clearance 36.68 ml/min; Glucose 136 mg/dL (74-106); Magnesium 2.2 mg/dL (1.6-2.6); Phosphorus 4.1 mg/dL (2.5-4.9); Potassium 4.6 mmol/L (3.5-5.1); Sodium Level 133 mmol/L (136-145)
[2020-11-29] MEDS: Levothyroxine 112 MCG Tablet PO (06:31)
[2020-11-29] MEDS: Albuterol 2.5 MG/3 ML VIAL.NEB. INHALATION ×4 (07:24→19:12)
[2020-11-29] MEDS: Pantoprazole Sodium 20 MG Tablet PO (08:33)
[2020-11-29] MEDS: Celecoxib 200 MG Capsule PO (08:34)
[2020-11-29] MEDS: Calcium Carb/Vitamin D 1 TABLET Tablet PO ×2 (08:34→20:52)
[2020-11-29] MEDS: Furosemide 20 MG/2 ML VIAL IV ×2 (08:34→16:07)
[2020-11-29] MEDS: Escitalopram Oxalate 20 MG Tablet PO (08:34)
[2020-11-29] MEDS: Enoxaparin 40 MG/0.4 ML Syringe SC ×2 (08:35→20:52)
[2020-11-29] MEDS: 0.9% Saline Lock 10 ML Syringe IV ×2 (08:38→16:04)
--- NOTE | 2020-11-29 09:52 | PN.CC_ITS ---
Subjective Subjective: Patient did okay overnight. Patient continues to cooperate with BiPAP with sleep and Airvo during the day. Oxygen requirements have remained relatively stable despite 2 L of diuresis overnight. Patient reports she feels subjectively improved. Therapy reports patient desaturates to 70% on current FiO2 with minimal exertion, but is relatively minimal assist. Objective Data Objective Data Vital Signs: Vital Signs Temp Pulse Resp BP Pulse Ox 36.7 C 72 20 H 113/74 92 11/29/20 09:00 11/29/20 09:00 11/29/20 09:00 11/29/20 09:00 11/29/20 09:00 Oxygen Flow Rate (L/min) 55 Oxygen Delivery Method Airvo Weight: 80.4 kg Body Mass Index (BMI) 33.0 Intake & Output: Intake and Output for Last 24 Hours 11/27/20 11/28/20 11/29/20 23:59 23:59 23:59 Intake Total 1100 / 1100 750 / 750 280 / 280 Output Total 1415 / 1565 1920 / 1920 900 / 900 Balance -315 / -465 -1170 / -1170 -620 / -620 Lab / Micro Data Result Diagrams: 11/28/20 05:10 11/29/20 04:30 Labs: Laboratory Results - last 24 hr 11/28/20 11/28/20 11/28/20 12:23 16:26 20:52 Sodium Potassium Chloride Carbon Dioxide Anion Gap BUN Creatinine Estim Creat Clear Calc Est GFR (MDRD) Af Amer Est GFR (MDRD) Non-Af BUN/Creatinine Ratio Glucose Calcium Phosphorus Magnesium POC Glucose 340 H 233 H 207 H 11/29/20 04:30 Sodium 133 L Potassium 4.6 Chloride 91 L Carbon Dioxide 39.0 H Anion Gap 3 L BUN 38 H Creatinine 0.71 Estim Creat Clear Calc 36.68 Est GFR (MDRD) Af Amer 104 Est GFR (MDRD) Non-Af 86 BUN/Creatinine Ratio 53.8 H Glucose 136 H Calcium 8.3 L Phosphorus 4.1 Magnesium 2.2 POC Glucose Micro: Microbiology 11/19/20 18:28 Blood Culture (Wb) - Right Hand Blood Culture - Final No growth in 5 days. 11/19/20 18:13 Blood Culture (Wb) - Anticubital Right Blood Culture - Final No growth in 5 days. 11/19/20 18:20 Nasal Secretion SARS-CoV-2 Antigen (Rapid) - Final SARS-CoV-2 (COVID 19) Rhythm Strip Rhythm Strip: Sinus Rhythm Rate: 80 Ectopy: None Physical Exam Const alert, oriented x3 and no apparent distress General Appearance: cooperative, well developed and in distress Positive for mild (Conversational) Orientation / Consciousness: Negative for obtunded HEENT normocephalic and moist oral mucous membranes Eyes PERRL, EOMs intact bilaterally, conjunctivae normal and no scleral icterus Neck full ROM, no lymphadenopathy, supple and no JVD Lymph Lymphatic: no lymphadenopathy noted Resp normal respiratory effort Effort and Inspection: able to speak in complete sentences and prolonged expiratory phase; Negative for uses accessory muscles Auscultation: diminished lung sounds; Negative for rales, rhonchi or wheezes Cardio regular rate, regular rhythm, S1 normal heart sound, S2 normal heart sound, no murmurs, no rub, no gallops and no JVD GI normal to inspection, nondistended, normoactive bowel sounds, soft to palpation and non-tender Extremity no clubbing, cyanosis or edema Skin no rashes or lesions noted Neuro oriented x3, CN's II-XII intact bilaterally and no focal motor deficits Psych cooperative and affect normal Assessment & Plan Assessment/Plan (1) COVID-19: Status: Acute Code(s): U07.1 - COVID-19 (2) Acute respiratory failure with hypoxia: Status: Acute Code(s): J96.01 - Acute respiratory failure with hypoxia (3) Scoliosis of lumbar spine: Status: Chronic Code(s): M41.9 - Scoliosis, unspecified Qualifiers: Scoliosis type: idiopathic Idiopathic scoliosis type: other Qualified Code(s): M41.26 - Other idiopathic scoliosis, lumbar region (4) Debility: Status: Chronic Code(s): R53.81 - Other malaise (5) Hypertension: Status: Chronic Code(s): I10 - Essential (primary) hypertension Qualifiers: Hypertension type: essential hypertension Qualified Code(s): I10 - Essential (primary) hypertension (6) Hyperlipemia: Status: Chronic Code(s): E78.5 - Hyperlipidemia, unspecified Qualifiers: Hyperlipidemia type: mixed hyperlipidemia Qualified Code(s): E78.2 - Mixed hyperlipidemia (7) GERD (gastroesophageal reflux disease): Status: Chronic Code(s): K21.9 - Gastro-esophageal reflux disease without esophagitis Qualifiers: Esophagitis presence: esophagitis presence not specified Qualified Code(s): K21.9 - Gastro-esophageal reflux disease without esophagitis Plan: RECOMMENDATIONS: 1. Continue noninvasive positive pressure ventilatory support with sleep and Airvo as tolerated during the day. 2. Continue to wean FiO2 to maintain oxygen saturations at or above 90%. 3. Continue Decadron to complete 10-day treatment course. 4. Continue PPI. Continue Lovenox twice daily. 5. Initiate short acting insulin with meals 6. Consider [id number] on LTAC evaluation or charge daily rate IMPRESSIONS: 1. Severe sepsis/acute hypoxemic respiratory failure secondary to ARDS secondary to COVID-19 pneumonia Patient appears to be relatively stable despite increased FiO2 requirements. Patient has not required any BiPAP rescue during the day, but is still requiring high flow oxygen. Patient reportedly will be denied LTAC evaluation despite relative stability on high FiO2. It is unclear if any [facility] would be able to provide current oxygenation with an Airvo device. Patient does not require intubation or tracheostomy from my opinion. Patient will likely have a protracted recovery and would be stable for discharge to an LTAC immediately in my opinion. Patient appears to be in a fibrotic phase of ARDS associated with COVID-19 pneumonia. Patient has completed Decadron thera py, so insulin will be decreased. Patient will be placed on scheduled diuretics. BMP in the a.m. to evaluate for electrolyte repletion. Unclear how rapid diuresis will be further tolerated as bicarbonate is already up to 39. 2. GERD/depression/hypothyroidism/advanced age/debility Complicates care, management, recovery and prognosis. Continue home medications as indicated. We will continue to work with PT/OT. Patient with significant hyperglycemia, likely secondary to steroids. Will add insulin to meals. This may be able to be discontinued once Decadron completed. CODE status: Discussed CODE status at length including difference between FULL code, DNR-CCA and DNR-CC status. Following discussions about the differences in these status, patient requested FULL CODE STATUS. Inpatient E&M: [id number] [facility] L3
--- NOTE | 2020-11-29 10:34 | CASEMGMT ---
This RN CM participated in ICU multidisciplinary rounds. Pt is still on airvo vs bipap and desats to 70's with therapy/activity or if resp therapist attempts to lower oxygen level. Pt is now a min assist with therapy as she had been independent prior. CM to follow. SStjose a OSBORNE CM
--- NOTE | 2020-11-29 11:01 | NURSING ---
patient O2 sats dropping with any exertion. patient repositioned in chair and O2 sats dropped to 77%, slow recovery, increased FiO2 on airvo to 75% with improvement.
[2020-11-29] MEDS: Insulin Lispro 100 UNIT/ML INSULN.PEN SC ×3 (11:57→20:52)
[2020-11-29 12:31] LABS: Bedside Glucose 105 mg/dL (70-110)
--- NOTE | 2020-11-29 13:23 | PCM.PN.HOSP ---
Subjective Subjective: Feels well despite still requiring Airvo and BiPAP. Objective Data Objective Data Vital Signs: Vital Signs Temp Pulse Resp BP Pulse Ox 36.7 C 71 30 H 117/54 L 91 11/29/20 12:00 11/29/20 12:00 11/29/20 12:00 11/29/20 12:00 11/29/20 12:00 Oxygen Flow Rate (L/min) 60 Oxygen Delivery Method Airvo Weight: 80.4 kg Body Mass Index (BMI) 33.0 Intake & Output: Intake and Output for Last 24 Hours 11/27/20 11/28/20 11/29/20 23:59 23:59 23:59 Intake Total 1100 / 1100 750 / 750 400 / 400 Output Total 1415 / 1565 1920 / 1920 1300 / 1300 Balance -315 / -465 -1170 / -1170 -900 / -900 Lab / Micro Data Result Diagrams: 11/28/20 05:10 11/29/20 04:30 Labs: Laboratory Results - last 24 hr 11/28/20 11/28/20 11/28/20 12:23 16:26 20:52 Sodium Potassium Chloride Carbon Dioxide Anion Gap BUN Creatinine Estim Creat Clear Calc Est GFR (MDRD) Af Amer Est GFR (MDRD) Non-Af BUN/Creatinine Ratio Glucose Calcium Phosphorus Magnesium POC Glucose 340 H 233 H 207 H 11/29/20 11/29/20 04:30 08:30 Sodium 133 L Potassium 4.6 Chloride 91 L Carbon Dioxide 39.0 H Anion Gap 3 L BUN 38 H Creatinine 0.71 Estim Creat Clear Calc 36.68 Est GFR (MDRD) Af Amer 104 Est GFR (MDRD) Non-Af 86 BUN/Creatinine Ratio 53.8 H Glucose 136 H Calcium 8.3 L Phosphorus 4.1 Magnesium 2.2 POC Glucose 105 Micro: Microbiology 11/19/20 18:28 Blood Culture (Wb) - Right Hand Blood Culture - Final No growth in 5 days. 11/19/20 18:13 Blood Culture (Wb) - Anticubital Right Blood Culture - Final No growth in 5 days. 11/19/20 18:20 Nasal Secretion SARS-CoV-2 Antigen (Rapid) - Final SARS-CoV-2 (COVID 19) Rhythm Strip Rhythm Strip: Sinus Rhythm Rate: 80 Ectopy: None Physical Exam Const alert Constitutional Narrative: up in chair on Airvo. No respiratory distress. No conversational dyspnea. HEENT Head and Scalp: normocephalic Resp normal respiratory effort Resp Narrative: coarse breath sounds bilaterally. Cardio regular rate, regular rhythm, S1 normal heart sound and S2 normal heart sound GI normal to inspection, nondistended, normoactive bowel sounds, soft to palpation, non-tender and non-distended Assessment & Plan Assessment/Plan (1) COVID-19: Status: Acute Code(s): U07.1 - COVID-19 (2) Acute respiratory failure with hypoxia: Status: Acute Code(s): J96.01 - Acute respiratory failure with hypoxia (3) Diabetes mellitus, type 2: Status: Acute Code(s): E11.9 - Type 2 diabetes mellitus without complications Qualifiers: Diabetes mellitus manager terminal insulin use: without manager terminal use Diabetes mellitus complication status: with other specified complication Qualified Code(s): E11.69 - Type 2 diabetes mellitus with other specified complication Plan: Abdiaziz mcmanus rem-d completed VTE prophylaxis with enoxaparin. IMPROVE VTE score 1%, therefore will not require VT prophylaxis upon discharge Patient stagnant from a respiratory standpoint and is oscillating between airvo and BiPAP. Anticipate protracted course (likely another 5-7 days, if not longer). Patient has already been declined by [facility]. Doubtful that patient could be discharged to a non-LTAC facility with the amount of oxygen that she is requiring at this time. DUKE CM, CCM to facilitate [id number] for LTAC. DUKE pt that she would prefer not to go to an LTAC, however, I expressed that we need to consider all available options in regards to her anticipated prolonged care Agree with the furosemide challenge 20 mg IV twice daily. Patient's diabetes is certainly exacerbated due to the dexamethasone. Agree with increasing insulin glargine though will need to be cautious in regards to hypoglycemia once patient stops her dexamethasone. Inpatient E&M: [id number] [facility]osp L2
--- NOTE | 2020-11-29 14:08 | RAD_ITS ---
STUDY: X-RAY CHEST REASON FOR EXAM: Female, 75 years old. Hypoxia TECHNIQUE: Single AP portable view of the chest. COMPARISON: Comparison is made with prior study dated 11/19/2020. FINDINGS: EKG electrodes are seen. Since prior study, there has been progressive bilateral patchy airspace disease more prominent in the right lower lobe. There is no demonstrated pleural abnormality. Normal size heart. Normal mediastinum and spencer. Normal visualized pulmonary arteries. Normal visualized aortic arch and descending thoracic aorta. Normal visualized thoracic spine. There is degenerative osteoarthritis of the bilateral shoulders. There is no demonstrated abnormality of the visualized soft tissue structures of the upper abdomen. RAD/Chest 1 View (Portable) IMPRESSION: Progressive bilateral patchy airspace disease worse in the right lung base. Electronically Signed: Ricardo Pena MD at 14:38 EDT , Service support ,
--- NOTE | 2020-11-29 14:33 | CASEMGMT ---
Dr. Wan to do P2P for LTACH so this RN CM placed call to [facility] to set up appt. Per rep, soonest appt is Thursday12/03/20 at 1030. Appt set up for this time with Case #: [id number]. Physician to place call to [phone], opt 1, opt1 and then they will put our physician on with their physician. Dr. Wan will be no longer be following pt at that time, so Dr. Antoine updated at this time, voices understanding and states will be following pt as the instructional systems design consultant at that time. CM to follow. Papo OSBORNE CM
[2020-11-29] MEDS: Calcium Carbonate 500 MG Tablet 1000 MG PO (16:03)
[2020-11-29 16:30] LABS: Bedside Glucose 206 mg/dL (70-110)
[2020-11-29 22:45] LABS: Bedside Glucose 301 mg/dL (70-110)
[2020-11-29 22:50] LABS: Bedside Glucose 198 mg/dL (70-110)
[2020-11-30] VITALS (36 sets, daily range): BP systolic 103–133; BP diastolic 46–74; PULSE 67–95; RESP 12–39; TEMP 36.2–36.8; O2SAT 88–95
[2020-11-30] MEDS: Levothyroxine 112 MCG Tablet PO (05:10)
[2020-11-30 05:58] LABS: Absolute Lymphocyte Count 1.06 X10^3/uL (0.83-4.51); Absolute Neutrophil Count 11.7 X10^3/uL (2.0-7.7); Basophil# 0.02 X10^3/uL; Basophil% 0.1 % (0-1); Eosinophil# 0.54 X10^3/uL; Eosinophils% 3.8 % (0-5); Hematocrit 37.9 % (37-47); Lymphocyte # 1.06 X10^3/ul (0.83-4.51); Lymphocyte % 7.4 % (19-41); Mean Corp Hgb Conc 31.7 g/dL (32-36); Mean Corpuscular Volume 85.2 fL (81-99); Mean Platelet Vol. 11.4 fl (6.2-12.0); Monocyte# 0.63 X10^3/uL; Monocyte% 4.4 % (0-10); NRBC Flagged by Analyzer 0 % (0-5); Neutrophil # 11.72 X10^3/uL (2.7-7.7); Neutrophil % 82.3 % (47-70); Platelet Count 383 K/mm3 (150-450); RBC Distribution Width CV 15.1 % (11.6-14.6); Red Blood Count 4.45 M/mm3 (4.2-5.4); White Blood Count 14.3 K/mm3 (4.4-11.0)
[2020-11-30 06:14] LABS: Anion Gap 4 (5-15); BUN 37 mg/dL (7-18); BUN/Creat Ratio 55.7 RATIO (10-20); Calcium,Total 8.4 mg/dL (8.5-10.1); Chloride 91 mmol/L (98-107); Creatinine, Serum 0.66 mg/dL (0.55-1.02); EST Glomerular Filtration Rate 92 mL/min (>60); Est Glom Filt Rate - Afr Amer 111 mL/min (>60); Estimated Creatinine Clearance 36.68 ml/min; Glucose 101 mg/dL (74-106); Phosphorus 3.4 mg/dL (2.5-4.9); Potassium 3.8 mmol/L (3.5-5.1); Sodium Level 133 mmol/L (136-145)
--- NOTE | 2020-11-30 06:59 | PCM.PN.INT ---
Subjective Subjective: Patient did okay overnight. Patient continues to require BiPAP with sleep and Airvo during the day. Patient has required increased FiO2 on the Airvo prior to going on BiPAP. Patient continues to report she is doing well, but nursing is reporting that she desaturates very quickly into the 60s with any interruption in FiO2 requirements. Patient continues to report a cough productive of clear to white sputum. Objective Data Objective Data Chest x-ray yesterday showed increased infiltrate in the right lower lobe. Patient was initiated on Acapella device Vital Signs: Vital Signs Temp Pulse Resp BP Pulse Ox 36.6 C 74 24 H 130/74 H 91 11/30/20 05:00 11/30/20 06:00 11/30/20 06:00 11/30/20 06:00 11/30/20 06:00 Oxygen Flow Rate (L/min) 60 Oxygen Delivery Method Bi-pap Weight: 81.2 kg Body Mass Index (BMI) 33.0 Intake & Output: Intake and Output for Last 24 Hours 11/28/20 11/29/20 11/30/20 23:59 23:59 23:59 Intake Total 750 / 750 490 / 490 0 / 0 Output Total 1920 / 1920 2100 / 2100 200 / 200 Balance -1170 / -1170 -1610 / -1610 -200 / -200 Lab / Micro Data Result Diagrams: 11/30/20 05:00 11/30/20 05:00 Labs: Laboratory Results - last 24 hr 11/29/20 11/29/20 11/29/20 08:30 11:56 16:00 WBC RBC Hgb Hct MCV MCH MCHC RDW Std Deviation RDW Coeff of Henrique Plt Count MPV Immature Gran % (Auto) Neut % (Auto) Lymph % (Auto) Duval % (Auto) Eos % (Auto) Baso % (Auto) Absolute Neuts (auto) Absolute Lymphs (auto) Nucleated RBC % Sodium Potassium Chloride Carbon Dioxide Anion Gap BUN Creatinine Estim Creat Clear Calc Est GFR (MDRD) Af Amer Est GFR (MDRD) Non-Af BUN/Creatinine Ratio Glucose Calcium Phosphorus Magnesium POC Glucose 105 301 H 206 H 11/29/20 11/30/20 11/30/20 20:52 05:00 05:00 WBC 14.3 H RBC 4.45 Hgb 12.0 Hct 37.9 MCV 85.2 MCH 27.0 MCHC 31.7 L RDW Std Deviation 47.0 H RDW Coeff of Henrique 15.1 H Plt Count 383 MPV 11.4 Immature Gran % (Auto) 2.000 H Neut % (Auto) 82.3 H Lymph % (Auto) 7.4 L Duval % (Auto) 4.4 Eos % (Auto) 3.8 Baso % (Auto) 0.1 Absolute Neuts (auto) 11.7 H Absolute Lymphs (auto) 1.06 Nucleated RBC % 0 Sodium 133 L Potassium 3.8 Chloride 91 L Carbon Dioxide 38.0 H Anion Gap 4 L BUN 37 H Creatinine 0.66 Estim Creat Clear Calc 36.68 Est GFR (MDRD) Af Amer 111 Est GFR (MDRD) Non-Af 92 BUN/Creatinine Ratio 55.7 H Glucose 101 Calcium 8.4 L Phosphorus 3.4 Magnesium 2.0 POC Glucose 198 H Micro: Microbiology 11/19/20 18:28 Blood Culture (Wb) - Right Hand Blood Culture - Final No growth in 5 days. 11/19/20 18:13 Blood Culture (Wb) - Anticubital Right Blood Culture - Final No growth in 5 days. 11/19/20 18:20 Nasal Secretion SARS-CoV-2 Antigen (Rapid) - Final SARS-CoV-2 (COVID 19) Radiography Diagnostic Testing: Radiology Impression Chest X-Ray 11/29/20 14:08 IMPRESSION: Progressive bilateral patchy airspace disease worse in the right lung base. Electronically Signed: Ricardo Pena MD at 14:38 EDT , Service support , Rhythm Strip Rhythm Strip: Sinus Rhythm Rate: 80 Ectopy: None Physical Exam Const alert, oriented x3 and no apparent distress General Appearance: cooperative, well developed and in distress Positive for mild (Conversational) Orientation / Consciousness: Negative for obtunded HEENT normocephalic and moist oral mucous membranes Eyes PERRL, EOMs intact bilaterally, conjunctivae normal and no scleral icterus Neck full ROM, no lymphadenopathy, supple and no JVD Lymph Lymphatic: no lymphadenopathy noted Resp normal respiratory effort Effort and Inspection: able to speak in complete sentences and prolonged expiratory phase; Negative for uses accessory muscles Auscultation: diminished lung sounds; Negative for rales, rhonchi or wheezes Cardio regular rate, regular rhythm, S1 normal heart sound, S2 normal heart sound, no murmurs, no rub, no gallops and no JVD GI normal to inspection, nondistended, normoactive bowel sounds, soft to palpation and non-tender Extremity no clubbing, cyanosis or edema Skin no rashes or lesions noted Neuro oriented x3, CN's II-XII intact bilaterally and no focal motor deficits Psych cooperative and affect normal Assessment & Plan Assessment/Plan (1) COVID-19: Status: Acute Code(s): U07.1 - COVID-19 (2) Acute respiratory failure with hypoxia: Status: Acute Code(s): J96.01 - Acute respiratory failure with hypoxia (3) Scoliosis of lumbar spine: Status: Chronic Code(s): M41.9 - Scoliosis, unspecified Qualifiers: Idiopathic scoliosis type: other Scoliosis type: idiopathic Qualified Code(s): M41.26 - Other idiopathic scoliosis, lumbar region (4) Debility: Status: Chronic Code(s): R53.81 - Other malaise (5) Hypertension: Status: Chronic Code(s): I10 - Essential (primary) hypertension Qualifiers: Hypertension type: essential hypertension Qualified Code(s): I10 - Essential (primary) hypertension (6) Hyperlipemia: Status: Chronic Code(s): E78.5 - Hyperlipidemia, unspecified Qualifiers: Hyperlipidemia type: mixed hyperlipidemia Qualified Code(s): E78.2 - Mixed hyperlipidemia (7) GERD (gastroesophageal reflux disease): Status: Chronic Code(s): K21.9 - Gastro-esophageal reflux disease without esophagitis Qualifiers: Esophagitis presence: esophagitis presence not specified Qualified Code(s): K21.9 - Gastro-esophageal reflux disease without esophagitis Plan: RECOMMENDATIONS: 1. Continue noninvasive positive pressure ventilatory support with sleep and Airvo as tolerated during the day. 2. Continue to wean FiO2 to maintain oxygen saturations at or above 90%. 3. Completed Decadron. Continue with diuresis 4. Continue PPI. Continue Lovenox twice daily. 5. Possibly discontinue glucose checks if remains appropriate for another 24 hours after discontinuation of Decadron 6. Consider [id number] on LTAC evaluation or charge daily rate IMPRESSIONS: 1. Severe sepsis/acute hypoxemic respiratory failure secondary to ARDS secondary to COVID-19 pneumonia Patient appears to be relatively stable despite increased FiO2 requirements. Patient has not required any BiPAP rescue during the day, but is still requiring high flow oxygen. Patient reportedly will be denied LTAC evaluation despite relative stability on high FiO2. It is unclear if any [facility] would be able to provide current oxygenation with an Airvo device. Patient does not require intubation or tracheostomy from my opinion. Patient will likely have a protracted recovery and would be stable for discharge to an LTAC immediately in my opinion. Patient appears to be in a fibrotic phase of ARDS associated with COVID-19 pneumonia. Patient has completed Decadron therapy. Blood sugars are much better controlled. If patient continues to have normoglycemia, these can likely be discontinued in 24 hours. Patient still with some contraction alkalosis, but otherwise is tolerating diuresis. Given the requirements for FiO2, will press on with diuresis. 2. GERD/depression/hypothyroidism/advanced age/debility Complicates care, management, recovery and prognosis. Continue home medications as indicated. We will continue to work with PT/OT. Patient with previous significant hyperglycemia, likely secondary to steroids. Only on sliding scale insulin at this time. This may be able to be discontinued if remains normoglycemic for another 24 hours. CODE status: Discussed CODE status at length including difference between FULL code, DNR-CCA and DNR-CC status. Following discussions about the differences in these status, patient requested FULL CODE STATUS. Inpatient E&M: [id number] [facility] L3
[2020-11-30] MEDS: Albuterol 2.5 MG/3 ML VIAL.NEB. INHALATION ×4 (07:07→19:40)
[2020-11-30] MEDS: 0.9% Saline Lock 10 ML Syringe IV (08:11)
[2020-11-30] MEDS: Calcium Carb/Vitamin D 1 TABLET Tablet PO ×2 (08:11→22:08)
[2020-11-30] MEDS: Furosemide 20 MG/2 ML VIAL IV ×2 (08:11→16:08)
[2020-11-30] MEDS: Escitalopram Oxalate 20 MG Tablet PO (08:11)
[2020-11-30] MEDS: Celecoxib 200 MG Capsule PO (08:11)
[2020-11-30] MEDS: Pantoprazole Sodium 20 MG Tablet PO (08:11)
[2020-11-30] MEDS: Enoxaparin 40 MG/0.4 ML Syringe SC ×2 (08:12→22:04)
--- NOTE | 2020-11-30 10:11 | CASEMGMT ---
This RN CM participated in ICU multidisciplinary rounds. Pt is on increased oxygen thru bipap/airvo. Per nurse, pt sats dropping into 60's at times with movement and PT/OT was held yesterday d/t same. P2P to be completed by physician on 12/03/20. CM to follow. SStaten DYLON CM
[2020-11-30] MEDS: guaiFENesin 1,200 MG Tablet 1200 MG PO ×2 (10:12→22:04)
[2020-11-30 11:45] LABS: Bedside Glucose 111 mg/dL (70-110)
[2020-11-30] MEDS: Insulin Lispro 100 UNIT/ML INSULN.PEN SC ×3 (11:50→22:09)
[2020-11-30 12:10] LABS: Bedside Glucose 324 mg/dL (70-110)
--- NOTE | 2020-11-30 14:24 | PCM.PN.HOSP ---
Subjective Subjective: breathing well despite Airvo. No new complaints. Objective Data Objective Data Vital Signs: Vital Signs Temp Pulse Resp BP Pulse Ox 36.6 C 79 30 H 111/67 93 11/30/20 12:00 11/30/20 14:00 11/30/20 14:00 11/30/20 14:00 11/30/20 14:00 Oxygen Flow Rate (L/min) 60 Oxygen Delivery Method Airvo Weight: 81.2 kg Body Mass Index (BMI) 33.0 Intake & Output: Intake and Output for Last 24 Hours 11/28/20 11/29/20 11/30/20 23:59 23:59 23:59 Intake Total 750 / 750 490 / 490 540 / 540 Output Total 1920 / 1920 2100 / 2100 900 / 900 Balance -1170 / -1170 -1610 / -1610 -360 / -360 Lab / Micro Data Result Diagrams: 11/30/20 05:00 11/30/20 05:00 Labs: Laboratory Results - last 24 hr 11/29/20 11/29/20 11/29/20 11:56 16:00 20:52 WBC RBC Hgb Hct MCV MCH MCHC RDW Std Deviation RDW Coeff of Henrique Plt Count MPV Immature Gran % (Auto) Neut % (Auto) Lymph % (Auto) [place] % (Auto) Eos % (Auto) Baso % (Auto) Absolute Neuts (auto) Absolute Lymphs (auto) Nucleated RBC % Sodium Potassium Chloride Carbon Dioxide Anion Gap BUN Creatinine Estim Creat Clear Calc Est GFR (MDRD) Af Amer Est GFR (MDRD) Non-Af BUN/Creatinine Ratio Glucose Calcium Phosphorus Magnesium POC Glucose 301 H 206 H 198 H 11/30/20 11/30/20 11/30/20 05:00 05:00 07:58 WBC 14.3 H RBC 4.45 Hgb 12.0 Hct 37.9 MCV 85.2 MCH 27.0 MCHC 31.7 L RDW Std Deviation 47.0 H RDW Coeff of Henrique 15.1 H Plt Count 383 MPV 11.4 Immature Gran % (Auto) 2.000 H Neut % (Auto) 82.3 H Lymph % (Auto) 7.4 L [place] % (Auto) 4.4 Eos % (Auto) 3.8 Baso % (Auto) 0.1 Absolute Neuts (auto) 11.7 H Absolute Lymphs (auto) 1.06 Nucleated RBC % 0 Sodium 133 L Potassium 3.8 Chloride 91 L Carbon Dioxide 38.0 H Anion Gap 4 L BUN 37 H Creatinine 0.66 Estim Creat Clear Calc 36.68 Est GFR (MDRD) Af Amer 111 Est GFR (MDRD) Non-Af 92 BUN/Creatinine Ratio 55.7 H Glucose 101 Calcium 8.4 L Phosphorus 3.4 Magnesium 2.0 POC Glucose 111 H 11/30/20 11:49 WBC RBC Hgb Hct MCV MCH MCHC RDW Std Deviation RDW Coeff of Henrique Plt Count MPV Immature Gran % (Auto) Neut % (Auto) Lymph % (Auto) [place] % (Auto) Eos % (Auto) Baso % (Auto) Absolute Neuts (auto) Absolute Lymphs (auto) Nucleated RBC % Sodium Potassium Chloride Carbon Dioxide Anion Gap BUN Creatinine Estim Creat Clear Calc Est GFR (MDRD) Af Amer Est GFR (MDRD) Non-Af BUN/Creatinine Ratio Glucose Calcium Phosphorus Magnesium POC Glucose 324 H Micro: Microbiology 11/19/20 18:28 Blood Culture (Wb) - Right Hand Blood Culture - Final No growth in 5 days. 11/19/20 18:13 Blood Culture (Wb) - Anticubital Right Blood Culture - Final No growth in 5 days. 11/19/20 18:20 Nasal Secretion SARS-CoV-2 Antigen (Rapid) - Final SARS-CoV-2 (COVID 19) Radiography Diagnostic Testing: Radiology Impression Chest X-Ray 11/29/20 14:08 IMPRESSION: Progressive bilateral patchy airspace disease worse in the right lung base. Electronically Signed: Ricardo Pena MD at 14:38 EDT , Service support , Rhythm Strip Rhythm Strip: Sinus Rhythm Rate: 80 Ectopy: None Physical Exam Narrative up in chair on Airvo Const alert Resp normal respiratory effort Resp Narrative: coarse breath sound Cardio regular rate, regular rhythm, S1 normal heart sound, S2 normal heart sound and no rub Extremity normal to inspection and no clubbing, cyanosis or edema Assessment & Plan Assessment/Plan (1) COVID-19: Status: Acute Code(s): U07.1 - COVID-19 (2) Acute respiratory failure with hypoxia: Status: Acute Code(s): J96.01 - Acute respiratory failure with hypoxia (3) Diabetes mellitus, type 2: Status: Acute Code(s): E11.9 - Type 2 diabetes mellitus without complications Qualifiers: Diabetes mellitus longterm insulin use: without longterm use Diabetes mellitus complication status: with other specified complication Qualified Code(s): E11.69 - Type 2 diabetes mellitus with other specified complication Plan: Hilarioa a rem-d completed VTE prophylaxis with enoxaparin. IMPROVE VTE score 1%, therefore will not require VT prophylaxis upon discharge Patient stagnant from a respiratory standpoint and is oscillating between airvo and BiPAP. Anticipate protracted course (likely another 5-7 days, if not longer). Patient has already been declined by [facility] [place]. Doubtful that patient could be discharged to a non-LTAC facility with the amount of oxygen that she is requiring at this time. Agree with the furosemide challenge 20 mg IV twice daily. Patient's diabetes is certainly exacerbated due to the dexamethasone. Agree with increasing insulin glargine though will need to be cautious in regards to hypoglycemia once patient stops her dexamethasone. [id number] unable to be performed with insurance until 12/03. Visit Charges Inpatient E&M: 25970 Subs Hosp L2
[2020-11-30 22:11] LABS: Bedside Glucose 225 mg/dL (70-110)
[2020-11-30 22:20] LABS: Bedside Glucose 287 mg/dL (70-110)
[2020-12-01] VITALS (37 sets, daily range): BP systolic 96–134; BP diastolic 41–73; PULSE 54–102; RESP 12–36; TEMP 36.2–36.7; O2SAT 86–93
[2020-12-01] MEDS: Insulin Lispro 100 UNIT/ML INSULN.PEN SC ×4 (05:27→21:46)
[2020-12-01] MEDS: Levothyroxine 112 MCG Tablet PO (05:27)
[2020-12-01 05:41] LABS: Bedside Glucose 165 mg/dL (70-110)
[2020-12-01 06:22] LABS: Anion Gap 4 (5-15); BUN 33 mg/dL (7-18); BUN/Creat Ratio 48.2 RATIO (10-20); Calcium,Total 8.3 mg/dL (8.5-10.1); Chloride 92 mmol/L (98-107); Creatinine, Serum 0.68 mg/dL (0.55-1.02); EST Glomerular Filtration Rate 89 mL/min (>60); Est Glom Filt Rate - Afr Amer 108 mL/min (>60); Estimated Creatinine Clearance 36.68 ml/min; Glucose 140 mg/dL (74-106); Magnesium 2.2 mg/dL (1.6-2.6); Phosphorus 3.5 mg/dL (2.5-4.9); Potassium 4.2 mmol/L (3.5-5.1); Sodium Level 132 mmol/L (136-145)
--- NOTE | 2020-12-01 07:06 | PN.CC_ITS ---
Subjective Subjective: Patient continues to report that she is doing well. Patient has not had any change in oxygen demands over the last 48 hours. Nursing does report significant hypoxia with any interruption of FiO2. Patient is denying any pain. Patient is reporting minimal production with cough. Objective Data Objective Data Vital Signs: Vital Signs Temp Pulse Resp BP Pulse Ox 36.6 C 76 24 H 98/59 L 91 12/01/20 05:00 12/01/20 06:00 12/01/20 06:00 12/01/20 06:00 12/01/20 06:00 Oxygen Flow Rate (L/min) 75 Oxygen Delivery Method Bi-pap Weight: 81.8 kg Body Mass Index (BMI) 33.0 Intake & Output: Intake and Output for Last 24 Hours 11/29/20 11/30/20 12/01/20 23:59 23:59 23:59 Intake Total 490 / 490 750 / 750 50 / 50 Output Total 2100 / 2100 1250 / 1350 550 / 550 Balance -1610 / -1610 -500 / -600 -500 / -500 Lab / Micro Data Result Diagrams: 11/30/20 05:00 12/01/20 05:25 Labs: Laboratory Results - last 24 hr 11/30/20 11/30/20 11/30/20 07:58 11:49 15:41 Sodium Potassium Chloride Carbon Dioxide Anion Gap BUN Creatinine Estim Creat Clear Calc Est GFR (MDRD) Af Amer Est GFR (MDRD) Non-Af BUN/Creatinine Ratio Glucose Calcium Phosphorus Magnesium POC Glucose 111 H 324 H 225 H 11/30/20 12/01/20 12/01/20 22:08 05:25 05:26 Sodium 132 L Potassium 4.2 Chloride 92 L Carbon Dioxide 36.0 H Anion Gap 4 L BUN 33 H Creatinine 0.68 Estim Creat Clear Calc 36.68 Est GFR (MDRD) Af Amer 108 Est GFR (MDRD) Non-Af 89 BUN/Creatinine Ratio 48.2 H Glucose 140 H Calcium 8.3 L Phosphorus 3.5 Magnesium 2.2 POC Glucose 287 H 165 H Micro: Microbiology 11/19/20 18:28 Blood Culture (Wb) - Right Hand Blood Culture - Final No growth in 5 days. 11/19/20 18:13 Blood Culture (Wb) - Anticubital Right Blood Culture - Final No growth in 5 days. 11/19/20 18:20 Nasal Secretion SARS-CoV-2 Antigen (Rapid) - Final SARS-CoV-2 (COVID 19) Rhythm Strip Rhythm Strip: Sinus Rhythm Rate: 80 Ectopy: None Physical Exam Const alert, oriented x3 and no apparent distress General Appearance: cooperative, well developed and in distress Positive for mild (Conversational) Orientation / Consciousness: Negative for obtunded HEENT normocephalic and moist oral mucous membranes Eyes PERRL, EOMs intact bilaterally, conjunctivae normal and no scleral icterus Neck full ROM, no lymphadenopathy, supple and no JVD Lymph Lymphatic: no lymphadenopathy noted Resp normal respiratory effort Effort and Inspection: able to speak in complete sentences and prolonged expirat ory phase; Negative for uses accessory muscles Auscultation: diminished lung sounds; Negative for rales, rhonchi or wheezes Cardio regular rate, regular rhythm, S1 normal heart sound, S2 normal heart sound, no murmurs, no rub, no gallops and no JVD GI normal to inspection, nondistended, normoactive bowel sounds, soft to palpation and non-tender Extremity no clubbing, cyanosis or edema Skin no rashes or lesions noted Neuro oriented x3, CN's II-XII intact bilaterally and no focal motor deficits Psych cooperative and affect normal Assessment & Plan Assessment/Plan (1) COVID-19: Status: Acute Code(s): U07.1 - COVID-19 (2) Acute respiratory failure with hypoxia: Status: Acute Code(s): J96.01 - Acute respiratory failure with hypoxia (3) Scoliosis of lumbar spine: Status: Chronic Code(s): M41.9 - Scoliosis, unspecified Qualifiers: Scoliosis type: idiopathic Idiopathic scoliosis type: other Qualified Code(s): M41.26 - Other idiopathic scoliosis, lumbar region (4) Debility: Status: Chronic Code(s): R53.81 - Other malaise (5) Hypertension: Status: Chronic Code(s): I10 - Essential (primary) hypertension Qualifiers: Hypertension type: essential hypertension Qualified Code(s): I10 - Essential (primary) hypertension (6) Hyperlipemia: Status: Chronic Code(s): E78.5 - Hyperlipidemia, unspecified Qualifiers: Hyperlipidemia type: mixed hyperlipidemia Qualified Code(s): E78.2 - Mixed hyperlipidemia (7) GERD (gastroesophageal reflux disease): Status: Chronic Code(s): K21.9 - Gastro-esophageal reflux disease without esophagitis Qualifiers: Esophagitis presence: esophagitis presence not specified Qualified Code(s): K21.9 - Gastro-esophageal reflux disease without esophagitis Plan: RECOMMENDATIONS: 1. Continue noninvasive positive pressure ventilatory support with sleep and Airvo as tolerated during the day. 2. Continue to wean FiO2 to maintain oxygen saturations at or above 90%. 3. Completed Decadron. Continue with diuresis 4. Continue PPI. Increase Lovenox to therapeutic dosing 5. Continue sliding scale insulin 6. Consider [id number] on LTAC evaluation or charge daily rate IMPRESSIONS: 1. Severe sepsis/acute hypoxemic respiratory failure secondary to ARDS secondary to COVID-19 pneumonia Patient appears to be relatively stable despite increased FiO2 requirements. Patient has not required any BiPAP rescue during the day, but is still requiring high flow oxygen. Patient reportedly will be denied LTAC evaluation despite relative stability on high FiO2. It is unclear if any long term would be able to provide current oxygenation with an Airvo device. Patient does not require intubation or tracheostomy from my opinion. Patient will likely have a protracted recovery and would be stable for discharge to an LTAC immediately in my opinion. Patient appears to be in a fibrotic phase of ARDS associated with COVID-19 pneumonia. Patient has completed Decadron therapy. Blood sugars are much better controlled. Patient tolerating diuresis well. Oxygenation continues to be marginal. We will increase patient empirically to therapeutic dosing of Lovenox. VQ scan will not be helpful in the setting of profound imaging defects. Avoiding CTA secondary to risk for acute kidney injury given active diuresis. 2. GERD/depression/hypothyroidism/advanced age/debility Complicates care, management, recovery and prognosis. Continue home medications as indicated. We will continue to work with PT/OT. Patient with previous significant hyperglycemia, likely secondary to steroids. Only on sliding scale insulin at this time. We will continue sliding scale insulin given patient's continued hyperglycemia. Likely does not require basal insulin. CODE status: Discussed CODE status at length including difference between FULL code, DNR-CCA and DNR-CC status. Following discussions about the differences in these status, patient requested FULL CODE STATUS. Visit Charges Inpatient E&M: 33401 Subs Hosp L3
[2020-12-01] MEDS: Albuterol 2.5 MG/3 ML VIAL.NEB. INHALATION ×3 (07:23→18:52)
[2020-12-01] MEDS: 0.9% Saline Lock 10 ML Syringe IV ×2 (08:42→18:07)
[2020-12-01] MEDS: Celecoxib 200 MG Capsule PO (08:42)
[2020-12-01] MEDS: Furosemide 20 MG/2 ML VIAL IV ×2 (08:42→18:06)
[2020-12-01] MEDS: Enoxaparin 80 MG/0.8 ML Syringe SC ×2 (08:43→21:48)
[2020-12-01] MEDS: guaiFENesin 1,200 MG Tablet 1200 MG PO ×2 (08:43→21:48)
[2020-12-01] MEDS: Escitalopram Oxalate 20 MG Tablet PO (08:43)
[2020-12-01] MEDS: Calcium Carb/Vitamin D 1 TABLET Tablet PO ×2 (08:43→21:48)
[2020-12-01] MEDS: Pantoprazole Sodium 20 MG Tablet PO (08:44)
[2020-12-01 12:11] LABS: Bedside Glucose 288 mg/dL (70-110)
--- NOTE | 2020-12-01 13:59 | PCM.PN.HOSP ---
Subjective Subjective: breathing well, but still on Airvo. Tolerating PO. Good BMs. Objective Data Objective Data Vital Signs: Vital Signs Temp Pulse Resp BP Pulse Ox 36.6 C 87 27 H 118/52 L 90 12/01/20 12:00 12/01/20 13:13 12/01/20 13:13 12/01/20 13:00 12/01/20 13:00 Oxygen Flow Rate (L/min) 75 Oxygen Delivery Method Airvo Weight: 180 lb 5.41 oz Body Mass Index (BMI) 33.0 Intake & Output: Intake and Output for Last 24 Hours 11/29/20 11/30/20 12/01/20 23:59 23:59 23:59 Intake Total 490 / 490 750 / 750 410 / 410 Output Total 2100 / 2100 1250 / 1350 850 / 850 Balance -1610 / -1610 -500 / -600 -440 / -440 Lab / Micro Data Result Diagrams: 11/30/20 05:00 12/01/20 05:25 Labs: Laboratory Results - last 24 hr 11/30/20 11/30/20 12/01/20 15:41 22:08 05:25 Sodium 132 L Potassium 4.2 Chloride 92 L Carbon Dioxide 36.0 H Anion Gap 4 L BUN 33 H Creatinine 0.68 Estim Creat Clear Calc 36.68 Est GFR (MDRD) Af Amer 108 Est GFR (MDRD) Non-Af 89 BUN/Creatinine Ratio 48.2 H Glucose 140 H Calcium 8.3 L Phosphorus 3.5 Magnesium 2.2 POC Glucose 225 H 287 H 12/01/20 12/01/20 05:26 11:30 Sodium Potassium Chloride Carbon Dioxide Anion Gap BUN Creatinine Estim Creat Clear Calc Est GFR (MDRD) Af Amer Est GFR (MDRD) Non-Af BUN/Creatinine Ratio Glucose Calcium Phosphorus Magnesium POC Glucose 165 H 288 H Micro: Microbiology 11/19/20 18:28 Blood Culture (Wb) - Right Hand Blood Culture - Final No growth in 5 days. 11/19/20 18:13 Blood Culture (Wb) - Anticubital Right Blood Culture - Final No growth in 5 days. 11/19/20 18:20 Nasal Secretion SARS-CoV-2 Antigen (Rapid) - Final SARS-CoV-2 (COVID 19) Rhythm Strip Rhythm Strip: Sinus Rhythm Rate: 80 Ectopy: None Physical Exam Narrative up in chair on Airvo Const alert and no apparent distress Constitutional Narrative: up in chair on Airvo. No respiratory distress. No conversational dyspnea. Resp normal respiratory effort Resp Narrative: coarse breath sound Auscultation: crackles bilateral Cardio regular rate, regular rhythm, S1 normal heart sound, S2 normal heart sound and no rub GI normal to inspection, nondistended, normoactive bowel sounds, soft to palpation, non-tender and non-distended Extremity normal to inspection and no clubbing, cyanosis or edema Skin no rashes or lesions noted Neuro Sensorium / Orientation: awake and alert Psych affect normal Assessment & Plan Assessment/Plan (1) COVID-19: Status: Acute Code(s): U07.1 - COVID-19 (2) Acute respiratory failure with hypoxia: Status: Acute Code(s): J96.01 - Acute respiratory failure with hypoxia (3) Diabetes mellitus, type 2: Status: Acute Code(s): E11.9 - Type 2 diabetes mellitus without complications Qualifiers: Diabetes mellitus usp insulin use: without intermission coordinator use Diabetes mellitus complication status: with other specified complication Qualified Code(s): E11.69 - Type 2 diabetes mellitus with other specified complication Plan: Abdiaziz leahy completed VTE prophylaxis with enoxaparin. IMPROVE VTE score 1%, therefore will not require VT prophylaxis upon discharge Patient stagnant from a respiratory standpoint and is oscillating between airvo and BiPAP. Anticipate protracted course (likely another 5-7 days, if not longer). Patient has already been declined by [facility]. Doubtful that patient could be discharged to a non-LTAC facility with the amount of oxygen that she is requiring at this time. Agree with the furosemide challenge 20 mg IV twice daily. Patient's diabetes is certainly exacerbated due to the dexamethasone. Agree with increasing insulin glargine though will need to be cautious in regards to hypoglycemia once patient stops her dexamethasone. [id number] unable to be performed with insurance until 12/01: [facility] changed enoxaparin 80 BID (had been on 40 BID). Visit Charges Inpatient E&M: 45635 Subs Hosp L2
[2020-12-01 16:45] LABS: Bedside Glucose 207 mg/dL (70-110)
[2020-12-01 22:16] LABS: Bedside Glucose 251 mg/dL (70-110)
[2020-12-02] VITALS (33 sets, daily range): BP systolic 99–188; BP diastolic 39–84; PULSE 67–97; RESP 12–46; TEMP 36.7–37.4; O2SAT 88–100
[2020-12-02 05:49] LABS: Anion Gap 4 (5-15); BUN 24 mg/dL (7-18); Calcium,Total 8.3 mg/dL (8.5-10.1); Chloride 91 mmol/L (98-107); Creatinine, Serum 0.62 mg/dL (0.55-1.02); EST Glomerular Filtration Rate 100 mL/min (>60); Est Glom Filt Rate - Afr Amer 121 mL/min (>60); Estimated Creatinine Clearance 36.68 ml/min; Glucose 166 mg/dL (74-106); Potassium 3.8 mmol/L (3.5-5.1); Sodium Level 133 mmol/L (136-145)
[2020-12-02] MEDS: Levothyroxine 112 MCG Tablet PO (06:27)
--- NOTE | 2020-12-02 06:38 | RAD_ITS ---
STUDY: X-RAY CHEST REASON FOR EXAM: Female, 75 years old. Hypoxia TECHNIQUE: Single AP portable view of the chest. COMPARISON: 11/29/2020 FINDINGS: Increase in alveolar opacities in both lung bases consistent with worsening bilateral pneumonia and/or atelectasis. There is no demonstrated pleural abnormality. There is moderate cardiac enlargement. Normal mediastinum and spencer. Normal visualized pulmonary arteries. Normal visualized aortic arch and descending thoracic aorta. Normal visualized thoracic spine. Normal visualized ribs, clavicles, and shoulders. There is no demonstrated abnormality of the visualized soft tissue structures of the upper abdomen. RAD/Chest 1 View (Portable) IMPRESSION: Worsening bibasilar atelectasis or pneumonia. Electronically Signed: Scott Armenta MD at 7:26 EDT Tel , Service support ,
--- NOTE | 2020-12-02 06:41 | PN.CC_ITS ---
Subjective Subjective: Patient did okay overnight. Oxygenation continues to be marginal despite BiPAP therapy. Patient reports increasing productive cough. Patient describes this as clear. Extensive conversation with the patient about oxygen requirements. Patient states that she feels too good to be on a machine to breathe. Objective Data Objective Data Vital Signs: Vital Signs Temp Pulse Resp BP Pulse Ox 36.7 C 78 40 H 106/42 L 91 12/02/20 00:00 12/02/20 05:42 12/02/20 05:42 12/02/20 05:00 12/02/20 05:42 Oxygen Flow Rate (L/min) 60 Oxygen Delivery Method Bi-pap Weight: 78.1 kg Body Mass Index (BMI) 33.0 Intake & Output: Intake and Output for Last 24 Hours 11/30/20 12/01/20 12/02/20 23:59 23:59 23:59 Intake Total 750 / 750 530 / 530 0 / 0 Output Total 1250 / 1350 1075 / 1075 Balance -500 / -600 -545 / -545 0 / 0 Lab / Micro Data Result Diagrams: 11/30/20 05:00 12/02/20 05:00 Labs: Laboratory Results - last 24 hr 12/01/20 12/01/20 12/01/20 11:30 16:25 21:45 Sodium Potassium Chloride Carbon Dioxide Anion Gap BUN Creatinine Estim Creat Clear Calc Est GFR (MDRD) Af Amer Est GFR (MDRD) Non-Af BUN/Creatinine Ratio Glucose Calcium POC Glucose 288 H 207 H 251 H 12/02/20 05:00 Sodium 133 L Potassium 3.8 Chloride 91 L Carbon Dioxide 38.0 H Anion Gap 4 L BUN 24 H Creatinine 0.62 Estim Creat Clear Calc 36.68 Est GFR (MDRD) Af Amer 121 Est GFR (MDRD) Non-Af 100 BUN/Creatinine Ratio 39.0 H Glucose 166 H Calcium 8.3 L POC Glucose Micro: Microbiology 11/19/20 18:28 Blood Culture (Wb) - Right Hand Blood Culture - Final No growth in 5 days. 11/19/20 18:13 Blood Culture (Wb) - Anticubital Right Blood Culture - Final No growth in 5 days. 11/19/20 18:20 Nasal Secretion SARS-CoV-2 Antigen (Rapid) - Final SARS-CoV-2 (COVID 19) Rhythm Strip Rhythm Strip: Sinus Rhythm Rate: 80 Ectopy: None Physical Exam Const alert and oriented x3 General Appearance: cooperative, well developed and in distress Positive for mild (Conversational) Orientation / Consciousness: Negative for obtunded HEENT normocephalic and moist oral mucous membranes Eyes PERRL, EOMs intact bilaterally, conjunctivae normal and no scleral icterus Neck full ROM, no lymphadenopathy, supple and no JVD Lymph Lymphatic: no lymphadenopathy noted Resp normal respiratory effort Effort and Inspection: symmetric chest movement and prolonged expiratory phase; Negative for uses accessory muscles Auscultation: diminished lung sounds; Negative for rales, rhonchi or wheezes Cardio regular rate, regular rhythm, S1 normal heart sound, S2 normal heart sound, no murmurs, no rub, no gallops and no JVD GI normal to inspection, nondistended, normoactive bowel sounds, soft to palpation and non-tender Extremity no clubbing, cyanosis or edema Skin no rashes or lesions noted Neuro oriented x3, CN's II-XII intact bilaterally and no focal motor deficits Psych cooperative and affect normal Assessment & Plan Assessment/Plan (1) COVID-19: Status: Acute Code(s): U07.1 - COVID-19 (2) Acute respiratory failure with hypoxia: Status: Acute Code(s): J96.01 - Acute respiratory failure with hypoxia (3) Scoliosis of lumbar spine: Status: Chronic Code(s): M41.9 - Scoliosis, unspecified Qualifiers: Scoliosis type: idiopathic Idiopathic scoliosis type: other Qualified Code(s): M41.26 - Other idiopathic scoliosis, lumbar region (4) Debility: Status: Chronic Code(s): R53.81 - Other malaise (5) Hypertension: Status: Chronic Code(s): I10 - Essential (primary) hypertension Qualifiers: Hypertension type: essential hypertension Qualified Code(s): I10 - Essential (primary) hypertension (6) Hyperlipemia: Status: Chronic Code(s): E78.5 - Hyperlipidemia, unspecified Qualifiers: Hyperlipidemia type: mixed hyperlipidemia Qualified Code(s): E78.2 - Mixed hyperlipidemia (7) GERD (gastroesophageal reflux disease): Status: Chronic Code(s): K21.9 - Gastro-esophageal reflux disease without esophagitis Qualifiers: Esophagitis presence: esophagitis presence not specified Qualified Code(s): K21.9 - Gastro-esophageal reflux disease without esophagitis Plan: RECOMMENDATIONS: 1. Continue noninvasive positive pressure ventilatory support with sleep and Airvo as tolerated during the day. 2. Increase EPAP on AVAPS. Continue to wean FiO2 to maintain oxygen saturations at or above 90%. 3. Completed Decadron. Continue with diuresis 4. Continue PPI, empiric therapeutic Lovenox. Add empiric antibiotics 5. Obtain sputum culture and chest x-ray 6. Continue to address CODE STATUS/goals of therapy IMPRESSIONS: 1. Severe sepsis/acute hypoxemic respiratory failure secondary to ARDS secondary to COVID-19 pneumonia Patient appears to be relatively stable despite increased FiO2 requirements. Patient has not required any BiPAP rescue during the day, but is still requiring high flow oxygen. Patient reportedly will be denied LTAC evaluation despite relative stability on high FiO2. It is unclear if any custodial would be able to provide current oxygenation with an Airvo device. Patient's oxygenation status continues to deteriorate. Patient is reporting a productive cough that is increasing with volume of sputum. Superinfection with bacteria would be a consideration, but patient has not had any fever or hemodynamic instability. Extensive conversation with the patient about probable benefit of intubation, but she is resistant at this time. Patient wants to be intubated only if it is an emergency. We will obtain a chest x-ray to see if there is worsening in infiltrates. Sputum culture will be obtained. We will start empiric antibiotics. 2. GERD/depression/hypothyroidism/advanced age/debility Complicates care, management, recovery and prognosis. Continue home medications as indicated. We will continue to work with PT/OT. Patient with previous significant hyperglycemia, likely secondary to steroids. Only on sliding scale insulin at this time. We will continue sliding scale insulin give n patient's continued hyperglycemia. Likely does not require basal insulin. CODE status: Discussed CODE status at length including difference between FULL code, DNR-CCA and DNR-CC status. Following discussions about the differences in these status, patient requested FULL CODE STATUS. TIME: 33 minutes critical care time spent addressing patient's acute hypoxic respiratory failure, severe sepsis, GERD, CODE STATUS, review of all data and collaboration with care team (5:30 AM to 6:30 AM) Procedures Pulmonary 9xxxx: [id number] Critical care first hour
[2020-12-02] MEDS: Albuterol 2.5 MG/3 ML VIAL.NEB. INHALATION ×4 (07:00→19:37)
[2020-12-02] MEDS: Celecoxib 200 MG Capsule PO (08:18)
[2020-12-02] MEDS: Furosemide 20 MG/2 ML VIAL IV ×2 (08:18→18:48)
[2020-12-02] MEDS: Insulin Lispro 100 UNIT/ML INSULN.PEN SC ×4 (08:18→23:53)
[2020-12-02] MEDS: Escitalopram Oxalate 20 MG Tablet PO (08:19)
[2020-12-02] MEDS: Enoxaparin 80 MG/0.8 ML Syringe SC ×2 (08:19→20:26)
[2020-12-02] MEDS: Pantoprazole Sodium 20 MG Tablet PO (08:19)
[2020-12-02] MEDS: guaiFENesin 10 ML UDC (200MG/10ML) 20 ML PO ×2 (10:37→23:54)
--- NOTE | 2020-12-02 11:35 | PCM.PN.HOSP ---
Subjective Subjective: Overall worsening put on 100% BIPAP. Objective Data Objective Data Vital Signs: Vital Signs Temp Pulse Resp BP Pulse Ox 37.4 C H 84 22 H 108/59 L 93 12/02/20 11:00 12/02/20 11:00 12/02/20 11:00 12/02/20 11:00 12/02/20 11:00 Oxygen Flow Rate (L/min) 60 Oxygen Delivery Method Bi-pap Weight: 172 lb 2.896 oz Body Mass Index (BMI) 33.0 Intake & Output: Intake and Output for Last 24 Hours 11/30/20 12/01/20 12/02/20 23:59 23:59 23:59 Intake Total 750 / 750 530 / 530 0 / 0 Output Total 1250 / 1350 1075 / 1075 Balance -500 / -600 -545 / -545 0 / 0 Lab / Micro Data Result Diagrams: 11/30/20 05:00 12/02/20 05:00 Labs: Laboratory Results - last 24 hr 12/01/20 12/01/20 12/01/20 11:30 16:25 21:45 Sodium Potassium Chloride Carbon Dioxide Anion Gap BUN Creatinine Estim Creat Clear Calc Est GFR (MDRD) Af Amer Est GFR (MDRD) Non-Af BUN/Creatinine Ratio Glucose Calcium POC Glucose 288 H 207 H 251 H 12/02/20 05:00 Sodium 133 L Potassium 3.8 Chloride 91 L Carbon Dioxide 38.0 H Anion Gap 4 L BUN 24 H Creatinine 0.62 Estim Creat Clear Calc 36.68 Est GFR (MDRD) Af Amer 121 Est GFR (MDRD) Non-Af 100 BUN/Creatinine Ratio 39.0 H Glucose 166 H Calcium 8.3 L POC Glucose Micro: Microbiology 11/19/20 18:28 Blood Culture (Wb) - Right Hand Blood Culture - Final No growth in 5 days. 11/19/20 18:13 Blood Culture (Wb) - Anticubital Right Blood Culture - Final No growth in 5 days. 11/19/20 18:20 Nasal Secretion SARS-CoV-2 Antigen (Rapid) - Final SARS-CoV-2 (COVID 19) Radiography Diagnostic Testing: Radiology Impression Chest X-Ray 12/02/20 06:38 IMPRESSION: Worsening bibasilar atelectasis or pneumonia. Electronically Signed: Scott Armenta MD at 7:26 EDT Tel , Service support , Rhythm Strip Rhythm Strip: Sinus Rhythm Rate: 80 Ectopy: None Physical Exam Narrative on BiPAP. Eyes PERRL Resp normal respiratory effort Resp Narrative: coarse breath sounds bilaterally. Cardio regular rate, regular rhythm, S1 normal heart sound and S2 normal heart sound GI normal to inspection, nondistended, normoactive bowel sounds, non-tender and non-distended Assessment & Plan Assessment/Plan (1) COVID-19: Status: Acute Code(s): U07.1 - COVID-19 (2) Acute respiratory failure with hypoxia: Status: Acute Code(s): J96.01 - Acute respiratory failure with hypoxia (3) Diabetes mellitus, type 2: Status: Acute Code(s): E11.9 - Type 2 diabetes mellitus without complications Qualifiers: Diabetes mellitus long-term insulin use: without buttermaker helper use Diabetes mellitus complication status: with other specified complication Qualified Code(s): E11.69 - Type 2 diabetes mellitus with other specified complication Plan: Dexa a rem-d completed Given worsening status, started on pip/tazo to cover bacterial pneumonia. Empiric therapeutic enoxaparin. Agree with the furosemide challenge 20 mg IV twice daily. Anticipate protracted course. [id number]-pi-[id number] for an LTAC is unable to be performed with insurance until 12/03. However, I do not feel that the pt is LTAC appropriate at this time given her worsening status. 12/01: [facility] changed enoxaparin 80 BID (had been on 40 BID).
[2020-12-02 13:21] LABS: Bedside Glucose 152 mg/dL (70-110)
[2020-12-02] MEDS: 0.9% Saline Lock 10 ML Syringe IV (18:49)
[2020-12-02] MEDS: Calcium Carb/Vitamin D 1 TABLET Tablet PO (20:26)
[2020-12-02 20:35] LABS: Bedside Glucose 153 mg/dL (70-110)
[2020-12-03] VITALS (34 sets, daily range): BP systolic 112–150; BP diastolic 52–85; PULSE 75–102; RESP 12–48; TEMP 36.6–37.1; O2SAT 89–95
[2020-12-03 00:01] LABS: Bedside Glucose 162 mg/dL (70-110)
--- NOTE | 2020-12-03 06:17 | PCM.PN.INT ---
Subjective Subjective: The patient remains dyspneic and has been unable to be weaned fromThe patient was seen and examined at the bedside this morning. Events from the last 24 hours have been reviewed. The patient is currently afebrile, hemodynamically stable and maintaining appropriate oxygen saturations on AVAPS with an FiO2 requirement of 95%. The patient remains dyspneic and has been unable to be weaned from noninvasive positive pressure ventilatory support. She reported to me this morning that she is not interested in being intubated and is currently open to the idea of transitioning to hospice care. Her sons are going to come into the hospital later this afternoon to discuss further. Objective Data Objective Data The patient's most recent lab work, culture data and imaging studies have all been personally reviewed. Coronavirus rapid antigen testing was positive on November 19. Blood cultures have demonstrated no growth to date. Expectorated sputum culture is pending. Vital Signs: Vital Signs Temp Pulse Resp BP Pulse Ox 98.1 F 79 30 H 128/59 H 93 12/03/20 04:00 12/03/20 05:00 12/03/20 05:00 12/03/20 05:00 12/03/20 05:00 Oxygen Flow Rate (L/min) 60 Oxygen Delivery Method Bi-pap Weight: 168 lb 6.931 oz Body Mass Index (BMI) 33.0 Intake & Output: Intake and Output for Last 24 Hours 12/01/20 12/02/20 12/03/20 23:59 23:59 23:59 Intake Total 530 / 530 65 / 85 70 / 70 Output Total 1075 / 1075 350 / 750 400 / 400 Balance -545 / -545 -285 / -665 -330 / -330 Lab / Micro Data Result Diagrams: 11/30/20 05:00 12/03/20 06:00 Labs: Laboratory Results - last 24 hr 12/02/20 12/02/20 12/02/20 12:50 18:42 23:52 POC Glucose 152 H 153 H 162 H Micro: Microbiology 11/19/20 18:28 Blood Culture (Wb) - Right Hand Blood Culture - Final No growth in 5 days. 11/19/20 18:13 Blood Culture (Wb) - Anticubital Right Blood Culture - Final No growth in 5 days. 11/19/20 18:20 Nasal Secretion SARS-CoV-2 Antigen (Rapid) - Final SARS-CoV-2 (COVID 19) Radiography Diagnostic Testing: Radiology Impression Chest X-Ray 12/02/20 06:38 IMPRESSION: Worsening bibasilar atelectasis or pneumonia. Electronically Signed: Scott Armenta MD at 7:26 EDT Tel , Service support , Rhythm Strip Rhythm Strip: Sinus Rhythm Rate: 80 Ectopy: None Physical Exam Const alert Constitutional Narrative: Currently resting in bed with BiPAP mask in place. General Appearance: cooperative HEENT normocephalic and head/scalp atraumatic Eyes PERRL and EOMs intact bilaterally Resp normal respiratory effort Effort and Inspection: tachypneic Auscultation: diminished lung sounds Cardio regular rate, regular rhythm and no murmurs GI normal to inspection, nondistended, normoactive bowel sounds Extremity no clubbing, cyanosis or edema Skin no rashes or lesions noted Neuro oriented x3 and CN's II-XII intact bilaterally Psych cooperative and affect normal Assessment & Plan Assessment/Plan (1) Acute respiratory failure with hypoxia: Status: Acute Code(s): J96.01 - Acute respiratory failure with hypoxia (2) COVID-19: Status: Acute Code(s): U07.1 - COVID-19 Plan: RECOMMENDATIONS: 1. Continue AVAPS and wean FiO2 to maintain oxygen saturations at or above 90%. 2. Continue empiric antimicrobials. 3. Continue gentle diuresis as tolerated by hemodynamics and renal function. 4. Continue therapeutic Lovenox. 5. Continue appropriate GI prophylaxis. 6. Ongoing goals of care discussion with consideration for hospice care services. IMPRESSIONS: 1. Severe sepsis/acute hypoxemic respiratory failure secondary to ARDS secondary to COVID-19 pneumonia The patient appears to be decompensated from a respiratory perspective. She is currently requiring noninvasive positive pressure ventilatory support and has been unable to be weaned from AVAPS. We will plan to continue the aforementioned intervention and wean FiO2 to maintain saturations at or above 90%. The patient has already completed her treatment courses relative to her coronavirus infection. She will be continued on antimicrobials, pending finalized sputum culture results. Continue gentle diuresis as tolerated by hemodynamics and renal function. Anticipate potential transition to comfort care measures in the next 24 hours. 2. GERD/depression/hypothyroidism/advanced age/debility Complicates care, management, recovery and prognosis. Continue home medications as indicated. We will continue to work with PT/OT. TIME: 34 minutes of critical care time, independent of procedures, was spent addressing the patient's acute hypoxemic respiratory failure, COVID-19 pneumonia, severe sepsis, review of all data and collaboration with the care team. ([id number]) Procedures Pulmonary 9xxxx: [id number] Critical care first hour
[2020-12-03] MEDS: guaiFENesin 10 ML UDC (200MG/10ML) 20 ML PO (06:23)
[2020-12-03] MEDS: Levothyroxine 112 MCG Tablet PO (06:23)
[2020-12-03 06:41] LABS: Anion Gap 6 (5-15); BUN 25 mg/dL (7-18); BUN/Creat Ratio 32.5 RATIO (10-20); Calcium,Total 8.2 mg/dL (8.5-10.1); Chloride 93 mmol/L (98-107); Creatinine, Serum 0.77 mg/dL (0.55-1.02); EST Glomerular Filtration Rate 78 mL/min (>60); Est Glom Filt Rate - Afr Amer 94 mL/min (>60); Estimated Creatinine Clearance 36.68 ml/min; Glucose 135 mg/dL (74-106); Potassium 3.6 mmol/L (3.5-5.1); Sodium Level 137 mmol/L (136-145)
[2020-12-03] MEDS: Albuterol 2.5 MG/3 ML VIAL.NEB. INHALATION ×4 (06:43→18:35)
[2020-12-03] MEDS: Furosemide 20 MG/2 ML VIAL IV ×2 (08:32→17:16)
[2020-12-03] MEDS: Enoxaparin 80 MG/0.8 ML Syringe SC ×2 (08:32→21:40)
--- NOTE | 2020-12-03 09:20 | CASEMGMT ---
This RN CM participated in ICU multidisciplinary rounds. Per nursing/RT, pt has been on continuous bipap and oxygen need has increased over weekend. Pt's sputum culture did come back positive for staph aureus and pt to be given one time loading dose of vanc at this time. Per , if pt does not improve in the next 24hours then she may need intubated tomorrow. PO meds on hold because pt de-sats into the 60's with just removing mask to give meds quickly. After discussion with , pt's P2P for this am to be cancelled at this time d/t worsening in condition. Call to [facility] and P2P cancelled. CM to follow. SStaten RN CM
--- NOTE | 2020-12-03 09:44 | PCM.PN.HOSP ---
Subjective Subjective: Patient seen in the room. She remains on BiPAP. She tells me she does not be able to come off the BiPAP. She however has no other complaints and denies fever, chills, chest pain, nausea vomiting or diarrhea. She is still coughing and says she is bringing up clear sputum. She has remained hemodynamically stable, though she has been quite tachypneic. Objective Data Objective Data Vital Signs: Vital Signs Temp Pulse Resp BP Pulse Ox 98.5 F 86 38 H 125/66 H 93 12/03/20 09:00 12/03/20 09:00 12/03/20 09:00 12/03/20 09:00 12/03/20 09:00 Oxygen Flow Rate (L/min) 60 Oxygen Delivery Method Bi-pap Weight: 168 lb 6.931 oz Body Mass Index (BMI) 33.0 Intake & Output: Intake and Output for Last 24 Hours 12/01/20 12/02/20 12/03/20 23:59 23:59 23:59 Intake Total 530 / 530 65 / 85 273 / 273 Output Total 1075 / 1075 350 / 750 850 / 850 Balance -545 / -545 -285 / -665 -577 / -577 Lab / Micro Data Result Diagrams: 11/30/20 05:00 12/03/20 06:00 Labs: Laboratory Results - last 24 hr 12/02/20 12/02/20 12/02/20 12:50 18:42 23:52 Sodium Potassium Chloride Carbon Dioxide Anion Gap BUN Creatinine Estim Creat Clear Calc Est GFR (MDRD) Af Amer Est GFR (MDRD) Non-Af BUN/Creatinine Ratio Glucose Calcium POC Glucose 152 H 153 H 162 H 12/03/20 06:00 Sodium 137 Potassium 3.6 Chloride 93 L Carbon Dioxide 38.0 H Anion Gap 6 BUN 25 H Creatinine 0.77 Estim Creat Clear Calc 36.68 Est GFR (MDRD) Af Amer 94 Est GFR (MDRD) Non-Af 78 BUN/Creatinine Ratio 32.5 H Glucose 135 H Calcium 8.2 L POC Glucose Micro: Microbiology 12/02/20 10:30 Sputum, Expectorated/Coughed Respiratory Culture - Preliminary Staphylococcus aureus 11/19/20 18:28 Blood Culture (Wb) - Right Hand Blood Culture - Final No growth in 5 days. 11/19/20 18:13 Blood Culture (Wb) - Anticubital Right Blood Culture - Final No growth in 5 days. 11/19/20 18:20 Nasal Secretion SARS-CoV-2 Antigen (Rapid) - Final SARS-CoV-2 (COVID 19) Rhythm Strip Rhythm Strip: Sinus Rhythm Rate: 80 Ectopy: None Physical Exam Const alert, oriented x3 and no apparent distress Exam Limitations: no limitations HEENT head/scalp atraumatic Head and Scalp: normocephalic Mouth: dry mucous membranes Eyes PERRL, EOMs intact bilaterally and conjunctivae normal Neck supple Resp Resp Narrative: Diminished breath sounds bibasilarly. Few crackles bilaterally. On BiPAP. Tachypneic Cardio regular rate, regular rhythm, S1 normal heart sound, S2 normal heart sound and no murmurs GI normal to inspection, nondistended, normoactive bowel sounds, soft to palpation and non-tender Extremity normal to inspection and no clubbing, cyanosis or edema Skin no rashes or lesions noted Neuro oriented x3 and CN's II-XII intact bilaterally Sensorium / Orientation: awake and alert Psych affect normal Assessment & Plan Assessment/Plan (1) Acute respiratory failure with hypoxia: Status: Acute Code(s): J96.01 - Acute respiratory failure with hypoxia (2) COVID-19: Status: Acute Code(s): U07.1 - COVID-19 (3) Diabetes mellitus, type 2: Status: Acute Code(s): E11.9 - Type 2 diabetes mellitus without complications Qualifiers: Diabetes mellitus intermediate frame tender insulin use: without intermediate use Diabetes mellitus complication status: with other specified complication Qualified Code(s): E11.69 - Type 2 diabetes mellitus with other specified complication (4) Hypertension: Status: Chronic Code(s): I10 - Essential (primary) hypertension Qualifiers: Hypertension type: essential hypertension Qualified Code(s): I10 - Essential (primary) hypertension (5) Hyperlipemia: Status: Chronic Code(s): E78.5 - Hyperlipidemia, unspecified Qualifiers: Hyperlipidemia type: mixed hyperlipidemia Qualified Code(s): E78.2 - Mixed hyperlipidemia (6) GERD (gastroesophageal reflux disease): Status: Chronic Code(s): K21.9 - Gastro-esophageal reflux disease without esophagitis Qualifiers: Esophagitis presence: esophagitis presence not specified Qualified Code(s): K21.9 - Gastro-esophageal reflux disease without esophagitis Plan: #Acute hypoxic respiratory failure due to COVID-19 infection -Patient remains on BiPAP. -Has completed a course of Decadron as well as remdesivir -Being diuresed with IV Lasix 20 mg twice daily -Also started on vancomycin Zosyn for presumptive pneumonia. -Blood cultures have been negative. -Breathing treatment to bronchodilators. Titrate oxygen to maintain saturation above 90%. -Critical-care on board. #COVID-19 infection: As above. #Hypothyroidism: On Synthroid #Type 2 diabetes mellitus -On insulin sliding scale. Accu-Cheks AC at bedtime. #GERD: on famotidine DVT prophylaxis: Lovenox Disposition: Pending [id number] for probable discharge to LTAC.
[2020-12-03] MEDS: FAMOTIDINE 20 MG 300 MG IV (10:26)
--- NOTE | 2020-12-03 10:52 | CASEMGMT ---
Per Jessica OSBORNE, pt states she does not want to be intubated. Sons to come in around [id number] today to have a family meeting with regarding goals of care. Timmy PACHECO updated, voices understanding. Papo OSBORNE CM
[2020-12-03 11:06] LABS: M R Staph aureus DNA By PCR Negative (Negative); Probe Check PASS; Specimen Processing Control PASS
--- NOTE | 2020-12-03 12:08 | CHAPLAIN ---
Type of Pastoral Visit _x__ Initial Visit ___ Follow-up Visit ___ On-call Visit ___ General Patient Visit ___ Spiritual Assessment ___ Family Conference ___ Bereavement ___ Rapid Response ___ Code Blue ___ Other (describe below) Pastoral Care Referral From _x__ Patient ___ Family _x__ Nurse ___ Physician ___ Briquette Operator ___ Sheet Metal Duct Installer Helper ___ Other (describe below) Sacrament/Intervention _x__ Active listening ___ Anointing ___ Restorationist ___ Bereavement ___ Communion _x__ Azra exploration ___ _x__ Life review _x__ Prayer ___ Reconciliation ___ Sacrament of Sick _x__ Supportive presence ___ Wedding ___ Other (describe below) Pastoral Comments patient has decided to not have further interventions; pt identifies as strong believer and active in judaism; pt says that she is spiritually prepared for and has a sense of her sons' presence during this time; pt would like her judaism/card reader notified of her decision and this will be done by apiarist; prayer and presence given; pt states she is without pain and has peace about her decision and situation.
--- NOTE | 2020-12-03 12:14 | PCM.PN.ID ---
Physical Exam Narrative No fever, bringing up a lot of sputum Const alert General Appearance: cooperative Resp Resp Narrative: mild Auscultation: rhonchi and diminished lung sounds Cardio regular rate and regular rhythm GI normal to inspection, nondistended, normoactive bowel sounds Skin no rashes or lesions noted ID ID: Route of nutrition/ use of supplements: [] Nutritional Intake: [] IV Site: [] Camacho Catheter: [] Assessment & Plan Assessment/Plan (1) COVID-19: Status: Acute Code(s): U07.1 - COVID-19 Plan: Remains ill. Reviewed labs, vital, imaging. Completed remdesivir, completed 10 days of dex. Now out of isolation. Increased sputum, started on vanc/zosyn /, now sputum cx with staph aureus so far. Will follow
[2020-12-03 12:35] LABS: Bedside Glucose 120 mg/dL (70-110)
--- NOTE | 2020-12-03 12:50 | NURSING ---
bipap came disconnected, O2 sats dropped to mid 70's, placed on 100% FiO2, recovered slowly.
--- NOTE | 2020-12-03 14:10 | CASEMGMT ---
Addendum entered by Nyasia Barrow 12/03/20 15:35: TARA received call from Joana at [facility] stating pt's family will be taking pt home with Hospice and requests discharge home tomorrow. Joana states she will need Bipap settings faxed to her and it will be 4 hours to arrange Bipap anyway for pt in the home. Joana states [facility] will need to arrange transportation home. SW faxed Bipap settings to [facility]. SW updated pt's RN on plan for pt to discharge home tomorrow with Hospice services. Addendum entered by Nyasia Barrow 12/03/20 14:45: TARA received call from Brigido at [facility] stating he spoke with pt's son Pepe. Pepe is deciding whether pt will go to Inpatient Hospice Unit or return Home with Hospice. Brigido states if pt goes to Inpatient Hospice Unit, pt will not be able to have Bipap due to COVID. Brigido states if pt goes home, she will be able to go home with Bipap but Hospice would need to set that up and it would be about 4 hours to set up the Bipap. Brigido states once he knows from Pepe what the decision is he will call this worker back. TARA waiting for call back from [facility]. Original Note: Social Work Note Pt's son's Ppee (ARLYN) and Bryan present at [facility]. RN and SW in to speak with pt and pt's son's. Pt requesting Hospice referral. Pt's son Pepe and Bryan agreeable to Hospice referral. SW explained referral process and that this worker will have Hospice call Pepe as pt is on Bipap (100%). Pt and Pepe agreeable. SW explained options of Home with Hospice, Inpatient Hospice Unit (if pt qualifies) or to an ECF with Hospice. SW provided support. SW placed a call to [facility] and spoke with Brigido and provided referral. SW faxed referral. Plan: Hospice referral Nyasia Barrow ADMISSIONS DIRECTOR, BEAN ROASTER
--- NOTE | 2020-12-03 16:11 | CASEMGMT ---
Social Work Note SW received call from Joana at [facility] stating she recieved Bipap settings and updated her physician but they are still not understanding Bipap settings. TARA informed Joana that this worker could see if the respiratory therapist could call [facility] and give them the update on Bipap settings. Joana states that would be ok. TARA called respiratory and updated respiratory on request from [facility]. SW provided respiratory with [facility] number and asked if they could call to review Bipap settings. Respiratory to do so. Nyasia Barrow PIT STEWARD, MEDICAL IMAGING TECHNOLOGIST
[2020-12-03] MEDS: Calcium Carb/Vitamin D 1 TABLET Tablet PO (21:41)
[2020-12-03] MEDS: 0.9% Saline Lock 10 ML Syringe IV (21:46)
[2020-12-04] VITALS (9 sets, daily range): BP systolic 123–156; BP diastolic 55–63; PULSE 74–93; RESP 12–39; TEMP 36.4–37.1; O2SAT 88–95
[2020-12-04] MEDS: guaiFENesin 10 ML UDC (200MG/10ML) 20 ML PO ×2 (00:42→05:46)
[2020-12-04 01:18] LABS: Bedside Glucose 189 mg/dL (70-110)
[2020-12-04] MEDS: Insulin Lispro 100 UNIT/ML INSULN.PEN SC ×2 (05:45→12:27)
[2020-12-04] MEDS: Levothyroxine 112 MCG Tablet PO (05:46)
[2020-12-04 06:01] LABS: Bedside Glucose 154 mg/dL (70-110)
--- NOTE | 2020-12-04 06:23 | PCM.PN.INT ---
Subjective Subjective: The patient was seen and examined at the bedside this morning. Events from the last 24 hours have been reviewed. The patient is currently afebrile, hemodynamically stable and maintaining appropriate oxygen saturations on BIPAP with an FiO2 requirement of 90%. The patient elected to pursue hospice care service yesterday and her CODE STATUS was subsequently updated to DNR comfort care. Objective Data Objective Data The patient's most recent lab work, culture data and imaging studies have all been personally reviewed. Coronavirus rapid antigen testing was positive on November 19. Blood cultures have demonstrated no growth to date. Expectorated sputum culture is pending. Vital Signs: Vital Signs Temp Pulse Resp BP Pulse Ox 98.8 F 75 37 H 147/55 H 95 12/04/20 05:50 12/04/20 05:50 12/04/20 05:50 12/04/20 05:50 12/04/20 05:50 Oxygen Flow Rate (L/min) 60 Oxygen Delivery Method Bi-pap Weight: 166 lb 3.657 oz Body Mass Index (BMI) 33.0 Intake & Output: Intake and Output for Last 24 Hours 12/02/20 12/03/20 12/04/20 23:59 23:59 23:59 Intake Total 65 / 85 880.25 / 880.25 50 / 50 Output Total 350 / 750 1750 / 2200 450 / 450 Balance -285 / -665 -869.75 / -1319.75 -400 / -400 Lab / Micro Data Result Diagrams: 11/30/20 05:00 12/03/20 06:00 Labs: Laboratory Results - last 24 hr 12/03/20 12/03/20 12/03/20 06:00 09:45 12:29 Sodium 137 Potassium 3.6 Chloride 93 L Carbon Dioxide 38.0 H Anion Gap 6 BUN 25 H Creatinine 0.77 Estim Creat Clear Calc 36.68 Est GFR (MDRD) Af Amer 94 Est GFR (MDRD) Non-Af 78 BUN/Creatinine Ratio 32.5 H Glucose 135 H Calcium 8.2 L MRSA (PCR) Negative POC Glucose 120 H 12/04/20 12/04/20 00:37 05:43 Sodium Potassium Chloride Carbon Dioxide Anion Gap BUN Creatinine Estim Creat Clear Calc Est GFR (MDRD) Af Amer Est GFR (MDRD) Non-Af BUN/Creatinine Ratio Glucose Calcium MRSA (PCR) POC Glucose 189 H 154 H Micro: Microbiology 12/02/20 10:30 Sputum, Expectorated/Coughed Gram Stain - Final 12/02/20 10:30 Sputum, Expectorated/Coughed Respiratory Culture - Preliminary Staphylococcus aureus 11/19/20 18:28 Blood Culture (Wb) - Right Hand Blood Culture - Final No growth in 5 days. 11/19/20 18:13 Blood Culture (Wb) - Anticubital Right Blood Culture - Final No growth in 5 days. 11/19/20 18:20 Nasal Secretion SARS-CoV-2 Antigen (Rapid) - Final SARS-CoV-2 (COVID 19) Rhythm Strip Rhythm Strip: Sinus Rhythm Rate: 80 Ectopy: None Physical Exam Const alert and oriented x3 Constitutional Narrative: Currently resting in bed with BiPAP mask in place. General Appearance: cooperative, well developed and in distress Positive for mild (Conversational) Orientation / Consciousness: Negative for obtunded HEENT normocephalic, head/scalp atraumatic and moist oral mucous membranes Eyes PERRL, EOMs intact bilaterally, conjunctivae normal and no scleral icterus Neck full ROM, no lymphadenopathy, supple and no JVD Lymph Lymphatic: no lymphadenopathy noted Resp normal respiratory effort Effort and Inspection: symmetric chest movement, tachypneic and prolonged expiratory phase; Negative for uses accessory muscles Auscultation: diminished lung sounds; Negative for rales, rhonchi or wheezes Cardio regular rate, regular rhythm, S1 normal heart sound, S2 normal heart sound, no murmurs, no rub, no gallops and no JVD GI normal to inspection, nondistended, normoactive bowel sounds, soft to palpation and non-tender Extremity no clubbing, cyanosis or edema Skin no rashes or lesions noted Neuro oriented x3, CN's II-XII intact bilaterally and no focal motor deficits Psych cooperative and affect normal Assessment & Plan Assessment/Plan (1) Acute respiratory failure with hypoxia: Status: Acute Code(s): J96.01 - Acute respiratory failure with hypoxia (2) COVID-19: Status: Acute Code(s): U07.1 - COVID-19 Plan: RECOMMENDATIONS: 1. Continue current supportive measures including noninvasive positive pressure ventilatory support. 2. Wean FiO2 to maintain oxygen saturations at or above 90%. 3. Given transition to comfort care measures, antibiotics can be discontinued. 4. Await disposition home with hospice care services. IMPRESSIONS: 1. Severe sepsis/acute hypoxemic respiratory failure secondary to ARDS secondary to COVID-19 pneumonia The patient appears to be decompensated from a respiratory perspective. She is currently requiring noninvasive positive pressure ventilatory support and has been unable to be weaned from AVAPS. We will plan to continue the aforementioned intervention and wean FiO2 to maintain saturations at or above 90%. The patient has already completed her treatment courses relative to her coronavirus infection. Continue gentle diuresis as tolerated by hemodynamics and renal function. Anticipate discharge home with hospice care services in place. 2. GERD/depression/hypothyroidism/advanced age/debility Complicates care, management, recovery and prognosis. Continue home medications as indicated. We will continue to work with PT/OT. This note was generated with [employer] dictation software. It may contain incorrect words, spelling, and punctuation that were not noted in checking the note before signing. Visit Charges Inpatient E&M: 99103 Subs Hosp L2
[2020-12-04] MEDS: Albuterol 2.5 MG/3 ML VIAL.NEB. INHALATION ×2 (07:16→10:25)
[2020-12-04] MEDS: Furosemide 20 MG/2 ML VIAL IV (08:07)
[2020-12-04] MEDS: FAMOTIDINE 20 MG 300 MG IV (08:07)
[2020-12-04] MEDS: Enoxaparin 80 MG/0.8 ML Syringe SC (08:07)
--- NOTE | 2020-12-04 09:37 | CASEMGMT ---
Addendum entered by Nita Downs 12/04/20 10:47: Lance from [facility] called and said that now they cannot set up pt with her Bipap until tomorrow as they need a respiratory therapist to fit her at home, and this person is not available until tomorrow. TARA inquired w/Lance what is the timeframe to get a bipap at home set up as it was known yesterday pt would go home w/bipapp. Lance states that all the admissions coordinators are in a meeting, she is helping, and she will have someone call this SW when the meeting is over to talk this through. SW will continue to follow. MC Beatty Original Note: TARA called [facility], the equipment will be delivered between 10am-12pm. TARA called davon Cantu, he states someone will be at the home all day, is fine w/transport being set up this afternoon. TARA called [facility], set up a 1:30pm ambulance. TARA let davon Cantu know as well as Lance at [facility]. TARA will fax d/c instructions once completed. MC Beatty
--- NOTE | 2020-12-04 10:05 | PCM.DC ---
Discharge Instructions Outpatient Procedure Reason For Visit: COVID 19 Follow Up Care Test Results: Test results from this visit will be discussed in further detail at your follow-up appointment, if applicable. Discharge Plan Admission Admit Date/Time: 11/19/20 19:49 Attending Provider: Petrona Montiel Primary Care Provider: Garrett Corrales Chi Consulting Providers: Td Brown ; Emeterio Cabrera Discharge Orders/Prescriptions Prescriptions: No Action lutein 10 mg tablet 10 mg PO DAILY RF: 0 omeprazole 20 MG capsule 20 mg PO DAILY RF: 0 calcium carbonate-vitamin D3 1 TAB tablet 1 tab PO BIDCM RF: 0 celecoxib 200 MG capsule 200 mg PO DAILY RF: 0 ivermectin 3 MG tablet 9 mg PO DAILY RF: 0 doxycycline hyclate 100 MG capsule 100 mg PO BID RF: 0 dexamethasone 6 MG tablet 1 tablet PO DAILY RF: 0 levothyroxine 112 MCG tablet 112 mcg PO DAILY RF: 0 escitalopram oxalate 20 MG tablet 20 mg PO DAILY RF: 0 Referrals: Garrett Corrales Chi, MD [Primary Care Provider] - Disposition Disposition (needs filled in before D/C Order can be placed): Hospice in Medical Facility
--- NOTE | 2020-12-04 11:08 | CASEMGMT ---
Addendum entered by Nita Downs 12/04/20 13:10: After multiple phone calls and speaking with multiple hospice intake workers, the plan is as follows: [facility] is to have the bipap delivered with the settings in place between 2 and 2:30pm. We are to send the mask with her from here, as the mask is already fitted to pt. SW let RN know. SW called [facility] back and pushed the transportation back to 2:30pm. SW called son Pepe, let him know transport pushed back one hour until 2:30 due to the delay in getting the bipap to the home, son states understanding and in agreement. SW let Brittny at [facility] know the time, as well as the bedside RN. Discharge instructions and DNR faxed to [facility]. No further needs. Pt home w/hospice today. MC Beatty Original Note: SW spoke w/Joana at [facility], they are working on still getting pt home today, with having the [employer] company set the settings for the bipap and have an RN fit the pt for the mask when she gets home. Joana states she will let this SW know as soon as possible if they can get it set up for today. MC Beatty
[2020-12-04 11:56] LABS: Bedside Glucose 152 mg/dL (70-110)
--- NOTE | 2020-12-04 14:32 | CASEMGMT ---
Addendum entered by Nita Downs 12/04/20 15:42: SW called [facility], let them know that transport is here now to take pt home. MC Beatty Original Note: As per our respiratory therapist, the mask here with the bipap will not fit the home bipap. SW called hospice, explained this to Joana. SW asked if the RN from hospice can meet the pt at the home to adjust the mask to her face. She checked w/RN Chloé and Chloé can indeed meet pt at home, they would just like a call once transport is here. SW will call them once transport is here. MC Beatty
--- NOTE | 2020-12-04 16:19 | PCM.DC.SUM ---
Providers Date of Admission: 11/19/20 Primary Care Physician: Dr. Garrett Corrales MD Consultations 11/20/20 06:09 Physician Consult Routine Consulting Provider: Td Brown Reason for Consult: Pulmonary MD Notified: Yes Date Notified:: 11/20/20 Time Notified: 06:10 Method of Notification:: Verbal 11/20/20 09:49 Physician Consult Routine Consulting Provider: Emeterio Cabrera Consulted Physician Type:: Infectious Disease Reason for Consult: covid Method of Consult:: In-Person MD Notified: Yes Date Notified:: 11/20/20 Time Notified: 09:49 Method of Notification:: Verbal Reason For Visit: COVID 19 Diagnosis Discharge Diagnosis (1) Acute respiratory failure with hypoxia: Status: Acute Code(s): J96.01 - Acute respiratory failure with hypoxia (2) COVID-19: Status: Acute Code(s): U07.1 - COVID-19 Medications at Discharge Home Medications calcium carbonate-vitamin D3 1 tab PO BIDCM 06/10/13 omeprazole 20 mg PO DAILY 06/10/13 lutein 10 mg tablet 10 mg PO DAILY 04/08/18 celecoxib 200 mg PO DAILY 11/19/20 dexamethasone 1 tablet PO DAILY 11/19/20 doxycycline hyclate 100 mg PO BID 11/19/20 escitalopram oxalate 20 mg PO DAILY 11/19/20 ivermectin 9 mg PO DAILY 11/19/20 levothyroxine 112 mcg PO DAILY 11/19/20 Hospital Course Operations None Procedures None Summary of Care Provided Minutes Spent on Discharge: 60 Hospital Course: Patient is a 75-year-old female with an extensive past medical history as outlined was admitted through the ED on 11/19/2020 with a complaint of shortness of breath, generalized malaise, fatigue and nonproductive cough. Symptoms have been ongoing for about a week and she had tested positive for coronavirus on 14 November 2020. She had been started on Decadron on outpatient basis. She had not yet received a Covid vaccine. On admission, she was tachypneic and hypoxic and labs were significant for sodium of 131 potassium of 2.9 with elevated lactic acid of 3.5. Chest x-ray showed bilateral interstitial opacities. She was admitted to be managed for acute hypoxic respiratory failure due to COVID-19 pneumonia and required AirVo heated high flow oxygen. She was admitted to the ICU. Pulmonology and ICU were consulted. Hospital stay was also complicated by hyponatremia and hypokalemia which resolved with repletion of sodium. She was subsequently started on diuretics as well on account of positive fluid balance. Gertrudis still remained dyspneic and was evantually transitioned to BIPAP. She also received remdesivir. Patient still remained dyspneic and could not be weaned off of oxygen and required BiPAP and AirVo intermittently. Attempts were made to discharge patient to LTAC but she was declined. Patient still required BiPAP in airflow and eventually patient decided to change CODE STATUS to DNR CC and opted for hospice. Patient was discharged to inpatient hospice on 12/04/2020. Patient was seen and examined prior to discharge. She remained on BiPAP and could not come off of BiPAP. She had no complaints apart from shortness of breath and cough and review of systems otherwise negative. O/E; alert, oriented x3 and no apparent distress HEENT head/scalp atraumatic Head and Scalp: normocephalic Mouth: dry mucous membranes Eyes PERRL, EOMs intact bilaterally and conjunctivae normal Neck supple Resp Resp Narrative: Diminished breath sounds bibasilarly. Few crackles bilaterally. On BiPAP. Tachypneic Cardio regular rate, regular rhythm, S1 normal heart sound, S2 normal heart sound and no murmurs GI normal to inspection, nondistended, normoactive bowel sounds, soft to palpation and non-tender Extremity normal to inspection and no clubbing, cyanosis or edema Skin no rashes or lesions noted Neuro oriented x3 and CN's II-XII intact bilaterally Sensorium / Orientation: awake and alert Psych affect normal Plan is for discharge to hospice medical facility. ABG / Lab / Microbiology Data Result Diagrams: 11/30/20 05:00 12/03/20 06:00 Laboratory: Laboratory Results - last 24 hr 12/04/20 12/04/20 12/04/20 00:37 05:43 11:52 POC Glucose 189 H 154 H 152 H Microbiology: Microbiology 12/02/20 10:30 Gram Stain - Final Sputum, Expectorated/Coughed Respiratory Culture - Final Staphylococcus aureus Microbiology 12/02/20 10:30 Sputum, Expectorated/Coughed Gram Stain - Final 12/02/20 10:30 Sputum, Expectorated/Coughed Respiratory Culture - Final Staphylococcus aureus 11/19/20 18:28 Blood Culture (Wb) - Right Hand Blood Culture - Final No growth in 5 days. 11/19/20 18:13 Blood Culture (Wb) - Anticubital Right Blood Culture - Final No growth in 5 days. 11/19/20 18:20 Nasal Secretion SARS-CoV-2 Antigen (Rapid) - Final SARS-CoV-2 (COVID 19) Meaningful Use Info Meaningful Use Diagnoses (Choose all that apply): None applicable Discharge Plan Admission Admit Date/Time: 11/19/20 19:49 Attending Provider: Petrona Montiel Primary Care Provider: Garrett Corrales Chi Consulting Providers: Td Brown ; Emeterio Cabrera Discharge Orders/Prescriptions Prescriptions: No Action lutein 10 mg tablet 10 mg PO DAILY RF: 0 omeprazole 20 MG capsule 20 mg PO DAILY RF: 0 calcium carbonate-vitamin D3 1 TAB tablet 1 tab PO BIDCM RF: 0 celecoxib 200 MG capsule 200 mg PO DAILY RF: 0 ivermectin 3 MG tablet 9 mg PO DAILY RF: 0 doxycycline hyclate 100 MG capsule 100 mg PO BID RF: 0 dexamethasone 6 MG tablet 1 tablet PO DAILY RF: 0 levothyroxine 112 MCG tablet 112 mcg PO DAILY RF: 0 escitalopram oxalate 20 MG tablet 20 mg PO DAILY RF: 0 Referrals: Garrett Corrales Chi, MD [Primary Care Provider] - Disposition Disposition (needs filled in before D/C Order can be placed): Hospice in Medical Facility Discharge Orders: Discharge Patient (Routine); Ordered 12/04/20 Ordered By: Dr. Petrona Montiel Visit Charges Inpatient E&M: [id number] Disch Hosp
== END 2020-12-04 16:45 | disposition hospice, inpatient (51) | DRG 871 ==
LOC: ED 18:41 → ICU 23:03
PROVIDERS: Internal Medicine; Internal Medicine Critical Care Medicine; Internal Medicine Infectious Disease; Admitting Provider Family Medicine; Emergency Provider Emergency Medicine; PCP Family Medicine Geriatric Medicine; Visit Provider Student in an Organized Health Care Education/Training Program
DX: A41.89 Other specified sepsis (principal); J12.82 Pneumonia due to coronavirus disease 2019; J96.01 Acute respiratory failure with hypoxia; U07.1 COVID-19; E87.1 Hypo-osmolality and hyponatremia; R65.20 Severe sepsis without septic shock; R53.81 Other malaise; E87.6 Hypokalemia; E03.9 Hypothyroidism, unspecified; T38.0X5A Adverse effect of glucocorticoids and synthetic analogues, initial encounter; E11.65 Type 2 diabetes mellitus with hyperglycemia; Y92.9 Unspecified place or not applicable; E78.2 Mixed hyperlipidemia; R29.6 Repeated falls; E86.1 Hypovolemia; M41.26 Other idiopathic scoliosis, lumbar region; F32.9 Major depressive disorder, single episode, unspecified; I10 Essential (primary) hypertension; K21.9 Gastro-esophageal reflux disease without esophagitis; Z66 Do not resuscitate; M81.0 Age-related osteoporosis without current pathological fracture; Z79.4 Long term (current) use of insulin; Z79.899 Other long term (current) drug therapy
CPT/HCPCS: 71045; 71275; 80048; 80053; 80076; 82962; 83605; 83735; 83880; 84075; 84100; 84145; 85025; 85027; 85379; 87040; 87070; 87077; 87186; 87205; 87426; 87641; 93005; 94003; 94640; 94660; 94667; 94668; 97110; 97162; 97166; 97530; 97535; 97803; 99285; J7030; J7040; J7050; Q9967; A4216; J1940; J3490